=== PATIENT | female | born 1960 | race Caucasian/White ===

== ENCOUNTER 2019-06-02 11:30 | Outpatient (CLI) | payer OTHER ==
[~2019-06-02] VITALS: Ht 154.9 cm; Wt 72.6 kg
[2019-06-02] MEDS ORDERED: AMIT75TA2 PO (11:55)
[2019-06-02] MEDS ORDERED: CLON0.1T PO (11:55)
[2019-06-02] MEDS ORDERED: VENL150T PO (11:55)
== END 2019-06-02 12:29 | disposition home or self-care (01) ==
LOC: PREOP 11:30
PROVIDERS: ATTEND Surgery
DX: Z01.818 Encounter for other preprocedural examination (principal)

== ENCOUNTER 2019-06-07 10:26 | Day surgery (SDC) | payer OTHER ==
[2019-06-07] VITALS (10 sets, daily range): BP systolic 105–173; BP diastolic 72–96
[~2019-06-07] VITALS: Ht 154.9 cm; Wt 72.6 kg
[~2019-06-07 10:26] MED LIST: AMIT75TA2 PO; CLON0.1T PO; LACTATED RINGERS 1,000 ML IV ONE; VENL150T PO
[2019-06-07] MEDS ORDERED: LACTATED RINGERS 1,000 ML IV STA (10:37)
[2019-06-07] MEDS ORDERED: HURRICAINE EXT TUBE (BENZOCAINE) XX PRN (10:45)
--- NOTE | 2019-06-07 11:11 | Progress Note-Pre Operative ---
Pre-Operative Progress Note H&P Reviewed The H&P was reviewed, patient examined and no changes noted. Time Seen by Provider: 11:08 Date H&P Reviewed: Jun 07, 2019 Time H&P Reviewed: 11:07 Pre-Operative Diagnosis: Dysphagia, Hx of polyps LEE ANN KILLIAN DO Jun 07, 2019 11:10
[2019-06-07] MEDS ORDERED: PROPOFOL INJECTION 50 ML IV ONE ×2 (12:13→12:31)
[2019-06-07] MEDS ORDERED: MIDAZOLAM 2 MG/2 ML (VERSED) VIAL ONE (12:13)
[2019-06-07] MEDS ORDERED: HURRICAINE EXT TUBE (BENZOCAINE) ONE (12:31)
--- NOTE | 2019-06-07 12:46 | Anesthesia-General Post-Op ---
MAC Patient Condition Mental Status/LOC: Same as Preop Cardiovascular: Satisfactory Nausea/Vomiting: Absent Respiratory: Satisfactory Pain: Controlled Complications: Absent Post Op Complications Complications None Follow Up Care/Instructions Patient Instructions None needed. Anesthesiology Discharge Order Discharge Order Patient is doing well, no complaints, stable vital signs, no apparent adverse anesthesia problems. No complications reported per nursing. SOPHIA YEBOAH CRNA Jun 07, 2019 12:46
--- NOTE | 2019-06-07 12:55 | Progress Note-Post Operative ---
Post-Operative Progess Note Surgeon (s)/First Dyer (s) Surgeon LEE ANN KILLINA DO First [place]yer: none Pre-Operative Diagnosis Dysphagia, Hx of polyps Post-Operative Diagnosis Gastritis Esophageal Ulcer polyp internal hemorrhoids poor prep Procedure & Operative Findings Date of Procedure 06/07/19 Procedure Performed/Findings EGD with bx Colon with hot bx Anesthesia Type IV sedation by HOSPICE ENTRANCE ATTENDANT Estimated Blood Loss Estimated blood loss (mL): scant Specimens/Packing Specimens Removed antal bx GE jxn bx mid esophageal bx ascending colon bx LEE ANN KILLIAN DO Jun 07, 2019 12:55
--- NOTE | 2019-06-07 12:57 | Endoscopy Discharge Instruct ---
Endo Procedure/Findings Findings 1.: Gastritis, Other Findings (?esophageal ulcer) 2.: Polyp 3.: Internal Hemorrhoids Discharge Instructions - Activity: You might feel a little sleepy until tomorrow. This is due to the medicine you received to relax you. Until tomorrow, you should: NOT drive a car, operate machinery or power tools. NOT drink any alcoholic beverages. NOT make any important decisions or sign importortant papers. Do not return to work until tomorrow, unless otherwise instructed. Resume previous activities tomorrow. Diet: Start by taking liquids. If you tolerate liquids, advance to solid food. make an appointment for one week 1.: Colonoscopy in 1 year, EGD in 6-8 weeks Notify Physician - If you experience excessive bleeding, unusual abdominal pain, fever, or chest pain, contact your doctor immediately. LEE ANN KILLIAN DO Jun 07, 2019 12:57
--- NOTE | 2019-06-08 02:19 | OPERATIVE REPORT ---
DATE OF SERVICE: 06/07/2019 PREOPERATIVE DIAGNOSES: 1. Dysphagia. 2. Personal history of colon polyps. POSTOPERATIVE DIAGNOSES: 1. Gastritis. 2. Esophageal ulcer. 3. Colon polyp. 4. Internal hemorrhoids. 5. Poor prep. PROCEDURES: 1. EGD with biopsy. 2. Colonoscopy with hot biopsy. SURGEON: Chris Taveras DO HOGSHEAD HEAD MATCHER: None. ANESTHESIA: IV sedation by the LITERACY COORDINATOR. SPECIMEN: Biopsy from the antrum, biopsy from the GE junction and mid esophageal biopsy, as well as then hot biopsy of a polyp from the ascending colon. BLOOD LOSS: Scant. FLUIDS: Per anesthesia. POSTOPERATIVE CONDITION: Stable. INDICATION FOR PROCEDURE: The patient is a 58-year-old female who had some dysphagia, complains of food getting stuck in the esophagus. She also has a personal history of colon polyps and has not had a colonoscopy in over 8 years, needed one for surveillance. FINDINGS: The patient had some gastritis. She also had what looked like an esophageal ulcer. In the colon, she had a polyp in the ascending colon and some internal hemorrhoids, but she also had very poor prep, so could not clear the entire colon. PROCEDURE NOTE: After informed consent was obtained, the patient was brought to the endoscopy suite and placed in the left lateral decubitus position. She was administered IV sedation by the LITERACY COORDINATOR who then monitored her vitals the entire time, heart rate, blood pressure and pulse ox. Inserted the scope down the mouth through the esophagus into the stomach. Upon entering the stomach, noted some gastritis, pushed into the duodenum. Duodenum looked fine. Pulled back into the antrum, did a biopsy of the antrum. Retroflexed the scope, body of the stomach did not really look that bad. Pulled the scope into the GE junction, did a biopsy of the GE junction. Suctioned the air out and then while pulling the scope up the esophagus saw what looked like a long linear ulcer in the mid esophagus. Elected to do a biopsy here as well and then pulled the scope up the esophagus and out the mouth. Switched camera, switched gloves, went down below, started the colonoscopy. Pushed all the way to about 150 cm, able to get to the cecum, took a picture of appendiceal orifice, noted the ileocecal valve. Unfortunately, there was a lot of retained fecal material, so could not clear all the espinosa. Pulled the scope up the cecum into the ascending colon, in the ascending colon saw small polyp, did a hot biopsy and took this polyp completely out and 2 biopsies and then continued pulling the scope up to the hepatic flexure, then down the transverse colon, splenic flexure, into the descending colon then down the sigmoid and finally into the rectum. Unfortunately, again all throughout here had a lot of retained fecal material mostly liquid, but did have some large pieces could not suction it all out. In the rectum, retroflexed the rectal vault, saw some minimal internal hemorrhoids and then removed the scope. The patient tolerated the procedure, recovered in endoscopy suite. Job ID: [id number] DocumentID: [id number] Dictated Date: 06/07/2019 17:00:58 Underground Distribution Engineer Date: 06/08/2019 01:14:03 Dictated By: CHRIS TAVERAS DO
== END 2019-06-07 14:00 | disposition home or self-care (01) ==
LOC: ENDO 10:26
PROVIDERS: ATTEND Surgery
DX: K29.50 Unspecified chronic gastritis without bleeding (principal); K20.9 Esophagitis, unspecified; D12.2 Benign neoplasm of ascending colon; K64.8 Other hemorrhoids; M19.90 Unspecified osteoarthritis, unspecified site; F41.8 Other specified anxiety disorders; Z87.891 Personal history of nicotine dependence; Z79.899 Other long term (current) drug therapy

== ENCOUNTER → 2019-07-19 | Outpatient (CLI) | payer MEDICAID, OTHER ==
[~2019-07-19] MED LIST changes: +BARIUM SUSPENSION 105% (LIQUID POLIBAR PLUS) 240 ML/DOSE PO ONE; +BARIUM SUSPENSION 60% (LIQUID EZ PAQUE) 240 ML DOSE PO ONE; -LACTATED RINGERS 1,000 ML IV ONE
--- NOTE | 2019-07-19 12:30 | Diagnostic Imaging Report ---
INDICATION: Dysphagia. FINDINGS: A double contrast esophagram was performed. The preliminary radiograph demonstrates clear lungs. The heart size is normal. The esophageal motility was assessed fluoroscopically. There are no intrinsic or extrinsic esophageal masses. There is satisfactory efficacy of the primary peristaltic wave. The esophageal mucosa is unremarkable. There was no significant gastroesophageal reflux appreciated despite evocative maneuvers. IMPRESSION: Unremarkable double contrast esophagram. Dictated by: Dictated on workstation # [id number]
== END ==
LOC: RAD 10:49
PROVIDERS: ATTEND Family Medicine
DX: K20.9 Esophagitis, unspecified (principal)
CPT/HCPCS: 74220

== ENCOUNTER → 2019-08-04 | Outpatient (CLI) | payer OTHER ==
[~2019-08-04] MED LIST changes: -BARIUM SUSPENSION 105% (LIQUID POLIBAR PLUS) 240 ML/DOSE PO ONE; -BARIUM SUSPENSION 60% (LIQUID EZ PAQUE) 240 ML DOSE PO ONE
[2019-08-04 13:17] LABS: ALANINE AMINOTRANSFERASE 11 U/L (0-55); ALBUMIN 4.4 GM/DL (3.2-4.5); ALKALINE PHOSPHATASE 117 U/L (40-136); BILIRUBIN,TOTAL 0.2 MG/DL (0.1-1.0); BUN/CREATININE RATIO 16; CALCIUM 10.4 MG/DL (8.5-10.1); CARBON DIOXIDE 28 MMOL/L (21-32); CHLORIDE 97 MMOL/L (98-107); CREATININE SERUM 0.79 MG/DL (0.60-1.30); GFR ESTIMATED > 60; GLUCOSE 73 MG/DL (70-105); POTASSIUM 4.2 MMOL/L (3.6-5.0); SODIUM 138 MMOL/L (135-145); TOTAL PROTEIN 8.5 GM/DL (6.4-8.2)
[2019-08-04 13:30] LABS: WHITE BLOOD COUNT 9.3 10^3/uL (4.3-11.0)
[2019-08-04 13:31] LABS: HEMOGLOBIN 12.6 G/DL (11.5-16.0); MEAN PLATELET VOLUME 8.6 FL (7.4-10.4); RED CELL DISTRIBUTION WIDTH 16.3 % (10.0-14.5)
== END ==
LOC: LAB FS 11:45
DX: R20.0 Anesthesia of skin (principal); W19.XXXA Unspecified fall, initial encounter
CPT/HCPCS: 36415; 80053; 82525; 82607; 83036; 83921; 85027; 85652; 86334; 86618

== ENCOUNTER 2019-08-30 05:52 | Outpatient (CLI) | payer OTHER ==
[~2019-08-30] VITALS: Ht 154.9 cm; Wt 73.2 kg
== END 2019-08-30 14:56 ==
LOC: PREOP 05:52
PROVIDERS: ATTEND Surgery
DX: Z01.818 Encounter for other preprocedural examination (principal)

== ENCOUNTER 2019-09-03 16:21 | Emergency (ER) | payer OTHER ==
[~2019-09-03] VITALS: Ht 155.8 cm; Wt 75.4 kg
--- NOTE | 2019-09-03 16:48 | ED EENT ---
History of Present Illness General Chief Complaint: Dental Problems/Pain Stated Complaint: MOUTH PAIN History of Present Illness Date Seen by Provider: Sep 03, 2019 Time Seen by Provider: 16:30 Initial Comments The patient is a 58-year-old female who presents for evaluation of dental discomfort in association with an impacted right mandibular wisdom tooth. No fevers, nausea or vomiting, trismus, swelling or pain to the floor the mouth or elevation of the tongue, difficulty swallowing or breathing, shortness of breath. Patient is speaking comfortably in full sentences in no distress upon initial assessment in the emergency department. She states discomfort has been going on for about a month but has gotten quite a bit worse recently. She states she has been told she will need an oral surgeon to fix this problem but has not been able to afford one. Allergies and Home Medications Allergies Coded Allergies: No Known Drug Allergies (Unverified , 06/02/19) Home Medications Amitriptyline HCl 75 Mg Tablet, 300 MG PO HS, (Reported) take 4 (75mg) tabs Clonidine HCl 0.1 Mg Tablet, 0.1 MG PO QID PRN for ANXIETY, (Reported) Venlafaxine HCl 150 Mg Tab.er.24, 150 MG PO BID, (Reported) Patient Home Medication List Home Medication List Reviewed: Yes Review of Systems Review of Systems Constitutional: see HPI All Other Systems Reviewed Negative Unless Noted: Yes (Negative excepted noted.) Past Tdvtjzy-Unlivg-Opjwvg Hx Past Med/Social Hx: Reviewed Nursing Past Med/Soc Hx Patient Social History Former Smoker, Quit: Jun 02, 2011 Recent Foreign Travel: No Contact w/Someone Who Travel: No Recent Hopitalizations: No Seasonal Allergies Seasonal Allergies: Yes Past Medical History Surgeries: Yes (tubal , hernia) Gallbladder Respiratory: No Cardiac: No Neurological: No Genitourinary: No Gastrointestinal: Yes (gastritis) Polyps Musculoskeletal: No Endocrine: No HEENT: No Cancer: No Psychosocial: Yes Sleep Difficulties, Anxiety Integumentary: No Blood Disorders: No Family Medical History Reviewed Nursing Family Hx Physical Exam Vital Signs Vital Signs - First Documented 09/03/19 16:28 Temp 36.0 Pulse 104 Resp 20 B/P (MAP) 154/97 (116) Pulse Ox 99 O2 Delivery Room Air Height, Weight, BMI Height: '" Weight: lbs. oz. kg; 30.50 BMI Method: General Appearance: no apparent distress This is an older female appearing nontoxic and in no acute distress. Head is normocephalic and atraumatic. Neck is supple and nontender. Oropharynx is moist. There is an impacted right mandibular molar with very mild surrounding localized erythema without fluctuance suggestive of abscess or any other acute intraoral abnormality. Patient is speaking comfortably in full sentences in a normal tone of voice and tolerating secretions well. Lungs are clear to auscultation at all stations. There is a normal S1 and S2 without rubs or gallops and capillary refill is appropriate, less than 2 seconds globally. Abdomen is soft, nontender and nondistended. Skin is warm and dry without cyanosis, clubbing or edema. Psychiatrically, the patient didn't strays appropri ate mood and affect and is alert. Progress/Results/Core Measures Results/Orders My Orders Orders - SAMUEL ALMONTE MD Ketorolac Injection (Toradol Injection) (09/03/19 17:00) Tramadol Tablet (Ultram Tablet) (09/03/19 17:00) Vital Signs/I&O 09/03/19 16:28 Temp 36.0 Pulse 104 Resp 20 B/P (MAP) 154/97 (116) Pulse Ox 99 O2 Delivery Room Air Progress Progress Note : Time: 16:46 Progress Note No red flags for dental pain today. We'll treat symptomatically as noted and will prescribe penicillin and some medication for discomfort. Patient is counseled to follow up very closely with a dentist and to try to get in with an oral surgeon as already encouraged to do. She understands that if she feels worse is that of better or develops other new symptoms of concern that she should return to the emergency department right away for reevaluation. All questions are answered. Departure Impression Primary Impression: Impacted molar Disposition: HOME, SELF-CARE Condition: Improved Departure-Patient Inst. Referrals: SELF,BENNY ABBOTT (PCP/Family) Primary Care Physician Patient Instructions: Dental Pain Add. Discharge Instructions: Use the medication as prescribed. Follow up closely with your dentist and see the oral surgeon as instructed for treatment of your impacted wisdom tooth. Return right away for worsened symptoms or other new concerns. SAMUEL ALMONTE MD Sep 03, 2019 16:48
[2019-09-03] MEDS ORDERED: MORPHINE IR PO (16:53)
[2019-09-03] MEDS ORDERED: IBUP-1780 PO (16:53)
[2019-09-03] MEDS ORDERED: PENI250T2 PO (16:53)
[2019-09-03] MEDS ORDERED: KETOROLAC 60 MG/2 ML VIAL IM ONE (17:00)
[2019-09-03 17:05] VITALS: BP 135/87
--- NOTE | 2019-09-03 17:05 | NUR ---
Staff members went to [facility] to talk with their pharmacy as pt with no money after [employer] shopping and needs to get antibiotic as priority, then Ibuprofen and followed by Morphine as 3rd in importance. Pt will go to [facility] Pharmacy as referral was made and they will discuss what she can charge.
== END 2019-09-03 17:05 | disposition home or self-care (01) ==
LOC: EDUNIT# 16:21 → ER FS 16:22
DX: K01.1 Impacted teeth (principal); F41.9 Anxiety disorder, unspecified; Z87.891 Personal history of nicotine dependence
CPT/HCPCS: 96372; 99284

== ENCOUNTER 2019-09-06 06:55 | Inpatient (IN) | payer OTHER ==
[~2019-09-06] VITALS: Ht 154.9 cm; Wt 78.0 kg
[2019-09-06] VITALS (7 sets, daily range): BP systolic 108–121; BP diastolic 64–76
[~2019-09-06 06:55] MED LIST changes: +IBUP-1780 PO; +MORPHINE IR PO; +PENI250T2 PO
[2019-09-06] MEDS ORDERED: LACTATED RINGERS 1,000 ML IV ONE (07:00)
[2019-09-06] MEDS ORDERED: RT-LEVALBUTEROL (XOPENEX) 1.25 MG/3 ML NEB NON-FORMULARY ONE (07:43)
[2019-09-06] MEDS ORDERED: RT-ALBUTEROL SULF 2.5 MG/3 ML PRE-MIX VIAL INH PRN ×2 (07:45→17:00)
[2019-09-06] MEDS ORDERED: LACTATED RINGERS 1,000 ML IV STA (07:50)
[2019-09-06] MEDS ORDERED: HURRICAINE EXT TUBE (BENZOCAINE) XX PRN (08:00)
--- NOTE | 2019-09-06 08:05 | Progress Note-Pre Operative ---
Pre-Operative Progress Note H&P Reviewed The H&P was reviewed, patient examined and no changes noted. Time Seen by Provider: 07:57 Date H&P Reviewed: Sep 06, 2019 Time H&P Reviewed: 07:58 Pre-Operative Diagnosis: Chronic Gastritis LEE ANN KILLIAN DO Sep 06, 2019 08:05
[2019-09-06] MEDS ORDERED: PIPERACILLIN/TAZOBACTAM (BULK) 4.5 GM in NS (IVPB) 100 ML IV NR (09:45)
--- NOTE | 2019-09-06 09:55 | NUR ---
REPORT RECEIVED FROM EVANGELINA PALOMO.
--- NOTE | 2019-09-06 10:15 | NUR ---
DANIELLE STONE admitted to room , with an admitting diagnosis of SEPSIS DUE TO PNE, on 09/06/19 from ENDO via STRETCHER, accompanied by STAFF. DANIELLE STONE introduced to surroundings, call light, bed controls, phone, TV, temperature control, lights, meal times, smoking policy, visitor policy, side rail policy, bathrooms and showers. Patient Rights given to patient in the handbook. DANIELLE STONE verbalizes understanding that [facility] is not responsible for the loss or damage to any personal effects or valuables that are kept in the patients possession during their hospitalization. DANIELLE STONE verbalizes understanding of Interdisciplinary Patient Education. Patient WAS informed about the Rapid Response Team and its purpose.
[2019-09-06 10:23] LABS: BASOPHILS % (AUTO) 0 % (0-10); EOSINOPHILS # (AUTO) 0.1 10^3/uL (0.0-0.3); EOSINOPHILS % (AUTO) 1 % (0-10); HEMATOCRIT 31 % (35-52); HEMOGLOBIN 9.7 G/DL (11.5-16.0); LYMPHOCYTES # (AUTO) 0.9 X 10^3 (1.0-4.0); LYMPHOCYTES % (AUTO) 6 % (12-44); MEAN CORPUSCULAR HEMOGLOBIN 25 PG (25-34); MEAN CORPUSCULAR HGB CONC 31 G/DL (32-36); MEAN CORPUSCULAR VOLUME 82 FL (80-99); MEAN PLATELET VOLUME 8.8 FL (7.4-10.4); MONOCYTES # (AUTO) 0.8 X 10^3 (0.0-1.0); MONOCYTES % (AUTO) 5 % (0-12); NEUTROPHILS # (AUTO) 13.2 X 10^3 (1.8-7.8); NEUTROPHILS % (AUTO) 88 % (42-75); PLATELET COUNT 296 10^3/uL (130-400); RED CELL DISTRIBUTION WIDTH 16.5 % (10.0-14.5)
[2019-09-06 10:46] LABS: ALANINE AMINOTRANSFERASE 19 U/L (0-55); ALBUMIN 3.8 GM/DL (3.2-4.5); ALKALINE PHOSPHATASE 85 U/L (40-136); BILIRUBIN,TOTAL 0.3 MG/DL (0.1-1.0); BUN/CREATININE RATIO 15; CALCIUM 9.1 MG/DL (8.5-10.1); CARBON DIOXIDE 22 MMOL/L (21-32); CHLORIDE 105 MMOL/L (98-107); CREATININE SERUM 0.78 MG/DL (0.60-1.30); GFR ESTIMATED > 60; GLUCOSE 110 MG/DL (70-105); SODIUM 136 MMOL/L (135-145); TOTAL PROTEIN 6.9 GM/DL (6.4-8.2)
[2019-09-06 10:49] LABS: ANISOCYTOSIS SLIGHT; BAND NEUTROPHILS 15 %; BASOPHILS % (MANUAL) 0 %; EOSINOPHILS % (MANUAL) 0 %; LYMPHOCYTES % (MANUAL) 5 %; MONOCYTES % (MANUAL) 1 %; NEUTROPHILS % (MANUAL) 79 %
--- NOTE | 2019-09-06 11:46 | Progress Note ---
Standard Progress Note Progress Notes/Assess & Plan Date Seen by a Provider: Sep 06, 2019 Time Seen by a Provider: 07:30 Progress/Assessment & Plan Patient arrived to endoscopy around 0700 for her EGD. She was SOB while walking to her room and even after sitting on the bed. History obtained and VS taken. SaO2 84-86%, HR 108, no fever noted on initial check. The patient was placed on O2 at 2L/NC and while at rest, her SaO2 runs 94-96%. Patient reports that she doesn't follow with a brownfield redevelopment specialist or park manager; however, she experiences chest pain and SOB, FORRESTER. Her PCP is Dr. Arzola in [place]. She takes medications for hypertension and depression/anxiety. She states she uses her 's inhaler (later found out to be Pro Air). Xopenex breathing treatment and EKG ordered. The patient's was brought to her room to assist with obtaining history. The patient then states that she has been running a fever for a couple days. I rechecked a temperature with a tympanic thermometer and it was 101.6 on recheck. The patient then stated she was seen in [place]'s ER with a fever and possible infected tooth approximately 2 days ago. She was given an oral antibiotic to take every 6 hours and sent home. The patient was unsure what the name of the antibiotic was and she doesn't think they took a chest x-ray at that time. The patient states she has had pneumonia 4-5 times in the past two years, each time, requiring hospitalization up to 1 week (in [place]). The patient denies ever being on the ventilator for pneumonia. Dr. Taveras ordered a chest x-ray. Chest x-ray results showed right upper and lower lobe pneumonia, reported to me by Dr. Medellin himself. I reported this to Dr. Taveras who then ordered a consult with Dr. Cummings. We attempted to wean the patient off of O2 in case she were to go home and follow with her PCP on outpatient basis, but she was unable to maintain SaO2 > 90% without O2. I called Dr. Cummings directly and gave him the patient's history. Orders were obtained for a direct admit to [facility], labs, and Zosyn IV q 8 hours. Brim Buster was called with a room number of 405. COLUMBA Rowe was called with a full report. Focused Exam Lactate Level 09/06/19 10:10: Lactic Acid Level 1.53 Lactic Acid Level Laboratory Tests Test 09/06/19 10:10 Lactic Acid Level 1.53 MMOL/L (0.50-2.00) DEWEY RICHARDS CRNA Sep 06, 2019 11:46
[2019-09-06] MEDS ORDERED: ONDANSETRON 4 MG (ZOFRAN) ORAL DISSOLVE TAB PO PRN (12:45)
[2019-09-06] MEDS ORDERED: BISACODYL 10 MG SUPP (DULCOLAX) PR PRN (12:45)
[2019-09-06] MEDS ORDERED: MILK OF MAGNESIA 400 MG/5 ML 30 ML UDC PO PRN (12:45)
[2019-09-06] MEDS ORDERED: POLYETHYLENE GLYCOL 17 GM (MIRALAX) PACK PO PRN (12:45)
[2019-09-06] MEDS ORDERED: ACETAMINOPHEN 325 MG TABLET PO PRN (12:45)
[2019-09-06] MEDS ORDERED: MELATONIN 3 MG TABLET PO PRN (12:45)
[2019-09-06] MEDS ORDERED: ANTACID SUSP 30 ML UDC (MYLANTA) PO PRN (12:45)
[2019-09-06] MEDS ORDERED: ONDANSETRON 4 MG/2 ML (SDV) Z0FRAN IV PRN (12:45)
[2019-09-06] MEDS ORDERED: LACTATED RINGERS IV PRN (12:45)
[2019-09-06] MEDS ORDERED: diphenhydrAMINE 25 MG TAB (BENADRYL) PO PRN (13:00)
[2019-09-06] MEDS: LACTATED RINGERS 1,000 ML IV SCH ×2 (13:27→22:04)
[2019-09-06] MEDS: ENOXAPARIN 40 MG/0.4 ML (LOVENOX) SYR SC SCH (13:48)
--- NOTE | 2019-09-06 14:22 | History & Physical-Hospitalist ---
History of Present Illness HPI/Chief Complaint Regina Temple is a 58yoF with PMH depression, anxiety, GERD, former smoker, who presented from same day surgery for an upper endoscopy and directly admitted for sepsis due to pneumonia. She had an upper endoscopy about a month ago which revealed gastritis and she arrived today for repeat endoscopy. She reports that she has been feeling sick for several days. She reports fevers. She has also been feeling short of breath which has been worsening with minimal exertion. She reports cough productive of phlegm. She denies chest pain. She denies nausea, vomiting, abdominal pain, and diarrhea. Source: patient Exam Limitations: no limitations Date Seen 09/06/19 Time Seen by a Provider: 12:00 Attending Physician Chris Taveras DO PCP Self,Nick ABBOTT Referring Physician Date of Admission Home Medications & Allergies Home Medications Reviewed patient Home Medication Reconciliation performed by pharmacy medication reconciliations isotope technician and/or nursing. Patients Allergies have been reviewed. Allergies Allergies Coded Allergies No Known Drug Allergies (Unverified06/02/19) Past Atikemw-Ormgoc-Unleaq Hx Past Med/Social Hx: Reviewed Nursing Past Med/Soc Hx Patient Social History Alcohol Use: Denies Use Recreational Drug Use: No Smoking Status: Former Smoker Former Smoker, Quit: Jun 02, 2011 Physical Abuse Screen: No Sexual Abuse: No Recent Foreign Travel: No Contact w/other who traveled: No Recent Hopitalizations: No Recent Infectious Disease Expo: No Immunizations Up To Date Date of Pneumonia Vaccine: Aug 15, 2016 Seasonal Allergies Seasonal Allergies: Yes Past Medical History Surgeries: Gallbladder Cardiac: High Cholesterol Gastrointestinal: Gastroesophageal Reflux, Polyps Psychosocial: Sleep Difficulties, Anxiety, Bipolar, Depression History of Blood Disorders: No Family History Bipolar disorder G8 BROTHER G8 SISTER Hypertension 19 MOTHER, Review of Systems Constitutional: fever, malaise EENTM: no symptoms reported Respiratory: cough, dyspnea on exertion, phlegm, short of breath Cardiovascular: no symptoms reported Gastrointestinal: no symptoms reported Genitourinary: no symptoms reported Musculoskeletal: no symptoms reported Skin: no symptoms reported Psychiatric/Neurological: No Symptoms Reported Physical Exam Physical Exam Vital Signs Vital Signs - First Documented 09/06/19 09/06/19 07:52 08:01 Temp 37.2 Pulse 108 Resp 20 B/P (MAP) 111/67 (82) Pulse Ox 88 O2 Delivery Room Air O2 Flow Rate 4.00 Capillary Refill : Height, Weight, BMI Height: '" Weight: lbs. oz. kg; 31.34 BMI Method: General Appearance: No Apparent Distress, WD/WN HEENT: PERRL/EOMI, Pharynx Normal Neck: Normal Inspection, Supple Respiratory: No Accessory Muscle Use, No Respiratory Distress, Decreased Breath Sounds, Wheezing Cardiovascular: Regular Rate, Rhythm, No Edema, No Murmur Gastrointestinal: Normal Bowel Sounds, Non Tender, Soft Extremity: Non Tender, Other (bilateral ankle masses on the anterior, proximal portion of the ankle/foot) Neurologic/Psychiatric: Alert, Oriented x3, No Motor/Sensory Deficits, Normal Mood/Affect Skin: Normal Color, Warm/Dry Lymphatic: No Adenopathy Results Results/Procedures Labs Laboratory Tests 09/06/19 10:10 Patient resulted labs reviewed. Imaging: Reviewed Imaging Films, Reviewed Imaging Report Assessment/Plan Admission Diagnosis Sepsis due to pneumonia Admission Status: Inpatient Order (span 2 midnights) Reason for Inpatient Admission: Sepsis and CAP requiring IV antibiotics Assessment and Plan Acute respiratory failure with hypoxia Multifocal pneumonia - SIRS+ with fever, tachypnea, tachycardia, and leukocytosis - CXR with multifocal pneumonia - Started on Zosyn - Given fluid bolus, continue maintenance fluids - Blood cultures drawn - MAT protocol ordered GERD Gastritis - Pantoprazole DVT Prophylaxis: Lovenox Diagnosis/Problems Diagnosis/Problems (1) Sepsis due to pneumonia Status: Acute Clinical Quality Measures DVT/VTE Risk/Contraindication: Risk Factor Score Per Nursin RFS Level Per Nursing on Admit: 4+=Very High VALENTINO DECKER MD Sep 06, 2019 14:22
[2019-09-06] MEDS: PIPERACILLIN/TAZOBACTAM (BULK) 4.5 GM in NS (IVPB) 100 ML IV SCH ×2 (15:07→23:56)
--- NOTE | 2019-09-06 15:36 | Diagnostic Imaging Report ---
INDICATION: Fever and hypoxia. Time of exam: 8:45 AM Correlation is made with prior chest from 07/19/2019. Heart size normal. Airspace infiltrate is identified in the right upper and right lower lobe most consistent with pneumonia. This is greatest in the right base. There is minimal patchy infiltrate left base. No effusion is seen. There is no pneumothorax. IMPRESSION: Bilateral pulmonary infiltrates, right greater and most consistent with pneumonia. Dictated by: Dictated on workstation # [id number]
[2019-09-06] MEDS ORDERED: cloNIDine 0.1 MG (CATAPRES) TAB PO PRN (17:45)
[2019-09-06] MEDS: RT-ALBUTEROL/IPRATROPIUM 3 ML (DUONEB) VIAL INH SCH ×2 (19:37→21:28)
[2019-09-06] MEDS: DOCUSATE SODIUM 100 MG (COLACE) CAP PO SCH (20:48)
[2019-09-06] MEDS: SENNOSIDES 8.6 MG (SENOKOT) TAB PO SCH (20:48)
[2019-09-06] MEDS: PANTOPRAZOLE 40 MG (PROTONIX) TAB PO SCH (20:48)
[2019-09-06] MEDS ORDERED: NON-FORMULARY MEDICATION 1 EA EA (Venlafaxine HCl (Venlafaxine HCl ER) 150 MG) PO SCH (21:00)
[2019-09-06] MEDS ORDERED: AMITRIPTYLINE 150 MG (ELAVIL) TABLET PO SCH (21:00)
[2019-09-06] MEDS ORDERED: AMITRIPTYLINE HCL PO SCH (21:00)
[2019-09-07] MEDS: RT-ALBUTEROL/IPRATROPIUM 3 ML (DUONEB) VIAL INH SCH ×6 (01:44→21:33)
[2019-09-07 04:50] VITALS: BP 97/65
[2019-09-07 06:09] LABS: BASOPHILS % (AUTO) 0 % (0-10); EOSINOPHILS # (AUTO) 0.4 10^3/uL (0.0-0.3); EOSINOPHILS % (AUTO) 3 % (0-10); HEMATOCRIT 29 % (35-52); HEMOGLOBIN 8.8 G/DL (11.5-16.0); LYMPHOCYTES # (AUTO) 2.1 X 10^3 (1.0-4.0); LYMPHOCYTES % (AUTO) 18 % (12-44); MEAN CORPUSCULAR HEMOGLOBIN 26 PG (25-34); MEAN CORPUSCULAR HGB CONC 31 G/DL (32-36); MEAN CORPUSCULAR VOLUME 83 FL (80-99); MEAN PLATELET VOLUME 8.9 FL (7.4-10.4); MONOCYTES # (AUTO) 0.7 X 10^3 (0.0-1.0); MONOCYTES % (AUTO) 6 % (0-12); NEUTROPHILS # (AUTO) 8.6 X 10^3 (1.8-7.8); NEUTROPHILS % (AUTO) 73 % (42-75); PLATELET COUNT 277 10^3/uL (130-400); RED CELL DISTRIBUTION WIDTH 16.5 % (10.0-14.5); WHITE BLOOD COUNT 11.8 10^3/uL (4.3-11.0)
[2019-09-07] MEDS: VENlafaxine XR 75 MG (EFFEXOR XR) CAP PO SCH ×2 (06:18→16:12)
[2019-09-07 06:29] LABS: BUN/CREATININE RATIO 12; CALCIUM 8.9 MG/DL (8.5-10.1); CARBON DIOXIDE 25 MMOL/L (21-32); CHLORIDE 106 MMOL/L (98-107); CREATININE SERUM 0.74 MG/DL (0.60-1.30); GFR ESTIMATED > 60; GLUCOSE 94 MG/DL (70-105); POTASSIUM 3.6 MMOL/L (3.6-5.0); SODIUM 140 MMOL/L (135-145)
--- NOTE | 2019-09-07 07:07 | NUR ---
SPO2 86% ON ROOM AIR AT REST. REPLACED O2 @ 3 LPM. SPO2 INCREASED TO 96%.
--- NOTE | 2019-09-07 07:54 | Consultation - Surgery ---
CHANTAL JAUREGUI,MED STUDENT 09/07/19 0754: History of Present Illness History of Present Illness Patient Consulted On(maximiliano/time) 09/07/19 07:47 Date Seen by Provider: Sep 07, 2019 Time Seen by Provider: 07:30 Reason for Visit: COPDAE History of Present Illness This 58 y.o female presented to same day surgery yesterday for a repeat EGD for her chronic gastritis. During her evaluation by anesthesia patient was found to be shortness of breath with an O2 saturation of 84%. Per , patient was h aving increased work of breathing. Patient reports that she had not been feeling well for a couple of days before yesterday. Today patient says that she feels a little better but is still SOB on 4L of oxygen. Patient is a poor historian Allergies and Home Medications Allergies Coded Allergies: No Known Drug Allergies (Unverified , 06/02/19) Home Medications Cholecalciferol (Vitamin D3) 2,000 Unit Capsule, 2,000 UNIT PO DAILY, (Reported) Clonazepam 1 Mg Tablet, 1 MG PO BID, (Reported) Ergocalciferol (Vitamin D2) 50,000 Unit Capsule, 50,000 UNIT PO WEEK, (Reported) Ferrous Sulfate 325 Mg Tablet, 325 MG PO DAILY, (Reported) Furosemide 20 Mg Tablet, 20 MG PO twice weekly PRN for swelling, (Reported) Levothyroxine Sodium 25 Mcg Tablet, 25 MCG PO DAILY, (Reported) Venlafaxine HCl 150 Mg Tab.er.24, 150 MG PO BID, (Reported) Past Qlhrqod-Zrgrvu-Nbpguo Hx Patient Social History Alcohol Use: Denies Use Recreational Drug Use: No Smoking Status: Former Smoker (1.5ppd for 20yrs) Former Smoker, Quit: Jun 02, 2011 Type Used: Cigarettes Recent Foreign Travel: No Contact w/Someone Who Travel: No Recent Infectious Disease Expo: No Recent Hopitalizations: No Physical Abuse Screen: No Sexual Abuse: No Immunizations Up To Date Date of Pneumonia Vaccine: Aug 15, 2016 Seasonal Allergies Seasonal Allergies: Yes Surgeries History of Surgeries: Yes (tubal , hernia, bilat carpal tunnel) Surgeries: Gallbladder Respiratory History of Respiratory Disorde: Yes (COPD) Respiratory Disorders: Emphysema Cardiovascular History of Cardiac Disorders: Yes Cardiac Disorders: High Cholesterol Neurological History of Neurological Disord: No Genitourinary History of Genitourinary Disor: No Gastrointestinal History of Gastrointestinal Di: Yes (gastritis) Gastrointestinal Disorders: Gastroesophageal Reflux, Polyps Musculoskeletal History of Musculoskeletal Dis: No Endocrine History of Endocrine Disorders: Yes HEENT History of HEENT Disorders: No Cancer History of Cancer: No Psychosocial History of Psychiatric Problem: Yes Behavioral Health Disorders: Sleep Difficulties, Anxiety, Bipolar, Depression Integumentary History of Skin or Integumenta: No Blood Transfusions History of Blood Disorders: No Family Medical History Family Medial History: Bipolar disorder G8 BROTHER G8 SISTER Hypertension 19 MOTHER, Neoplasm 19 MOTHER, (bladder cancer) Review of Systems-General Constitutional: dizziness, malaise, weakness Respiratory: No cough; dyspnea on exertion; No phlegm; short of breath Cardiovascular: No chest pain, No edema, No Hx of Intervention, No palpitations Gastrointestinal: No RUQ, No LUQ; RLQ, LLQ, abdominal pain; No loss of appetite; nausea; No vomiting Genitourinary: No dysuria, No frequency Musculoskeletal: No muscle pain; muscle stiffness; No muscle weakness Psychiatric/Neurological: Anxiety, Depressed Physical Exam-General Problems Physical Exam Vital Signs Vital Signs - First Documented 09/06/19 09/06/19 09/06/19 07:52 08:01 13:49 Temp 37.2 Pulse 108 Resp 20 B/P (MAP) 111/67 (82) Pulse Ox 88 O2 Delivery Room Air O2 Flow Rate 4.00 FiO2 21 Capillary Refill : General Appearance: WD/WN, no apparent distress, obese HEENT: PERRL/EOMI; No scleral icterus (R), No scleral icterus (L) Neck: non-tender, supple Respiratory: chest non-tender, lungs clear, no respiratory distress, no accessory muscle use, wheezing Cardiovascular: regular rate, rhythm, no edema Peripheral Pulses: 2+ Dorsalis Pedis (R), 2+ Left Dors-Pedis (L), 2+ Radial Pulses (R), 2+ Radial Pulses (L) Gastrointestinal: distended, guarding, tenderness (in the RLQ and LLQ ) Extremities: no pedal edema, no calf tenderness, normal capillary refill Neurologic/Psychiatric: alert, oriented x 3 Skin: normal color, warm/dry Data Review Labs Laboratory Tests 09/06/19 10:10: White Blood Count 15.0H, Red Blood Count 3.82L, Hemoglobin 9.7L, Hematocrit 31L, Mean Corpuscular Volume 82, Mean Corpuscular Hemoglobin 25, Mean Corpuscular Hemoglobin Concent 31L, Red Cell Distribution Width 16.5H, Platelet Count 296, Mean Platelet Volume 8.8, Neutrophils (%) (Auto) 88H, Lymphocytes (%) (Auto) 6L, Monocytes (%) (Auto) 5, Eosinophils (%) (Auto) 1, Basophils (%) (Auto) 0, Neutrophils # (Auto) 13.2H, Lymphocytes # (Auto) 0.9L, Monocytes # (Auto) 0.8, Eosinophils # (Auto) 0.1, Basophils # (Auto) 0.0, Neutrophils % (Manual) 79, Lymphocytes % (Manual) 5, Monocytes % (Manual) 1, Eosinophils % (Manual) 0, Basophils % (Manual) 0, Band Neutrophils 15, Anisocytosis SLIGHT, Sodium Level 136, Potassium Level 4.0, Chloride Level 105, Carbon Dioxide Level 22, Anion Gap 9, Blood Urea Nitrogen 12, Creatinine 0.78, Estimat Glomerular Filtration Rate > 60, BUN/Creatinine Ratio 15, Glucose Level 110H, Lactic Acid Level 1.53, Calcium Level 9.1, Corrected Calcium 9.3, Total Bilirubin 0.3, Aspartate Amino Transf (AST/SGOT) 21, Alanine Aminotransferase (ALT/SGPT) 19, Alkaline Phosphatase 85, Total Protein 6.9, Albumin 3.8, Procalcitonin 0.67H 09/07/19 05:45: White Blood Count 11.8H, Red Blood Count 3.43L, Hemoglobin 8.8L, Hematocrit 29L, Mean Corpuscular Volume 83, Mean Corpuscular Hemoglobin 26, Mean Corpuscular Hemoglobin Concent 31L, Red Cell Distribution Width 16.5H, Platelet Count 277, Mean Platelet Volume 8.9, Neutrophils (%) (Auto) 73, Lymphocytes (%) (Auto) 18, Monocytes (%) (Auto) 6, Eosinophils (%) (Auto) 3, Basophils (%) (Auto) 0, Neutrophils # (Auto) 8.6H, Lymphocytes # (Auto) 2.1, Monocytes # (Auto) 0.7, Eosinophils # (Auto) 0.4H, Basophils # (Auto) 0.0, Sodium Level 140, Potassium L evel 3.6, Chloride Level 106, Carbon Dioxide Level 25, Anion Gap 9, Blood Urea Nitrogen 9, Creatinine 0.74, Estimat Glomerular Filtration Rate > 60, BUN/Creatinine Ratio 12, Glucose Level 94, Calcium Level 8.9 Assessment/Plan Assessment/Plan Assessment/Plan COPDAE chronic gastritis The patient's problems at this time are primarily pulmonary. Continue breathing treatments and abx. EGD for chronic gastritis can be preformed at a later date. Will continue to monitor Clinical Quality Measures DVT/VTE Risk/Contraindication: Risk Factor Score Per Nursin RFS Level Per Nursing on Admit: 4+=Very High CHRIS TAVERAS DO 09/07/19 1501: History of Present Illness History of Present Illness Time Seen by Provider: 11:56 History of Present Illness Pt was supposed to have EGD, but she was found to have pneumonia and admitted to Hospitalist service. She states she is doing better today, still some trouble breathing. Rare abdominal pain. Allergies and Home Medications Allergies Coded Allergies: No Known Drug Allergies (Unverified , 06/02/19) Home Medications Cholecalciferol (Vitamin D3) 2,000 Unit Capsule, 2,000 UNIT PO DAILY, (Reported) Clonazepam 1 Mg Tablet, 1 MG PO BID, (Reported) Ergocalciferol (Vitamin D2) 50,000 Unit Capsule, 50,000 UNIT PO WEEK, (Reported) Ferrous Sulfate 325 Mg Tablet, 325 MG PO DAILY, (Reported) Furosemide 20 Mg Tablet, 20 MG PO twice weekly PRN for swelling, (Reported) Levothyroxine Sodium 25 Mcg Tablet, 25 MCG PO DAILY, (Reported) Venlafaxine HCl 150 Mg Tab.er.24, 150 MG PO BID, (Reported) Patient Home Medication List Home Medication List Reviewed: Yes Past Slcmvtr-Hvwwaq-Halxcy Hx Family Medical History Significant Family History: Cancer, Hypertension Family Medial History: Bipolar disorder G8 BROTHER G8 SISTER Hypertension 19 MOTHER, Neoplasm 19 MOTHER, (bladder cancer) Physical Exam-General Problems Physical Exam Respiratory: decreased breath sounds (right greater than left) Gastrointestinal: normal bowel sounds, soft; No distended; tenderness (in the RLQ and LLQ ) Assessment/Plan Assessment/Plan Assessment/Plan Pneumonia Gastritis & Esophagitis Pt will be rescheduled for EGD once she has been treated for pneumonia. I will sign off and have my office call to set up as an outpt; can resee if pt needs any further surgical care. Supervisory-Addendum Brief Verification & Attestation Participated in pt care: history, physical Personally performed: exam, history, MDM Care discussed with: Medical Student Procedures: n/a Verification and Attestation of Medical Student E/M Service A medical student performed and documented this service in my presence. I reviewed and verified all information documented by the medical student and made modifications to such information, when appropriate. I personally performed the physical exam and medical decision making. Chris Taveras, Sep 07, 2019,15:02 CHANTAL JAUREGUI,MED STUDENT Sep 07, 2019 07:54 CHRIS TAVERAS DO Sep 07, 2019 15:01
[2019-09-07 08:00] VITALS: BP 106/72
[2019-09-07] MEDS ORDERED: FURO-125 PO (08:34)
[2019-09-07] MEDS ORDERED: ERGO50006 PO (08:34)
[2019-09-07] MEDS ORDERED: CLON1TAB13 PO (08:34)
[2019-09-07] MEDS ORDERED: FERR-23 PO (08:34)
[2019-09-07] MEDS ORDERED: CHOL20002 PO (08:34)
[2019-09-07] MEDS ORDERED: LEVO25TA5 PO (08:34)
[2019-09-07] MEDS: PANTOPRAZOLE 40 MG (PROTONIX) TAB PO SCH ×2 (09:13→21:27)
[2019-09-07] MEDS: SENNOSIDES 8.6 MG (SENOKOT) TAB PO SCH ×2 (09:13→21:27)
[2019-09-07] MEDS: LEVOTHYROXINE 25 MCG (LEVOTHROID) TAB PO SCH (09:13)
[2019-09-07] MEDS: DOCUSATE SODIUM 100 MG (COLACE) CAP PO SCH ×2 (09:13→21:27)
[2019-09-07] MEDS: PIPERACILLIN/TAZOBACTAM (BULK) 4.5 GM in NS (IVPB) 100 ML IV SCH ×2 (09:13→16:12)
[2019-09-07] MEDS: clonazePAM 1 MG (KlonoPIN) TAB PO SCH ×2 (09:13→21:27)
--- NOTE | 2019-09-07 11:09 | NUR ---
PT AGAIN FOUND ON ROOM AIR. SPO2 84%. REPLACED O2 @ 3 LPM. SPO2 INCREASED TO 95%.
[2019-09-07 12:00] VITALS: BP 111/69
[2019-09-07] MEDS: LACTATED RINGERS 1,000 ML IV SCH (14:13)
[2019-09-07] MEDS: ENOXAPARIN 40 MG/0.4 ML (LOVENOX) SYR SC SCH (14:49)
--- NOTE | 2019-09-07 14:50 | Progress Note ---
Subjective Subjective/Events-last exam Pt reports she still feels quite poorly today. She notes no history of diagnosis of COPD but uses her 's inhaler at times. She quit smoking 9 years ago. Focused Exam Lactate Level 09/06/19 10:10: Lactic Acid Level 1.53 Objective Exam Last Set of Vital Signs Vital Signs Date Time Temp Pulse Resp B/P (MAP) Pulse Ox O2 Delivery O2 Flow Rate FiO2 09/07/19 13:00 86 09/07/19 12:00 36.7 18 111/69 (83) 97 Nasal Cannula 3.00 09/06/19 13:49 21 Capillary Refill : I&O Intake and Output 09/07/19 00:00 Intake Total 2002 ml Balance 2002 ml Intake Oral 1462 ml IV Total 540 ml # Voids 4 Daily Weight Change No No General: Alert, Mild Distress Lungs: Other (rales on right, decreased air movement throughout) Heart: Regular Rate, No Murmurs Extremities: No Edema Neuro: Normal Speech Psych/Mental Status: Mood NL Results/Procedures Lab Laboratory Tests 09/07/19 05:45: White Blood Count 11.8H, Red Blood Count 3.43L, Hemoglobin 8.8L, Hematocrit 29L, Mean Corpuscular Volume 83, Mean Corpuscular Hemoglobin 26, Mean Corpuscular Hemoglobin Concent 31L, Red Cell Distribution Width 16.5H, Platelet Count 277, Mean Platelet Volume 8.9, Neutrophils (%) (Auto) 73, Lymphocytes (%) (Auto) 18, Monocytes (%) (Auto) 6, Eosinophils (%) (Auto) 3, Basophils (%) (Auto) 0, Neutrophils # (Auto) 8.6H, Lymphocytes # (Auto) 2.1, Monocytes # (Auto) 0.7, Eosinophils # (Auto) 0.4H, Basophils # (Auto) 0.0, Sodium Level 140, Potassium Level 3.6, Chloride Level 106, Carbon Dioxide Level 25, Anion Gap 9, Blood Urea Nitrogen 9, Creatinine 0.74, Estimat Glomerular Filtration Rate > 60, BUN/Creatinine Ratio 12, Glucose Level 94, Calcium Level 8.9 Assessment/Plan Assessment/Plan (1) Sepsis due to pneumonia Status: Acute Assessment & Plan: Requiring 4 lpm supplemental oxygen, febrile overnight, remains tachycardic. Leukocytosis improving this am, no lactic acidosis. Continue zoysn, breathing treatments and IVF. (2) Anemia Status: Acute Assessment & Plan: Check iron studies (3) DVT prophylaxis Status: Acute Assessment & Plan: Enoxaparin Clinical Quality Measures DVT/VTE Risk/Contraindication: Risk Factor Score Per Nursin RFS Level Per Nursing on Admit: 4+=Very High DARRIAN INMNA MD Sep 07, 2019 14:50
[2019-09-07 16:00] VITALS: BP 113/68
[2019-09-07 19:00] VITALS: BP 116/68
--- NOTE | 2019-09-07 20:20 | NUR ---
ASSESSMENT OF PATIENT FOUND IV WAS PARTIALLY PULLED OUT AND KINKED. DUE TO THIS HER FLUIDS HAD NOT BEEN RUNNING. INSERTED NEW IV SUPERIOR TO PREVIOUS ON SAME ARM. PATIENT TOLERATED WELL. IV FLUIDS RESTARTED AND PHARMACY TO BE CONTACTED ZOSYN WILL NEED TO BE RETIMED.
[2019-09-08 00:08] VITALS: BP 112/72
[2019-09-08] MEDS: RT-ALBUTEROL/IPRATROPIUM 3 ML (DUONEB) VIAL INH SCH ×3 (01:29→09:29)
[2019-09-08 04:00] VITALS: BP 109/71
[2019-09-08 04:03] LABS: ABSOLUTE RETIC # 30 10e9/L (24-90); BASOPHILS % (AUTO) 0 % (0-10); EOSINOPHILS # (AUTO) 0.4 10^3/uL (0.0-0.3); EOSINOPHILS % (AUTO) 5 % (0-10); HEMATOCRIT 28 % (35-52); HEMOGLOBIN 8.4 G/DL (11.5-16.0); LYMPHOCYTES # (AUTO) 2.1 X 10^3 (1.0-4.0); LYMPHOCYTES % (AUTO) 26 % (12-44); MEAN CORPUSCULAR HEMOGLOBIN 26 PG (25-34); MEAN CORPUSCULAR HGB CONC 30 G/DL (32-36); MEAN CORPUSCULAR VOLUME 84 FL (80-99); MEAN PLATELET VOLUME 8.9 FL (7.4-10.4); MONOCYTES # (AUTO) 0.6 X 10^3 (0.0-1.0); MONOCYTES % (AUTO) 8 % (0-12); NEUTROPHILS # (AUTO) 4.8 X 10^3 (1.8-7.8); NEUTROPHILS % (AUTO) 61 % (42-75); PLATELET COUNT 281 10^3/uL (130-400); RED CELL DISTRIBUTION WIDTH 16.6 % (10.0-14.5); RETICULOCYTE % 0.91 % (0.50-2.40); WHITE BLOOD COUNT 7.9 10^3/uL (4.3-11.0)
[2019-09-08 04:22] LABS: BUN/CREATININE RATIO 9; CALCIUM 8.9 MG/DL (8.5-10.1); CARBON DIOXIDE 25 MMOL/L (21-32); CHLORIDE 107 MMOL/L (98-107); CREATININE SERUM 0.75 MG/DL (0.60-1.30); GFR ESTIMATED > 60; GLUCOSE 90 MG/DL (70-105); SODIUM 143 MMOL/L (135-145)
[2019-09-08 05:09] LABS: EOSINOPHILS % (MANUAL) 4 %; LYMPHOCYTES % (MANUAL) 28 %; MONOCYTES % (MANUAL) 5 %; NEUTROPHILS % (MANUAL) 63 %
[2019-09-08] MEDS: LACTATED RINGERS 1,000 ML IV SCH ×4 (06:29→12:49)
[2019-09-08] MEDS: PIPERACILLIN/TAZO 4.5 GM/NS 100 ML IV SCH ×4 (06:29→13:12)
[2019-09-08] MEDS: VENlafaxine XR 75 MG (EFFEXOR XR) CAP PO SCH (06:30)
[2019-09-08 07:21] VITALS: BP 99/64
[2019-09-08] MEDS: LEVOTHYROXINE 25 MCG (LEVOTHROID) TAB PO SCH (08:41)
[2019-09-08] MEDS: SENNOSIDES 8.6 MG (SENOKOT) TAB PO SCH (08:41)
[2019-09-08] MEDS: clonazePAM 1 MG (KlonoPIN) TAB PO SCH (08:41)
[2019-09-08] MEDS: PANTOPRAZOLE 40 MG (PROTONIX) TAB PO SCH (08:41)
[2019-09-08] MEDS: DOCUSATE SODIUM 100 MG (COLACE) CAP PO SCH (08:42)
--- NOTE | 2019-09-08 08:48 | NUR ---
PATIENT O2 SAT IS 99% ON 3L O2. TURNED O2 DOWN TO 1L
--- NOTE | 2019-09-08 09:25 | NUR ---
O2 SAT IS 94% ON 1L
--- NOTE | 2019-09-08 09:30 | NUR ---
O2 SAT ON 1L IS 95%. R.T. PUT PATIENT ON ROOM AIR
[2019-09-08 11:09] VITALS: BP 121/79
[2019-09-08] MEDS ORDERED: PRD50T PO (13:13)
[2019-09-08] MEDS ORDERED: PANT40TA3 PO (13:13)
[2019-09-08] MEDS ORDERED: CEFD300C3 PO (13:13)
[2019-09-08] MEDS ORDERED: RT-ALBUINH IH (13:13)
[2019-09-08] MEDS ORDERED: predniSONE 20 MG TAB PO SCH (13:15)
[2019-09-08] MEDS ORDERED: CEFDINIR 300 MG (OMNICEF) CAP PO SCH (13:15)
--- NOTE | 2019-09-08 13:17 | Discharge Summary ---
Discharge Summary Hospital Course Problems/Diagnosis: (1) Sepsis due to pneumonia Status: Acute Assessment & Plan: 09/07 Requiring 4 lpm supplemental oxygen, febrile overnight, remains tachycardic. Leukocytosis improving this am, no lactic acidosis. Continue zoysn, breathing treatments and IVF. 09/08 able to be weaned off of oxygen and wanting to go home, discharged on cefdinir, albuterol and prednisone (2) Anemia Status: Acute Assessment & Plan: Check iron studies, pending at d/c. Hospital Course Date of Admission: Sep 06, 2019 at 17:42 Admission Diagnosis : Family Physician/Provider: Nick Arzola MD Date of Discharge: 09/08/19 Discharge Diagnosis: See problem list Hospital Course: Pt direct admitted from same day surg where she was to have had EGD, but was hypoxic and found to have pneumonia. She was started on pantoprazole for her gastritis and pneumonia was treated as noted in problem list above. She doesn't have a previous diagnosis of COPD but was using 's inhaler at times, sent script for albuterol, recommend spirometry/PFT when illness improved. Labs and Pending Lab Test: Laboratory Tests 09/08/19 03:25: White Blood Count 7.9, Red Blood Count 3.29L, Hemoglobin 8.4L, Hematocrit 28L, Mean Corpuscular Volume 84, Mean Corpuscular Hemoglobin 26, Mean Corpuscular Hemoglobin Concent 30L, Red Cell Distribution Width 16.6H, Platelet Count 281, Mean Platelet Volume 8.9, Neutrophils (%) (Auto) 61, Lymphocytes (%) (Auto) 26, Monocytes (%) (Auto) 8, Eosinophils (%) (Auto) 5, Basophils (%) (Auto) 0, Neutrophils # (Auto) 4.8, Lymphocytes # (Auto) 2.1, Monocytes # (Auto) 0.6, Eosinophils # (Auto) 0.4H, Basophils # (Auto) 0.0, Neutrophils % (Manual) 63, Lymphocytes % (Manual) 28, Monocytes % (Manual) 5, Eosinophils % (Manual) 4, Absolute Reticulocyte Count 30, Percent Reticulocyte Count 0.91, Sodium Level 143, Potassium Level 4.0, Chloride Level 107, Carbon Dioxide Level 25, Anion Gap 11, Blood Urea Nitrogen 7, Creatinine 0.75, Estimat Glomerular Filtration Rate > 60, BUN/Creatinine Ratio 9, Glucose Level 90, Calcium Level 8.9, Iron Level [Pending], Total Iron Binding Capacity [Pending], Unsaturated Iron Binding Capacity [Pending], Transferrin % Saturation [Pending], Ferritin [Pending] Microbiology 09/06/19 Blood Culture - Preliminary, Resulted No growth Home Meds Active Proair Hfa (Albuterol Sulfate) 1 Puff Puff 2 Puff IH Q4H 1 PUFF = 90 MCG Cefdinir 300 Mg Capsule 300 Mg PO BID Prednisone 50 Mg Tab 50 Mg PO DAILY Pantoprazole Sodium 40 Mg Tablet.dr 40 Mg PO BID Reported Levothyroxine Sodium 25 Mcg Tablet 25 Mcg PO DAILY Clonazepam 1 Mg Tablet 1 Mg PO BID Ferrousul (Ferrous Sulfate) 325 Mg Tablet 325 Mg PO DAILY Vitamin D-3 (Cholecalciferol (Vitamin D3)) 2,000 Unit Capsule 2,000 Unit PO DAILY Vitamin D2 (Ergocalciferol (Vitamin D2)) 50,000 Unit Capsule 50,000 Unit PO WEEK Lasix (Furosemide) 20 Mg Tablet 20 Mg PO TWICE WEEKLY PRN Venlafaxine HCl ER (Venlafaxine HCl) 150 Mg Tab.er.24 150 Mg PO BID Assessment/Pt DC Instructions See hospital course Discharge Diet: Regular Diet Activity as Tolerated: Yes Discharge Physical Examination Allergies: Coded Allergies: No Known Drug Allergies (Unverified , 06/02/19) General Appearance: No Apparent Distress, Thin Respiratory: No Accessory Muscle Use, No Respiratory Distress; Wheezing Cardiovascular: Regular Rate, Rhythm, No Edema Gastrointestinal: Normal Bowel Sounds, Non Tender, Soft Skin: Normal Color, Warm/Dry Neurologic/Psychiatric: Alert, Normal Mood/Affect Copy Copies To 1: NICK ARZOLA MD Discharge Summary Date of Admission Sep 06, 2019 at 17:42 Date of Discharge Admission Diagnosis Sepsis due to pneumonia Discharge Diagnosis (1) Sepsis due to pneumonia Status: Acute Clinical Quality Measures DVT/VTE Risk/Contraindication: Risk Factor Score Per Nursin RFS Level Per Nursing on Admit: 4+=Very High DARRIAN INMAN MD Sep 08, 2019 13:17
[2019-09-08] MEDS ORDERED: CEFDINIR 300 MG (OMNICEF) CAP PO ONE (13:35)
[2019-09-08] MEDS ORDERED: predniSONE 20 MG TAB ONE (13:35)
[2019-09-08 13:50] VITALS: BP 121/79
== END 2019-09-08 13:50 | disposition home or self-care (01) | DRG 871 ==
LOC: ENDO 06:55 → 4TH 12:35 → ENDO 17:41 → 4TH 17:42
PROVIDERS: ADMIT Internal Medicine; ATTEND Family Medicine
DX: A41.9 Sepsis, unspecified organism (principal); J18.1 Lobar pneumonia, unspecified organism; J96.01 Acute respiratory failure with hypoxia; D64.9 Anemia, unspecified; K29.50 Unspecified chronic gastritis without bleeding; I10 Essential (primary) hypertension; E78.00 Pure hypercholesterolemia, unspecified; J43.9 Emphysema, unspecified; K21.0 Gastro-esophageal reflux disease with esophagitis; F41.9 Anxiety disorder, unspecified; F31.9 Bipolar disorder, unspecified; R13.12 Dysphagia, oropharyngeal phase; Z86.010 Personal history of colon polyps; Z87.891 Personal history of nicotine dependence
CPT/HCPCS: 36415; 71045; 80048; 80053; 82728; 83540; 83605; 84145; 85007; 85025; 85027; 85045; 87040; 94640; 94760

== ENCOUNTER 2019-09-11 16:35 | Observation (INO) | payer OTHER ==
[~2019-09-11 16:35] MED LIST changes: +CEFD300C3 PO; +CHOL20002 PO; +CLON1TAB13 PO; +ERGO50006 PO; +FERR-23 PO; +FURO-125 PO; +LEVO25TA5 PO; +PANT40TA3 PO; +PRD50T PO; +RT-ALBUINH IH
[2019-09-11] MEDS ORDERED: NS IV 1000 ML 1,000 ML ONE (16:45)
[2019-09-11] MEDS: NS IV 1000 ML 1,000 ML IV SCH ×3 (16:50→23:46)
[2019-09-11] MEDS ORDERED: FLUMAZENIL (ROMAZICON) 0.1 MG/ML 5 ML VIAL ONE (16:56)
[2019-09-11] MEDS ORDERED: NALOXONE 0.4 MG/ML 1 ML (NARCAN) VIAL ONE (16:56)
[2019-09-11] MEDS ORDERED: NS IV 1000 ML 2,400 ML IV ONE (17:00)
[2019-09-11] MEDS ORDERED: PIPERACILLIN/TAZOBACTAM (BULK) 4.5 GM in NS (IVPB) 100 ML IV ONE (17:00)
--- NOTE | 2019-09-11 17:12 | Diagnostic Imaging Report ---
INDICATION: Unresponsive cough. COMPARISON: 09/06/2019. EXAMINATION: Single view of the chest was obtained. FINDINGS: Cardiac enlargement with slight central vascular congestion. There is persistent but decreasing infiltrate in the right base. There is no pneumothorax or effusion. Osseous structures are stable. IMPRESSION: 1. Cardiac enlargement with slight central vascular congestion. 2. Persistent but significantly decreased infiltrate right base. Dictated by: Dictated on workstation # [id number]
[2019-09-11] MEDS ORDERED: NALOXONE 0.4 MG/ML 1 ML (NARCAN) VIAL IV ONE ×2 (17:15→18:45)
[2019-09-11] MEDS ORDERED: PIPERACILLIN/TAZO 4.5 GM VIAL (ZOSYN) IV ONE ×2 (17:30→23:35)
[2019-09-11] MEDS ORDERED: NS (IVPB) 100 ML ONE ×2 (17:31→23:35)
--- NOTE | 2019-09-11 17:32 | ED Respiratory ---
General Source: patient, family, EMS Exam Limitations: clinical condition History of Present Illness Date Seen by Provider: Sep 11, 2019 Time Seen by Provider: 17:27 Initial Comments This 59-year-old white female presents via EMS in respiratory failure. Patient was recently hospitalized at [facility] for pneumonia discharged on cephalosporins and has been at home for 48 hours. The patient Renetta the has been unresponsive for the last 12 hours. It is unclear if the patient has been compliant on her Cefdinir since discharge. It is unclear what narcotic medications patient may have taken. Allergies and Home Medications Allergies Coded Allergies: No Known Drug Allergies (Unverified , 06/02/19) Home Medications Albuterol Sulfate 1 Puff Puff, 2 PUFF IH Q4H 1 PUFF = 90 MCG Prescribed by: DARRIAN INMAN on 09/08/191312 Cefdinir 300 Mg Capsule, 300 MG PO BID Prescribed by: DARRIAN INMAN on 09/08/191312 Cholecalciferol (Vitamin D3) 2,000 Unit Capsule, 2,000 UNIT PO DAILY, (Reported) Clonazepam 1 Mg Tablet, 1 MG PO BID, (Reported) Ergocalciferol (Vitamin D2) 50,000 Unit Capsule, 50,000 UNIT PO WEEK, (Reported) Ferrous Sulfate 325 Mg Tablet, 325 MG PO DAILY, (Reported) Furosemide 20 Mg Tablet, 20 MG PO twice weekly PRN for swelling, (Reported) Levothyroxine Sodium 25 Mcg Tablet, 25 MCG PO DAILY, (Reported) Pantoprazole Sodium 40 Mg Tablet.dr, 40 MG PO BID Prescribed by: DARRIAN INMAN on 09/08/191312 Prednisone 50 Mg Tab, 50 MG PO DAILY Prescribed by: DARRIAN INMAN on 09/08/191312 Venlafaxine HCl 150 Mg Tab.er.24, 150 MG PO BID, (Reported) Patient Home Medication List Home Medication List Reviewed: Yes Review of Systems Review of Systems Constitutional: other EENTM: no symptoms reported Respiratory: see HPI, other (respiratory) Cardiovascular: No chest pain Gastrointestinal: No abdominal pain, No nausea, No vomiting Genitourinary: no symptoms reported Musculoskeletal: no symptoms reported Skin: no symptoms reported Psychiatric/Neurological: No Symptoms Reported Hematologic/Lymphatic: No Symptoms Reported Immunological/Allergic: no symptoms reported Past Aiyzeau-Ynkogk-Izwgza Hx Past Med/Social Hx: Reviewed Nursing Past Med/Soc Hx Patient Social History Type Used: Cigarettes Former Smoker, Quit: Jun 02, 2011 Recent Hopitalizations: No Immunizations Up To Date Date of Pneumonia Vaccine: Aug 15, 2016 Seasonal Allergies Seasonal Allergies: Yes Past Medical History Surgeries: Yes (tubal , hernia, bilat carpal tunnel) Gallbladder Respiratory: Yes (COPD) Emphysema Cardiac: Yes High Cholesterol Neurological: No Genitourinary: No Gastrointestinal: Yes (gastritis) Gastroesophageal Reflux, Polyps Musculoskeletal: No Endocrine: Yes HEENT: No Cancer: No Psychosocial: Yes Sleep Difficulties, Anxiety, Bipolar, Depression Integumentary: No Blood Disorders: No Family Medical History Bipolar disorder G8 BROTHER G8 SISTER Hypertension 19 MOTHER, Neoplasm 19 MOTHER, (bladder cancer) Cancer, Hypertension Physical Exam Capillary Refill : Height: '" Weight: lbs. oz. kg; 31.34 BMI Method: General Appearance: other (severe restrictive distress) Eyes: Bilateral Eye Normal Inspection Neck: supple Respiratory: decreased breath sounds Cardiovascular: regular rate, rhythm Gastrointestinal: non tender Neurologic/Psychiatric: no motor/sensory deficits, other (patient is minimally responsive to painful stimuli.) Skin: normal color, warm/dry Focused Exam Lactate Level 09/11/19 16:45: Lactic Acid Level 1.09 Lactic Acid Level Laboratory Tests Test 09/11/19 16:45 Lactic Acid Level 1.09 MMOL/L (0.50-2.00) Progress/Results/Core Measures Suspected Sepsis SIRS Temperature: Pulse: Respiratory Rate: Laboratory Tests 09/11/19 16:45: White Blood Count 19.5H Blood Pressure / Mean: 09/11/19 16:45: Lactic Acid Level 1.09 Laboratory Tests 09/11/19 16:45: Creatinine 3.13#H, INR Comment 1.0, Platelet Count 508H, Total Bilirubin 0.2 Results/Orders Lab Results Laboratory Tests Test 09/11/19 16:45 09/11/19 17:09 Range/Units White Blood Count 19.5 H 4.3-11.0 10^3/uL Red Blood Count 4.55 4.35-5.85 10^6/uL Hemoglobin 11.5 # 11.5-16.0 G/DL Hematocrit 39 35-52 % Mean Corpuscular Volume 86 80-99 FL Mean Corpuscular Hemoglobin 25 25-34 PG Mean Corpuscular Hemoglobin Concent 30 L 32-36 G/DL Red Cell Distribution Width 16.7 H 10.0-14.5 % Platelet Count 508 H 130-400 10^3/uL Mean Platelet Volume 8.6 7.4-10.4 FL Neutrophils (%) (Auto) 83 H 42-75 % Lymphocytes (%) (Auto) 9 L 12-44 % Monocytes (%) (Auto) 8 0-12 % Eosinophils (%) (Auto) 0 0-10 % Basophils (%) (Auto) 0 0-10 % Neutrophils # (Auto) 16.2 H 1.8-7.8 X 10^3 Lymphocytes # (Auto) 1.7 1.0-4.0 X 10^3 Monocytes # (Auto) 1.4 H 0.0-1.0 X 10^3 Eosinophils # (Auto) 0.0 0.0-0.3 10^3/uL Basophils # (Auto) 0.1 0.0-0.1 10^3/uL Neutrophils % (Manual) 59 % Lymphocytes % (Manual) 12 % Monocytes % (Manual) 8 % Myelocytes % 2 % Band Neutrophils 19 % Hypochromasia SLIGHT Prothrombin Time 13.2 12.2-14.7 SEC INR Comment 1.0 0.8-1.4 Activated Partial Thromboplast Time 26 24-35 SEC Sodium Level 142 135-145 MMOL/L Potassium Level 4.9 3.6-5.0 MMOL/L Chloride Level 97 L 98-107 MMOL/L Carbon Dioxide Level 27 21-32 MMOL/L Anion Gap 18 H 5-14 MMOL/L Blood Urea Nitrogen 24 H 7-18 MG/DL Creatinine 3.13 #H 0.60-1.30 MG/DL Estimat Glomerular Filtration Rate 15 BUN/Creatinine Ratio 8 Glucose Level 112 H 70-105 MG/DL Lactic Acid Level 1.09 0.50-2.00 MMOL/L Calcium Level 9.2 8.5-10.1 MG/DL Corrected Calcium 9.0 8.5-10.1 MG/DL Total Bilirubin 0.2 0.1-1.0 MG/DL Aspartate Amino Transf (AST/SGOT) 67 H 5-34 U/L Alanine Aminotransferase (ALT/SGPT) 42 0-55 U/L Alkaline Phosphatase 111 40-136 U/L Total Protein 8.2 6.4-8.2 GM/DL Albumin 4.2 3.2-4.5 GM/DL My Orders Orders - MIRANDA JONES MD Ns Iv 1000 Ml (Sodium Chloride 0.9%) (09/11/19 16:45) Naloxone Injection (Narcan Injection) (09/11/19 16:56) Flumazenil Injection (Romazecon Injectio (09/11/19 16:56) Chest 1 View Ap/Pa Only (09/11/19 ) Cbc With Automated Diff (09/11/19 16:58) Comprehensive Metabolic Panel (09/11/19 16:58) Blood Culture (09/11/19 16:58) Sputum Culture (09/11/19 16:58) Urinalysis (09/11/19 16:58) Urine Culture (09/11/19 16:58) Protime With Inr (09/11/19 16:58) Partial Thromboplastin Time (09/11/19 16:58) Ed Iv/Invasive Line Start (09/11/19 16:58) Ed Iv/Invasive Line Start (09/11/19 16:58) Vital Signs Adult Sepsis Patie Q15M (09/11/19 16:58) O2 (09/11/19 16:58) Remove Rings In Anticipation O (09/11/19 16:58) Lactic Acid Analyzer (09/11/19 16:58) Ns Iv 1000 Ml (Sodium Chloride 0.9%) (09/11/19 16:58) Ns Iv 1000 Ml (Sodium Chloride 0.9%) (09/11/19 17:00) Piperacillin/Tazobactam (Bulk) (Zosyn In (09/11/19 17:00) Naloxone Injection (Narcan Injection) (09/11/19 17:15) Piperacillin Sodium/Tazobactam (Zosyn Vi (09/11/19 17:30) Ns (Ivpb) (Sodium Chloride 0.9% Ivpb Bag (09/11/19 17:31) Naloxone Injection (Narcan Injection) (09/11/19 17:45) Manual Differential (09/11/19 16:45) Drug Screen Stat (Urine) (09/11/19 17:45) Medications Given in ED Current Medications Medications Dose Ordered Sig/Armando Route Start Time Stop Time Status Last Admin Dose Admin Naloxone HCl 0.4 mg ONCE ONCE IV 09/11/19 17:15 09/11/19 17:16 DC 09/11/19 17:00 0.4 MG Vital Signs/I&O Capillary Refill : Progress Note : Time: 17:31 Progress Note The patient's sat was essentially at 90 with supplemental oxygen. We initiated BiPAP with a nasal trumpet and the patient's sats improved. Patient was given 0.5 mg Narcan and she awoke. 5:30 p.m. The patient began to have increasingly poor respiratory efforts. An additional 2 mg of Narcan was given. The patient apparently had received morphine tablets for dental caries within the last several days. Telephone consultation was undertaken with Dr. Cummings who was kind enough to accept patient. ECG Initial ECG Impression Date: Sep 11, 2019 Departure Communication (Admissions) Time/Spoke to Admitting Phy: 17:51 Dr. Cummings. Impression Primary Impression: Narcotic overdose Qualified Codes: T40.601A - Poisoning by unspecified narcotics, accidental (unintentional), initial encounter Additional Impression: Pneumonia Qualified Codes: J69.0 - Pneumonitis due to inhalation of food and vomit Disposition: ADMITTED INPATIENT Condition: Improved Admissions Decision to Admit Reason: Admit from ER (General) Decision to Admit/Date: Sep 11, 2019 Time/Decision to Admit Time: 17:51 Transfer Transfer Reason: Exceeds level of care Time Spoke to Accepting Phy: 17:[address] Cummings Transfer Time: 17:53 Transfer Facility: [facility] Method of Transfer: EMS Departure-Patient Inst. Referrals: BENNY PIERCE MD (PCP/Family) Primary Care Physician MIRANDA JONES MD Sep 11, 2019 17:32
[2019-09-11 17:37] LABS: HEMATOCRIT 39 % (35-52); HEMOGLOBIN 11.5 G/DL (11.5-16.0); MEAN CORPUSCULAR HEMOGLOBIN 25 PG (25-34); MEAN CORPUSCULAR HGB CONC 30 G/DL (32-36); MEAN CORPUSCULAR VOLUME 86 FL (80-99); RED CELL DISTRIBUTION WIDTH 16.7 % (10.0-14.5); WHITE BLOOD COUNT 19.5 10^3/uL (4.3-11.0)
[2019-09-11 17:38] LABS: BASOPHILS % (AUTO) 0 % (0-10); EOSINOPHILS % (AUTO) 0 % (0-10); LYMPHOCYTES % (AUTO) 9 % (12-44); MEAN PLATELET VOLUME 8.6 FL (7.4-10.4); MONOCYTES % (AUTO) 8 % (0-12); NEUTROPHILS % (AUTO) 83 % (42-75); PLATELET COUNT 508 10^3/uL (130-400)
[2019-09-11 17:39] LABS: BASOPHILS # (AUTO) 0.1 10^3/uL (0.0-0.1); LYMPHOCYTES # (AUTO) 1.7 X 10^3 (1.0-4.0); MONOCYTES # (AUTO) 1.4 X 10^3 (0.0-1.0); NEUTROPHILS # (AUTO) 16.2 X 10^3 (1.8-7.8); NEUTROPHILS % (MANUAL) 59 %
[2019-09-11 17:40] LABS: BAND NEUTROPHILS 19 %; HYPOCHROMASIA SLIGHT; LYMPHOCYTES % (MANUAL) 12 %; MONOCYTES % (MANUAL) 8 %; MYELOCYTES % 2 %
[2019-09-11 17:41] LABS: BILIRUBIN,TOTAL 0.2 MG/DL (0.1-1.0); CALCIUM 9.2 MG/DL (8.5-10.1); CREATININE SERUM 3.13 MG/DL (0.60-1.30); POTASSIUM 4.9 MMOL/L (3.6-5.0); TOTAL PROTEIN 8.2 GM/DL (6.4-8.2)
[2019-09-11 17:42] LABS: ALBUMIN 4.2 GM/DL (3.2-4.5); PROTHROMBIN TIME PATIENT 13.2 SEC (12.2-14.7)
[2019-09-11] MEDS ORDERED: NALOXONE 2 MG/2 ML (NARCAN) SYR IV ONE (17:45)
[2019-09-11 19:06] LABS: AMPHETAMINE SCREEN, URINE NEGATIVE (NEGATIVE); BARBITURATE SCREEN URINE NEGATIVE (NEGATIVE); BENZODIAZEPINES SCREEN URINE NEGATIVE (NEGATIVE); CANNABINOID SCREEN, URINE NEGATIVE (NEGATIVE); COCAINE SCREEN URINE NEGATIVE (NEGATIVE); METHADONE STAT NEGATIVE (NEGATIVE); METHAMPHETAMINE SCREEN URINE S NEGATIVE (NEGATIVE); OPIATE SCREEN URINE POSITIVE (NEGATIVE); OXYCODONE STAT NEGATIVE (NEGATIVE); PROPOXYPHENE STAT NEGATIVE (NEGATIVE); TRICYCLIC ANTIDEPRESSANTS SCRE POSITIVE (NEGATIVE)
[2019-09-11 19:06] LABS: ABG BASE EXCESS -2.6 MMOL/L (-2.5-2.5); ABG OXYGEN SATURATION 94 % (94-100); ABG PCO2 62 MMHG (35-45); ABG PO2 82 MMHG (79-93); ABG TCO2 27.9 MMOL/L (21.0-31.0)
[2019-09-11 19:07] LABS: INSPIRED O2 10; PATIENT TEMP 36.7; VENTILATOR NO
[2019-09-11 19:08] LABS: ABG PH 7.23 (7.37-7.43)
[2019-09-11 19:09] LABS: ALLENS TEST POSITIVE
[2019-09-11 19:10] LABS: BACTERIA,URINE NEGATIVE /HPF; BILIRUBIN,URINE NEGATIVE (NEGATIVE); CLARITY,URINE CLEAR; COLOR,URINE YELLOW; GLUCOSE, URINE (UA) NEGATIVE (NEGATIVE); KETONES,URINE NEGATIVE (NEGATIVE); LEUKOCYTE ESTERASE ,URINE NEGATIVE (NEGATIVE); NITRITE,URINE NEGATIVE (NEGATIVE); PROTEIN,URINE 1+ (NEGATIVE); SQUAMOUS EPITHELIAL CELL,UR 0-2 /HPF; WBC,URINE 0-2 /HPF
[2019-09-11 19:11] LABS: GRANULAR CASTS,URINE 0-2 /LPF
[2019-09-11 19:14] LABS: ABG BASE EXCESS 1.7 MMOL/L (-2.5-2.5); ABG OXYGEN SATURATION 99 % (94-100); ABG PO2 164 MMHG (79-93); ABG TCO2 33.1 MMOL/L (21.0-31.0); ALLENS TEST YES-POS
[2019-09-11 19:15] LABS: INSPIRED O2 BIPAP-70% FIO2; PATIENT TEMP 36.7; VENTILATOR NO
[2019-09-11 19:16] LABS: ABG PH 7.24 (7.37-7.43)
[2019-09-11 19:17] LABS: ABG PCO2 72 MMHG (35-45)
[2019-09-11] MEDS ORDERED: NS IV 1000 ML 1,000 ML IV SCH (19:30)
[2019-09-11 21:20] VITALS: BP 122/88
[2019-09-11] MEDS ORDERED: NALOXONE 2 MG/2 ML (NARCAN) SYR IV PRN (21:45)
[2019-09-11 21:53] LABS: BILIRUBIN,URINE 1+ (NEGATIVE); CLARITY,URINE CLOUDY; COLOR,URINE AMBER; GLUCOSE, URINE (UA) NEGATIVE (NEGATIVE); KETONES,URINE NEGATIVE (NEGATIVE); LEUKOCYTE ESTERASE ,URINE NEGATIVE (NEGATIVE); NITRITE,URINE NEGATIVE (NEGATIVE); PROTEIN,URINE 2+ (NEGATIVE)
[2019-09-11 22:11] LABS: ABG BASE EXCESS -2.1 MMOL/L (-2.5-2.5); ABG OXYGEN SATURATION 96 % (94-100); ABG PCO2 65 MMHG (35-45); ABG PO2 87 MMHG (79-93); ABG TCO2 26.9 MMOL/L (21.0-31.0)
[2019-09-11 22:13] LABS: ABG PH 7.21 (7.37-7.43)
[2019-09-11 22:14] LABS: ALLENS TEST YES-POS
[2019-09-11 22:15] LABS: INSPIRED O2 40%; PATIENT TEMP 36.8; VENTILATOR NO
[2019-09-11 22:24] LABS: AMORPHOUS SEDIMENT,UR MOD AMOR URATES /LPF; BACTERIA,URINE MODERATE /HPF; GRANULAR CASTS,URINE 0-2 /LPF; RBC,URINE RARE /HPF; SQUAMOUS EPITHELIAL CELL,UR 0-2 /HPF; WBC,URINE 0-2 /HPF
[2019-09-11 22:45] VITALS: BP 108/88
[2019-09-11 23:00] VITALS: BP 115/72
[2019-09-11 23:19] LABS: AMPHETAMINE SCREEN, URINE NEGATIVE (NEGATIVE); BARBITURATE SCREEN URINE NEGATIVE (NEGATIVE); BENZODIAZEPINES SCREEN URINE NEGATIVE (NEGATIVE); CANNABINOID SCREEN, URINE NEGATIVE (NEGATIVE); COCAINE SCREEN URINE NEGATIVE (NEGATIVE); METHADONE STAT NEGATIVE (NEGATIVE); METHAMPHETAMINE SCREEN URINE S NEGATIVE (NEGATIVE); OPIATE SCREEN URINE POSITIVE (NEGATIVE); OXYCODONE STAT NEGATIVE (NEGATIVE); PROPOXYPHENE STAT NEGATIVE (NEGATIVE); TRICYCLIC ANTIDEPRESSANTS SCRE POSITIVE (NEGATIVE)
[2019-09-11 23:35] VITALS: BP 115/72
[2019-09-11] MEDS: PIPERACILLIN/TAZO 4.5 GM/NS 100 ML IV SCH ×2 (23:46)
[2019-09-12] VITALS (27 sets, daily range): BP systolic 101–151; BP diastolic 64–106
[2019-09-12] MEDS ORDERED: NALOXONE INJECTION 0.4 MG in NS (IVPB) 99 ML IV SCH (01:15)
[2019-09-12] MEDS ORDERED: NALOXONE 0.4 MG/ML 1 ML (NARCAN) VIAL IV PRN (01:15)
[2019-09-12] MEDS ORDERED: NS (IVPB) 100 ML ONE ×2 (01:24→05:18)
[2019-09-12] MEDS: NS IV SCH ×2 (01:35→16:04)
[2019-09-12] MEDS: NALOXONE IV SCH ×2 (01:35→16:04)
--- NOTE | 2019-09-12 01:57 | NUR ---
Timeline note below 09/11/19 at 2045 This RN received patient report from COLUMBA Ennis and assumed care of patient at this time. Pt in CSD room 509 awaiting transfer to ICU6. Pt on BiPAP at this time, patient is confused and laughing continuously. This RN monitoring at bedside. 09/11/19 at 2213- This RN notified Dr. Gold of patient's ABG results. 09/11/19 at 2245-This RN and RT transferred patient to ICU6. EICU notified at this time. 09/11/19 at 2300-Dr. Gold assessing patient via bedside camera. Pt alert to self. New orders received at this time, see order hx. 09/11/19 at 2345- This RN updated Dr. Gold of patient's decline in mentation once taken off the BiPAP and placed on Vapotherm, patient unable to state name or as before. Pt was given ordered dose of Narcan, see eMAR. New orders received at this time. 09/11/19 at 2350- Pt's mentation improving, she is alert to self and able to state name and . 09/12/19 at 0116- This RN notified EICU that patient unable to tolerate Vapotherm, that patient's Sa02 decreased into the 70's so pt was placed back on BiPAP. No new orders at this time.
--- NOTE | 2019-09-12 03:00 | NUR ---
Pt switched to Vapotherm and tolerating well. Vital signs stable, pt alert to person, place and situation. Will continue to monitor.
[2019-09-12] MEDS ORDERED: RT-ALBUTEROL/IPRATROPIUM 3 ML (DUONEB) VIAL INH PRN ×2 (03:45→04:30)
[2019-09-12 04:01] LABS: BASOPHILS % (AUTO) 0 % (0-10); EOSINOPHILS % (AUTO) 0 % (0-10); HEMATOCRIT 33 % (35-52); HEMOGLOBIN 9.9 G/DL (11.5-16.0); LYMPHOCYTES # (AUTO) 1.7 X 10^3 (1.0-4.0); LYMPHOCYTES % (AUTO) 9 % (12-44); MEAN CORPUSCULAR HEMOGLOBIN 25 PG (25-34); MEAN CORPUSCULAR HGB CONC 30 G/DL (32-36); MEAN CORPUSCULAR VOLUME 84 FL (80-99); MONOCYTES % (AUTO) 6 % (0-12); NEUTROPHILS # (AUTO) 15.9 X 10^3 (1.8-7.8); NEUTROPHILS % (AUTO) 85 % (42-75); PLATELET COUNT 393 10^3/uL (130-400); RED CELL DISTRIBUTION WIDTH 16.9 % (10.0-14.5); WHITE BLOOD COUNT 18.6 10^3/uL (4.3-11.0)
[2019-09-12 04:30] LABS: ALBUMIN 3.7 GM/DL (3.2-4.5); BILIRUBIN,TOTAL 0.3 MG/DL (0.1-1.0); CALCIUM 7.9 MG/DL (8.5-10.1); CREATININE SERUM 2.46 MG/DL (0.60-1.30); MAGNESIUM 2.2 MG/DL (1.6-2.4); PHOSPHORUS 5.8 MG/DL (2.3-4.7); POTASSIUM 4.4 MMOL/L (3.6-5.0); TOTAL PROTEIN 6.9 GM/DL (6.4-8.2)
[2019-09-12] MEDS ORDERED: PIPERACILLIN/TAZO 4.5 GM VIAL (ZOSYN) IV ONE (05:17)
[2019-09-12] MEDS: NS IV 1000 ML 1,000 ML IV SCH (05:31)
--- NOTE | 2019-09-12 06:45 | NUR ---
This RN contacted EICU to report DVT Risk Score. New order received for Heparin 5,000 U SC Q8H.
[2019-09-12] MEDS ORDERED: FLU QUADRIvalent (5+ YOA) 2019-2020 (AFLURIA) 0.5 ML IM ONE (07:00)
[2019-09-12] MEDS: PIPERACILLIN/TAZO 4.5 GM/NS 100 ML IV SCH ×6 (07:08→22:46)
[2019-09-12] MEDS ORDERED: clonazePAM 1 MG (KlonoPIN) TAB PO ONE (09:15)
[2019-09-12] MEDS: RT-ALBUTEROL/IPRATROPIUM 3 ML (DUONEB) VIAL INH SCH ×3 (09:16→20:47)
--- NOTE | 2019-09-12 09:29 | Diagnostic Imaging Report ---
INDICATION: Pneumonia. Time of exam: 4:01 AM Correlation is made with prior chest from one day earlier. Heart size is stable. There is some mild infiltrate in the right upper lobe. There is some minimal density in the left base near the costophrenic angle. There is central congestion. No effusion or pneumothorax is seen. IMPRESSION: Minimal right upper lobe and left basilar infiltrate or atelectasis. Dictated by: Dictated on workstation # [id number]
[2019-09-12 09:30] LABS: ABG BASE EXCESS -1.9 MMOL/L (-2.5-2.5); ABG OXYGEN SATURATION 97 % (94-100); ABG PCO2 52 MMHG (35-45); ABG PO2 92 MMHG (79-93); ABG TCO2 25.5 MMOL/L (21.0-31.0)
[2019-09-12 09:32] LABS: ABG PH 7.29 (7.37-7.43); ALLENS TEST YES-POS; INSPIRED O2 40; VENTILATOR NO
--- NOTE | 2019-09-12 10:40 | History & Physical-Hospitalist ---
History of Present Illness HPI/Chief Complaint Regina Temple is a 58yoF with PMH depression, anxiety, GERD, former smoker, who presented with decreased level of consciousness. According to the report, her found her at home unresponsive in her bed. EMS was called and they found her to be apneic breathing. She was given Narcan and responded well. She was taken to the emergency room in [place]. She received a few more doses of Narcan there. An arterial blood gas showed an acute hypercapnic respiratory failure and she was started on BiPAP. This morning upon my arrival, she is very anxious. She says that she is worried that her does not want to talk to her. She is not sure how she ended up at the hospital. The last thing she remembers is being at home. She says that she only took 1 pain pill. She denies any suicidal ideation or attempts. Source: patient Exam Limitations: clinical condition Date Seen 09/12/19 Time Seen by a Provider: 07:40 Attending Physician Valentino Decker MD PCP Nick Arzola MD Referring Physician Date of Admission Sep 11, 2019 at 19:08 Home Medications & Allergies Home Medications Reviewed patient Home Medication Reconciliation performed by pharmacy medication reconciliations clinical dental technician and/or nursing. Patients Allergies have been reviewed. Allergies Allergies Coded Allergies No Known Drug Allergies (Unverified06/02/19) Past Ornzzvk-Kpbbcq-Hfwlfy Hx Past Med/Social Hx: Reviewed Nursing Past Med/Soc Hx Patient Social History Alcohol Use: Denies Use Recreational Drug Use: No Smoking Status: Former Smoker Former Smoker, Quit: Jun 02, 2011 Type Used: Cigarettes 2nd Hand Smoke Exposure: Yes Recent Foreign Travel: No Contact w/other who traveled: No Recent Hopitalizations: No Recent Infectious Disease Expo: No Immunizations Up To Date Tetanus Booster (TDap): Unknown Date of Pneumonia Vaccine: Aug 15, 2016 Seasonal Allergies Seasonal Allergies: Yes Past Medical History Surgeries: Gallbladder Cardiac: High Cholesterol Gastrointestinal: Gastroesophageal Reflux, Polyps Psychosocial: Sleep Difficulties, Anxiety, Bipolar, Depression History of Blood Disorders: No Family History Bipolar disorder G8 BROTHER G8 SISTER Hypertension 19 MOTHER, Neoplasm 19 MOTHER, (bladder cancer) Cancer, Hypertension Review of Systems Constitutional: no symptoms reported EENTM: no symptoms reported Respiratory: no symptoms reported Cardiovascular: no symptoms reported Gastrointestinal: no symptoms reported Genitourinary: no symptoms reported Musculoskeletal: no symptoms reported Skin: no symptoms reported Psychiatric/Neurological: Anxiety, Emotional Problems Physical Exam Physical Exam Vital Signs Vital Signs - First Documented 09/11/19 09/11/19 09/11/19 16:45 16:50 17:10 Temp 36.7 Pulse 102 Resp 7 B/P (MAP) 100/55 (70) Pulse Ox 100 O2 Delivery NIV Bilevel O2 Flow Rate 10.00 FiO2 70 Capillary Refill : Less Than 3 Seconds Height, Weight, BMI Height: '" Weight: lbs. oz. kg; 31.34 BMI Method: General Appearance: WD/WN, Anxious, Mild Distress HEENT: PERRL/EOMI, Pharynx Normal Neck: Normal Inspection, Supple Respiratory: Lungs Clear, Normal Breath Sounds, No Respiratory Distress Cardiovascular: Regular Rate, Rhythm, No Edema, No Murmur Gastrointestinal: Normal Bowel Sounds, Non Tender, Soft Extremity: Normal Inspection, Non Tender, No Pedal Edema Neurologic/Psychiatric: Alert, Oriented x3, No Motor/Sensory Deficits, Normal M ood/Affect Skin: Normal Color, Warm/Dry Lymphatic: No Adenopathy Results Results/Procedures Labs Laboratory Tests 09/11/19 16:45 09/12/19 03:06 Patient resulted labs reviewed. Imaging: Reviewed Imaging Report Assessment/Plan Admission Diagnosis Acute hypercapnic respiratory failure due to opioid overdose Admission Status: Inpatient Order (span 2 midnights) Reason for Inpatient Admission: Respiratory failure requiring BiPAP Assessment and Plan Acute hypercapnic respiratory failure Unintentional opioid overdose Unresponsive on arrival, improved this morning Given 4 doses of Narcan with adequate response ABG revealed a pH 7.2 and CO2 72 Started on BiPAP ABG improves this morning Continue BiPAP today Repeat ABG this evening If improved monitor off BiPAP overnight and repeat ABG tomorrow morning Possible aspiration pneumonia Chest x-ray with right upper lobe and left lower lobe infiltrates Procalcitonin elevated Recently treated for pneumonia Started on Zosyn, continue Acute kidney injury Creatinine 3.13 on arrival, improved to 2.46 this morning Baseline approximately 0.7 Continue IV fluids Anxiety Depression Hypothyroidism Gastritis Continue home meds DVT prophylaxis: Heparin Diagnosis/Problems Diagnosis/Problems (1) Acute respiratory failure with hypercapnia Status: Acute (2) Opioid overdose Status: Acute Qualifiers: Encounter type: initial encounter Injury intent: accidental or unintentional Qualified Codes: T40.2X1A - Poisoning by other opioids, accidental (unintentional), initial encounter (3) Pneumonia Status: Acute Qualifiers: Pneumonia type: aspiration pneumonia Aspiration pneumonia type: unspecified Laterality: bilateral Lung location: unspecified part of lung Qualified Codes: J69.0 - Pneumonitis due to inhalation of food and vomit Clinical Quality Measures DVT/VTE Risk/Contraindication: Risk Factor Score Per Nursin RFS Level Per Nursing on Admit: 3=High VALENTINO DECKER MD Sep 12, 2019 10:40
[2019-09-12] MEDS ORDERED: VENlafaxine XR 75 MG (EFFEXOR XR) CAP PO ONE (11:00)
[2019-09-12] MEDS: LACTATED RINGERS 1,000 ML IV SCH ×2 (11:48→19:53)
[2019-09-12] MEDS: ACETAMINOPHEN 325 MG TABLET PO PRN ×2 (17:18→22:46)
[2019-09-12] MEDS: ONDANSETRON 4 MG/2 ML (SDV) Z0FRAN IVP PRN (17:18)
--- NOTE | 2019-09-12 18:51 | NUR ---
1650 PT C/O OF HEADACHE AND NAUSEA, DR DECKER NOTIFIED NEW ORDERS RECEIVED. SEE ORDER HX.
[2019-09-12 19:19] LABS: ABG OXYGEN SATURATION 98 % (94-100); ABG PCO2 51 MMHG (35-45); ABG PO2 87 MMHG (79-93); ABG TCO2 28.1 MMOL/L (21.0-31.0)
[2019-09-12 19:21] LABS: ABG PH 7.33 (7.37-7.43); ALLENS TEST YES-POS; INSPIRED O2 40%; PATIENT TEMP 36.2; VENTILATOR NO
[2019-09-12] MEDS: clonazePAM 1 MG (KlonoPIN) TAB PO SCH (21:08)
[2019-09-12] MEDS: VENlafaxine XR 75 MG (EFFEXOR XR) CAP PO SCH (21:09)
[2019-09-13] VITALS (21 sets, daily range): BP systolic 116–148; BP diastolic 72–106
[2019-09-13] MEDS: RT-ALBUTEROL/IPRATROPIUM 3 ML (DUONEB) VIAL INH SCH ×4 (01:59→21:10)
[2019-09-13] MEDS: ONDANSETRON 4 MG/2 ML (SDV) Z0FRAN IVP PRN (02:12)
[2019-09-13 03:49] LABS: BASOPHILS % (AUTO) 0 % (0-10); EOSINOPHILS # (AUTO) 0.3 10^3/uL (0.0-0.3); EOSINOPHILS % (AUTO) 3 % (0-10); HEMATOCRIT 32 % (35-52); HEMOGLOBIN 9.6 G/DL (11.5-16.0); LYMPHOCYTES # (AUTO) 1.9 X 10^3 (1.0-4.0); LYMPHOCYTES % (AUTO) 19 % (12-44); MEAN CORPUSCULAR HEMOGLOBIN 25 PG (25-34); MEAN CORPUSCULAR HGB CONC 30 G/DL (32-36); MEAN CORPUSCULAR VOLUME 84 FL (80-99); MEAN PLATELET VOLUME 8.9 FL (7.4-10.4); MONOCYTES # (AUTO) 0.6 X 10^3 (0.0-1.0); MONOCYTES % (AUTO) 5 % (0-12); NEUTROPHILS # (AUTO) 7.5 X 10^3 (1.8-7.8); NEUTROPHILS % (AUTO) 73 % (42-75); PLATELET COUNT 302 10^3/uL (130-400); RED CELL DISTRIBUTION WIDTH 16.4 % (10.0-14.5); WHITE BLOOD COUNT 10.3 10^3/uL (4.3-11.0)
[2019-09-13] MEDS: LACTATED RINGERS 1,000 ML IV SCH (04:06)
[2019-09-13 04:11] LABS: CALCIUM 8.5 MG/DL (8.5-10.1); CREATININE SERUM 1.02 MG/DL (0.60-1.30); PHOSPHORUS 2.2 MG/DL (2.3-4.7); POTASSIUM 3.9 MMOL/L (3.6-5.0)
[2019-09-13] MEDS: PIPERACILLIN/TAZO 4.5 GM/NS 100 ML IV SCH ×6 (06:57→22:46)
--- NOTE | 2019-09-13 07:11 | Diagnostic Imaging Report ---
INDICATION: Pneumonia Upright portable AP view of the chest is obtained. Comparison is made to the study of one day earlier. There is mild residual right upper and left lower lobe atelectasis and/or pneumonitis. Atypical pneumonia is not excluded. No new infiltrate is seen. IMPRESSION: Mild bilateral infiltrate without significant change compared to previous study. Additional follow-up PA and lateral views of the chest should be considered for documentation of resolution. Dictated by: Dictated on workstation # [id number]
[2019-09-13] MEDS: VENlafaxine XR 75 MG (EFFEXOR XR) CAP PO SCH ×2 (08:24→20:17)
[2019-09-13] MEDS: clonazePAM 1 MG (KlonoPIN) TAB PO SCH ×2 (08:24→20:17)
[2019-09-13] MEDS ORDERED: ONDANSETRON 4 MG/2 ML (SDV) Z0FRAN IVP PRN (09:00)
--- NOTE | 2019-09-13 09:04 | Progress Note - Hospitalist ---
Subjective HPI/CC On Admission Date Seen by Provider: Sep 13, 2019 Time Seen by Provider: 08:57 Regina Temple is a 58yoF with PMH depression, anxiety, GERD, former smoker, who presented with decreased level of consciousness. According to the report, her found her at home unresponsive in her bed. EMS was called and they found her to be apneic breathing. She was given Narcan and responded well. She was taken to the emergency room in [place]. She received a few more doses of Narcan there. An arterial blood gas showed an acute hypercapnic respiratory failure and she was started on BiPAP. This morning upon my arrival, she is very anxious. She says that she is worried that her does not want to talk to her. She is not sure how she ended up at the hospital. The last thing she remembers is being at home. She says that she only took 1 pain pill. She denies any suicidal ideation or attempts. Subjective/Events-last exam Pt reports feeling nauseated today. She states she still doesn't remember what brought her here but she knows she took too many pills. She states that her checked her bottle and it was empty. Focused Exam Lactate Level 09/11/19 16:45: Lactic Acid Level 1.09 Objective Exam Vital Signs Vital Signs Date Time Temp Pulse Resp B/P (MAP) Pulse Ox O2 Delivery O2 Flow Rate FiO2 09/13/19 07:00 84 09/13/19 06:30 36.6 09/13/19 05:00 15 130/72 (91) 94 Vapotherm 38.00 50.00 09/13/19 04:00 40 Capillary Refill : Less Than 3 Seconds General Appearance: No Apparent Distress, Anxious Respiratory: Lungs Clear, No Respiratory Distress Cardiovascular: Regular Rate, Rhythm, No Murmur Neurologic/Psychiatric: Alert, Oriented x3 Results/Procedures Lab Laboratory Tests 09/13/19 03:09 Patient resulted labs reviewed. Imaging: Reviewed Imaging Report Assessment/Plan Assessment and Plan Assess & Plan/Chief Complaint Acute hypercapnic respiratory failure Unintentional opioid overdose Will DC Narcan gtt - Continue Vapotherm and wean as able - BRIDGER likely contributed as well Aspiration pneumonia Chest x-ray with right upper lobe and left lower lobe infiltrates Continue Zosyn Acute kidney injury- resolved Creatinine Improved and at baseline - DC IVF Anxiety Depression Hypothyroidism Gastritis Continue home meds DVT prophylaxis: Heparin Clinical Quality Measures DVT/VTE Risk/Contraindication: Risk Factor Score Per Nursin RFS Level Per Nursing on Admit: 3=High SHIRA CARO MD Sep 13, 2019 09:04
[2019-09-13] MEDS ORDERED: CLON0.5T PO (10:32)
[2019-09-13] MEDS ORDERED: ACET-2267 PO (10:48)
[2019-09-13] MEDS ORDERED: CEFD300C3 PO (10:48)
[2019-09-13] MEDS ORDERED: PANT40TA2 PO (10:48)
[2019-09-13] MEDS ORDERED: AMIT75TA2 PO (10:48)
[2019-09-13] MEDS ORDERED: PRD50T PO (10:48)
[2019-09-13] MEDS ORDERED: IBUP-30 PO (10:48)
[2019-09-13] MEDS ORDERED: RT-ALBUINH IH (10:48)
--- NOTE | 2019-09-13 10:49 | NUR ---
CALLED [facility] IN [place] FOR A LIST OF RECENTLY FILLED MEDICATIONS. I WENT OVER THAT LIST WITH THE PATIENT. [facility] FILLED: 09-09-19 FUROSEMIDE 20MG TWICE WEEKLY 09-09-19 PREDNISONE 50MG DAILY X 5 DAYS 09-09-19 PROTONIX 40MG BID 09-09-19 PROAIR 2 PUFFS Q4H PRN 09-09-19 CEFDINIR 300MG BID X 7 DAYS 09-04-19 MORPHINE IR 15MG Q6H PRN #14 (STATES HER SAYS SHE IS OUT OF THESE) 08-24-19 CLONAZEPAM 0.5MG QID #120 (STATES SHE USES IT PRN) 08-24-19 TOPAMAX 25MG HS #30 (STATES THIS WAS SUPPOSED TO REPLACE AMITRIPTYLINE BUT DOESN'T FEEL IT WORKS SO SHE DOSE NOT TAKE IT, SHE STILL TAKES THE AMITRIPTYLINE. 08-24-19 VITAMIN D2 50,000 UNITS WEEKLY #4 (TAKES ON MONDAYS) 08-24-19 VENLAFAXINE ER 150MG BID #60 08-24-19 LEVOTHYROXINE 25MCG DAILY #30 08-24-19 AMITRIPTYLINE 75MG 4 HS #120 (TAKES 3 THEN TAKES ANOTHER A LITTLE LATER IF THE 3 DOESN'T WORK) OTC MEDS: TYLENOL PRN IBU PRN IRON DAILY
--- NOTE | 2019-09-13 10:53 | NUR ---
Donta Temple, patients son, called asking how his mother was. This nurse asked patient if it was ok for me to talk to her son Donta regarding her and if it was fine for me to give him information. Patient stated "yes you can talk to Donta." This nurse updated Donta on patient.
[2019-09-13] MEDS ORDERED: LACTATED RINGERS 1,000 ML IV ONE (12:18)
[2019-09-13] MEDS: ACETAMINOPHEN 325 MG TABLET PO PRN (22:02)
[2019-09-14] VITALS (17 sets, daily range): BP systolic 108–176; BP diastolic 72–109
[2019-09-14] MEDS: RT-ALBUTEROL/IPRATROPIUM 3 ML (DUONEB) VIAL INH SCH ×5 (01:54→22:04)
[2019-09-14 04:19] LABS: BASOPHILS % (AUTO) 0 % (0-10); EOSINOPHILS # (AUTO) 0.5 10^3/uL (0.0-0.3); EOSINOPHILS % (AUTO) 5 % (0-10); HEMATOCRIT 29 % (35-52); HEMOGLOBIN 8.5 G/DL (11.5-16.0); LYMPHOCYTES # (AUTO) 2.8 X 10^3 (1.0-4.0); LYMPHOCYTES % (AUTO) 31 % (12-44); MEAN CORPUSCULAR HEMOGLOBIN 25 PG (25-34); MEAN CORPUSCULAR HGB CONC 30 G/DL (32-36); MEAN CORPUSCULAR VOLUME 84 FL (80-99); MEAN PLATELET VOLUME 8.7 FL (7.4-10.4); MONOCYTES # (AUTO) 0.6 X 10^3 (0.0-1.0); MONOCYTES % (AUTO) 6 % (0-12); NEUTROPHILS # (AUTO) 5.2 X 10^3 (1.8-7.8); NEUTROPHILS % (AUTO) 58 % (42-75); PLATELET COUNT 310 10^3/uL (130-400); RED CELL DISTRIBUTION WIDTH 16.3 % (10.0-14.5)
[2019-09-14 04:40] LABS: BUN/CREATININE RATIO 7; CALCIUM 8.6 MG/DL (8.5-10.1); CARBON DIOXIDE 27 MMOL/L (21-32); CHLORIDE 105 MMOL/L (98-107); CREATININE SERUM 0.81 MG/DL (0.60-1.30); GFR ESTIMATED > 60; GLUCOSE 83 MG/DL (70-105); MAGNESIUM 1.9 MG/DL (1.6-2.4); PHOSPHORUS 2.1 MG/DL (2.3-4.7); POTASSIUM 3.8 MMOL/L (3.6-5.0); SODIUM 142 MMOL/L (135-145)
[2019-09-14] MEDS: PIPERACILLIN/TAZO 4.5 GM/NS 100 ML IV SCH ×2 (06:55)
--- NOTE | 2019-09-14 08:50 | Diagnostic Imaging Report ---
INDICATION: Pneumonia. COMPARISON: 09/13/2019. FINDINGS: The heart size is normal. There are bibasilar infiltrates. There is no pleural effusion or pneumothorax. The mediastinum is unremarkable. IMPRESSION: Patchy bibasilar infiltrates, right greater than left. Mild venous congestion. Dictated by: Dictated on workstation # [id number]
[2019-09-14] MEDS: clonazePAM 1 MG (KlonoPIN) TAB PO SCH (09:47)
[2019-09-14] MEDS: VENlafaxine XR 75 MG (EFFEXOR XR) CAP PO SCH ×2 (09:47→21:33)
[2019-09-14] MEDS ORDERED: ANTACID SUSP 30 ML UDC (MYLANTA) PO PRN (10:30)
[2019-09-14] MEDS ORDERED: ACETAMINOPHEN 325 MG TABLET PO PRN (10:30)
[2019-09-14] MEDS ORDERED: BENZONATATE 100 MG (TESSALON) CAPSULE PO PRN (10:30)
[2019-09-14] MEDS ORDERED: ONDANSETRON 4 MG (ZOFRAN) ORAL DISSOLVE TAB PO PRN (10:30)
[2019-09-14] MEDS ORDERED: MELATONIN 3 MG TABLET PO PRN (10:30)
[2019-09-14] MEDS ORDERED: MILK OF MAGNESIA 400 MG/5 ML 30 ML UDC PO PRN (10:30)
--- NOTE | 2019-09-14 11:35 | Physical Therapy Evaluation ---
PT Evaluation-General Medical Diagnosis Admission Date Sep 11, 2019 at 19:08 Medical Diagnosis: narcotic overdose Onset Date: Sep 11, 2019 Therapy Diagnosis Therapy Diagnosis: debility Precautions Precautions/Isolations: Standard Precautions Weight Bear Status Right Lower Extremity: Right Weight Bearing/Tolerated Left Lower Extremity: Left Weight Bearing/Tolerated Referral Physician: Vikash Reason for Referral: Evaluation/Treatment Medical History Pertinent Medical History: COPD, GERD, Hypothroidism Current History EMS secondary to respiratory failure due to overdose Reviewed History: Yes Social History Home: Single Level Current Living Status: Spouse Prior Prior Level of Function SCALE: Activities may be completed with or without assistive devices. 5-Axgaantrdc-ttoffcf completes the activity by him/herself with no assistance from a helper. 5-Set-up or Clean-up Assistance-helper sets up or cleans up; patient completes activity. Hurley assists only prior to or following the activity. 4-Supervision or Touching Assistance-helper provides verbal cues and/or touching/steadying and/or contact guard assistance as patient completes activity. Assistance may be provided throughout the activity or intermittently. 3-Partial/Moderate Assistance-helper does LESS THAN HALF the effort. Hurley lifts, holds or supports trunk or limbs, but provides less than half the effort. 2-Substantial/Maximal Assistance-helper does MORE THAN HALF the effort. Hurley lifts or holds trunk or limbs and provides more than half the effort. 9-Abwvnjefa-gcfhvs does ALL the effort. Patient does none of the effort to complete the activity. Or, the assistance of 2 or more helpers is required for the patient to complete the activity. If activity was not attempted, code reason: 7-Patient Refused. 9-Not Applicable-not attempted and the patient did not perform the activity before the current illness, exacerbation or injury. 10-Not Attempted due to Environmental Limitations-(lack of equipment, weather restraints, etc.). 88-Not Attempted due to Medical Conditions or Safety Concerns. Bed Mobility: 6 Transfers (B,C,W/C): 6 Gait: 6 Stairs: 6 Indoor Mobility (Ambulation): Independent Stairs: Independent Prior Devices Use: None PT Evaluation-Current Subjective Patient is very agreeable to participate with PT. Pain Numeric Pain Scale: 0-No Pain Location: No Pain Reported Objective Patient Orientation: Normal For Age Attachments: Oxygen (5L HF NC) ROM/Strength ROM Lower Extremities bilateral LE WFL Strength Lower Extremities 5/5 grossly bilateral LE Integumentary/Posture Integumentary refer to nursing notes Bladder Incontinence: Williamson Cath Posture WFL Neuromuscular (Tone, Coordination, Reflexes) grossly intact Sensory Vision: Functional Hearing: Functional Sensation Right Lower Extremit: Intact Sensation Left Lower Extremity: Intact Transfers Roll Left to Right (QC): 6 Sit to Lying (QC): 6 Lying to Sitting/Side of Bed(Q: 6 Sit to Stand (QC): 6 Gait Does the Patient Walk?: Yes Mode of Locomotion: Walk Anticipated Mode of Locomotion: Walk Walk 10 feet (QC): 6 Walk 50 ft with 2 Turns(QC): 6 Walk 150 ft (QC): 6 Distance: 400' Gait Assistive Device: None Comments/Gait Description safe and functional with no deviation Balance Sitting Static: Normal Sitting Dynamic: Normal Standing Static: Normal Standing Dynamic: Normal Assessment/Needs 59 y.o. female, is currently at [facility] with all gross motor skills and does not require skilled therapy intervention. Thank you for this referral. Rehab Potential: Good PT Plan Treatment/Plan Treatment Plan: Discontinue PT, goals met Treatment Plan: Other Treatment Duration: Sep 14, 2019 Frequency: 1 time per week Estimated Hrs Per Day: .25 hour per day Patient and/or Family Agrees t: Yes Time/GCodes Time In: 1111 Time Out: 1122 Total Billed Treatment Time: 11 Total Billed Treatment 1 visit EVLowC 11 min ALSIA BRADSHAW PT Sep 14, 2019 11:35
--- NOTE | 2019-09-14 12:34 | NUR ---
"RD ASSESSMENT PMHx: GERD; hypercholesterolemia PT INTERACTION: Pt was awake and pleasant during nutrition assessment. Pt states current appetite is good and has been for some time. Note avg PO intake of 43% x3d, per chart review. Pt states following a regular diet at home and has no issues with chewing/swallowing food. Pt states no recent issues with n/v/c/d at this time. Note last BM was 09/14 and pt not currently on bowel regimen, per chart review. Pt states recent 9# wt loss x6mon. Note unable to determine recent wt hx, per chart review. ABNORMAL NUTRITION-RELATED LAB VALUES LOW: BUN 6; phos 2.1 HIGH: Est. kcal needs: 6078-0860 kcal | 15-20 kcal/kg Est. Pro needs: 64-80 g Pro | 0.8-1.0 g Pro/kg PES STATEMENT: Inadequate oral intake (NI-2.1) related to loss of appetite as evidenced by pt interview | avg PO intake 43% x3d INTERVENTION: Continue with current diet order of Clear Liquid diet. Advance diet to Regular diet, as medically able and as tolerated. Add Ensure Clear to meals TID, for increased kcal intake. Provides 240 kcal and 8 g Pro per serving. Recommend replete phos, as current levels are low. Will continue to follow and reassess as pt needs and status change. MONITOR/EVALUATE: PO Intake; Plan of Care; Hydration Status; Weight Status; Lab Values Jerzy Callahan, MS, RD, LD"
--- NOTE | 2019-09-14 13:38 | Occupational Therapy Eval ---
OT Evaluation-General/PLF Medical Diagnosis Admission Date Sep 11, 2019 at 19:08 Medical Diagnosis: narcotic overdose Onset Date: Sep 11, 2019 Therapy Diagnosis Therapy Diagnosis: Weakness Precautions Precautions/Isolations: Standard Precautions Safety Interventions: None Weight Bear Status Weight Bearing Restriction: Weight Bearing/Tolerated Referral Physician: Vikash Referral Reason: Activity Tolerance, Self Care, Evaluation/Treatment, Strengthening/ROM Medical History Pertinent Medical History: COPD, GERD, Hypothroidism Additional Medical History Depression, anxiety, bipolar disorder. Current History Pt. sustained respiratory failure secondary to opioid overdose. Reviewed History: Yes Social History Home: Single Level Current Living Status: Spouse Entry Into Home: Level Entry ADL-Prior Level of Function SCALE: Activities may be completed with or without assistive devices. 3-Lprlvocitt-xpqbuvd completes the activity by him/herself with no assistance from a helper. 5-Set-up or Clean-up Assistance-helper sets up or cleans up; patient completes activity. Stella assists only prior to or following the activity. 4-Supervision or Touching Assistance-helper provides verbal cues and/or touching/steadying and/or contact guard assistance as patient completes activity. Assistance may be provided throughout the activity or intermittently. 3-Partial/Moderate Assistance-helper does LESS THAN HALF the effort. Stella lifts, holds or supports trunk or limbs, but provides less than half the effort. 2-Substantial/Maximal Assistance-helper does MORE THAN HALF the effort. Stella lifts or holds trunk or limbs and provides more than half the effort. 2-Dbpsaotbf-afxkwb does ALL the effort. Patient does none of the effort to complete the activity. Or, the assistance of 2 or more helpers is required for the patient to complete the activity. If activity was not attempted, code reason: 7-Patient Refused. 9-Not Applicable-not attempted and the patient did not perform the activity before the current illness, exacerbation or injury. 10-Not Attempted due to Environmental Limitations-(lack of equipment, weather restraints, etc.). 88-Not Attempted due to Medical Conditions or Safety Concerns. ADL PLOF Comments Pt. states that she was independent with daily skills previous to this hospitalization. Self Care: Independent Functional Cognition: Unknown DME/Equipment: Shower Drive Self: No OT Current Status Subjective No pain reported. Appearance Pt. up ambulating with PT. Had just finished and agreed to OT treatment. Mental Status/Objective Patient Orientation: Person, Place Attachments: Galvan Catheter, IV, Oxygen, Telemetry Current Upper Extremity ROM WFL Upper Extremity Strength WFL ADL-Treatment Shower/Bathe Self (QC): 5 (Set up for sponge bath only due to multiple tubes and lines. However, pt. was safe in stance with bathing all parts.) On/Off Footwear (QC): 6 Toileting Hygiene (QC): 6 Pt. is able to ambulate independently in her room with tubing. Pt. is able to bathe self in stance with no loss of balance. Pt. is able to doff/don slipper socks. Originally, pt. was going to dress in fresh street clothing, but opted for hospital gown as she continues to have galvan catheter, telemetry, and other lines. Pt. is able to brush her hair, toilet, and stand at her table. Pt. also able to transfer back to bed with no difficulty. No further OT needs at this time. Education OT Patient Education: Correct positioning, Modified ADL techniques, Progress toward Goal/Update tx plan, Purpose of tx/functional activities, Reviewed precautions, Rehab process, Transfer techniques Teaching Recipient: Patient Teaching Methods: Demonstration, Discussion Response to Teaching: Verbalize Understanding, Return Demonstration OT Custodial Goals Bow Maker Production Goals Time Frame: Sep 14, 2019 Additional Goals: 1-Demonstrate ADL Tasks 1=Demonstrate adherence to instructed precautions during ADL tasks. 2=Patient will verbalize/demonstrate understanding of assistive dev ices/modifications for ADL. 3=Patient will improve strength/tolerance for activity to enable patient to perform ADL's. Pt. demonstrated ability to perform all ADLs with safety in room. No further OT needs at this time. OT Education/Plan Problem List/Assessment Assessment: No Skilled OT Needs ID'd Discharge Recommendations Plan/Recommendations: Discharge/Goals Met Treatment Plan/Plan of Care Treatment,Training & Education: Yes Patient would benefit from OT for education, treatment and training to promote independence in ADL's, mobility, safety and/or upper extremity function for ADL's. Plan of Care: ADL Retraining, OTHER (No further OT needs at this time.) Treatment Duration: Sep 14, 2019 Frequency: 1 time per week Rehab Potential: Good Time/GCodes Start Time: 11:22 Stop Time: 11:45 Total Time Billed (hr/min): 23 Billed Treatment Time 1, EVL x 10minutes, ADL x 13minutes NICA [facility] OT Sep 14, 2019 13:38
--- NOTE | 2019-09-14 13:40 | NUR ---
report given to Karen WATERMAN
--- NOTE | 2019-09-14 15:12 | Progress Note - Hospitalist ---
Subjective HPI/CC On Admission Date Seen by Provider: Sep 14, 2019 Time Seen by Provider: 15:10 Regina Temple is a 58yoF with PMH depression, anxiety, GERD, former smoker, who presented with decreased level of consciousness. According to the report, her found her at home unresponsive in her bed. EMS was called and they found her to be apneic breathing. She was given Narcan and responded well. She was taken to the emergency room in [place]. She received a few more doses of Narcan there. An arterial blood gas showed an acute hypercapnic respiratory failure and she was started on BiPAP. This morning upon my arrival, she is very anxious. She says that she is worried that her does not want to talk to her. She is not sure how she ended up at the hospital. The last thing she remembers is being at home. She says that she only took 1 pain pill. She denies any suicidal ideation or attempts. Subjective/Events-last exam Pt reports doing well. Breathing improved. Requesting discharge. States she now remembers that it was morphine she tooka nd go it from [facility] ER for tooth pain. She denies any intent of self harm now that she has cleared. She states she just forgot she had taken any medicine. Focused Exam Lactate Level 09/11/19 16:45: Lactic Acid Level 1.09 Objective Exam Vital Signs Vital Signs Date Time Temp Pulse Resp B/P (MAP) Pulse Ox O2 Delivery O2 Flow Rate FiO2 09/14/19 13:00 82 17 150/103 (119) 100 High Flow N/C 7.00 09/14/19 10:49 36.8 09/14/19 09:34 45 Capillary Refill : Less Than 3 Seconds General Appearance: No Apparent Distress, WD/WN Respiratory: Lungs Clear, Other (on vapotherm) Cardiovascular: Regular Rate, Rhythm, No Murmur Neurologic/Psychiatric: Alert, Oriented x3 Results/Procedures Lab Laboratory Tests 09/14/19 03:20 Patient resulted labs reviewed. Imaging: Reviewed Imaging Report Assessment/Plan Assessment and Plan Assess & Plan/Chief Complaint Acute hypercapnic respiratory failure Unintentional opioid overdose - Transfer to floor - Continue Vapotherm and wean as able - BRIDGER likely contributed as well Aspiration pneumonia Chest x-ray with right upper lobe and left lower lobe infiltrates Continue abx, switch to Augmentin Acute kidney injury- resolved Creatinine Improved and at baseline - DC IVF Anxiety Depression Hypothyroidism Gastritis Continue home meds DVT prophylaxis: Heparin Clinical Quality Measures DVT/VTE Risk/Contraindication: Risk Factor Score Per Nursin RFS Level Per Nursing on Admit: 3=High SHIRA CARO MD Sep 14, 2019 15:12
[2019-09-14] MEDS: ACETAMINOPHEN 325 MG TABLET PO PRN ×2 (17:16→21:33)
[2019-09-14] MEDS: AUGMENTIN 875 MG TAB (AMOXICILLIN/CLAVULANATE) PO SCH (17:16)
[2019-09-14] MEDS: IBUPROFEN TABLET 200 MG TAB PO PRN ×2 (17:17→21:34)
--- NOTE | 2019-09-14 20:19 | NUR ---
PT REEDUCATED ON THE IMPORTANCE AND FUNCTION OF THE INCENTIVE SPIROMETER. PT TOLD TO USE IT EVERY 2 HOURS WHILE AWAKE TO HELP EXPAND HER LUNGS AND PREVENT PNEUMONIA. PT VERBALIZES UNDERSTANDING OF TEACHING AT THIS TIME.
[2019-09-14] MEDS: PANTOPRAZOLE 40 MG (PROTONIX) TAB PO SCH (21:33)
[2019-09-14] MEDS: clonazePAM 0.5 MG (KlonoPIN) TAB PO PRN (21:33)
[2019-09-15] VITALS: BP 123/82
[2019-09-15] MEDS: RT-ALBUTEROL/IPRATROPIUM 3 ML (DUONEB) VIAL INH SCH ×4 (02:20→19:35)
[2019-09-15 05:15] LABS: BASOPHILS % (AUTO) 0 % (0-10); EOSINOPHILS # (AUTO) 0.5 10^3/uL (0.0-0.3); EOSINOPHILS % (AUTO) 5 % (0-10); HEMATOCRIT 32 % (35-52); HEMOGLOBIN 9.9 G/DL (11.5-16.0); LYMPHOCYTES # (AUTO) 2.5 X 10^3 (1.0-4.0); LYMPHOCYTES % (AUTO) 26 % (12-44); MEAN CORPUSCULAR HEMOGLOBIN 25 PG (25-34); MEAN CORPUSCULAR HGB CONC 31 G/DL (32-36); MEAN CORPUSCULAR VOLUME 83 FL (80-99); MEAN PLATELET VOLUME 8.7 FL (7.4-10.4); MONOCYTES # (AUTO) 0.5 X 10^3 (0.0-1.0); MONOCYTES % (AUTO) 5 % (0-12); NEUTROPHILS # (AUTO) 6.2 X 10^3 (1.8-7.8); NEUTROPHILS % (AUTO) 63 % (42-75); PLATELET COUNT 344 10^3/uL (130-400); RED CELL DISTRIBUTION WIDTH 15.7 % (10.0-14.5); WHITE BLOOD COUNT 9.7 10^3/uL (4.3-11.0)
[2019-09-15 05:30] LABS: BUN/CREATININE RATIO 13; CARBON DIOXIDE 28 MMOL/L (21-32); CHLORIDE 103 MMOL/L (98-107); CREATININE SERUM 0.72 MG/DL (0.60-1.30); GFR ESTIMATED > 60; GLUCOSE 92 MG/DL (70-105); POTASSIUM 3.4 MMOL/L (3.6-5.0); SODIUM 142 MMOL/L (135-145)
[2019-09-15] MEDS: AUGMENTIN 875 MG TAB (AMOXICILLIN/CLAVULANATE) PO SCH ×2 (06:31→18:14)
[2019-09-15 08:00] VITALS: BP 144/68
[2019-09-15] MEDS: LEVOTHYROXINE 25 MCG (LEVOTHROID) TAB PO SCH (08:15)
[2019-09-15] MEDS: PANTOPRAZOLE 40 MG (PROTONIX) TAB PO SCH ×2 (08:15→21:44)
[2019-09-15] MEDS: VENlafaxine XR 75 MG (EFFEXOR XR) CAP PO SCH ×2 (08:15→21:44)
[2019-09-15] MEDS: ACETAMINOPHEN 325 MG TABLET PO PRN ×2 (13:42→21:45)
[2019-09-15] MEDS: clonazePAM 0.5 MG (KlonoPIN) TAB PO PRN ×2 (13:45→21:44)
--- NOTE | 2019-09-15 14:24 | Progress Note - Hospitalist ---
Subjective HPI/CC On Admission Date Seen by Provider: Sep 15, 2019 Time Seen by Provider: 14:21 Regina Temple is a 58yoF with PMH depression, anxiety, GERD, former smoker, who presented with decreased level of consciousness. According to the report, her found her at home unresponsive in her bed. EMS was called and they found her to be apneic breathing. She was given Narcan and responded well. She was taken to the emergency room in [place]. She received a few more doses of Narcan there. An arterial blood gas showed an acute hypercapnic respiratory failure and she was started on BiPAP. This morning upon my arrival, she is very anxious. She says that she is worried that her does not want to talk to her. She is not sure how she ended up at the hospital. The last thing she remembers is being at home. She says that she only took 1 pain pill. She denies any suicidal ideation or attempts. Subjective/Events-last exam Pt reports not feeling as well today. She has a headache. Now on 5lpm. Objective Exam Vital Signs Vital Signs Date Time Temp Pulse Resp B/P (MAP) Pulse Ox O2 Delivery O2 Flow Rate FiO2 09/15/19 08:25 98 Nasal Cannula 5.00 09/15/19 08:00 36.8 79 22 144/68 (93) 09/14/19 09:34 45 Capillary Refill : Less Than 3 Seconds General Appearance: No Apparent Distress, WD/WN Respiratory: Lungs Clear, No Respiratory Distress Cardiovascular: Regular Rate, Rhythm, No Murmur Extremity: No Calf Tenderness, No Pedal Edema Neurologic/Psychiatric: Alert, Oriented x3 Results/Procedures Lab Laboratory Tests 09/15/19 04:45 Patient resulted labs reviewed. Imaging: Reviewed Imaging Report Assessment/Plan Assessment and Plan Assess & Plan/Chief Complaint Acute hypercapnic respiratory failure Unintentional opioid overdose - Continue to wean oxygen, will get home oxygen study - BRIDGER likely contributed as well Aspiration pneumonia Chest x-ray with right upper lobe and left lower lobe infiltrates Continue abx, Continue Augmentin Acute kidney injury- resolved Creatinine Improved and at baseline Anxiety Depression Hypothyroidism Gastritis Continue home meds DVT prophylaxis: Heparin Clinical Quality Measures DVT/VTE Risk/Contraindication: Risk Factor Score Per Nursin RFS Level Per Nursing on Admit: 3=High SHIRA CARO MD Sep 15, 2019 14:24
[2019-09-15 15:50] VITALS: BP 135/87
[2019-09-15 19:55] VITALS: BP 136/74
[2019-09-15] MEDS: IBUPROFEN TABLET 200 MG TAB PO PRN (21:46)
[2019-09-15 23:40] VITALS: BP 119/71
[2019-09-16] MEDS: RT-ALBUTEROL/IPRATROPIUM 3 ML (DUONEB) VIAL INH SCH ×4 (00:49→11:46)
[2019-09-16 06:06] LABS: BASOPHILS % (AUTO) 0 % (0-10); EOSINOPHILS # (AUTO) 0.5 10^3/uL (0.0-0.3); EOSINOPHILS % (AUTO) 5 % (0-10); HEMATOCRIT 36 % (35-52); HEMOGLOBIN 10.8 G/DL (11.5-16.0); LYMPHOCYTES # (AUTO) 2.8 X 10^3 (1.0-4.0); LYMPHOCYTES % (AUTO) 28 % (12-44); MEAN CORPUSCULAR HEMOGLOBIN 25 PG (25-34); MEAN CORPUSCULAR HGB CONC 30 G/DL (32-36); MEAN CORPUSCULAR VOLUME 81 FL (80-99); MEAN PLATELET VOLUME 8.6 FL (7.4-10.4); MONOCYTES # (AUTO) 0.6 X 10^3 (0.0-1.0); MONOCYTES % (AUTO) 6 % (0-12); NEUTROPHILS # (AUTO) 6.2 X 10^3 (1.8-7.8); NEUTROPHILS % (AUTO) 61 % (42-75); PLATELET COUNT 374 10^3/uL (130-400); RED CELL DISTRIBUTION WIDTH 16.4 % (10.0-14.5); WHITE BLOOD COUNT 10.1 10^3/uL (4.3-11.0)
[2019-09-16 06:24] LABS: BUN/CREATININE RATIO 8; CALCIUM 9.2 MG/DL (8.5-10.1); CARBON DIOXIDE 24 MMOL/L (21-32); CHLORIDE 103 MMOL/L (98-107); CREATININE SERUM 0.72 MG/DL (0.60-1.30); GFR ESTIMATED > 60; GLUCOSE 93 MG/DL (70-105); POTASSIUM 3.5 MMOL/L (3.6-5.0); SODIUM 141 MMOL/L (135-145)
[2019-09-16] MEDS: AUGMENTIN 875 MG TAB (AMOXICILLIN/CLAVULANATE) PO SCH (06:59)
[2019-09-16 08:00] VITALS: BP 126/67
[2019-09-16] MEDS: PANTOPRAZOLE 40 MG (PROTONIX) TAB PO SCH (09:12)
[2019-09-16] MEDS: LEVOTHYROXINE 25 MCG (LEVOTHROID) TAB PO SCH (09:13)
[2019-09-16] MEDS: VENlafaxine XR 75 MG (EFFEXOR XR) CAP PO SCH (09:13)
[2019-09-16] MEDS ORDERED: AMOX1TAB12 PO (09:33)
--- NOTE | 2019-09-16 10:24 | NUR ---
CM/SS visited patient to assess for needs and request from Hospitalist. Plan: The patient plans to return home with her Donta and her granddaughter who is now adopted and legally her daughter. She plans to continue counseling and follow up appointments for medical issues. Financial services reported that she has active financial assistance. Mental health: The patient reported that she has counseling for her depression, anxiety, and Bipolar Disorder (not sure of the agency but thinks [facility] in [place]). Her disease case manager is Sahil, counselor is Durga, and Nurse is Michelle. The patient states that she sees her disease case manager twice weekly, and her counselor every 3 weeks. The Nurse helps regulate her medication for her Bipolar Diagnosis. The patient states that she has been feeling depressed lately due to her lack of income and stress. This CM/SS discussed with the patient making an appointment to see counselor sooner. The patient stated this was not a suicide attempt. The patient reports that she has filled out a [facility] application before she came into the hospital. The patients has partial Medicaid and her daughter has Medicaid. CM/SS spoke with the patient about resources in the area that work on a sliding scale or with low income. The patient verbalized that she is already utilizing them and will continue too. There were no other needs noted.
--- NOTE | 2019-09-16 11:16 | Discharge Inst-Simple/Standard ---
Discharge Inst-Standard Reconcile Patient Problems Problems Reviewed?: Yes Discharge Medications New, Converted or Re-Newed RX: Transmitted to Pharmacy Patient Instructions/Follow Up Plan of Care/Instructions/FU: Please continue to take your medications as written. Please follow up with your PCP in the next week. Activity as Tolerated: Yes Discharge Diet: No Restrictions Return to The Hospital For: Shortness of breath, confusion, pain, difficulty breathing, if you feel you are getting worse. SHIRA CARO MD Sep 16, 2019 11:16
[2019-09-16] MEDS: clonazePAM 0.5 MG (KlonoPIN) TAB PO PRN (11:39)
[2019-09-16] MEDS: IBUPROFEN TABLET 200 MG TAB PO PRN (11:39)
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
[2019-09-16 14:10] VITALS: BP 126/67
--- NOTE | 2019-09-16 14:10 | NUR ---
DANIELLE STONE demonstrates understanding of discharge instructions and accurately returns instructions upon questioning. Copy of Post-Discharge Instructions given to PT. DANIELLE STONE is able to manage continuing needs after discharge. Patients belongings returned to PT. Patient discharged from [facility] on 09/16/19 at DANIELLE BLACK left floor via W/C, accompanied by STAFF AND PER AUTO.
== END 2019-09-16 14:01 | disposition home or self-care (01) ==
LOC: ER FS 16:35 → EDUNIT# 16:35 → CSD 19:08 → ICU 22:05 → 4TH 09-14 13:45
PROVIDERS: ADMIT Internal Medicine; ATTEND Internal Medicine
DX: J96.02 Acute respiratory failure with hypercapnia (principal); T40.2X1A Poisoning by other opioids, accidental (unintentional), initial encounter; J69.0 Pneumonitis due to inhalation of food and vomit; N17.9 Acute kidney failure, unspecified; J43.9 Emphysema, unspecified; K21.9 Gastro-esophageal reflux disease without esophagitis; G47.9 Sleep disorder, unspecified; E03.9 Hypothyroidism, unspecified; F31.9 Bipolar disorder, unspecified; F41.9 Anxiety disorder, unspecified; Z79.899 Other long term (current) drug therapy; Z82.49 Family history of ischemic heart disease and other diseases of the circulatory system; Z80.52 Family history of malignant neoplasm of bladder
CPT/HCPCS: 36415; 36600; 51701; 71045; 80048; 80053; 80306; 81000; 82805; 83605; 83735; 84100; 84145; 84443; 85007; 85025; 85027; 85610; 85730; 87040; 87081; 87088; 94640; 94660; 94664; 94760; 94761; 96361; 96365; 96366; 96375; 96376

== ENCOUNTER 2019-09-30 11:00 | Outpatient (CLI) | payer OTHER ==
[~2019-09-30] VITALS: Ht 154.9 cm; Wt 77.8 kg
[~2019-09-30 11:00] MED LIST changes: +ACET-2267 PO; +AMOX1TAB12 PO; +CLON0.5T PO; +IBUP-30 PO; +PANT40TA2 PO
== END 2019-09-30 11:41 | disposition home or self-care (01) ==
LOC: PREOP 11:00
PROVIDERS: ATTEND Surgery
DX: Z01.818 Encounter for other preprocedural examination (principal)

== ENCOUNTER → 2019-10-07 | Outpatient (CLI) | payer OTHER ==
[~2019-10-07] MED LIST changes: +TPR25T PO
--- NOTE | 2019-10-07 15:23 | Diagnostic Imaging Report ---
INDICATION: Confusion and right-sided weakness and numbness x3 days. COMPARISON: There is no prior study for comparison. TECHNIQUE: Multiple contiguous axial images were obtained through the brain without the use of intravenous contrast. Auto Exposure Controls were utilized during the CT exam to meet ALARA standards for radiation dose reduction. FINDINGS: There are no extra-axial fluid collections. No intracranial hemorrhage. No intracranial mass or mass effect. No midline shift. The ventricles are normal in size and position. There is no discrete focal parenchymal abnormality in the brain. Calvarial windows appear unremarkable. Visualized portions of the mastoid air cells and sinuses are well aerated. IMPRESSION: Negative noncontrast brain CT. If symptoms persist, consider MRI for increased sensitivity. Dictated by: Dictated on workstation # [id number]
== END ==
LOC: RAD FS 14:54
PROVIDERS: ATTEND Family Medicine
DX: F19.921 Other psychoactive substance use, unspecified with intoxication with delirium (principal); R53.1 Weakness
CPT/HCPCS: 70450

== ENCOUNTER 2019-10-08 10:04 | Inpatient (IN) | payer OTHER ==
[~2019-10-08] VITALS: Ht 154.9 cm; Wt 69.8 kg
[~2019-10-08 10:04] MED LIST changes: -TPR25T PO
--- NOTE | 2019-10-08 10:34 | ED Neurological Problem ---
General Chief Complaint: Altered Mental Status Stated Complaint: AMS Nursing Triage Note: REPORTS SHE IS NOT TRACKING RIGHT SINCE HER EGD ON FRIDAY. Nursing Sepsis Screen: No Definite Risk Source: patient, family, spouse Exam Limitations: clinical condition, other (she presents with mental status changes ever since her esophagogastroduodenoscopy done on Friday. She however does have a history for morphine and benzodiazepine overdose on September 11. Patient presents as a possible altered mental status changes and possible toxic or and anoxic encephalopathy) History of Present Illness Date Seen by Provider: Oct 08, 2019 Time Seen by Provider: 10:23 Initial Comments 59-year-old female presents to the emergency room with altered mental status. Patient is not able to recall several things and neurologic assessment has evidence of altered mental status and possible neurologic dysfunction. Patient had a soft go gastroduodenoscopy on Friday. and patient relate that this is been worse since that service. Nursing staff however recognized the patient and reports that on September 11 she presented to the emergency room with an morphine and benzodiazepine overdose. Patient denies any trauma and patient and both give informed consent for diagnostic and therapeutic services. Patient did have a CT scan at another facility yesterday and was reported to be negative where try to get those results. Laboratory evaluation including toxicology screen will be done. She shows no sign of difficulty breathing and has no evidence of ischemic heart disease at this time. It is no obvious findings of infection. Patient has word search issues in addition to not knowing who the president is not knowing what day of the week it is. She did know the name of her and didn't know it was 2019. Timing/Duration: 1 week (over the patient has presented on September 11 with similar findings consistent with the morphine and benzodiazepine overdose) Severity: moderate Associated Symptoms: confusion, fatigue, loss of consciousness (secondary to opioid and benzodiazepine overdose in the past), slurred speech, weakness Allergies and Home Medications Allergies Coded Allergies: No Known Drug Allergies (Verified , 10/04/19) Home Medications Acetaminophen 500 Mg Tablet, 500-1,000 MG PO Q4H PRN for PAIN-MILD (1-4), (Reported) Albuterol Sulfate 1 Puff Puff, 2 PUFF IH Q4H PRN for SHORTNESS OF BREATH, (Reported) 1 PUFF = 90 MCG Amitriptyline HCl 75 Mg Tablet, 225-300 MG PO HS, (Reported) TAKES 3-4 (75MG) TABLETS Clonazepam 0.5 Mg Tablet, 0.5 MG PO QID PRN for ANXIETY, (Reported) Ergocalciferol (Vitamin D2) 50,000 Unit Capsule, 50,000 UNIT PO Mo, (Reported) Ferrous Sulfate 325 Mg Tablet, 325 MG PO DAILY, (Reported) Furosemide 20 Mg Tablet, 20 MG PO TWICE WEEKLY PRN for SWELLING, (Reported) Ibuprofen 200 Mg Tablet, 800 MG PO TID PRN for PAIN-MILD (1-4), (Reported) Levothyroxine Sodium 25 Mcg Tablet, 25 MCG PO DAILY, (Reported) Pantoprazole Sodium 40 Mg Tablet.dr, 40 MG PO BID, (Reported) Venlafaxine HCl 150 Mg Tab.er.24, 150 MG PO BID, (Reported) Patient Home Medication List Home Medication List Reviewed: Yes Review of Systems Review of Systems Constitutional: malaise, weakness, other (confusion and reported altered mental status patient is prescribed clonazepam 0.5 4 times a day.) Respiratory: no symptoms reported Cardiovascular: no symptoms reported, other (weakness and confusion) Gastrointestinal: no symptoms reported Genitourinary: no symptoms reported : No Musculoskeletal: back pain Skin: change in hair/nails (he has split skin the tips of her fingers secondary to "dry air") Psychiatric/Neurological: Anxiety, Headache, Weakness Endocrine: No Symptoms Reported Hematologic/Lymphatic: No Symptoms Reported Past Xcpjvxo-Ruhmen-Cqoswz Hx Patient Social History Alcohol Use: Denies Use Recreational Drug Use: No ( is a smoker. He reports he smokes outside) Type Used: Cigarettes Former Smoker, Quit: Jun 02, 2011 2nd Hand Smoke Exposure: Yes Recent Foreign Travel: No Contact w/Someone Who Travel: No Recent Infectious Disease Expo: No Recent Hopitalizations: No Physical Abuse: No Sexual Abuse: No Mistreated: No Fear: No Immunizations Up To Date Tetanus Booster (TDap): Unknown Date of Pneumonia Vaccine: Aug 15, 2016 Seasonal Allergies Seasonal Allergies: Yes Past Medical History Surgeries: Yes (tubal , hernia, bilat carpal tunnel) Gallbladder Respiratory: Yes (COPD) Emphysema Cardiac: Yes High Cholesterol Neurological: No Genitourinary: No Gastrointestinal: Yes (gastritis) Gastroesophageal Reflux (she reports she had a gastroesophageal duodenoscopy done on Friday and believes that her change in mental status was worsened after that service), Polyps Musculoskeletal: No Endocrine: Yes HEENT: No Cancer: No Psychosocial: Yes Sleep Difficulties, Anxiety, Bipolar, Depression Integumentary: No Blood Disorders: No Family Medical History Reviewed Nursing Family Hx Bipolar disorder G8 BROTHER G8 SISTER Hypertension 19 MOTHER, Neoplasm 19 MOTHER, (bladder cancer) Cancer, Hypertension Physical Exam Vital Signs Vital Signs - First Documented 10/08/19 10:24 Temp 36.3 Pulse 82 Resp 18 B/P (MAP) 176/108 (130) Pulse Ox 97 O2 Delivery Room Air Capillary Refill : Less Than 3 Seconds Height, Weight, BMI Height: '" Weight: lbs. oz. kg; 29.00 BMI Method: General Appearance: moderate distress (secondary to change in mental status and word searching issues patient has a high level of anxiety she did not remember that she had a similar event on September 11 with a morphine and benzodiazepine overdose) HEENT: PERRL/EOMI, normal ENT inspection (left maxillary molar appears to be infected and patient and report she is going to see a dentist for this), pharynx normal Neck: non-tender, full range of motion, supple, normal inspection (no bruit auscultated) Respiratory: chest non-tender, lungs clear, normal breath sounds, no respiratory distress, no accessory muscle use Cardiovascular: regular rate, rhythm, no edema, no gallop, no JVD, no murmur, other (EKG reveals a normal sinus rhythm) Peripheral Pulses: 2+ Carotid (R), 2+ Carotid (L), 2+ Femoral (R), 2+ Femoral (L), 2+ Dorsalis Pedis (R), 2+ Left Dors-Pedis (L) Gastrointestinal: normal bowel sounds, non tender, soft, no organomegaly, no pulsatile mass Genital/Rectal: other (urethral catheter done by nursing they did not describe any abnormalities) Back: normal inspection, no CVA tenderness, no vertebral tenderness Extremities: normal range of motion, non-tender, normal inspection, no pedal edema, no calf tenderness 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, no motor/sensory deficits, alert, other (disoriented to time of day she has a normal gait she has word search issues with a high level of anxiety because of this.) Crainal Nerves: normal hearing, abnormal speech (slow verbalizations and word search issues) Coordination/Gait: normal finger to nose, normal gait, negative Romberg's sign Motor/Sensory: no motor deficit, no sensory deficit, no pronator drift, negative Babinski's sign, other (negative Connor sign no sign of meningismus) Reflexes: 2+ Bicep (R), 2+ Bicep (L), 2+ Tricep (R), 2+ Tricep (L), 2+ Knee (R), 2+ Knee (L), 2+ Ankle (R), 2+ Ankle (L) (no ankle clonus) Skin: normal color (multiple tattoos), warm/dry, tattoos/piercings Lymphatic: no adenopathy Progress/Results/Core Measures Results/Orders Lab Results Laboratory Tests Test 10/08/19 10:30 10/08/19 10:37 10/08/19 11:10 Range/Units White Blood Count 11.2 H 4.3-11.0 10^3/uL Red Blood Count 4.62 4.35-5.85 10^6/uL Hemoglobin 11.6 11.5-16.0 G/DL Hematocrit 38 35-52 % Mean Corpuscular Volume 81 80-99 FL Mean Corpuscular Hemoglobin 25 25-34 PG Mean Corpuscular Hemoglobin Concent 31 L 32-36 G/DL Red Cell Distribution Width 15.7 H 10.0-14.5 % Platelet Count 365 130-400 10^3/uL Mean Platelet Volume 8.7 7.4-10.4 FL Neutrophils (%) (Auto) 68 42-75 % Lymphocytes (%) (Auto) 23 12-44 % Monocytes (%) (Auto) 5 0-12 % Eosinophils (%) (Auto) 3 0-10 % Basophils (%) (Auto) 0 0-10 % Neutrophils # (Auto) 7.6 1.8-7.8 X 10^3 Lymphocytes # (Auto) 2.5 1.0-4.0 X 10^3 Monocytes # (Auto) 0.6 0.0-1.0 X 10^3 Eosinophils # (Auto) 0.3 0.0-0.3 10^3/uL Basophils # (Auto) 0.0 0.0-0.1 10^3/uL Neutrophils % (Manual) 71 % Lymphocytes % (Manual) 24 % Monocytes % (Manual) 3 % Eosinophils % (Manual) 2 % Microcytosis SLIGHT Sodium Level 138 135-145 MMOL/L Potassium Level 3.4 L 3.6-5.0 MMOL/L Chloride Level 99 98-107 MMOL/L Carbon Dioxide Level 23 21-32 MMOL/L Anion Gap 16 H 5-14 MMOL/L Blood Urea Nitrogen 10 7-18 MG/DL Creatinine 0.81 0.60-1.30 MG/DL Estimat Glomerular Filtration Rate > 60 BUN/Creatinine Ratio 12 Glucose Level 121 H 70-105 MG/DL Calcium Level 10.0 8.5-10.1 MG/DL Corrected Calcium 8.5-10.1 MG/DL Magnesium Level 2.1 1.6-2.4 MG/DL Total Bilirubin 0.2 0.1-1.0 MG/DL Aspartate Amino Transf (AST/SGOT) 21 5-34 U/L Alanine Aminotransferase (ALT/SGPT) 13 0-55 U/L Alkaline Phosphatase 99 40-136 U/L Total Protein 8.5 H 6.4-8.2 GM/DL Albumin 4.7 H 3.2-4.5 GM/DL Urine Opiates Screen NEGATIVE NEGATIVE Urine Oxycodone Screen NEGATIVE NEGATIVE Urine Methadone Screen NEGATIVE NEGATIVE Urine Propoxyphene Screen NEGATIVE NEGATIVE Urine Barbiturates Screen NEGATIVE NEGATIVE Ur Tricyclic Antidepressants Screen POSITIVE H NEGATIVE Urine Phencyclidine Screen NEGATIVE NEGATIVE Urine Amphetamines Screen NEGATIVE NEGATIVE Urine Methamphetamines Screen NEGATIVE NEGATIVE Urine Benzodiazepines Screen NEGATIVE NEGATIVE Urine Cocaine Screen NEGATIVE NEGATIVE Urine Cannabinoids Screen NEGATIVE NEGATIVE Urine Color YELLOW Urine Clarity SLIGHLTY CLOUDY Urine pH 6.0 5-9 Urine Specific [place] <=1.005 1.016-1.022 Urine Protein NEGATIVE NEGATIVE Urine Glucose (UA) NEGATIVE NEGATIVE Urine Ketones NEGATIVE NEGATIVE Urine Nitrite POSITIVE H NEGATIVE Urine Bilirubin NEGATIVE NEGATIVE Urine Urobilinogen 0.2 < = 1.0 MG/DL Urine Leukocyte Esterase 2+ H NEGATIVE Urine RBC (Auto) 1+ H NEGATIVE Urine RBC NONE /HPF Urine WBC 25-50 H /HPF Urine Squamous Epithelial Cells NONE /HPF Urine Crystals NONE /LPF Urine Bacteria LARGE H /HPF Urine Casts NONE /LPF Urine Mucus NEGATIVE /LPF Urine Culture Indicated YES Micro Results Microbiology 10/08/19 Influenza Types A,B Antigen ([facility]) - Final, Complete My Orders Orders - PALOMO PEDERSEN DO Drug Screen Stat (Urine) (10/08/19 10:26) Cbc And Manual Diff (10/08/19 10:26) Magnesium (10/08/19 10:26) Comprehensive Metabolic Panel (10/08/19 10:26) Influenza A And B Antigens (10/08/19 10:26) Ekg Tracing (10/08/19 10:26) Urinalysis (10/08/19 11:46) Urine Culture (10/08/19 11:10) Sulfamethoxazole/Trimet Ds Tab (Bactrim (10/08/19 12:45) Medications Given in ED Current Medications Medications Dose Ordered Sig/Armando Route Start Time Stop Time Status Last Admin Dose Admin Trimethoprim/ Sulfamethoxazole 1 ea ONCE ONCE PO 10/08/19 12:45 10/08/19 12:46 DC 10/08/19 12:47 1 EA Vital Signs/I&O 10/08/19 10/08/19 10:24 12:43 Temp 36.3 36.8 Pulse 82 95 Resp 18 18 B/P (MAP) 176/108 (130) 140/98 Pulse Ox 97 97 O2 Delivery Room Air Room Air Blood Pressure Mean: 130 Progress Progress Note : Time: 12:54 Progress Note Patient with mental status changes that may be related to a acute process on top of chronic cognitive issues. Patient had an episode in September 11 that was related to morphine and benzodiazepine overdose. Current urine drug screen is negative for anything except tricyclics. Patient does admit to having a change in her overall mental status and this is been supported by her after a upper esophagogastroduodenoscopy on Friday. Departure Communication (Admissions) Time/Spoke to Admitting Phy: 12:21 Dr. Goldsmith was contacted and agreed with admission for acute on chronic mental status changes. Patient should have a MRI of the brain with gadolinium and follow-up evaluations. Patient has no evidence of toxicity from opioids or benzodiazepine. She does have word searching issues and the states that she's changed since Friday when she had an upper Gastro duodenoscopy. Impression Primary Impression: Mental status alteration Additional Impression: Urinary tract infection Disposition: ADMITTED INPATIENT Condition: Stable Admissions Decision to Admit Reason: Admit from ER (General) Decision to Admit/Date: Oct 08, 2019 Time/Decision to Admit Time: 12:30 Transfer Transfer Reason: Exceeds level of care Departure-Patient Inst. Referrals: SELF,BENNY ABBOTT (PCP/Family) Primary Care Physician Patient Instructions: Altered Mental Status (DC) PALOMO PEDERSEN DO Oct 08, 2019 10:34
[2019-10-08 10:50] LABS: BASOPHILS % (AUTO) 0 % (0-10); EOSINOPHILS # (AUTO) 0.3 10^3/uL (0.0-0.3); EOSINOPHILS % (AUTO) 3 % (0-10); HEMATOCRIT 38 % (35-52); HEMOGLOBIN 11.6 G/DL (11.5-16.0); LYMPHOCYTES # (AUTO) 2.5 X 10^3 (1.0-4.0); LYMPHOCYTES % (AUTO) 23 % (12-44); MEAN CORPUSCULAR HEMOGLOBIN 25 PG (25-34); MEAN CORPUSCULAR HGB CONC 31 G/DL (32-36); MEAN CORPUSCULAR VOLUME 81 FL (80-99); MEAN PLATELET VOLUME 8.7 FL (7.4-10.4); MONOCYTES # (AUTO) 0.6 X 10^3 (0.0-1.0); MONOCYTES % (AUTO) 5 % (0-12); NEUTROPHILS # (AUTO) 7.6 X 10^3 (1.8-7.8); NEUTROPHILS % (AUTO) 68 % (42-75); PLATELET COUNT 365 10^3/uL (130-400); RED CELL DISTRIBUTION WIDTH 15.7 % (10.0-14.5); WHITE BLOOD COUNT 11.2 10^3/uL (4.3-11.0)
[2019-10-08 11:00] LABS: EOSINOPHILS % (MANUAL) 2 %; LYMPHOCYTES % (MANUAL) 24 %; MICROCYTOSIS SLIGHT; MONOCYTES % (MANUAL) 3 %; NEUTROPHILS % (MANUAL) 71 %
[2019-10-08 11:00] LABS: TRICYCLIC ANTIDEPRESSANTS SCRE POSITIVE (NEGATIVE)
[2019-10-08 11:01] LABS: AMPHETAMINE SCREEN, URINE NEGATIVE (NEGATIVE); BARBITURATE SCREEN URINE NEGATIVE (NEGATIVE); BENZODIAZEPINES SCREEN URINE NEGATIVE (NEGATIVE); CANNABINOID SCREEN, URINE NEGATIVE (NEGATIVE); COCAINE SCREEN URINE NEGATIVE (NEGATIVE); METHADONE STAT NEGATIVE (NEGATIVE); METHAMPHETAMINE SCREEN URINE S NEGATIVE (NEGATIVE); OPIATE SCREEN URINE NEGATIVE (NEGATIVE); OXYCODONE STAT NEGATIVE (NEGATIVE); PROPOXYPHENE STAT NEGATIVE (NEGATIVE)
[2019-10-08 11:10] LABS: ALANINE AMINOTRANSFERASE 13 U/L (0-55); ALBUMIN 4.7 GM/DL (3.2-4.5); ALKALINE PHOSPHATASE 99 U/L (40-136); BILIRUBIN,TOTAL 0.2 MG/DL (0.1-1.0); BUN/CREATININE RATIO 12; CARBON DIOXIDE 23 MMOL/L (21-32); CHLORIDE 99 MMOL/L (98-107); CREATININE SERUM 0.81 MG/DL (0.60-1.30); GFR ESTIMATED > 60; GLUCOSE 121 MG/DL (70-105); MAGNESIUM 2.1 MG/DL (1.6-2.4); POTASSIUM 3.4 MMOL/L (3.6-5.0); SODIUM 138 MMOL/L (135-145); TOTAL PROTEIN 8.5 GM/DL (6.4-8.2)
[2019-10-08 12:03] LABS: CLARITY,URINE SLIGHLTY CLOUDY; COLOR,URINE YELLOW
[2019-10-08 12:04] LABS: BILIRUBIN,URINE NEGATIVE (NEGATIVE); GLUCOSE, URINE (UA) NEGATIVE (NEGATIVE); KETONES,URINE NEGATIVE (NEGATIVE); LEUKOCYTE ESTERASE ,URINE 2+ (NEGATIVE); NITRITE,URINE POSITIVE (NEGATIVE); PROTEIN,URINE NEGATIVE (NEGATIVE)
[2019-10-08 12:09] LABS: BACTERIA,URINE LARGE /HPF; WBC,URINE 25-50 /HPF
[2019-10-08] MEDS ORDERED: TRIM/SULFAMETH 160/800 (SEPTRA DS) TAB PO ONE (12:45)
[2019-10-08] MEDS ORDERED: POTASSIUM CHLORIDE INJ 20 MEQ in NS IV 1000 ML 1,000 ML IV SCH (13:18)
[2019-10-08] MEDS ORDERED: ENOXAPARIN 40 MG/0.4 ML (LOVENOX) SYR SC SCH (13:30)
[2019-10-08] MEDS ORDERED: CATHETER FLUSH 10 ML SYR IV PRN (13:45)
[2019-10-08 14:50] VITALS: BP 161/89
--- NOTE | 2019-10-08 14:50 | NUR ---
DANIELLE SEGUNDO admitted to room 423-1, with an admitting diagnosis of UTI , CONFUSION, on 10/08/19 from [facility] via [facility], accompanied by .DANIELLE STONE introduced to surroundings, call light, bed controls, phone, TV, temperature control, lights, meal times, smoking policy, visitor policy, side rail policy, bathrooms and showers. Patient Rights given to patient in the handbook.DANIELLE STONE verbalizes understanding that [facility] is not responsible for the loss or damage to any personal effects or valuables that are kept in the patients posession during their hospitalization. The following Patient Care Plans were discussed with the PT AND : Discharge Planning, PAIN CONTROL,IV THERAPY, and TEESTS AND PROCEDURES. DANIELLE STONE verbalizes understanding of Interdisciplinary Patient Education. Patient and/or family were informed about the Rapid Response Team and its purpose.
--- NOTE | 2019-10-08 15:00 | NUR ---
NO IV ACCESS. IV STICKS X 5 BY 3 DIFFERENT NURSES. CALLED INSIDE TRUCKER TO START IV.
[2019-10-08 15:02] VITALS: BP 161/89
[2019-10-08] MEDS ORDERED: TPR25T PO (15:04)
[2019-10-08] MEDS ORDERED: IBUP-1780 PO (15:04)
--- NOTE | 2019-10-08 15:06 | NUR ---
[facility] I WENT OVER IT WITH THE PATIENT. LAST TIME SHE WAS HERE SHE REPORTED SHE WAS NOT TAKING THE TOPAMAX BECAUSE SHE DID NOT FEEL IT WAS WORKING HOWEVER SHE HAS REFILLED IT SINCE THEN. TODAY SHE STATES SHE IS TAKING IT. LEX MCDON[facility] FILLED: 10-04-19 PROTONIX 40MG BID #60 09-30-19 IBU 800MG TID PRN #90 09-28-19 CLONAZEPAM 0.5MG QID #120 09-28-19 VENLAFAXINE ER 150MG BID #60 09-28-19 AMITRIPTYLINE 75MG 4 HS #120 09-28-19 VITAMIN D2 50,000 UNITS WEEKLY #4 (TAKES ON MONDAYS) 09-28-19 LEVOTHYROXINE 25MCG DAILY #30 09-28-19 TOPIRAMATE 25MG HS #30 09-28-19 FUROSEMIDE 20MG TWICE A WEEK #10 (STATES SHE TAKES PRN SWELLING) 09-21-19 PROAIR 2 Q6H PRN OTC MEDS: TYLENOL PRN IRON DAILY
[2019-10-08 16:00] VITALS: BP 139/78
[2019-10-08] MEDS ORDERED: FUROSEMIDE 20 MG (LASIX) TAB PO PRN (16:45)
[2019-10-08] MEDS ORDERED: RT-ALBUTEROL SULF 2.5 MG/3 ML PRE-MIX VIAL IH PRN (16:45)
[2019-10-08] MEDS: TRIM/SULFAMETH 160/800 (SEPTRA DS) TAB PO SCH (16:45)
[2019-10-08] MEDS ORDERED: ACETAMINOPHEN 500 MG TAB (TYLENOL) PO PRN (16:45)
[2019-10-08] MEDS: cefTRIAXone FOR IV USE 1,000 MG in WATER (STERILE) FOR INJECTION 10 ML IV SCH (16:45)
[2019-10-08] MEDS ORDERED: clonazePAM 0.5 MG (KlonoPIN) TAB PO PRN (16:45)
[2019-10-08] MEDS ORDERED: IBUPROFEN 800 MG (MOTRIN) TAB PO PRN (16:45)
[2019-10-08] MEDS: NS W/KCL 20 MEQ/L 1,000 ML IV SCH ×2 (16:46→21:33)
[2019-10-08 16:54] VITALS: BP 139/78
[2019-10-08 17:00] LABS: ABG BASE EXCESS 0.6 MMOL/L (-2.5-2.5); ABG OXYGEN SATURATION 94 % (94-100); ABG PCO2 39 MMHG (35-45); ABG PH 7.41 (7.37-7.43); ABG PO2 67 MMHG (79-93)
[2019-10-08 17:03] LABS: ALLENS TEST POS; INSPIRED O2 RA; PATIENT TEMP 36.3; VENTILATOR NO
[2019-10-08] MEDS ORDERED: RT-ALBUTEROL SULF 2.5 MG/3 ML PRE-MIX VIAL INH PRN (17:15)
--- NOTE | 2019-10-08 17:15 | History & Physical-Hospitalist ---
[facility] 10/08/19 1715: History of Present Illness HPI/Chief Complaint Patient is a 59 year old fidgety female with recent history (Sep 11) of overdose on benzo and morphine that presents today to the ED because her said she was "acting weird". They are attributing this to "medications she got on Friday after her EGD". Patient is alert but thinks she is in [place] and she does not know who the president is, she is having difficulty finding words and does not remember how many children she has. Patient is not a good historian and contradicts herself when giving information. Patient admits to seeing a psychiatrist "for medications" and admits to being on Effexor and amitriptyline, however she denies taking this medications today or yesterday. Patient says she has COPD and is being treated for it. Patient says she sees other physicians for other conditions but cannot remember the physicians, medications, or the reasons for which she sees them. She denies allergies, any other past medical history, and states she had a gallbladder removal and another surgery which she cannot remember. Patient denies smoking, drinking, or recreational drugs. She admits that she smoked previously, but quit 10 years ago. She has been for 6 years and is from [place]. Tox screen is positive for tricyclics. Patient had a UA positive for nitrites. Dr. Arzola is her PCP, she says she saw him a few months ago and there were no concerns at that time. Last bowel movement was this morning. Source: patient Date Seen 10/08/19 Time Seen by a Provider: 05:01 Attending Physician Jennifer Arambula Maxwell MD Referring Physician Date of Admission Oct 08, 2019 at 13:11 Home Medications & Allergies Home Medications Reviewed patient Home Medication Reconciliation performed by pharmacy medication reconciliations compliance technician and/or nursing. Patients Allergies have been reviewed. Allergies Allergies Coded Allergies No Known Drug Allergies (Verified10/04/19) Past Byeydls-Dpecps-Ldtzvr Hx Patient Social History Marrital Status: Alcohol Use: Denies Use Recreational Drug Use: No ( is a smoker. He reports he smokes outside) Smoking Status: Former Smoker (quit 10 years ago) Former Smoker, Quit: Jun 02, 2011 Type Used: Cigarettes 2nd Hand Smoke Exposure: Yes Physical Abuse Screen: No Sexual Abuse: No Recent Foreign Travel: No Contact w/other who traveled: No Recent Hopitalizations: No Recent Infectious Disease Expo: No Immunizations Up To Date Tetanus Booster (TDap): Unknown Date of Pneumonia Vaccine: Aug 15, 2016 Seasonal Allergies Seasonal Allergies: Yes Past Medical History Surgeries: Gallbladder Respiratory: COPD Cardiac: High Cholesterol Gastrointestinal: Gastroesophageal Reflux, Polyps Psychosocial: Sleep Difficulties, Anxiety, Bipolar, Depression History of Blood Disorders: No Family History Reviewed Nursing Family Hx Bipolar disorder G8 BROTHER G8 SISTER Hypertension 19 MOTHER, Neoplasm 19 MOTHER, (bladder cancer) Cancer, Hypertension Review of Systems EENTM: blurred vision Respiratory: cough, short of breath Cardiovascular: palpitations Gastrointestinal: no symptoms reported Genitourinary: see HPI Musculoskeletal: no symptoms reported Skin: no symptoms reported Psychiatric/Neurological: See HPI Physical Exam Physical Exam Vital Signs Vital Signs - First Documented 10/08/19 10:24 Temp 36.3 Pulse 82 Resp 18 B/P (MAP) 176/108 (130) Pulse Ox 97 O2 Delivery Room Air Capillary Refill : Less Than 3 Seconds Height, Weight, BMI Height: '" Weight: lbs. oz. kg; 29.09 BMI Method: General Appearance: Anxious, Mild Distress Eyes: Bilateral Eye EOMI Respiratory: Lungs Clear, Normal Breath Sounds, No Accessory Muscle Use, No Respiratory Distress Cardiovascular: Regular Rate, Rhythm, No Edema, No Murmur Gastrointestinal: Normal Bowel Sounds, No Pulsatile Mass, Non Tender, Soft Rectal: Deferred Neurologic/Psychiatric: Alert, Disoriented Skin: Normal Color, Warm/Dry Results Results/Procedures Labs Laboratory Tests 10/08/19 10:30 Patient resulted labs reviewed. Assessment/Plan Assessment and Plan Assessment AMS/Delirium UTI Positive tox screen - Tricyclics Possibly amitriptyline overdose Hx of previous overdose with Morphine and benzo COPD Former smoker Recent EGD showing gastritis, duodenitis and small hiatal hernia Recent admission for sepsis and pneumonia Plan Abx - TMP-SMX EKG/Telemetry to assess heart conductivity after possible amitriptyline OD Sodium Bicarb Cardiology Consult Protonix Clinical Quality Measures DVT/VTE Risk/Contraindication: Risk Factor Score Per Nursin RFS Level Per Nursing on Admit: 3=High JENNIFER ARAMBULA DO 10/08/198: History of Present Illness HPI/Chief Complaint CC: AMS HPI: This is a 59yoWF clinic patient of Dr Arzola who presented to [facility] after transferred from [facility] due to AMS in need of further w/u. Apparently she had EGD/Colon by Dr Taveras, whom I have spoke to, and has been confused since and worsened and presented to PCP Dr Arzola, whom I spoke to today, who ordered CT scan which was normal and she worsened so she went to ER. Labs appeared stable and UTI treated with Rocephin. MRI obtained upon arrival revealed abnl so I sent images to [facility] and called referral line and Neurology reviewed images and recommended Rocephin and supportive care and DC Topamax and perform LP and repeat MRI with IV contrast. Currently patient doing well and was updated on all of these details along with nursing staff. Past Xurwwzk-Ejavpp-Ikdskh Hx Past Med/Social Hx: Reviewed Nursing Past Med/Soc Hx, Reviewed and Corrections made Patient Social History Marrital Status: Employed/Student: unemployed Alcohol Use: Denies Use Smoking Status: Former Smoker (quit 10 years ago) Past Medical History Endocrine: Hypothyroidsim Psychosocial: Anxiety, Depression Family History Bipolar disorder G8 BROTHER G8 SISTER Hypertension 19 MOTHER, Neoplasm 19 MOTHER, (bladder cancer) Review of Systems Constitutional: malaise, weakness Psychiatric/Neurological: Other (confusion) Physical Exam Physical Exam General Appearance: WD/WN, Anxious, Chronically ill, Mild Distress Eyes: Right Eye Normal Inspection, Right Eye PERRL HEENT: PERRL/EOMI, Normal ENT Inspection, Pharynx Normal, Moist Mucous Membranes Neck: Full Range of Motion, Normal Inspection, Non Tender Respiratory: Chest Non Tender, Lungs Clear, Normal Breath Sounds, No Accessory Muscle Use, No Respiratory Distress Cardiovascular: Regular Rate, Rhythm, No Edema, No Gallop, No JVD, No Murmur, Normal Peripheral Pulses Gastrointestinal: Normal Bowel Sounds, No Organomegaly, No Pulsatile Mass, Non Tender, Soft Back: Normal Inspection, No CVA Tenderness, No Vertebral Tenderness Extremity: Normal Capillary Refill, Normal Inspection, Normal Range of Motion, Non Tender, No Calf Tenderness, No Pedal Edema Neurologic/Psychiatric: Alert, No Motor/Sensory Deficits, Normal Mood/Affect, Disoriented Skin: Normal Color, Warm/Dry Lymphatic: No Adenopathy Assessment/Plan Admission Diagnosis Assessment: 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 and MRI with IV contrast Hypothyroidism Recent EGD/Colon 10/04/19 COPD Acute UTI Plan: Rocephin LP in am MRI with IV contrast Admission Status: Inpatient Order (span 2 midnights) Reason for Inpatient Admission: AMS with abnl MRI with UTI Diagnosis/Problems Diagnosis/Problems (1) Leukoencephalopathy (2) Hypothyroidism (3) Depression (4) Anxiety (5) Mental status alteration Status: Acute (6) Urinary tract infection Status: Acute Supervisory-Addendum Brief Verification & Attestation Participated in pt care: history, MDM, physical Personally performed: exam, history, MDM, supervision of care Care discussed with: Medical Student Procedures: n/a Results interpretation: Verified all documentation Verification and Attestation of Medical Student E/M Service A medical student performed and documented this service in my presence. I reviewed and verified all information documented by the medical student and made modifications to such information, when appropriate. I personally performed the physical exam and medical decision making. eJnnifer Arambula, Oct 08, 2019,21:40 [facility] Oct 08, 2019 17:15 JENNIFER ARAMBULA DO Oct 08, 2019 21:38
--- NOTE | 2019-10-08 17:23 | Diagnostic Imaging Report ---
CLINICAL INDICATION: Patient having confusion and recent head CT. EXAM: MRI of the brain performed without IV contrast. Sequences include axial DWI, ADC map, axial T2, axial FLAIR, axial T1, axial gradient echo, and sagittal T1. COMPARISON: Head CT without contrast dated 10/07/2019. FINDINGS: Motion artifact limits evaluation for some anatomical detail. There is no evidence of acute cerebral infarct, intracranial hemorrhage, or gross mass effect. There are diffuse and confluent high T2 signal white matter changes throughout both cerebral hemispheres involving all cerebral lobes. There is no definite expansile mass effect, brain herniation, or midline shift. There is a small patchy area of increased T2 signal in the right frontal lobe periventricular region, which has a more circumscribed configuration measuring grossly 15 mm. There does not appear to be significant involvement of the cortex, as visualized. The brain parenchymal volume appears appropriate for patient's age. There is normal krishnan-white matter distinction. There is no significant midline shift or herniation. The [place] vascular structures show no gross abnormality as visualized. The pituitary gland, sella, and suprasellar regions are unremarkable as visualized. There is no evidence of hydrocephalus. The basal cisterns are unremarkable. The skull, extracranial soft tissue, and orbits are unremarkable. The paranasal sinuses are unremarkable. Temporal bones show no significant abnormality. IMPRESSION: 1: There are nonspecific diffuse high T2 signal white matter changes throughout both cerebral hemispheres. There does not appear to be significant involvement of the cortex. 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 Infectious, inflammatory, or toxic etiologies should be excluded. These findings may also be seen in patients receiving chemotherapy or whole brain radiation. Comparison to MRI brain imaging would help better evaluate for chronicity, if available. Lumbar puncture may be helpful. MRI of the brain with and without IV contrast is suggested to exclude enhancing abnormality. 2: Otherwise, the remainder of this exam is unremarkable. Results of this report were discussed with Dr. Jennifer Goldsmith via the telephone on 10/08/2019 at 1715 hours. Dictated by: Dictated on workstation # [id number]
[2019-10-08] MEDS: VENlafaxine XR 75 MG (EFFEXOR XR) CAP PO SCH (17:26)
--- NOTE | 2019-10-08 19:53 | NUR ---
PT PULLED IV OUT. PT ATTEMPTING TO GET OUT OF BED BY HER SELF. THIS RN REDIRECTED PT.
--- NOTE | 2019-10-08 20:07 | NUR ---
WAN KEARNS CALLED THIS RN. PT IS IN ROOM EATING PAPER. THIS RN ENTER ROOM. PT EATING PAPER HARISH WHEN ASKED WHY SHE IS EATING PAPER PT DOESN'T KNOW WHY. PT IS AWARE THAT SHE IS EATING PAPER BUT UNSURE TO WHY.
[2019-10-08 20:30] VITALS: BP 142/88
--- NOTE | 2019-10-08 20:31 | NUR ---
DR. ARAMBULA CALLED THIS RN. INFORMED PT WOULD NOT TRANSFER TO AT THIS TIME. ORDER TO HOLD TOPAMAX. THIS RN INFORMED OF PT EATING PAPER AND NOT KNOWING WHY. NO OTHER ORDERS AT THIS TIME.
[2019-10-08] MEDS ORDERED: NON-FORMULARY MEDICATION 1 EA EA (Venlafaxine HCl (Venlafaxine HCl ER) 150 MG) PO SCH (21:00)
[2019-10-08] MEDS ORDERED: AMITRIPTYLINE HCL PO SCH (21:00)
[2019-10-08] MEDS ORDERED: toPIRamate 25 MG (TOPAMAX) TAB PO SCH (21:00)
[2019-10-08] MEDS: PANTOPRAZOLE 40 MG (PROTONIX) TAB PO SCH (21:11)
[2019-10-08] MEDS: AMITRIPTYLINE 150 MG (ELAVIL) TABLET PO SCH (21:12)
--- NOTE | 2019-10-08 21:35 | NUR ---
WAN KEARNS CALLED THIS RN. PT EATING TELEMETRY PATCH. THIS RN ENTERED ROOM PT HAD ALREADY SWALLOWED PATCH. PT CONTINUES TO STATE SHE DOESN'T KNOW WHY SHE KEEPS EAT ITEMS.
[2019-10-08 23:16] VITALS: BP 117/78
[2019-10-09] MEDS: NS W/KCL 20 MEQ/L 1,000 ML IV SCH ×3 (02:48→20:30)
[2019-10-09 04:30] VITALS: BP 152/86
[2019-10-09] MEDS: LEVOTHYROXINE 25 MCG (LEVOTHROID) TAB PO SCH (05:23)
[2019-10-09] MEDS: TRIM/SULFAMETH 160/800 (SEPTRA DS) TAB PO SCH ×2 (05:25→15:12)
[2019-10-09] MEDS: VENlafaxine XR 75 MG (EFFEXOR XR) CAP PO SCH ×2 (05:28→15:12)
[2019-10-09 05:50] LABS: BASOPHILS % (AUTO) 0 % (0-10); EOSINOPHILS # (AUTO) 0.3 10^3/uL (0.0-0.3); EOSINOPHILS % (AUTO) 4 % (0-10); HEMATOCRIT 33 % (35-52); HEMOGLOBIN 10.3 G/DL (11.5-16.0); LYMPHOCYTES # (AUTO) 2.7 X 10^3 (1.0-4.0); LYMPHOCYTES % (AUTO) 33 % (12-44); MEAN CORPUSCULAR HEMOGLOBIN 25 PG (25-34); MEAN CORPUSCULAR HGB CONC 31 G/DL (32-36); MEAN CORPUSCULAR VOLUME 80 FL (80-99); MEAN PLATELET VOLUME 9.2 FL (7.4-10.4); MONOCYTES # (AUTO) 0.6 X 10^3 (0.0-1.0); MONOCYTES % (AUTO) 8 % (0-12); NEUTROPHILS # (AUTO) 4.5 X 10^3 (1.8-7.8); NEUTROPHILS % (AUTO) 55 % (42-75); PLATELET COUNT 344 10^3/uL (130-400); RED CELL DISTRIBUTION WIDTH 16.2 % (10.0-14.5); WHITE BLOOD COUNT 8.2 10^3/uL (4.3-11.0)
[2019-10-09 06:06] LABS: ALANINE AMINOTRANSFERASE 15 U/L (0-55); ALBUMIN 3.8 GM/DL (3.2-4.5); ALKALINE PHOSPHATASE 83 U/L (40-136); BILIRUBIN,TOTAL 0.2 MG/DL (0.1-1.0); BUN/CREATININE RATIO 8; CALCIUM 8.8 MG/DL (8.5-10.1); CARBON DIOXIDE 20 MMOL/L (21-32); CHLORIDE 111 MMOL/L (98-107); CREATININE SERUM 0.84 MG/DL (0.60-1.30); GFR ESTIMATED > 60; GLUCOSE 101 MG/DL (70-105); POTASSIUM 3.9 MMOL/L (3.6-5.0); SODIUM 141 MMOL/L (135-145); TOTAL PROTEIN 6.9 GM/DL (6.4-8.2)
[2019-10-09 08:00] VITALS: BP 135/72
--- NOTE | 2019-10-09 10:00 | NUR ---
PT. PULLED IV OUT WITH TELE SITTER AND SITTER AT BEDSIDE. RESTARTED IV IN LEFT WRIST WITH # 22 AFTER 2 ATTEMPTS.
[2019-10-09] MEDS: FERROUS SULF 325 MG (IRON) TAB PO SCH (10:42)
[2019-10-09] MEDS: PANTOPRAZOLE 40 MG (PROTONIX) TAB PO SCH ×2 (10:43→20:29)
--- NOTE | 2019-10-09 11:12 | Progress Note - Hospitalist ---
Subjective HPI/CC On Admission Date Seen by Provider: Oct 09, 2019 Time Seen by Provider: 11:15 CC: AMS HPI: This is a 59yoWF clinic patient of Dr Arzola who presented to [facility] after transferred from [facility] due to AMS in need of further w/u. Apparently she had EGD/Colon by Dr Taveras, whom I have spoke to, and has been confused since and worsened and presented to PCP Dr Arzola, whom I spoke to today, who ordered CT scan which was normal and she worsened so she went to ER. Labs appeared stable and UTI treated with Rocephin. MRI obtained upon arrival revealed abnl so I sent images to [facility] and called referral line and Neurology reviewed images and recommended Rocephin and supportive care and DC Topamax and perform LP and repeat MRI with IV contrast. Currently patient doing well and was updated on all of these details along with nursing staff. Subjective/Events-last exam Patient updated on the need to have LP performed I updated Ivan on the need to have this done Patient agreed with the plan Still odd behavior Rocephin tolerated in the meantime No pain reported Checked meds and labs Review of Systems Neurological: Confusion Objective Exam Vital Signs Vital Signs Date Time Temp Pulse Resp B/P (MAP) Pulse Ox O2 Delivery O2 Flow Rate FiO2 10/09/19 13:00 94 10/09/19 12:00 37.0 20 133/81 (98) 90 Room Air Capillary Refill : Less Than 3 Seconds General Appearance: No Apparent Distress, WD/WN, Chronically ill Respiratory: Chest Non Tender, Lungs Clear, Normal Breath Sounds, No Accessory Muscle Use, No Respiratory Distress Cardiovascular: Regular Rate, Rhythm, No Edema, No Gallop, No JVD, No Murmur, Normal Peripheral Pulses Neurologic/Psychiatric: Alert, Oriented x3, No Motor/Sensory Deficits, Normal Mood/Affect, Disoriented Results/Procedures Lab Laboratory Tests 10/09/19 05:10 Patient resulted labs reviewed. 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
[2019-10-09 12:00] VITALS: BP 133/81
--- NOTE | 2019-10-09 12:30 | NUR ---
CUBA FROM ANESTHESIOLOGY HERE. LUMBAR PUNCTURE DONE. PT. AMBER. WELL. 2 CC IN EACH 4 VIALS SENT TO LAB. CLEAR WATERY LIQUID IN VIALS. SENT TO LAB FOR TESTING.
--- NOTE | 2019-10-09 12:50 | Anesthesia-Procedure Note ---
Procedures/Interventions Procedure Start/Stop/Diagnosis Date of Procedure: Oct 09, 2019 Start Time: 12:30 Stop Time: 12:40 Lumbar Puncture Discussed Risk,Benefits: Yes Patient Consents: Yes Position: Lying, Left Sterile Technique: Yes Opening Pressure: 25 Fluid Color: clear Spinal Needle Used: 22g [place] 3 1/2 inch SOPHIA YEBOAH CRNA Oct 09, 2019 12:50
[2019-10-09 13:41] LABS: CSF GLUCOSE 63 MG/DL (50-80); CSF TOTAL PROTEIN 31 MG/DL (15-40)
[2019-10-09 14:10] LABS: APPEARANCE,CSF CLEAR; COLOR,CSF COLORLESS; CSF TUBE NUMBER 4; RED BLOOD CELL,CSF 0 CELLS (0-0); WHITE BLOOD CELL,CSF 1 CELLS (0-5)
[2019-10-09] MEDS: cefTRIAXone FOR IV USE 1,000 MG in WATER (STERILE) FOR INJECTION 10 ML IV SCH (15:14)
[2019-10-09 15:24] VITALS: BP 138/70
[2019-10-09 19:37] VITALS: BP 150/84
[2019-10-09] MEDS: AMITRIPTYLINE 150 MG (ELAVIL) TABLET PO SCH (20:30)
[2019-10-09 23:07] VITALS: BP 144/82
[2019-10-10 04:30] VITALS: BP 169/79
[2019-10-10] MEDS: NS W/KCL 20 MEQ/L 1,000 ML IV SCH (05:10)
[2019-10-10] MEDS: VENlafaxine XR 75 MG (EFFEXOR XR) CAP PO SCH ×2 (05:10→17:18)
[2019-10-10] MEDS: LEVOTHYROXINE 25 MCG (LEVOTHROID) TAB PO SCH (05:10)
[2019-10-10] MEDS: TRIM/SULFAMETH 160/800 (SEPTRA DS) TAB PO SCH ×2 (05:11→17:18)
[2019-10-10 05:43] LABS: BASOPHILS % (AUTO) 0 % (0-10); EOSINOPHILS # (AUTO) 0.5 10^3/uL (0.0-0.3); EOSINOPHILS % (AUTO) 7 % (0-10); HEMATOCRIT 34 % (35-52); HEMOGLOBIN 10.5 G/DL (11.5-16.0); LYMPHOCYTES # (AUTO) 2.2 X 10^3 (1.0-4.0); LYMPHOCYTES % (AUTO) 30 % (12-44); MEAN CORPUSCULAR HEMOGLOBIN 25 PG (25-34); MEAN CORPUSCULAR HGB CONC 31 G/DL (32-36); MEAN CORPUSCULAR VOLUME 81 FL (80-99); MEAN PLATELET VOLUME 9.8 FL (7.4-10.4); MONOCYTES # (AUTO) 0.5 X 10^3 (0.0-1.0); MONOCYTES % (AUTO) 7 % (0-12); NEUTROPHILS # (AUTO) 4.1 X 10^3 (1.8-7.8); NEUTROPHILS % (AUTO) 55 % (42-75); PLATELET COUNT 272 10^3/uL (130-400); RED CELL DISTRIBUTION WIDTH 16.2 % (10.0-14.5); WHITE BLOOD COUNT 7.4 10^3/uL (4.3-11.0)
[2019-10-10 06:09] LABS: ALANINE AMINOTRANSFERASE 19 U/L (0-55); ALBUMIN 3.7 GM/DL (3.2-4.5); ALKALINE PHOSPHATASE 74 U/L (40-136); BILIRUBIN,TOTAL 0.2 MG/DL (0.1-1.0); BUN/CREATININE RATIO 6; CALCIUM 8.9 MG/DL (8.5-10.1); CARBON DIOXIDE 17 MMOL/L (21-32); CHLORIDE 113 MMOL/L (98-107); CREATININE SERUM 0.79 MG/DL (0.60-1.30); GFR ESTIMATED > 60; GLUCOSE 98 MG/DL (70-105); POTASSIUM 4.2 MMOL/L (3.6-5.0); SODIUM 140 MMOL/L (135-145); TOTAL PROTEIN 6.8 GM/DL (6.4-8.2)
[2019-10-10 08:00] VITALS: BP 141/81
[2019-10-10] MEDS: FERROUS SULF 325 MG (IRON) TAB PO SCH (08:35)
[2019-10-10] MEDS: PANTOPRAZOLE 40 MG (PROTONIX) TAB PO SCH ×2 (08:35→20:01)
[2019-10-10 12:00] VITALS: BP 149/80
--- NOTE | 2019-10-10 12:43 | Progress Note - Hospitalist ---
Subjective HPI/CC On Admission Date Seen by Provider: Oct 10, 2019 Time Seen by Provider: 11:00 CC: AMS HPI: This is a 59yoWF clinic patient of Dr Arzola who presented to [facility] after transferred from [facility] due to AMS in need of further w/u. Apparently she had EGD/Colon by Dr Taveras, whom I have spoke to, and has been confused since and worsened and presented to PCP Dr Arzola, whom I spoke to today, who ordered CT scan which was normal and she worsened so she went to ER. Labs appeared stable and UTI treated with Rocephin. MRI obtained upon arrival revealed abnl so I sent images to [facility] and called referral line and Neurology reviewed images and recommended Rocephin and supportive care and DC Topamax and perform LP and repeat MRI with IV contrast. Currently patient doing well and was updated on all of these details along with nursing staff. Subjective/Events-last exam Patient doing pretty well Oriented 2 but after she thinks about something she becomes oriented 3 MRI with IV contrast to be done tomorrow Rocephin maintained reviewed urine culture Lumbar puncture spinal fluid analysis normal Review of Systems General: Fatigue Neurological: Confusion Objective Exam Vital Signs Vital Signs Date Time Temp Pulse Resp B/P (MAP) Pulse Ox O2 Delivery O2 Flow Rate FiO2 10/10/19 09:00 Room Air 10/10/19 08:00 36.6 90 8 141/81 (101) 95 Capillary Refill : Less Than 3 SecondsLess Than 3 Seconds General Appearance: No Apparent Distress, WD/WN, Chronically ill Respiratory: Lungs Clear Cardiovascular: Regular Rate, Rhythm Neurologic/Psychiatric: Alert, Oriented x3, No Motor/Sensory Deficits, Normal Mood/Affect, Disoriented Results/Procedures Lab Laboratory Tests 10/10/19 05:23 Patient resulted labs reviewed. 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
[2019-10-10] MEDS: cefTRIAXone FOR IV USE 1,000 MG in WATER (STERILE) FOR INJECTION 10 ML IV SCH (13:53)
--- NOTE | 2019-10-10 14:20 | NUR ---
Report received from Genny WATERMAN, will assume care of patient at this time.
[2019-10-10 15:11] VITALS: BP 128/75
[2019-10-10 19:29] VITALS: BP 140/84
[2019-10-10] MEDS: AMITRIPTYLINE 150 MG (ELAVIL) TABLET PO SCH (20:02)
[2019-10-10] MEDS: diphenhydrAMINE 50 MG/ML INJ (BENADRYL) IM PRN (20:26)
[2019-10-10] MEDS: LORazepam INJ 2 MG/ML (ATIVAN) VIAL IM PRN (20:26)
[2019-10-10] MEDS: HALOPERIDOL 5 MG/ML (HALDOL) AMP IM PRN (20:26)
--- NOTE | 2019-10-10 21:00 | NUR ---
WHEN THIS NURSE APPEALS REVIEWER VETERAN CAME ON SHIFT AT 1900, PT WAS VERY ANXIOUS AND AGITATED. SHE WAS PACING AROUND HER ROOM, ATTEMPTING TO TAKE OUT HER IV, REFUSING ANY ASSISTANCE FROM HER SITTER AND STAFF WAS UNSUCCESSFUL IN TRYING TO REORIENT HER. BY APPROX 1954 SHE AGITATION HAD GOTTEN WORSE AND SHE WAS HITTING AT HER SITTER, DEJA. DR ARAMBULA NOTIFIED BY THIS RN OF SAID BEHAVIOR AND THAT RN WAS GOING TO ADMIN HS MEDICATIONS TO SEE IF THEY ASSISTED HER IN CALMING DOWN. DR ARAMBULA ORDERED HALDOL 2 MG IM/IV Q6H PRN, ATIVAN 0.5 MG-1 MG IM/IV Q6H PRN IF AGITATION AND NEGATIVE BEHAVIORS CONTINUE. WHEN I REACHED HER ROOM WITH HS MEDS HER BEHAVIOR HAD ESCALATED AND SHE WAS OUT IN THE HALLWAY OUTSIDE ROOM YELLING AT STAFF. STREET SPRINKLER, ALISA, WAS IN THE AREA NOW D/T PTS BEHAVIOR AND WAS ALSO ON PHONE WITH DR ARAMBULA REGARDING PT. IN ADDITION TO THE PREVIOUS ORDER SHE ADDED BENADRYL 50 MG IM/IV Q4H PRN. ALISA, STREET SPRINKLER, TOLD THIS RN DR ARAMBULA WANTED ALL THREE MEDICATIONS GIVEN AT THE SAME TIME AND IM PREFERRABLY OVER IV BC IM ADMINISTRATION IS LONGER ACTING. THIS RN PUT ORDERS IN COMPUTER AND HAD ALISA, STREET SPRINKLER, ASSIST IN GETTING MEDS OUT OF [facility]. MEDICATIONS WERE ADMINISTERED AROUND 2029 AND WHEN STAFF EXPLAINED THE INJECTIONS AND WHY WERE GIVING THEM TO HER, SHE WAS VERY AGREEABLE TO INJECTIONS. ALISA AND DEJA HELD HANDS WHILE THIS RN INJECTED ALL THREE MEDS TO RT QUAD. SHE TOLERATED INJECTIONS WELL AND THANKED STAFF FOR GIVING THEM TO HER. SHE DID NOT GO TO SLEEP RIGHT AWAY, SHE APPEARED VERY RELAXED AND LAID IN BED AND WATCHED TV AND TALKED TO SITTER. NO FURTHER NEGATIVE BEHAVIORS SINCE THIS.
[2019-10-10 23:47] VITALS: BP 134/67
[2019-10-11 04:00] VITALS: BP 146/79
[2019-10-11 06:40] LABS: BASOPHILS % (AUTO) 0 % (0-10); EOSINOPHILS # (AUTO) 0.4 10^3/uL (0.0-0.3); EOSINOPHILS % (AUTO) 5 % (0-10); HEMATOCRIT 36 % (35-52); HEMOGLOBIN 11.1 G/DL (11.5-16.0); LYMPHOCYTES # (AUTO) 2.3 X 10^3 (1.0-4.0); LYMPHOCYTES % (AUTO) 27 % (12-44); MEAN CORPUSCULAR HEMOGLOBIN 25 PG (25-34); MEAN CORPUSCULAR HGB CONC 31 G/DL (32-36); MEAN CORPUSCULAR VOLUME 81 FL (80-99); MEAN PLATELET VOLUME 9.2 FL (7.4-10.4); MONOCYTES # (AUTO) 0.5 X 10^3 (0.0-1.0); MONOCYTES % (AUTO) 6 % (0-12); NEUTROPHILS # (AUTO) 5.3 X 10^3 (1.8-7.8); NEUTROPHILS % (AUTO) 62 % (42-75); PLATELET COUNT 318 10^3/uL (130-400); RED CELL DISTRIBUTION WIDTH 16.7 % (10.0-14.5); WHITE BLOOD COUNT 8.6 10^3/uL (4.3-11.0)
[2019-10-11] MEDS: LEVOTHYROXINE 25 MCG (LEVOTHROID) TAB PO SCH (06:57)
[2019-10-11] MEDS: TRIM/SULFAMETH 160/800 (SEPTRA DS) TAB PO SCH (06:57)
[2019-10-11] MEDS: VENlafaxine XR 75 MG (EFFEXOR XR) CAP PO SCH ×2 (06:57→16:28)
[2019-10-11 07:00] LABS: ALANINE AMINOTRANSFERASE 19 U/L (0-55); ALBUMIN 4.3 GM/DL (3.2-4.5); ALKALINE PHOSPHATASE 84 U/L (40-136); BILIRUBIN,TOTAL 0.2 MG/DL (0.1-1.0); BUN/CREATININE RATIO 10; CALCIUM 9.8 MG/DL (8.5-10.1); CARBON DIOXIDE 25 MMOL/L (21-32); CHLORIDE 107 MMOL/L (98-107); CREATININE SERUM 0.81 MG/DL (0.60-1.30); GFR ESTIMATED > 60; GLUCOSE 95 MG/DL (70-105); POTASSIUM 4.2 MMOL/L (3.6-5.0); SODIUM 140 MMOL/L (135-145); TOTAL PROTEIN 7.8 GM/DL (6.4-8.2)
[2019-10-11 08:00] VITALS: BP 133/98
[2019-10-11] MEDS: FERROUS SULF 325 MG (IRON) TAB PO SCH (08:00)
[2019-10-11] MEDS ORDERED: VITAMIN D2 50,000 UNITS (1.25 MG) CAP PO SCH (09:00)
[2019-10-11] MEDS: PANTOPRAZOLE 40 MG (PROTONIX) TAB PO SCH ×2 (09:00→20:42)
--- NOTE | 2019-10-11 09:11 | NUR ---
Morning meds held due to NPO status for MRI with contrast scheduled today.
[2019-10-11] MEDS ORDERED: GADOBUTROL 7.5 MMOL/7.5 ML (GADAVIST) VIAL IV ONE (10:00)
[2019-10-11] MEDS: HALOPERIDOL 5 MG/ML (HALDOL) AMP IM PRN ×2 (10:08→20:41)
[2019-10-11] MEDS: LORazepam INJ 2 MG/ML (ATIVAN) VIAL IM PRN ×3 (10:09→23:19)
[2019-10-11] MEDS: diphenhydrAMINE 50 MG/ML INJ (BENADRYL) IM PRN ×2 (10:48→20:42)
--- NOTE | 2019-10-11 13:55 | NUR ---
Pastoral care visit.
[2019-10-11] MEDS: cefTRIAXone FOR IV USE 1,000 MG in WATER (STERILE) FOR INJECTION 10 ML IV SCH (14:15)
[2019-10-11 14:30] VITALS: BP 133/98
[2019-10-11] MEDS ORDERED: RT-ALBUTEROL SULF 2.5 MG/3 ML PRE-MIX VIAL INH PRN (15:00)
[2019-10-11 15:31] VITALS: BP 157/77
--- NOTE | 2019-10-11 15:50 | NUR ---
This RN was asked by Dr. Goldsmith to notify of delay in acquiring MRI. Call placed to at this time and advised them of MRI rescheduled for tomorrow 10/12/19. Patient has an appointment with Neurology 10/27/19 at 1000.
[2019-10-11] MEDS: AMITRIPTYLINE 150 MG (ELAVIL) TABLET PO SCH (20:42)
--- NOTE | 2019-10-11 20:46 | Progress Note - Hospitalist ---
Subjective HPI/CC On Admission Date Seen by Provider: Oct 11, 2019 Time Seen by Provider: 09:30 CC: AMS HPI: This is a 59yoWF clinic patient of Dr Arzola who presented to [facility] after transferred from [facility] due to AMS in need of further w/u. Apparently she had EGD/Colon by Dr Taveras, whom I have spoke to, and has been confused since and worsened and presented to PCP Dr Arzola, whom I spoke to today, who ordered CT scan which was normal and she worsened so she went to ER. Labs appeared stable and UTI treated with Rocephin. MRI obtained upon arrival revealed abnl so I sent images to and called referral line and Neurology reviewed images and recommended Rocephin and supportive care and DC Topamax and perform LP and repeat MRI with IV contrast. Currently patient doing well and was updated on all of these details along with nursing staff. Subjective/Events-last exam Patient requiring sedation for MRI to be completed Patient became aggressive last night requiring multiple meds for psychosis No pain is reported LP normal NGTD MRI with IV contrast needs completed in order to entertain moving to BM+ Review of Systems Neurological: Confusion Objective Exam Vital Signs Vital Signs Date Time Temp Pulse Resp B/P (MAP) Pulse Ox O2 Delivery O2 Flow Rate FiO2 10/11/19 15:31 36.8 107 16 157/77 (103) 95 Room Air 10/11/19 14:30 21 Capillary Refill : Less Than 3 SecondsLess Than 3 Seconds General Appearance: No Apparent Distress, WD/WN, Chronically ill Respiratory: Lungs Clear Cardiovascular: Regular Rate, Rhythm Neurologic/Psychiatric: Alert, Disoriented Results/Procedures Lab Laboratory Tests 10/11/19 06:30 Patient resulted labs reviewed. 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
[2019-10-11] MEDS: RT-ALBUTEROL SULF 2.5 MG/3 ML PRE-MIX VIAL INH SCH (21:31)
[2019-10-12 00:15] VITALS: BP 113/72
[2019-10-12] MEDS: RT-ALBUTEROL SULF 2.5 MG/3 ML PRE-MIX VIAL INH SCH ×4 (02:14→21:21)
[2019-10-12] MEDS: LEVOTHYROXINE 25 MCG (LEVOTHROID) TAB PO SCH (05:33)
[2019-10-12] MEDS: VENlafaxine XR 75 MG (EFFEXOR XR) CAP PO SCH ×2 (05:34→17:17)
[2019-10-12 05:52] LABS: BASOPHILS % (AUTO) 0 % (0-10); EOSINOPHILS # (AUTO) 0.3 10^3/uL (0.0-0.3); EOSINOPHILS % (AUTO) 4 % (0-10); HEMATOCRIT 35 % (35-52); LYMPHOCYTES # (AUTO) 2.4 X 10^3 (1.0-4.0); LYMPHOCYTES % (AUTO) 31 % (12-44); MEAN CORPUSCULAR HEMOGLOBIN 25 PG (25-34); MEAN CORPUSCULAR HGB CONC 31 G/DL (32-36); MEAN CORPUSCULAR VOLUME 81 FL (80-99); MEAN PLATELET VOLUME 9.7 FL (7.4-10.4); MONOCYTES # (AUTO) 0.5 X 10^3 (0.0-1.0); MONOCYTES % (AUTO) 7 % (0-12); NEUTROPHILS # (AUTO) 4.5 X 10^3 (1.8-7.8); NEUTROPHILS % (AUTO) 58 % (42-75); PLATELET COUNT 307 10^3/uL (130-400); RED CELL DISTRIBUTION WIDTH 16.6 % (10.0-14.5); WHITE BLOOD COUNT 7.6 10^3/uL (4.3-11.0)
[2019-10-12 06:10] LABS: ALANINE AMINOTRANSFERASE 21 U/L (0-55); ALKALINE PHOSPHATASE 72 U/L (40-136); BILIRUBIN,TOTAL 0.2 MG/DL (0.1-1.0); BUN/CREATININE RATIO 13; CALCIUM 9.5 MG/DL (8.5-10.1); CARBON DIOXIDE 21 MMOL/L (21-32); CHLORIDE 105 MMOL/L (98-107); CREATININE SERUM 0.77 MG/DL (0.60-1.30); GFR ESTIMATED > 60; GLUCOSE 107 MG/DL (70-105); POTASSIUM 3.7 MMOL/L (3.6-5.0); SODIUM 139 MMOL/L (135-145); TOTAL PROTEIN 7.3 GM/DL (6.4-8.2)
[2019-10-12 07:26] VITALS: BP 118/81
--- NOTE | 2019-10-12 10:17 | NUR ---
NOTE THAT PT MORE AGITATED AND MRI STAFF HAD CALLED TO VERIFY THAT THEY WOULD BE COMING UP AT 1115 TO TAKE PT DOWN FOR MRI-- WHILE THIS RN WAS GETTING IM ATIVAN 1MG, IM BENADRYL 50 MG, AND IM HALADOL PER PRN ORDERS -- DR ARAMBULA WANTED HER TO BE RELAXED FOR TEST -- PT PULLED HER SL OUT AND WHEN THIS RN GOT TO ROOM PT REFUSED TO TAKE THE MEDS -- SHE REFUSED TO HAVE SL PUT BACK IN AND SHE REFUSED TO GO DOWN THE MRI -- NOTE PT CAN BE VERY PHYSICAL TO STAFF (PUSHING AND SLAPPING AWAY) -- THIS RN TRIED TO EXPLAIN BUT PT JUST GOT MORE AGITATED AND VERBAL WITH STAFF -- THIS RN CALLED DR ARAMBULA AND ADVISED HER -- DR ARAMBULA REQUESTED THAT STAFF HAVE SW REACH OUT TO HER AND ADVISE HIS THAT PT HAS REFUSED AND WE CAN NOT FORCE TO COMPLY -- SW WAS ADVISED AND SHE WILL REACH OUT TO -- AND ADVISE HIS THAT NEUROLOGICAL APPOINTMENT HAD BEEN SET UP AND THAT SHE (DR ARAMBULA) WILL BE WORKING ON DC TO HOME
[2019-10-12] MEDS: FERROUS SULF 325 MG (IRON) TAB PO SCH (10:54)
[2019-10-12] MEDS: PANTOPRAZOLE 40 MG (PROTONIX) TAB PO SCH ×2 (10:55→21:27)
--- NOTE | 2019-10-12 11:11 | Progress Note - Hospitalist ---
[facility] 10/12/19 1111: Subjective HPI/CC On Admission CC: AMS HPI: This is a 59yoWF clinic patient of Dr Arzola who presented to [facility] after transferred from [facility] due to AMS in need of further w/u. Apparently she had EGD/Colon by Dr Taveras, whom I have spoke to, and has been confused since and worsened and presented to PCP Dr Arzola, whom I spoke to today, who ordered CT scan which was normal and she worsened so she went to ER. Labs appeared stable and UTI treated with Rocephin. MRI obtained upon arrival revealed abnl so I sent images to [facility] and called referral line and Neurology reviewed images and recommended Rocephin and supportive care and DC Topamax and perform LP and repeat MRI with IV contrast. Currently patient doing well and was updated on all of these details along with nursing staff. Subjective/Events-last exam Patient was laying on her side when I arrived. She is unable to adequately resp ond to questions at this time and responds, "I don't know" to everything. There is no family at bedside. MRI with contrast is pending and patient will require sedation to get this done. has an outpatient neurologic appointment for her on 10/27/2019 scheduled. Objective Exam Vital Signs Vital Signs Date Time Temp Pulse Resp B/P (MAP) Pulse Ox O2 Delivery O2 Flow Rate FiO2 10/12/19 07:26 102 20 118/81 (93) 93 Room Air 10/12/19 00:15 36.5 10/11/19 21:31 21 Capillary Refill : Less Than 3 SecondsLess Than 3 Seconds General Appearance: No Apparent Distress, WD/WN Respiratory: Chest Non Tender, Lungs Clear, Normal Breath Sounds, No Accessory Muscle Use, No Respiratory Distress Cardiovascular: Regular Rate, Rhythm, No Edema, No Gallop, No Murmur Gastrointestinal: Non Tender, Soft Rectal: Deferred Skin: Normal Color, Warm/Dry Results/Procedures Lab Laboratory Tests 10/12/19 05:01 Patient resulted labs reviewed. Assessment/Plan Assessment and Plan Assess & Plan/Chief Complaint Assessment AMS/Delirium UTI Positive tox screen - Tricyclics Possibly amitriptyline overdose Hx of previous overdose with Morphine and benzo COPD Former smoker Recent EGD showing gastritis, duodenitis and small hiatal hernia Recent admission for sepsis and pneumonia Plan Abx - TMP-SMX EKG/Telemetry to assess heart conductivity after possible amitriptyline OD Sodium Bicarb Cardiology Consult Protonix Clinical Quality Measures DVT/VTE Risk/Contraindication: Risk Factor Score Per Nursin RFS Level Per Nursing on Admit: 3=High JENNIFER ARAMBULA DO 10/12/191940: Subjective HPI/CC On Admission Date Seen by Provider: Oct 12, 2019 Time Seen by Provider: 09:15 Subjective/Events-last exam Pt refused MRI with IV contrast Will have forensic social worker speak with since she does have neurology appointment will evaluate DC plan since we don't have a definitive diagnosis other than encephalopathy and we can't continue maintaining a hospital stay without cooperation and willingness to have studies [facility] wanted us to get Review of Systems Neurological: Confusion Objective Exam General Appearance: No Apparent Distress, WD/WN, Chronically ill Assessment/Plan Assessment and Plan Assess & Plan/Chief Complaint DC tomorrow Diagnosis/Problems Diagnosis/Problems (1) Mental status alteration Status: Acute (2) Leukoencephalopathy (3) Hypothyroidism (4) Depression (5) Anxiety Supervisory-Addendum Brief Verification & Attestation Participated in pt care: history, MDM, physical Personally performed: exam, history, MDM, supervision of care Care discussed with: Medical Student Procedures: n/a Results interpretation: Verified all documentation Verification and Attestation of Medical Student E/M Service A medical student performed and documented this service in my presence. I reviewed and verified all information documented by the medical student and made modifications to such information, when appropriate. I personally performed the physical exam and medical decision making. Jennifer Arambula Oct 12, 2019,19:41 [facility] Oct 12, 2019 11:11 JENNIFER ARAMBULA DO Oct 12, 2019 19:41
--- NOTE | 2019-10-12 11:50 | NUR ---
NOTE THAT SW VOICED INFO FROM WORKER AND WAS THAT PT WAS NOT TAKING HER HOME MEDS -- SW WILL PUT IN PSY EXAMINE FROM BEHAVIOR HEALTH -- IS IN RM WITH PT
[2019-10-12] MEDS: cefTRIAXone FOR IV USE 1,000 MG in WATER (STERILE) FOR INJECTION 10 ML IV SCH (13:19)
[2019-10-12 16:11] VITALS: BP 115/74
--- NOTE | 2019-10-12 16:22 | NUR ---
CM/SS: Visited with pt as her being uncooperative with not taking mediations and refusing testing. Plan: Pt to be assessed for possible mental health placement Summary: Notified to call spouse and let him know that pt has refused MRI testing and medications. Spouse is frustrated on the phone and reports he will be down to hospital later. He reports he does not have much gas for his car. [facility] notified. Talked with David Ortega, Finish Rolls Operator, she reports that she has verified that pt was not taking her medications, based on count and the behavior described from pt is not like her. This worker made arrangements to get spouse a gas card to help with this transportation. Pt seems to not have facts straight and denies that she refused to take medications this morning. Pt did cooperate when this worker was present and took her medications. Pt would look at the medications and ask about them an say to this worker that if she is to take them, then she will take them. Pt again denies not being cooperative. Pt denies being suicidal or homicidal at this time. Discuss with pt need for Mental health to assist in getting her some help based on her not taking her medications. Call from Mental Health - [facility] - she is requesting to speak to pt. This worker takes phone to pt room for pt to talk to her. She is the physician assistant psychiatry to the Nurse Practitioner that has been monitoring the medications. She talks with pt encouraging pt to cooperate with staff. [facility] verify that pt is self pay and does not have medicaid Call to [facility] - Kevin Murillo - he is faxed information and comes to screen the pt. He recommends a mental health setting that can help with getting the medications back on track. [facility] notified. Request that the current dose information of medications be faxed to [facility], as pt reports PRN medications and mental health report scheduled. Documentation obtained and physician notified. Order is changed on medication. Contact made with [facility] - they are full and unable to take pt. Contact made with [facility] - they take self pay and request referral information for review. This worker will follow up as to the plan for discharge for pt.
[2019-10-12] MEDS: clonazePAM 0.5 MG (KlonoPIN) TAB PO SCH ×2 (17:16→21:27)
[2019-10-12] MEDS: AMITRIPTYLINE 150 MG (ELAVIL) TABLET PO SCH (21:29)
[2019-10-12 23:34] VITALS: BP 124/62
[2019-10-13] MEDS: RT-ALBUTEROL SULF 2.5 MG/3 ML PRE-MIX VIAL INH SCH (02:45)
[2019-10-13] MEDS: LEVOTHYROXINE 25 MCG (LEVOTHROID) TAB PO SCH (06:35)
[2019-10-13] MEDS: VENlafaxine XR 75 MG (EFFEXOR XR) CAP PO SCH (06:35)
[2019-10-13 08:00] VITALS: BP 109/70
[2019-10-13] MEDS: FERROUS SULF 325 MG (IRON) TAB PO SCH (09:16)
[2019-10-13] MEDS: PANTOPRAZOLE 40 MG (PROTONIX) TAB PO SCH (09:16)
[2019-10-13] MEDS: clonazePAM 0.5 MG (KlonoPIN) TAB PO SCH (09:33)
--- NOTE | 2019-10-13 10:16 | Discharge Summary ---
Discharge Summary Hospital Course Was the Problem List Reviewed?: Yes Problems/Dx: (1) Mental status alteration Status: Acute (2) Leukoencephalopathy (3) Hypothyroidism (4) Depression (5) Anxiety Hospital Course Date of Admission: Oct 08, 2019 at 13:11 Admission Diagnosis : Family Physician/Provider: Nick Arzola MD Date of Discharge: 10/13/19 Discharge Diagnosis: AMS, Mental illness, Leukoencephalopathy Hospital Course: Hospital course: Pt had a lengthy hospital course for six days when she came in for altered mental status. Abnormal CT scan prompted MRI that showed leukoencephalopathy. [facility] was contacted, no evidence of any indication for transfer so lumbar puncture was obtained that was normal and it appeared more and more that this was psych related, so mental health evaluation ensued. Pt will have closer follow-up at home. She resumed all of her home medication and will be discharged today. Labs and Pending Lab Test: Microbiology 10/09/19 Virus Culture - Preliminary, Resulted 10/08/19 Urine Culture - Final, Complete Escherichia coli 10/08/19 Influenza Types A,B Antigen ([facility]) - Final, Complete Home Meds Active Reported Topamax (Topiramate) 25 Mg Tablet 25 Mg PO HS Ibuprofen 800 Mg Tablet 800 Mg PO TID PRN Tylenol Extra Strength (Acetaminophen) 500 Mg Tablet 500-1,000 Mg PO Q4H PRN Amitriptyline HCl 75 Mg Tablet 225-300 Mg PO HS TAKES 3-4 (75MG) TABLETS Proair Hfa (Albuterol Sulfate) 1 Puff Puff 2 Puff IH Q4H PRN 1 PUFF = 90 MCG Protonix (Pantoprazole Sodium) 40 Mg Tablet.dr 40 Mg PO BID Klonopin (Clonazepam) 0.5 Mg Tablet 0.5 Mg PO QID PRN Levothyroxine Sodium 25 Mcg Tablet 25 Mcg PO DAILY Ferrousul (Ferrous Sulfate) 325 Mg Tablet 325 Mg PO DAILY Vitamin D2 (Ergocalciferol (Vitamin D2)) 50,000 Unit Capsule 50,000 Unit PO MO Lasix (Furosemide) 20 Mg Tablet 20 Mg PO DAILY PRN WRITTEN TWICE WEEKLY, STATES SHE WOULD TAKE ANYTIME SHE NOTICES SWELLING Venlafaxine HCl ER (Venlafaxine HCl) 150 Mg Tab.er.24 150 Mg PO BID Assessment/Pt Instructions [facility] this week Discharge Planning: <30 minutes discharge planning Discharge Instructions Discharge Diet: No Restrictions Activity as Tolerated: Yes Discharge Physical Examination Vital Signs Vital Signs Date Time Temp Pulse Resp B/P (MAP) Pulse Ox O2 Delivery O2 Flow Rate FiO2 10/13/19 08:00 36.6 89 18 109/70 (83) 95 Room Air 10/11/19 21:31 21 General Appearance: No Apparent Distress, WD/WN, Chronically ill Allergies: Coded Allergies: No Known Drug Allergies (Verified , 10/04/19) Discharge Summary Date of Admission Oct 08, 2019 at 13:11 Date of Discharge Discharge Date: Oct 13, 2019 Admission Diagnosis Assessment: 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 and MRI with IV contrast Hypothyroidism Recent EGD/Colon 10/04/19 COPD Acute UTI Plan: Rocephin LP in am MRI with IV contrast Discharge Diagnosis DC tomorrow (1) Mental status alteration Status: Acute (2) Leukoencephalopathy (3) Hypothyroidism (4) Depression (5) Anxiety Clinical Quality Measures DVT/VTE Risk/Contraindication: Risk Factor Score Per Nursin RFS Level Per Nursing on Admit: 3=High RAMESH ARAMBULA DO Oct 13, 2019 10:16
== END 2019-10-13 12:00 | disposition home or self-care (01) | DRG 71 ==
LOC: EDUNIT# 10:04 → ER FS 10:05 → 4TH 13:11
PROVIDERS: ADMIT Internal Medicine; ATTEND Internal Medicine
PROC: 009U3ZX Drainage of Spinal Canal, Percutaneous Approach, Diagnostic (ICD-10-PCS; principal; 2019-10-09)
DX: G93.49 Other encephalopathy (principal); R41.82 Altered mental status, unspecified; N39.0 Urinary tract infection, site not specified; E03.9 Hypothyroidism, unspecified; J43.9 Emphysema, unspecified; M43.9 Deforming dorsopathy, unspecified; F41.9 Anxiety disorder, unspecified; F31.9 Bipolar disorder, unspecified; K21.9 Gastro-esophageal reflux disease without esophagitis; K29.70 Gastritis, unspecified, without bleeding; K29.80 Duodenitis without bleeding; K44.9 Diaphragmatic hernia without obstruction or gangrene; Z87.891 Personal history of nicotine dependence; E78.00 Pure hypercholesterolemia, unspecified; G47.9 Sleep disorder, unspecified; M54.9 Dorsalgia, unspecified
CPT/HCPCS: 36415; 36600; 51701; 70551; 80053; 80306; 81000; 82805; 82945; 83735; 84157; 84443; 85007; 85025; 85027; 87070; 87077; 87088; 87186; 87205; 87252; 87804; 89051; 93005; 94640; 94760

== ENCOUNTER 2019-10-15 19:05 | Emergency (ER) | payer SELFPAY ==
[~2019-10-15] VITALS: Ht 165 cm; Wt 49.0 kg
[~2019-10-15 19:05] MED LIST changes: +TPR25T PO
--- NOTE | 2019-10-15 19:28 | ED General ---
General Chief Complaint: General Problems/Pain Stated Complaint: ALTERED LOC Source of Information: Patient, EMS History of Present Illness Date Seen by Provider: Oct 15, 2019 Time Seen by Provider: 19:06 Initial Comments 59-year-old female presenting by EMS after having been called out for her daughters having complaints that they were concerned about her safety. The patient herself states that she has no thoughts of self-harm. She denies having suicidal or homicidal. She is alert and oriented 3. She has no thoughts of wanting to hurt herself. She was recently in the hospital for altered mental status in [place] and had an extensive workup. She currently denies any medical complaints and is denying any need to be seen in the ED. She states she feels that she just needs to have her vitals checked and if she is ok then she could probably just go home. Allergies and Home Medications Allergies Coded Allergies: No Known Drug Allergies (Verified , 10/04/19) Home Medications Acetaminophen 500 Mg Tablet, 500-1,000 MG PO Q4H PRN for PAIN-MILD (1-4), (Reported) Albuterol Sulfate 1 Puff Puff, 2 PUFF IH Q4H PRN for SHORTNESS OF BREATH, (Reported) 1 PUFF = 90 MCG Amitriptyline HCl 75 Mg Tablet, 225-300 MG PO HS, (Reported) TAKES 3-4 (75MG) TABLETS Clonazepam 0.5 Mg Tablet, 0.5 MG PO QID PRN for ANXIETY, (Reported) Ergocalciferol (Vitamin D2) 50,000 Unit Capsule, 50,000 UNIT PO Mo, (Reported) Ferrous Sulfate 325 Mg Tablet, 325 MG PO DAILY, (Reported) Furosemide 20 Mg Tablet, 20 MG PO DAILY PRN for SWELLING, (Reported) WRITTEN TWICE WEEKLY, STATES SHE WOULD TAKE ANYTIME SHE NOTICES SWELLING Ibuprofen 800 Mg Tablet, 800 MG PO TID PRN for PAIN-MILD (1-4), (Reported) Levothyroxine Sodium 25 Mcg Tablet, 25 MCG PO DAILY, (Reported) Pantoprazole Sodium 40 Mg Tablet.dr, 40 MG PO BID, (Reported) Topiramate 25 Mg Tablet, 25 MG PO HS, (Reported) Venlafaxine HCl 150 Mg Tab.er.24, 150 MG PO BID, (Reported) Patient Home Medication List Home Medication List Reviewed: Yes Review of Systems Review of Systems Constitutional: No chills, No dizziness, No fever, No malaise, No weakness EENTM: no symptoms reported Respiratory: cough (mild intermittent) Cardiovascular: no symptoms reported Gastrointestinal: no symptoms reported Genitourinary: no symptoms reported Musculoskeletal: no symptoms reported Skin: no symptoms reported Psychiatric/Neurological: Denies Anxiety, Denies Depressed, Denies Headache, Denies Numbness, Denies Paresthesia; Other (denies SI or HI) Past Ydieqbh-Klttpi-Eawewk Hx Past Med/Social Hx: Reviewed Nursing Past Med/Soc Hx Patient Social History Type Used: Cigarettes Former Smoker, Quit: Jun 02, 2011 2nd Hand Smoke Exposure: Yes Recent Hopitalizations: No Immunizations Up To Date Tetanus Booster (TDap): Unknown Date of Pneumonia Vaccine: Aug 15, 2016 Seasonal Allergies Seasonal Allergies: Yes Past Medical History Surgeries: Yes (tubal , hernia, bilat carpal tunnel) Gallbladder Respiratory: Yes (COPD) Emphysema Cardiac: Yes High Cholesterol Neurological: Yes (recent short term memory loss ( 10/08/19 )) Genitourinary: No Gastrointestinal: Yes (gastritis) Gastroesophageal Reflux, Polyps Musculoskeletal: No Endocrine: Yes Hypothyroidsim HEENT: No Cancer: No Psychosocial: Yes Anxiety, Depression Integumentary: No Blood Disorders: No Family Medical History Bipolar disorder G8 BROTHER G8 SISTER Hypertension 19 MOTHER, Neoplasm 19 MOTHER, (bladder cancer) Cancer, Hypertension Physical Exam Vital Signs Vital Signs - First Documented 10/15/19 19:09 Temp 37.1 Pulse 98 Resp 18 B/P (MAP) 101/78 (86) Pulse Ox 96 O2 Delivery Room Air Capillary Refill : Height, Weight, BMI Height: '" Weight: lbs. oz. 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 No family pr esent with her. She is alert and oriented x 3. Departure Impression Primary Impression: General medical exam Disposition: HOME, SELF-CARE Condition: Stable Departure-Patient Inst. Decision time for Depature: 19:31 Referrals: SELFBENNY MD (PCP/Family) Primary Care Physician Add. Discharge Instructions: Follow up with clinic for continued concerns All discharge instructions reviewed with patient and/or family. Voiced understanding. LAUREN FENTON MD Oct 15, 2019 19:28
--- NOTE | 2019-10-15 19:48 | NUR ---
THIS BILINGUAL NANNY CALLED PT'S DAUGHTER AT THIS TIME TO LET HER KNOW THAT PT HAS BEEN DISCHARGED AND NEEDS A RIDE HOME. PT'S DAUGHTER STATES PT SHOULD NOT COME HOME AND THAT WE NEED TO ADMIT HER SOMEWHERE FOR MENTAL HEALTH. THIS BILINGUAL NANNY EXPLAINS THAT PT HAS NOT SHOWN ANY CONCERNING BEHAVIORS SINCE SHE HAS BEEN HERE AND THAT THE PHYSICIAN HAS DISCHARGED HER TO GO HOME. DAUGHTER CONTINUES TO YELL AT THIS BILINGUAL NANNY ON THE PHONE. THIS BILINGUAL NANNY EXPLAINS THAT THE PT IS DISCHARGED AND WILL BE IN THE WAITING ROOM.
[2019-10-15 19:53] VITALS: BP 101/78
== END 2019-10-15 19:54 | disposition home or self-care (01) ==
LOC: EDUNIT# 19:05 → ER FS 19:06
DX: Z03.89 Encounter for observation for other suspected diseases and conditions ruled out (principal); J43.9 Emphysema, unspecified; K21.9 Gastro-esophageal reflux disease without esophagitis; E03.9 Hypothyroidism, unspecified; F41.9 Anxiety disorder, unspecified; F32.9 Major depressive disorder, single episode, unspecified; Z00.00 Encounter for general adult medical examination without abnormal findings; Z87.891 Personal history of nicotine dependence; Z77.22 Contact with and (suspected) exposure to environmental tobacco smoke (acute) (chronic); Z82.49 Family history of ischemic heart disease and other diseases of the circulatory system
CPT/HCPCS: 99283

== ENCOUNTER → 2020-03-02 | Outpatient (CLI) | payer MEDICAID ==
--- NOTE | 2020-03-02 15:40 | Diagnostic Imaging Report ---
INDICATION: Bilateral ankle pain. TIME OF EXAM: 2:32 p.m. EXAMINATION: Multiple views of bilateral ankles were obtained. FINDINGS: Both ankles demonstrate normal alignment. Ankle mortises are well maintained. Talar domes are smooth. No osteochondral defect is detected. No fracture is identified. No significant soft tissue swelling is identified. IMPRESSION: Unremarkable bilateral ankle radiographs. Dictated by: Dictated on workstation # [id number]
== END ==
LOC: RAD FS 14:18
PROVIDERS: ATTEND Nurse Practitioner
DX: M25.571 Pain in right ankle and joints of right foot (principal); M25.572 Pain in left ankle and joints of left foot

== ENCOUNTER 2020-03-11 12:00 | Emergency (ER) | payer MEDICAID ==
--- OUTSIDE RECORDS SUMMARY | 2020-03-11 12:24 | XMS REPORT ---
Author Author Regina 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 Name Role Phone ARELI PIERCEWELL Unavailable PROBLEMS Type Condition ICD9-CM Code UUZ42-EN Code Onset Dates Condition S tatus SNOMED Code Problem Bipolar 1 disorder F31.9 Active 3 13464953 Problem Low back pain M54.5 Active 318375 009 Problem Panic disorder F41.0 Active 72033 1005 Problem Hypothyroidism, unspecified E03.9 Ac tive 04823428 Problem Generalized anxiety disorder F41.1 A ctive 16750953 Problem Hx of abnormal cervical Pap smear Z87.898 Active 855487629 Problem Hyperlipidemia E78.5 Active 86083 004 Problem Food sticks on swallowing R13.10 Acti ve 836650265 Problem Vitamin D deficiency E55.9 Active 63676714 Problem Falls frequently R29.6 Active 279 100159 Problem Obesity (BMI 30-39.9) E66.9 Active 326668897 Problem History of abnormal cervical Pap smear Z87.898 Active 458040917 Problem Diverticulitis K57.92 Active 61418 6006 Problem Intractable migraine without aura and without st atus migrainosus G43.019 Active 713291868 Problem Leukoencephalopathy G93.49 Active 27613346 Problem Moderately severe depression F32.2 A ctive 428458584 Problem Intractable migraine with aura with status migrainosus G43.111 Active 053062115 Problem Chronic obstructive pulmonary disease, unspecified COPD ty pe J44.9 Active 77864916 ALLERGIES No Information ENCOUNTERS Encounter Location Date Diagnosis [address] [id number] [place] [address] 11 Feb, [address] [id number] [address] January, Moderately severe depression F32.2 ; Obesity (BMI 30- 39.9) E66.9 ; Chronic obstructive pulmonary disease, unspecified COPD type J44.9 ; Diverticulitis K57.92 and Intractable migraine with aura with status migrainosus G43.[address] [id number] [place] [address] January, [address] 340 [id number], [place] [address] January, [address] [id number], [place] [address] Dec, [address] 340 [id number], [place] [address] Dec, [address] [id number], [place] [address] Nov, Acute respiratory failure wi th hypercapnia J96.[address] [id number], [place] [address] Nov, [facility] [address] [facility] [id number] [address] [place] [id number] Nov, Caries K02.9 and Impacted to oth K01.1 [facility] [address] [facility] [id number] [address] [place] [id number] Nov, Dental examination Z01.20 an d Caries K02.[address] 340 [id number], [place] [address] Oct, Bipolar 1 disorder F31.9 ; C onfusion caused by a drug F19.921 and Moderately severe depression F32.2 [facility] [place] [address] [place] [address] [id number] [place], [place] [address] Oct, [address] [id number], [place] [address] Oct, [address] 340 [id number], [place] [address] Oct, [facility] [address] [id number] [place] [address] Oct, [facility] [address] [id number], [place] [address] 03 Oct, 2019 [facility] [place] [address] [facility] [id number] [place] [address] Sep, [facility] [address] [id number], [place] [address] Sep, [facility] [address] [id number], [place] [address] Sep, [facility] [address] [id number], [place] [address] Sep, Confusion caused by a drug F 19.921 [facility] [address] [id number], [place] [address] Sep, Confusion caused by a drug F 19.921 [facility] [place] [address] [facility] [id number] [place] [address] Sep, [facility] [address] [id number], [place] [address] Sep, [facility] [address] [id number], [place] [address] 09 Sep, 2019 Vitamin D deficiency E55.9 [facility] [address] [id number] [place] [address] 2019 Acute respiratory failure wi th hypercapnia J96.02 ; Influenza vaccine refused Z28.21 and Opioid overdose, accidental or unintentional, initial encounter T40.2X1A [facility] [address] [id number], [place] [address] 07 Sep, 2019 Acute respiratory failure wi th hypercapnia J96.02 ; Influenza vaccine refused Z28.21 and Opioid overdose, accidental or unintentional, initial encounter T40.2X1A [facility] [address] [id number] [place] [address] Sep, [address] [id number] [place] [address] Aug, Pedal edema R60.0 [facility] [place] [address] [facility] [id number] 100[place] [address] Aug, Hiatal hernia K44.[address] [id number], [place] [address] Jun, Esophagitis K20.[address] [id number], [place] [address] Jun, Vitamin D deficiency E55.[address] 340[address] [id number], [place] [address] May, Hiatal hernia K44.9 ; Esopha gitis K20.9 ; Adenomatous polyp of colon, unspecified part of colon D12.6 ; Falls frequently R29.6 ; Vitamin D deficiency E55.9 and Pedal edema R60.[address] 340[address] [id number], [place] [address] May, [address] [id number], [place] [address] May, [facility] [address] [id number] [place] [address] May, Right knee gives way M25.361 [facility] [address] [id number], [place] [address] May, Right knee gives way M25.[address] [id number], [place] [address] Apr, Generalized anxiety disorder F41.1 ; Right knee gives way M25.361 and Food sticks on swallowing R13.[address] 340 [id number], [place] [address] Dec, Abnormal mammogram of right breast R92.8 [facility] [address] [id number] [place] [address] Dec, Abnormal mammogram of right breast R92.8 [facility] [address] [id number] [place] [address] Dec, Abnormal mammogram of right breast R92.8 [facility] [address] [id number] [place] [address] Dec, Screening mammogram, encount er for Z12.31 [facility] [address] [id number] [place] [address] Dec, Routine general medical exam ination at a health care facility Z00.00 [facility] [address] [id number] [place] [address] Dec, [facility] [address] 340 [id number] [place] [address] Oct, [place] [address] [facility] [id number] [address] [place] [address] Oct, [place] [address] [place] [id number] [address] [place] [address] Sep, URI (upper respiratory infec tion) J06.9 and Impacted cerumen of both ears H61.23 [place] [address] [facility] [id number] [address] [place] [address] Aug, Hyperlipemia E78.5 [place] [address] [facility] [id number] [address] [place] [address] Aug, Intractable migraine without aura and without status migrainosus G43.019 ; Generalized anxiety disorder F41.1 ; Bipolar 1 disorder F31.9 ; Panic disorder F41.0 ; Low back pain M54.5 and Other viral agents as the cause of diseases classified elsewhere B97.89 [place] [address] [place] [id number] [address] [place] [address] Aug, [facility] [place] [address] [facility] [id number] 100[place] [address] Jul, Hypothyroidism, unspecified E03.9 ; Hyperlipidemia E78.5 ; Generalized anxiety disorder F41.1 ; Bipolar 1 disorder F31.9 ; Panic disorder F41.0 ; Bilateral impacted cerumen H61.23 ; Low back pain M54.5 ; Intractable migraine without aura and without status migrainosus G43.019 and Hx of abnormal cervical Pap smear Z87.898 IMMUNIZATIONS No Known Immunizations SOCIAL HISTORY Never Assessed REASON FOR VISIT Refill request PLAN OF CARE VITAL SIGNS MEDICATIONS Medication Instructions Dosage Frequency Start Date End Date Duration S tatus Levothyroxine Sodium 25 MCG Orally Once a day 1 tablet on an empty stomach in the morning 24h Dec, 30 day(s) Active Mobic 15 MG Orally Once a day 1 tablet 24h Oct, 30 d ay(s) Active RESULTS No Results PROCEDURES No Known procedures INSTRUCTIONS MEDICATIONS ADMINISTERED No Known Medications MEDICAL (GENERAL) HISTORY Type Description Date Medical History Hypothyroidism, unspecified Medical History Hyperlipidemia Medical History Generalized anxiety disorder Medical History Bipolar 1 disorder Medical History Panic disorder Medical History Low back pain Medical History Intractable migraine without aura and without status migrainosus Medical History History of abnormal cervical Pap smear Surgical History Tubal Surgical History Hernia Surgical History cholecystectomy Surgical History Carpal tunnel on right hand and left rodgers dx2 Hospitalization History Hosptialized for depression over 10 years ago Hospitalization History surgeries Hospitalization History pneumonia 09/06/19 & 09/11 Hospitalization History [facility] 11/05/2019
--- OUTSIDE RECORDS SUMMARY | 2020-03-11 12:25 | XMS REPORT | Continuity of Care Document ---
Author Organization Unknown Address Unknown Phone Unavailable Allergies Active Description Code Type Severity Reaction Onset Reported/Identified Relationship to Patient Clinical Status Yes No Known Drug Allergies [id number] Drug Allergy Unknown N/A 10/04/2019 Medications There is no data. Problems Date Dx Coded Attending Type Code Diagnosis Diagnosed By 06/02/2019 DELMAN DO, LEE ANN B Ot Z01.8 18 ENCOUNTER FOR OTHER PREPROCEDURAL EXAMIN 06/02/2019 DELMAN DO, LEE ANN B Ot Z01.8 18 ENCOUNTER FOR OTHER PREPROCEDURAL EXAMIN 06/07/2019 DELMAN DO, LEE ANN B Ot D12.2 BENIGN NEOPLASM OF ASCENDING COLON 06/07/2019 DELMAN DO, LEE ANN B Ot F41.8 OTHER SPECIFIED ANXIETY DISORDERS 06/07/2019 DELMAN DO, LEE ANN B Ot K20.9 ESOPHAGITIS, UNSPECIFIED 06/07/2019 DELMAN DO, LEE ANN B Ot K29.5 0 UNSPECIFIED CHRONIC GASTRITIS WITHOUT BL 06/07/2019 DELMAN DO, LEE ANN B Ot K64.8 OTHER HEMORRHOIDS 06/07/2019 DELMAN DO, LEE ANN B Ot M19.9 0 UNSPECIFIED OSTEOARTHRITIS, UNSPECIFIED 06/07/2019 DELMAN DO, LEE ANN B Ot Z79.8 99 OTHER PRISON (CURRENT) DRUG THERAPY 06/07/2019 DELMAN DO, LEE ANN B Ot Z87.8 91 PERSONAL HISTORY OF NICOTINE DEPENDENCE 06/10/2019 DELMAN DO, LEE ANN B Ot D12.2 BENIGN NEOPLASM OF ASCENDING COLON 06/10/2019 DELMAN DO, LEE ANN B Ot F41.8 OTHER SPECIFIED ANXIETY DISORDERS 06/10/2019 DELMAN DO, LEE ANN B Ot K20.9 ESOPHAGITIS, UNSPECIFIED 06/10/2019 DELMAN DO, LEE ANN B Ot K29.5 0 UNSPECIFIED CHRONIC GASTRITIS WITHOUT BL 06/10/2019 DELMAN DO, LEE ANN B Ot K64.8 OTHER HEMORRHOIDS 06/10/2019 DELMAN DO, LEE ANN B Ot M19.9 0 UNSPECIFIED OSTEOARTHRITIS, UNSPECIFIED 06/10/2019 PADMINI KILLIAN DOIC B Ot Z79.8 99 OTHER ASSIGNMENT CLERK (CURRENT) DRUG THERAPY 06/10/2019 PADMINI KILLIAN DOIC B Ot Z87.8 91 PERSONAL HISTORY OF NICOTINE DEPENDENCE 07/22/2019 BENNY PIERCE MD Ot K20.9 ESOPHAGITIS, UNSPECIFIED 08/06/2019 GENEVA ABBOTT, TEKALIGN A Ot R20.0 ANESTHESIA OF SKIN 08/06/2019 GENEVA ABBOTT, TEKALIGN A Ot W19.XXXA UNSPECIFIED FALL, INITIAL ENCOUNTER 08/17/2019 STAN ABBOTT, BENNY Ot K20.9 ESOPHAGITIS, UNSPECIFIED 08/17/2019 GENEVA ABBOTT, TEKALIGN A Ot R20.0 ANESTHESIA OF SKIN 08/17/2019 GENEVA ABBOTT, TEKALIGN A Ot W19.XXXA UNSPECIFIED FALL, INITIAL ENCOUNTER 08/30/2019 PADMINI KILLIAN DOIC B Ot Z01.8 18 ENCOUNTER FOR OTHER PREPROCEDURAL EXAMIN 08/31/2019 LEE ANN KILLIAN DO B Ot Z01.8 18 ENCOUNTER FOR OTHER PREPROCEDURAL EXAMIN 09/03/2019 STAN ABBOTT, BENNY Ot K20.9 ESOPHAGITIS, UNSPECIFIED 09/03/2019 GENEVA ABBOTT, TEKALIGN A Ot R20.0 ANESTHESIA OF SKIN 09/03/2019 GENEVA ABBOTT, TEKALIGN A Ot W19.XXXA UNSPECIFIED FALL, INITIAL ENCOUNTER 09/03/2019 GAGE ABBOTT, SAMUEL Fong Ot F41. 9 ANXIETY DISORDER, UNSPECIFIED 09/03/2019 SAMUEL ALMONTE MD Ot K01. 1 IMPACTED TEETH 09/03/2019 SAMUEL ALMONTE MD Ot K13. 79 OTHER LESIONS OF ORAL MUCOSA 09/03/2019 SAMUEL ALMONTE MD Ot Z87.891 PERSONAL HISTORY OF NICOTINE DEPENDENCE 09/06/2019 SAMUEL ALMONTE MD Ot F41. 9 ANXIETY DISORDER, UNSPECIFIED 09/06/2019 SAMUEL ALMONTE MD Ot K01. 1 IMPACTED TEETH 09/06/2019 SAMUEL ALMONTE MD Ot K13. 79 OTHER LESIONS OF ORAL MUCOSA 09/06/2019 SAMUEL ALMONTE MD Ot Z87.891 PERSONAL HISTORY OF NICOTINE DEPENDENCE 2019 DARRIAN INMAN MD Ot A41 .9 SEPSIS, UNSPECIFIED ORGANISM 2019 DARRIAN INMAN MD Ot D64 .9 ANEMIA, UNSPECIFIED 2019 DARRIAN INMAN MD Ot E78.00 PURE HYPERCHOLESTEROLEMIA, UNSPECIFIED 2019 DARRIAN INMAN MD Ot F31 .9 BIPOLAR DISORDER, UNSPECIFIED 2019 DARRIAN INMAN MD Ot F41 .9 ANXIETY DISORDER, UNSPECIFIED 2019 DARRIAN INMAN MD Ot I10 ESSENTIAL (PRIMARY) HYPERTENSION 2019 DARRIAN INMAN MD Ot J18 .1 LOBAR PNEUMONIA, UNSPECIFIED ORGANISM 2019 DARRIAN INMAN MD Ot J43 .9 EMPHYSEMA, UNSPECIFIED 2019 DARRIAN INMAN MD Ot J96.01 ACUTE RESPIRATORY FAILURE WITH HYPOXIA 2019 DARRIAN INMAN MD Ot K21 .0 GASTRO-ESOPHAGEAL REFLUX DISEASE WITH ES 2019 DARRIAN INMAN MD Ot K29.50 UNSPECIFIED CHRONIC GASTRITIS WITHOUT BL 2019 DARRIAN INMAN MD Ot R13.12 DYSPHAGIA, OROPHARYNGEAL PHASE 2019 DARRIAN INMAN MD Ot Z86.010 PERSONAL HISTORY OF COLONIC POLYPS 2019 DARRIAN INMAN MD Ot Z87.891 PERSONAL HISTORY OF NICOTINE DEPENDENCE 09/09/2019 SAMUEL ALMONTE MD, Ot F41. 9 ANXIETY DISORDER, UNSPECIFIED 09/09/2019 SAMUEL ALMONTE MD Ot K01. 1 IMPACTED TEETH 09/09/2019 SAMUEL ALMONTE MD Ot K13. 79 OTHER LESIONS OF ORAL MUCOSA 09/09/2019 SAMUEL ALMONTE MD Ot Z87.891 PERSONAL HISTORY OF NICOTINE DEPENDENCE 09/16/2019 VALENTINO DECKER MD Ot E03. 9 HYPOTHYROIDISM, UNSPECIFIED 09/16/2019 VALENTINO DECKER MD Ot E78. 00 PURE HYPERCHOLESTEROLEMIA, UNSPECIFIED 09/16/2019 VALENTINO DECKER MD Ot F31. 9 BIPOLAR DISORDER, UNSPECIFIED 09/16/2019 VALENTINO DECKER MD Ot F41. 9 ANXIETY DISORDER, UNSPECIFIED 09/16/2019 VALENTINO DECKER MD Ot G47. 9 SLEEP DISORDER, UNSPECIFIED 09/16/2019 VALENTINO DECKER MD Ot J43. 9 EMPHYSEMA, UNSPECIFIED 09/16/2019 VALENTINO DECKER MD Ot J69. 0 PNEUMONITIS DUE TO INHALATION OF FOOD AN 09/16/2019 VALENTINO DECKER MD Ot J96. 02 ACUTE RESPIRATORY FAILURE WITH HYPERCAPN 09/16/2019 VALENTINO DECKER MD Ot K21. 9 GASTRO-ESOPHAGEAL REFLUX DISEASE WITHOUT 09/16/2019 VALENTINO DECKER MD Ot K29. 70 GASTRITIS, UNSPECIFIED, WITHOUT BLEEDING 09/16/2019 VALENTINO DECKER MD Ot N17. 9 ACUTE KIDNEY FAILURE, UNSPECIFIED 09/16/2019 VALENTINO DECKER MD Ot T40.2X1A POISONING BY OTH OPIOIDS, ACCIDENTAL (UN 09/16/2019 VALENTINO DECKER MD Ot Z79.899 OTHER PRISON (CURRENT) DRUG THERAPY 09/16/2019 VALENTINO DECKER MD Ot Z80. 52 FAMILY HISTORY OF MALIGNANT NEOPLASM OF 09/16/2019 VALENTINO DECKER MD Ot Z82. 49 FAMILY HX OF ISCHEM HEART DIS AND OTH DI 09/16/2019 VALENTINO DECKER MD Ot Z87.891 PERSONAL HISTORY OF NICOTINE DEPENDENCE 09/23/2019 VALENTINO DECKER MD Ot E03. 9 HYPOTHYROIDISM, UNSPECIFIED 09/23/2019 VALENTINO DECKER MD Ot F31. 9 BIPOLAR DISORDER, UNSPECIFIED 09/23/2019 VALENTINO DECKER MD Ot F41. 9 ANXIETY DISORDER, UNSPECIFIED 09/23/2019 VALENTINO DECKER MD Ot G47. 9 SLEEP DISORDER, UNSPECIFIED 09/23/2019 VALENTINO DECKER MD Ot J43. 9 EMPHYSEMA, UNSPECIFIED 09/23/2019 VALENTINO DECKER MD Ot J69. 0 PNEUMONITIS DUE TO INHALATION OF FOOD AN 09/23/2019 VALENTINO DECKER MD Ot J96. 02 ACUTE RESPIRATORY FAILURE WITH HYPERCAPN 09/23/2019 VALENTINO DECKER MD Ot K21. 9 GASTRO-ESOPHAGEAL REFLUX DISEASE WITHOUT 09/23/2019 VALENTINO DECKER MD Ot N17. 9 ACUTE KIDNEY FAILURE, UNSPECIFIED 09/23/2019 VALENTINO DECKER MD Ot T40.2X1A POISONING BY OTH OPIOIDS, ACCIDENTAL (UN 09/23/2019 VALENTINO DECKER MD Ot Z79.899 OTHER ASSIGNMENT CLERK (CURRENT) DRUG THERAPY 09/23/2019 JERONIMO ABBOTT, VALENTINO Pablo Ot Z80. 52 FAMILY HISTORY OF MALIGNANT NEOPLASM OF 09/23/2019 JERONIMO ABBOTT, VALENTINO Pablo Ot Z82. 49 FAMILY HX OF ISCHEM HEART DIS AND OTH DI 09/27/2019 BENNY PIERCE MD, Ot K20.9 ESOPHAGITIS, UNSPECIFIED 09/27/2019 GENEVA ABBOTT, TEKALIGN A Ot R20.0 ANESTHESIA OF SKIN 09/27/2019 GENEVA ABBOTT, TEKALIGN A Ot W19.XXXA UNSPECIFIED FALL, INITIAL ENCOUNTER 09/28/2019 GAGE ABBOTT, SAMUEL Fong Ot F41. 9 ANXIETY DISORDER, UNSPECIFIED 09/28/2019 GAGE ABBOTT, SAMUEL Fong Ot K01. 1 IMPACTED TEETH 09/28/2019 GAGE ABBOTT, SAMUEL Fong Ot K13. 79 OTHER LESIONS OF ORAL MUCOSA 09/28/2019 GAGE ABBOTT, SAMUEL Fong Ot Z87.891 PERSONAL HISTORY OF NICOTINE DEPENDENCE 09/30/2019 DELMAN DO, LEE ANN B Ot Z01.8 18 ENCOUNTER FOR OTHER PREPROCEDURAL EXAMIN 09/30/2019 DELMAN DO, LEE ANN B Ot Z01.8 18 ENCOUNTER FOR OTHER PREPROCEDURAL EXAMIN 09/30/2019 DELMAN DO, LEE ANN B Ot Z01.8 18 ENCOUNTER FOR OTHER PREPROCEDURAL EXAMIN 10/04/2019 DELMAN DO, LEE ANN B Ot E03.9 HYPOTHYROIDISM, UNSPECIFIED 10/04/2019 DELMAN DO, LEE ANN B Ot E66.9 OBESITY, UNSPECIFIED 10/04/2019 DELMAN DO, LEE ANN B Ot E78.5 HYPERLIPIDEMIA, UNSPECIFIED 10/04/2019 DELMAN DO, LEE ANN B Ot F32.9 MAJOR DEPRESSIVE DISORDER, SINGLE EPISOD 10/04/2019 DELMAN DO, LEE ANN B Ot J44.9 CHRONIC OBSTRUCTIVE PULMONARY DISEASE, U 10/04/2019 DELMAN DO, LEE ANN B Ot K20.9 ESOPHAGITIS, UNSPECIFIED 10/04/2019 DELMAN DO, LEE ANN B Ot K21.9 GASTRO-ESOPHAGEAL REFLUX DISEASE WITHOUT 10/04/2019 DELMAN DO, LEE ANN B Ot K29.5 0 UNSPECIFIED CHRONIC GASTRITIS WITHOUT BL 10/04/2019 DELMAN DO, LEE ANN B Ot K29.8 0 DUODENITIS WITHOUT BLEEDING 10/04/2019 DELMAN DO, LEE ANN B Ot K31.8 9 OTHER DISEASES OF STOMACH AND DUODENUM 10/04/2019 CONSTANTIN DO, LEE ANN B Ot K44.9 DIAPHRAGMATIC HERNIA WITHOUT OBSTRUCTION 10/04/2019 CONSTANTIN DO, LEE ANN B Ot M19.9 0 UNSPECIFIED OSTEOARTHRITIS, UNSPECIFIED 10/04/2019 NIKKYWAMEGO DO, LEE ANN B Ot Z68.3 2 BODY MASS INDEX (BMI) 32.0-32.9, ADULT 10/04/2019 CONSTANTIN RAMIREZ, LEE ANN B Ot Z80.1 FAMILY HISTORY OF MALIG NEOPLASM OF TRAC 10/04/2019 NIKKYWAMEGO , LEE ANN B Ot Z87.8 91 PERSONAL HISTORY OF NICOTINE DEPENDENCE [facility]/04/[facility] B Ot Z90.4 9 ACQUIRED ABSENCE OF OTHER SPECIFIED PART 10/07/2019 CONSTANTIN RAMIREZ, LEE ANN B Ot E03.9 HYPOTHYROIDISM, UNSPECIFIED 10/07/2019 CONSTANTIN DO, LEE ANN B Ot E66.9 OBESITY, UNSPECIFIED 10/07/2019 [facility] LEE [facility] B Ot E78.5 HYPERLIPIDEMIA, UNSPECIFIED 10/07/2019 [facility], LEE ANN B Ot F32.9 MAJOR DEPRESSIVE DISORDER, SINGLE EPISOD 10/07/2019 CONSTANTIN DO, LEE ANN B Ot J44.9 CHRONIC OBSTRUCTIVE PULMONARY DISEASE, U 10/07/2019 CONSTANTIN DO, LEE ANN B Ot K20.9 ESOPHAGITIS, UNSPECIFIED 10/07/2019 NIKKYWAMEGO DO, LEE ANN B Ot K21.9 GASTRO-ESOPHAGEAL REFLUX DISEASE WITHOUT 10/07/2019 CONSTANTIN DO, LEE ANN B Ot K29.5 0 UNSPECIFIED CHRONIC GASTRITIS WITHOUT BL 10/07/2019 CONSTANTIN DO, LEE ANN B Ot K29.8 0 DUODENITIS WITHOUT BLEEDING 10/07/2019 NIKKYWAMEGO DO, LEE ANN B Ot K31.8 9 OTHER DISEASES OF STOMACH AND DUODENUM 10/07/2019 CONSTANTIN DO, LEE ANN B Ot K44.9 DIAPHRAGMATIC HERNIA WITHOUT OBSTRUCTION 10/07/2019 [facility] LEE [facility] B Ot M19.9 0 UNSPECIFIED OSTEOARTHRITIS, UNSPECIFIED 10/07/2019 [facility] LEE [facility] B Ot Z68.3 2 BODY MASS INDEX (BMI) 32.0-32.9, ADULT 10/07/2019 CONSTANTIN RAMIREZ, LEE ANN B Ot Z80.1 FAMILY HISTORY OF MALIG NEOPLASM OF TRAC 10/07/2019 CONSTANTIN RAMIREZ LEE ANN B Ot Z87.8 91 PERSONAL HISTORY OF NICOTINE DEPENDENCE 10/07/2019 CONSTANTIN RAMIREZ LEE ANN B Ot Z90.4 9 ACQUIRED ABSENCE OF OTHER SPECIFIED PART 10/11/2019 SELF BENNY ABBOTT Ot F19.92 1 OTH PSYCHOACTIVE SUBSTANCE USE, UNSP W I 10/11/2019 SELF BENNY ABBOTT Ot R53.1 WEAKNESS 10/11/2019 ARAMBULA DO, RAMESH Ot E03.9 HYPOTHYROIDISM, UNSPECIFIED 10/11/2019 ARAMBULA DO, RAMESH Ot E78.00 PURE HYPERCHOLESTEROLEMIA, UNSPECIFIED 10/11/2019 ARAMBULA DO, RAMESH Ot F31.9 BIPOLAR DISORDER, UNSPECIFIED 10/11/2019 ARAMBULA DO, RAMESH Ot F41.9 ANXIETY DISORDER, UNSPECIFIED 10/11/2019 ARAMBULA DO, RAMESH Ot G47.9 SLEEP DISORDER, UNSPECIFIED 10/11/2019 ARAMBULA DO, RAMESH Ot G93.49 OTHER ENCEPHALOPATHY 10/11/2019 ARAMBULA DO, RAMESH Ot J43.9 EMPHYSEMA, UNSPECIFIED 10/11/2019 ARAMBULA DO, RAMESH Ot K21.9 GASTRO-ESOPHAGEAL REFLUX DISEASE WITHOUT 10/11/2019 ARAMBULA DO, RAMESH Ot K29.70 GASTRITIS, UNSPECIFIED, WITHOUT BLEEDING 10/11/2019 ARAMBULA DO, RAMESH Ot K29.80 DUODENITIS WITHOUT BLEEDING 10/11/2019 ARAMBULA DO, RAMESH Ot K44.9 DIAPHRAGMATIC HERNIA WITHOUT OBSTRUCTION 10/11/2019 ARAMBULA DO, RAMESH Ot M43.9 DEFORMING DORSOPATHY, UNSPECIFIED 10/11/2019 ARAMBULA DO, RAMESH Ot M54.9 DORSALGIA, UNSPECIFIED 10/11/2019 ARAMBULA DO, RAMESH Ot N39.0 URINARY TRACT INFECTION, SITE NOT SPECIF 10/11/2019 ARAMBULA DO, RAMESH Ot R41.82 ALTERED MENTAL STATUS, UNSPECIFIED 10/11/2019 ARAMBULA DO, RAMESH Ot Z87.89 1 PERSONAL HISTORY OF NICOTINE DEPENDENCE 10/12/2019 ARAMBULA DO, RAMESH Ot E03.9 HYPOTHYROIDISM, UNSPECIFIED 10/12/2019 ARAMBULA DO, RAMESH Ot E78.00 PURE HYPERCHOLESTEROLEMIA, UNSPECIFIED 10/12/2019 ARAMBULA DO, RAMESH Ot F31.9 BIPOLAR DISORDER, UNSPECIFIED 10/12/2019 ARAMBULA DO, RAMESH Ot F41.9 ANXIETY DISORDER, UNSPECIFIED 10/12/2019 ARAMBULA DO, RAMESH Ot G47.9 SLEEP DISORDER, UNSPECIFIED 10/12/2019 ARAMBULA DO, RAMESH Ot G93.49 OTHER ENCEPHALOPATHY 10/12/2019 ARAMBULA DO, RAMESH Ot J43.9 EMPHYSEMA, UNSPECIFIED 10/12/2019 ARAMBULA DO, RAMESH Ot K21.9 GASTRO-ESOPHAGEAL REFLUX DISEASE WITHOUT 10/12/2019 ARAMBULA DO, RAMESH Ot K29.70 GASTRITIS, UNSPECIFIED, WITHOUT BLEEDING 10/12/2019 ARAMBULA DO, RAMESH Ot K29.80 DUODENITIS WITHOUT BLEEDING 10/12/2019 ARAMBULA DO, RAMESH Ot K44.9 DIAPHRAGMATIC HERNIA WITHOUT OBSTRUCTION 10/12/2019 ARAMBULA DO, RAMESH Ot M43.9 DEFORMING DORSOPATHY, UNSPECIFIED 10/12/2019 ARAMBULA DO, RAMESH Ot M54.9 DORSALGIA, UNSPECIFIED 10/12/2019 ARAMBULA DO, RAMESH Ot N39.0 URINARY TRACT INFECTION, SITE NOT SPECIF 10/12/2019 ARAMBULA DO, RAMESH Ot R41.82 ALTERED MENTAL STATUS, UNSPECIFIED 10/12/2019 ARAMBULA DO, RAMESH Ot Z87.89 1 PERSONAL HISTORY OF NICOTINE DEPENDENCE 10/13/2019 ARAMBULA DO, RAMESH Ot E03.9 HYPOTHYROIDISM, UNSPECIFIED 10/13/2019 ARAMBULA DO, RAMESH Ot E78.00 PURE HYPERCHOLESTEROLEMIA, UNSPECIFIED 10/13/2019 ARAMBULA DO, RAMESH Ot F31.9 BIPOLAR DISORDER, UNSPECIFIED 10/13/2019 ARAMBULA DO, RAMESH Ot F41.9 ANXIETY DISORDER, UNSPECIFIED 10/13/2019 ARAMBULA DO, RAMESH Ot G47.9 SLEEP DISORDER, UNSPECIFIED 10/13/2019 ARAMBULA DO, RAMESH Ot G93.49 OTHER ENCEPHALOPATHY 10/13/2019 ARAMBULA DO, RAMESH Ot J43.9 EMPHYSEMA, UNSPECIFIED 10/13/2019 ARAMBULA DO, RAMESH Ot K21.9 GASTRO-ESOPHAGEAL REFLUX DISEASE WITHOUT 10/13/2019 ARAMBULA DO, RAMESH Ot K29.70 GASTRITIS, UNSPECIFIED, WITHOUT BLEEDING 10/13/2019 ARAMBULA DO, RAMESH Ot K29.80 DUODENITIS WITHOUT BLEEDING 10/13/2019 ARAMBULA DO, RAMESH Ot K44.9 DIAPHRAGMATIC HERNIA WITHOUT OBSTRUCTION 10/13/2019 ARAMBULA DO, RAMESH Ot M43.9 DEFORMING DORSOPATHY, UNSPECIFIED 10/13/2019 ARAMBULA DO, RAMESH Ot M54.9 DORSALGIA, UNSPECIFIED 10/13/2019 ARAMBULA DO, RAMESH Ot N39.0 URINARY TRACT INFECTION, SITE NOT SPECIF 10/13/2019 ARAMBULA DO, RAMESH Ot R41.82 ALTERED MENTAL STATUS, UNSPECIFIED 10/13/2019 ARAMBULA DO, RAMESH Ot Z87.89 1 PERSONAL HISTORY OF NICOTINE DEPENDENCE 10/15/2019 JOSSY ABBOTT, LAUREN Rogers Ot E03.9 HYPOTHYROIDISM, UNSPECIFIED 10/15/2019 LAUREN FENTON MD Ot F32.9 MAJOR DEPRESSIVE DISORDER, SINGLE EPISOD 10/15/2019 LAUREN FENTON MD, Ot F41.9 ANXIETY DISORDER, UNSPECIFIED 10/15/2019 LAUREN FENTON MD, Ot J43.9 EMPHYSEMA, UNSPECIFIED 10/15/2019 LAUREN FENTON MD, Ot K21.9 GASTRO-ESOPHAGEAL REFLUX DISEASE WITHOUT 10/15/2019 LAUREN FENTON MD Ot Z00.0 0 ENCNTR FOR GENERAL ADULT MEDICAL EXAM W/ 10/15/2019 LAUREN FENTON MD Ot Z03.8 9 ENCNTR FOR OBS FOR OTH SUSPECTED DISEASE 10/15/2019 LAUREN FENTON MD, Ot Z77.2 2 CNTCT W AND EXPSR TO ENVIRON TOBACCO SMO 10/15/2019 LAUREN FENTON MD, Ot Z82.4 9 FAMILY HX OF ISCHEM HEART DIS AND OTH DI 10/15/2019 LAUREN FENTON MD, Ot Z87.8 91 PERSONAL HISTORY OF NICOTINE DEPENDENCE 10/19/2019 LAUREN FENTON MD, Ot E03.9 HYPOTHYROIDISM, UNSPECIFIED 10/19/2019 LAUREN FENTON MD, Ot F32.9 MAJOR DEPRESSIVE DISORDER, SINGLE EPISOD 10/19/2019 LAUREN FENTON MD, Ot F41.9 ANXIETY DISORDER, UNSPECIFIED 10/19/2019 LAUREN FENTON MD, Ot J43.9 EMPHYSEMA, UNSPECIFIED 10/19/2019 LAUREN FENTON MD, Ot K21.9 GASTRO-ESOPHAGEAL REFLUX DISEASE WITHOUT 10/19/2019 LAUREN FENTON MD Ot Z00.0 0 ENCNTR FOR GENERAL ADULT MEDICAL EXAM W/ 10/19/2019 LAUREN FENTON MD, Ot Z03.8 9 ENCNTR FOR OBS FOR OTH SUSPECTED DISEASE 10/19/2019 LAUREN FENTON MD Ot Z77.2 2 CNTCT W AND EXPSR TO ENVIRON TOBACCO SMO 10/19/2019 LAUREN FENTON MD Ot Z82.4 9 FAMILY HX OF ISCHEM HEART DIS AND OTH DI 10/19/2019 LAUREN FENTON MD Ot Z87.8 91 PERSONAL HISTORY OF NICOTINE DEPENDENCE 10/26/2019 BENNY PIERCE MD Ot F19.92 1 OTH PSYCHOACTIVE SUBSTANCE USE, UNSP W I 10/26/2019 BENNY PIERCE MD Ot R53.1 WEAKNESS 02/29/2020 BENNY PIERCE MD Ot K20.9 ESOPHAGITIS, UNSPECIFIED 02/29/2020 CARL BEAN MDALIGN A Ot R20.0 ANESTHESIA OF SKIN 02/29/2020 CARL BEAN MDALIGN A Ot W19.XXXA UNSPECIFIED FALL, INITIAL ENCOUNTER 02/29/2020 BENNY PIERCE MD Ot F19.92 1 OTH PSYCHOACTIVE SUBSTANCE USE, UNSP W I 02/29/2020 BENNY PIERCE MD Ot R53.1 WEAKNESS 02/29/2020 BENNY PIERCE MD Ot F19.92 1 OTH PSYCHOACTIVE SUBSTANCE USE, UNSP W I 02/29/2020 BENNY PIERCE MD Ot R53.1 WEAKNESS 03/01/2020 CARL BEAN MDALIGN A Ot R20.0 ANESTHESIA OF SKIN 03/01/2020 CARL BEAN MDALIGN A Ot W19.XXXA UNSPECIFIED FALL, INITIAL ENCOUNTER 03/01/2020 BENNY PIERCE MD Ot K20.9 ESOPHAGITIS, UNSPECIFIED 03/03/2020 GENEVA ABBOTT TEKALIGN A Ot R20.0 ANESTHESIA OF SKIN 03/03/2020 GENEVA ABBOTT TEKALIGN A Ot W19.XXXA UNSPECIFIED FALL, INITIAL ENCOUNTER 03/03/2020 GENEVA ABBOTT TEKALIGN A Ot R20.0 ANESTHESIA OF SKIN 03/03/2020 GENEVA ABBOTT TEKALIGN A Ot W19.XXXA UNSPECIFIED FALL, INITIAL ENCOUNTER 03/07/2020 RIMMA BALLARD Ot M25.571 PAIN IN RIGHT ANKLE AND JOINTS OF RIGHT 03/07/2020 RIMMA BALLARD Ot M25.572 PAIN IN LEFT ANKLE AND JOINTS OF LEFT FO Procedures Code Description Performed [place] [id number] [place] DE GUZMAN OF SPINAL CANAL, PERCUTANEOUS A 10/09/2019 Results Test Result Range CMP - 06/14/19 16:33 GLUCOSE 80 mg/dL 65-99 UREA NITROGEN (BUN) 8 mg/dL 7-25 CREATININE 0.81 mg/dL 0.50-1.05 eGFR NON-AFR. BANGLADESHI 81 mL/min/1.73m2 > OR = 60 eGFR 93 mL/min/1.73m2 > OR = 60 BUN/CREATININE RATIO NOT APPLICABLE (calc) 6-22 SODIUM 140 mmol/L 135-146 POTASSIUM 4.3 mmol/L 3.5-5.3 CHLORIDE 99 mmol/L 98-110 CARBON DIOXIDE 31 mmol/L 20-32 CALCIUM 10.2 mg/dL 8.6-10.4 PROTEIN, TOTAL 8.0 g/dL 6.1-8.1 ALBUMIN 4.5 g/dL 3.6-5.1 GLOBULIN 3.5 g/dL (calc) 1.9-3.7 ALBUMIN/GLOBULIN RATIO 1.3 (calc) 1.0-2. 5 BILIRUBIN, TOTAL 0.3 mg/dL 0.2-1.2 ALKALINE PHOSPHATASE 114 U/L 33-130 AST 28 U/L 10-35 ALT 32 U/L 6-29 CBC - 06/14/19 16:33 WHITE BLOOD CELL COUNT 8.4 Thousand/uL 3 .8-10.8 RED BLOOD CELL COUNT 4.92 Million/uL 3.8 0-5.10 HEMOGLOBIN 12.1 g/dL 11.7-15.5 HEMATOCRIT 38.9 % 35.0-45.0 MCV 79.1 fL 80.0-100.0 MCH 24.6 pg 27.0-33.0 MCHC 31.1 g/dL 32.0-36.0 RDW 18.1 % 11.0-15.0 PLATELET COUNT 329 Thousand/uL 140-400 MPV 9.5 fL 7.5-12.5 ABSOLUTE NEUTROPHILS 4696 cells/uL 1500- 7800 ABSOLUTE LYMPHOCYTES 2881 cells/uL 850-3 900 ABSOLUTE MONOCYTES 412 cells/uL 200-950 ABSOLUTE EOSINOPHILS 370 cells/uL 15-500 ABSOLUTE BASOPHILS 42 cells/uL 0-200 NEUTROPHILS 55.9 % NRG LYMPHOCYTES 34.3 % NRG MONOCYTES 4.9 % NRG EOSINOPHILS 4.4 % NRG BASOPHILS 0.5 % NRG VITAMIN D, 25-H - 06/14/19 16:33 VITAMIN D,25-OH,TOTAL,IA 14 ng/mL 30-10 0 VITAMIN B12/FOLATE, SERUM PANEL - 16:33 VITAMIN B12 440 pg/mL 200-1100 FOLATE, SERUM 12.4 ng/mL NRG Comprehensive metabolic panel - 08/04/19 12:38 Serum or plasma sodium measurement (moles/volume) 138 mmol/L 135-145 Serum or plasma potassium measurement (moles/volume) 4.2 mmol/L 3.6-5.0 Serum or plasma chloride measurement (moles/volume) 97 mmol/L 98-107 Carbon dioxide 28 mmol/L 21-32 Serum or plasma anion gap determination (moles/volume) 13 mmol/L 5-14 Serum or plasma urea nitrogen measurement (mass/volume ) 13 mg/dL 7-18 Serum or plasma creatinine measurement (mass/volume) 0.79 mg/dL 0.60-1.30 Serum or plasma urea nitrogen/creatinine mass ratio 16 NRG Serum or plasma creatinine measurement w ith calculation of estimated glomerular filtration rate > NRG Serum or plasma glucose measurement (mass/volume) 73 mg/dL 70-105 Serum or plasma calcium measurement (mass/volume) 10.4 mg/dL 8.5-10.1 Serum or plasma total bilirubin measurement (mass/volu me) 0.2 mg/dL 0.1-1.0 Serum or plasma alkaline phosphatase adelfo surement (enzymatic activity/volume) 117 U/L 40-136 Serum or plasma aspartate aminotransfera se measurement (enzymatic activity/volume) 21 U/L 5-34 Serum or plasma alanine aminotransferase measurement (enzymatic activity/volume) 11 U/L 0-55 Serum or plasma protein measurement (mass/volume) 8.5 g/dL 6.4-8.2 Serum or plasma albumin measurement (mass/volume) 4.4 g/dL 3.2-4.5 CALCIUM CORRECTED 10.1 mg/dL 8.5-10.1 Automated blood complete blood count (he mogram) panel - 08/04/19 12:38 Blood leukocytes automated count (number/volume) 9.3 10*3/uL 4.3-11.0 Blood erythrocytes automated count (number/volume) 5.01 10*6/uL 4.35-5.85 Venous blood hemoglobin measurement (mass/volume) 12.6 g/dL 11.5-16.0 Blood hematocrit (volume fraction) 41 % 35-52 Automated erythrocyte mean corpuscular volume 82 [ foz_us] 80-99 Automated erythrocyte mean corpuscular h emoglobin (mass per erythrocyte) 25 pg 25-34 Automated erythrocyte mean corpuscular h emoglobin concentration measurement (mass/volume) 31 g/dL 32-36 Automated erythrocyte distribution width ratio 16. 3 % 10.0- 14.5 Automated blood platelet count (count/volume) 366 10*3/uL 130-400 Automated blood platelet mean volume measurement 8.6 [foz_us] 7.4-10.4 Erythrocyte sedimentation rate by deja gren method - 08/04/19 12:38 Erythrocyte sedimentation rate by westergren method 39 mm 0- 30 Hemoglobin A1c measurement - 08/04/19 12 :38 Blood hemoglobin A1C measurement (mass/volume) 5.8 % 4.0-5.6 MEAN BLOOD GLUCOSE 120 % <=126 IMMUNOFIXATION W/INTERP, SERUM - 9 12:38 Serum or plasma nordiazepam detection Complete Complete Serum Borrelia species antibody assay (u nits/volume) - 08/04/19 12:38 LYME AB G M 0.06 % 0.00-0.89 Interpretation of Lyme disease antibody assay Nega tive Negative Serum or plasma methylmalonate measureme nt (mass/volume) - 08/04/19 12:38 [id number] 0.39 % 0.00-0.40 VITAMIN B 12 - 08/04/19 12:38 VITAMIN B 12 268 pg/mL 190-1100 Serum ragweed IgE antibody assay - 08/04 12:38 Serum ragweed IgE antibody assay 175.2 % 80.0-155.0 Blood CBC with ordered manual differenti al panel - 09/06/19 10:10 Blood leukocytes automated count (number/volume) 15.0 10*3/uL 4.3-11.0 Blood erythrocytes automated count (number/volume) 3.82 10*6/uL 4.35-5.85 Venous blood hemoglobin measurement (mass/volume) 9.7 g/dL 11.5-16.0 Blood hematocrit (volume fraction) 31 % 35-52 Automated erythrocyte mean corpuscular volume 82 [ foz_us] 80-99 Automated erythrocyte mean corpuscular h emoglobin (mass per erythrocyte) 25 pg 25-34 Automated erythrocyte mean corpuscular h emoglobin concentration measurement (mass/volume) 31 g/dL 32-36 Automated erythrocyte distribution width ratio 16. 5 % 10.0- 14.5 Automated blood platelet count (count/volume) 296 10*3/uL 130-400 Automated blood platelet mean volume measurement 8.8 [foz_us] 7.4-10.4 Automated blood neutrophils/100 leukocytes 88 % 42-75 Automated blood lymphocytes/100 leukocytes 6 % 12-44 Blood monocytes/100 leukocytes 1 % NRG Automated blood eosinophils/100 leukocytes 1 % 0-10 Automated blood basophils/100 leukocytes 0 % 0-10 Blood neutrophils automated count (number/volume) 13.2 10*3 1.8-7.8 Blood lymphocytes automated count (number/volume) 0.9 10*3 1.0-4.0 Blood monocytes automated count (number/volume) 0. 8 10*3 0.0-1.0 Automated eosinophil count 0.1 10*3/uL 0 .0-0.3 Automated blood basophil count (count/volume) 0.0 10*3/uL 0.0-0.1 Manual blood segmented neutrophils/100 leukocytes 79 % NRG Blood band neutrophils/100 leukocytes 15 % NRG Manual blood lymphocytes/100 leukocytes 5 % NRG Manual eosinophils/100 leukocytes in nose 0 % NRG Manual blood basophils/100 leukocytes 0 % NRG Blood anisocytosis detection by light microscopy S LIGHT NRG Blood lactic acid measurement (moles/vol ume) - 09/06/19 10:10 Blood lactic acid measurement (moles/volume) 1.53 mmol/L 0.50-2.00 Comprehensive metabolic panel - 09/06/19 10:10 Serum or plasma sodium measurement (moles/volume) 136 mmol/L 135-145 Serum or plasma potassium measurement (moles/volume) 4.0 mmol/L 3.6-5.0 Serum or plasma chloride measurement (moles/volume) 105 mmol/L 98-107 Carbon dioxide 22 mmol/L 21-32 Serum or plasma anion gap determination (moles/volume) 9 mmol/L 5-14 Serum or plasma urea nitrogen measurement (mass/volume ) 12 mg/dL 7-18 Serum or plasma creatinine measurement (mass/volume) 0.78 mg/dL 0.60-1.30 Serum or plasma urea nitrogen/creatinine mass ratio 15 NRG Serum or plasma creatinine measurement w ith calculation of estimated glomerular filtration rate > NRG Serum or plasma glucose measurement (mass/volume) 110 mg/dL 70-105 Serum or plasma calcium measurement (mass/volume) 9.1 mg/dL 8.5-10.1 Serum or plasma total bilirubin measurement (mass/volu me) 0.3 mg/dL 0.1-1.0 Serum or plasma alkaline phosphatase adelfo surement (enzymatic activity/volume) 85 U/L 40-136 Serum or plasma aspartate aminotransfera se measurement (enzymatic activity/volume) 21 U/L 5-34 Serum or plasma alanine aminotransferase measurement (enzymatic activity/volume) 19 U/L 0-55 Serum or plasma protein measurement (mass/volume) 6.9 g/dL 6.4-8.2 Serum or plasma albumin measurement (mass/volume) 3.8 g/dL 3.2-4.5 CALCIUM CORRECTED 9.3 mg/dL 8.5-10.1 PROCALCITONIN (PCT) - 09/06/19 10:10 PROCALCITONIN (PCT) 0.67 ng/mL <0.10 Bacterial blood culture - 09/06/19 10:10 Bacterial blood culture NG NRG Bacterial blood culture - 09/06/19 10:18 Bacterial blood culture NG NRG Complete blood count (CBC) with automate d white blood cell (WBC) differential - 09/07/19 05:45 Blood leukocytes automated count (number/volume) 11.8 10*3/uL 4.3-11.0 Blood erythrocytes automated count (number/volume) 3.43 10*6/uL 4.35-5.85 Venous blood hemoglobin measurement (mass/volume) 8.8 g/dL 11.5-16.0 Blood hematocrit (volume fraction) 29 % 35-52 Automated erythrocyte mean corpuscular volume 83 [ foz_us] 80-99 Automated erythrocyte mean corpuscular h emoglobin (mass per erythrocyte) 26 pg 25-34 Automated erythrocyte mean corpuscular h emoglobin concentration measurement (mass/volume) 31 g/dL 32-36 Automated erythrocyte distribution width ratio 16. 5 % 10.0- 14.5 Automated blood platelet count (count/volume) 277 10*3/uL 130-400 Automated blood platelet mean volume measurement 8.9 [foz_us] 7.4-10.4 Automated blood neutrophils/100 leukocytes 73 % 42-75 Automated blood lymphocytes/100 leukocytes 18 % 12-44 Blood monocytes/100 leukocytes 6 % 0-12 Automated blood eosinophils/100 leukocytes 3 % 0-10 Automated blood basophils/100 leukocytes 0 % 0-10 Blood neutrophils automated count (number/volume) 8.6 10*3 1.8-7.8 Blood lymphocytes automated count (number/volume) 2.1 10*3 1.0-4.0 Blood monocytes automated count (number/volume) 0. 7 10*3 0.0-1.0 Automated eosinophil count 0.4 10*3/uL 0 .0-0.3 Automated blood basophil count (count/volume) 0.0 10*3/uL 0.0-0.1 Whole blood basic metabolic panel - 08/16 01/01 05:45 Serum or plasma sodium measurement (moles/volume) 140 mmol/L 135-145 Serum or plasma potassium measurement (moles/volume) 3.6 mmol/L 3.6-5.0 Serum or plasma chloride measurement (moles/volume) 106 mmol/L 98-107 Carbon dioxide 25 mmol/L 21-32 Serum or plasma anion gap determination (moles/volume) 9 mmol/L 5-14 Serum or plasma urea nitrogen measurement (mass/volume ) 9 mg/dL 7-18 Serum or plasma creatinine measurement (mass/volume) 0.74 mg/dL 0.60-1.30 Serum or plasma urea nitrogen/creatinine mass ratio 12 NRG Serum or plasma creatinine measurement w ith calculation of estimated glomerular filtration rate > NRG Serum or plasma glucose measurement (mass/volume) 94 mg/dL 70-105 Serum or plasma calcium measurement (mass/volume) 8.9 mg/dL 8.5-10.1 Pathologist review of blood test by aye milan - 09/08/19 03:25 Blood leukocytes automated count (number/volume) 7.9 10*3/uL 4.3-11.0 Blood erythrocytes automated count (number/volume) 3.29 10*6/uL 4.35-5.85 Venous blood hemoglobin measurement (mass/volume) 8.4 g/dL 11.5-16.0 Blood hematocrit (volume fraction) 28 % 35-52 Automated erythrocyte mean corpuscular volume 84 [ z_us] 80-99 Automated erythrocyte mean corpuscular h emoglobin (mass per erythrocyte) 26 pg 25-34 Automated erythrocyte mean corpuscular h emoglobin concentration measurement (mass/volume) 30 g/dL 32-36 Automated erythrocyte distribution width ratio 16. 6 % 10.0- 14.5 Automated blood platelet count (count/volume) 281 10*3/uL 130-400 Automated blood platelet mean volume measurement 8.9 [foz_us] 7.4-10.4 Automated blood neutrophils/100 leukocytes 61 % 42-75 Automated blood lymphocytes/100 leukocytes 26 % 12-44 Blood monocytes/100 leukocytes 5 % NRG Automated blood eosinophils/100 leukocytes 5 % 0-10 Automated blood basophils/100 leukocytes 0 % 0-10 Blood neutrophils automated count (number/volume) 4.8 10*3 1.8-7.8 Blood lymphocytes automated count (number/volume) 2.1 10*3 1.0-4.0 Blood monocytes automated count (number/volume) 0. 6 10*3 0.0-1.0 Automated eosinophil count 0.4 10*3/uL 0 .0-0.3 Automated blood basophil count (count/volume) 0.0 10*3/uL 0.0-0.1 Manual blood segmented neutrophils/100 leukocytes 63 % NRG Manual blood lymphocytes/100 leukocytes 28 % NRG Manual eosinophils/100 leukocytes in nose 4 % NRG Blood reticulocytes count (number/volume) 30 10*9/ L 24-90 Blood reticulocytes/100 erythrocytes 0.91 % 0.50-2.40 Whole blood basic metabolic panel - 08/16 01/31 03:25 Serum or plasma sodium measurement (moles/volume) 143 mmol/L 135-145 Serum or plasma potassium measurement (moles/volume) 4.0 mmol/L 3.6-5.0 Serum or plasma chloride measurement (moles/volume) 107 mmol/L 98-107 Carbon dioxide 25 mmol/L 21-32 Serum or plasma anion gap determination (moles/volume) 11 mmol/L 5-14 Serum or plasma urea nitrogen measurement (mass/volume ) 7 mg/dL 7-18 Serum or plasma creatinine measurement (mass/volume) 0.75 mg/dL 0.60-1.30 Serum or plasma urea nitrogen/creatinine mass ratio 9 NRG Serum or plasma creatinine measurement w ith calculation of estimated glomerular filtration rate > NRG Serum or plasma glucose measurement (mass/volume) 90 mg/dL 70-105 Serum or plasma calcium measurement (mass/volume) 8.9 mg/dL 8.5-10.1 Serum iron and total iron binding capaci ty panel - 09/08/19 03:25 TIBC 250 % 280-380 UIBC 239 % 55-450 Serum or plasma iron measurement (mass/volume) 11 % 35-180 Total iron binding capacity and transferrin saturation measurement 4 % 15-50 Serum or plasma ferritin measurement (mass/volume) 54.6 % 20.0-177.0 Methicillin resistant Staphylococcus aur eus (MRSA) screening culture - 09/11/19 00:00 Methicillin resistant Staphylococcus aureus (MRSA) scr eening culture NEG NRG Complete blood count (CBC) with automate d white blood cell (WBC) differential - 09/11/19 16:45 Blood leukocytes automated count (number/volume) 19.5 10*3/uL 4.3-11.0 Blood erythrocytes automated count (number/volume) 4.55 10*6/uL 4.35-5.85 Venous blood hemoglobin measurement (mass/volume) 11.5 g/dL 11.5-16.0 Blood hematocrit (volume fraction) 39 % 35-52 Automated erythrocyte mean corpuscular volume 86 [ foz_us] 80-99 Automated erythrocyte mean corpuscular h emoglobin (mass per erythrocyte) 25 pg 25-34 Automated erythrocyte mean corpuscular h emoglobin concentration measurement (mass/volume) 30 g/dL 32-36 Automated erythrocyte distribution width ratio 16. 7 % 10.0- 14.5 Automated blood platelet count (count/volume) 508 10*3/uL 130-400 Automated blood platelet mean volume measurement 8.6 [foz_us] 7.4-10.4 Automated blood neutrophils/100 leukocytes 83 % 42-75 Automated blood lymphocytes/100 leukocytes 9 % 12-44 Blood monocytes/100 leukocytes 8 % 0-12 Automated blood eosinophils/100 leukocytes 0 % 0-10 Automated blood basophils/100 leukocytes 0 % 0-10 Blood neutrophils automated count (number/volume) 16.2 10*3 1.8-7.8 Blood lymphocytes automated count (number/volume) 1.7 10*3 1.0-4.0 Blood monocytes automated count (number/volume) 1. 4 10*3 0.0-1.0 Automated eosinophil count 0.0 10*3/uL 0 .0-0.3 Automated blood basophil count (count/volume) 0.1 10*3/uL 0.0-0.1 Manual absolute plasma cell count - 08/16 05/03 16:45 Blood monocytes/100 leukocytes 8 % NRG Manual blood segmented neutrophils/100 leukocytes 59 % NRG Blood band neutrophils/100 leukocytes 19 % NRG Manual blood lymphocytes/100 leukocytes 12 % NRG Blood hypochromia detection by light microscopy SL IGHT NRG Manual blood myelocytes/100 leukocytes 2 % NRG Blood lactic acid measurement (moles/vol ume) - 09/11/19 16:45 Blood lactic acid measurement (moles/volume) 1.09 mmol/L 0.50-2.00 Comprehensive metabolic panel - 09/11/19 16:45 Serum or plasma sodium measurement (moles/volume) 142 mmol/L 135-145 Serum or plasma potassium measurement (moles/volume) 4.9 mmol/L 3.6-5.0 Serum or plasma chloride measurement (moles/volume) 97 mmol/L 98-107 Carbon dioxide 27 mmol/L 21-32 Serum or plasma anion gap determination (moles/volume) 18 mmol/L 5-14 Serum or plasma urea nitrogen measurement (mass/volume ) 24 mg/dL 7-18 Serum or plasma creatinine measurement (mass/volume) 3.13 mg/dL 0.60-1.30 Serum or plasma urea nitrogen/creatinine mass ratio 8 NRG Serum or plasma creatinine measurement w ith calculation of estimated glomerular filtration rate 15 NRG Serum or plasma glucose measurement (mass/volume) 112 mg/dL 70-105 Serum or plasma calcium measurement (mass/volume) 9.2 mg/dL 8.5-10.1 Serum or plasma total bilirubin measurement (mass/volu me) 0.2 mg/dL 0.1-1.0 Serum or plasma alkaline phosphatase adelfo surement (enzymatic activity/volume) 111 U/L 40-136 Serum or plasma aspartate aminotransfera se measurement (enzymatic activity/volume) 67 U/L 5-34 Serum or plasma alanine aminotransferase measurement (enzymatic activity/volume) 42 U/L 0-55 Serum or plasma protein measurement (mass/volume) 8.2 g/dL 6.4-8.2 Serum or plasma albumin measurement (mass/volume) 4.2 g/dL 3.2-4.5 CALCIUM CORRECTED 9.0 mg/dL 8.5-10.1 PT panel in platelet poor plasma by coag ulation assay - 09/11/19 16:45 Prothrombin time (PT) in platelet poor plasma by coagu lation assay 13.2 s 12.2-14.7 INR in platelet poor plasma or blood by coagulation as say 1.0 0.8-1.4 Activated partial thromboplastin time (a PTT) in platelet poor plasma bycoagulation assay - 09/11/19 16:45 Activated partial thromboplastin time (a PTT) in platelet poor plasma bycoagulation assay 26 s 24-35 Bacterial blood culture - 09/11/19 16:45 Bacterial blood culture NG NRG Arterial blood gas measurement - 9 16:55 Blood pCO2 72 mm[Hg] 35-45 Blood pO2 164 mm[Hg] 79-93 Arterial blood bicarbonate measurement (moles/volume) 31 mmol/L 23-27 Arterial blood base excess by calculation 1.7 mmol /L -2.5-2.5 Arterial blood oxygen saturation measurement 99 % 94-100 * Inhaled oxygen flow rate BIPAP-70% FIO2 NRG Arterial blood pH measurement with patient temperature correction 7.24 7.37-7.43 Arterial blood carbon dioxide, total measurement (mole s/volume) 33.1 mmol/L 21.0-31.0 Body site RT RADIAL NRG Assessment of wrist artery patency prior to arterial p uncture YES-POS NRG Setting of ventilation mode NO NR G Measurement of body temperature 36.7 NRG Bacterial blood culture - 09/11/19 17:20 Bacterial blood culture NG NRG Complete urinalysis with reflex to cultu re - 09/11/19 18:45 Urine color determination YELLOW NRG Urine clarity determination CLEAR NR G Urine pH measurement by test strip 7.0 5-9 Specific gravity of urine by test strip 1.015 1.016-1.022 Urine protein assay by test strip, semi-quantitative 1+ NEGATIVE Urine glucose detection by automated test strip NE GATIVE NEGATIVE Erythrocytes detection in urine sediment by light micr oscopy 3+ NEGATIVE Urine ketones detection by automated test strip NE GATIVE NEGATIVE Urine nitrite detection by test strip NEGATIVE NEGATIVE Urine total bilirubin detection by test strip NEGA TIVE NEGATIVE Urine urobilinogen measurement by automated test strip (mass/volume) 0.2 mg/dL < = 1.0 Urine leukocyte esterase detection by dipstick NEG ATIVE NEGATIVE Automated urine sediment erythrocyte cou nt by microscopy (number/high power field) [HPF] NRG Automated urine sediment leukocyte count by microscopy (number/high power field) [HPF] NRG Bacteria detection in urine sediment by light microsco py NEGATIVE NRG Squamous epithelial cells detection in u rine sediment by light microscopy 0-2 NRG Crystals detection in urine sediment by light microsco py NONE NRG Casts detection in urine sediment by light microscopy PRESENT NRG Mucus detection in urine sediment by light microscopy SMALL NRG Complete urinalysis with reflex to culture NO NRG Hyaline casts detection in urine sediment by light wyatt roscopy 5-10 NRG Granular casts detection in urine sediment by light mi croscopy 0-2 NRG Urine drug screening test - 09/11/19 18: 45 Urine phencyclidine detection by screening method NEGATIVE NEGATIVE Urine benzodiazepines detection by screening method NEGATIVE NEGATIVE Urine cocaine detection NEGATIVE NEGATI VE Urine amphetamines detection by screening method N EGATIVE NEGATIVE Urine methamphetamine detection by screening method NEGATIVE NEGATIVE Urine cannabinoids detection by screening method N EGATIVE NEGATIVE Urine opiates detection by screening method POSITI VE NEGATIVE Urine barbiturates detection NEGATIVE N EGATIVE Screening urine tricyclic antidepressants detection POSITIVE NEGATIVE Urine methadone detection by screening method NEGA TIVE NEGATIVE Urine oxycodone detection NEGATIVE NEGA TIVE Urine propoxyphene detection NEGATIVE N EGATIVE Bacterial urine culture - 09/11/19 18:45 Bacterial urine culture NG NRG Arterial blood gas measurement - 9 19:03 Blood pCO2 62 mm[Hg] 35-45 Blood pO2 82 mm[Hg] 79-93 Arterial blood bicarbonate measurement (moles/volume) 26 mmol/L 23-27 Arterial blood base excess by calculation -2.6 mmo l/L -2.5-2.5 Arterial blood oxygen saturation measurement 94 % 94-100 * Inhaled oxygen flow rate 10 NRG Arterial blood pH measurement with patient temperature correction 7.23 7.37-7.43 Arterial blood carbon dioxide, total measurement (mole s/volume) 27.9 mmol/L 21.0-31.0 Body site LEFT WRIST NRG Assessment of wrist artery patency prior to arterial p uncture POSITIVE NRG Setting of ventilation mode NO NR G Measurement of body temperature 36.7 NRG Complete urinalysis with reflex to cultu re - 09/11/19 21:40 Urine color determination GALILEO NRG Urine clarity determination CLOUDY NR G Urine pH measurement by test strip 6.0 5-9 Specific gravity of urine by test strip >= 1.016-1.022 Urine protein assay by test strip, semi-quantitative 2+ NEGATIVE Urine glucose detection by automated test strip NE GATIVE NEGATIVE Erythrocytes detection in urine sediment by light micr oscopy 3+ NEGATIVE Urine ketones detection by automated test strip NE GATIVE NEGATIVE Urine nitrite detection by test strip NEGATIVE NEGATIVE Urine total bilirubin detection by test strip 1+ NEGATIVE Urine urobilinogen measurement by automated test strip (mass/volume) 0.2 mg/dL < = 1.0 Urine leukocyte esterase detection by dipstick NEG ATIVE NEGATIVE Automated urine sediment erythrocyte cou nt by microscopy (number/high power field) RARE NRG Automated urine sediment leukocyte count by microscopy (number/high power field) [HPF] NRG Bacteria detection in urine sediment by light microsco py MODERATE NRG Squamous epithelial cells detection in u rine sediment by light microscopy 0-2 NRG Crystals detection in urine sediment by light microsco py PRESENT NRG Casts detection in urine sediment by light microscopy PRESENT NRG Mucus detection in urine sediment by light microscopy NEGATIVE NRG Complete urinalysis with reflex to culture YES NRG Amorphous sediment detection in urine sediment by ligh t microscopy MOD [place] URATES NRG Granular casts detection in urine sediment by light mi croscopy 0-2 NRG Urine drug screening test - 09/11/19 21: 40 Urine phencyclidine detection by screening method NEGATIVE NEGATIVE Urine benzodiazepines detection by screening method NEGATIVE NEGATIVE Urine cocaine detection NEGATIVE NEGATI VE Urine amphetamines detection by screening method N EGATIVE NEGATIVE Urine methamphetamine detection by screening method NEGATIVE NEGATIVE Urine cannabinoids detection by screening method N EGATIVE NEGATIVE Urine opiates detection by screening method POSITI VE NEGATIVE Urine barbiturates detection NEGATIVE N EGATIVE Screening urine tricyclic antidepressants detection POSITIVE NEGATIVE Urine methadone detection by screening method NEGA TIVE NEGATIVE Urine oxycodone detection NEGATIVE NEGA TIVE Urine propoxyphene detection NEGATIVE N EGATIVE Arterial blood gas measurement - 9 22:00 Blood pCO2 65 mm[Hg] 35-45 Blood pO2 87 mm[Hg] 79-93 Arterial blood bicarbonate measurement (moles/volume) 25 mmol/L 23-27 Arterial blood base excess by calculation -2.1 mmo l/L -2.5-2.5 Arterial blood oxygen saturation measurement 96 % 94-100 * Inhaled oxygen flow rate 40% NRG Arterial blood pH measurement with patient temperature correction 7.21 7.37-7.43 Arterial blood carbon dioxide, total measurement (mole s/volume) 26.9 mmol/L 21.0-31.0 Body site LEFT RADIAL NRG Assessment of wrist artery patency prior to arterial p uncture YES-POS NRG Setting of ventilation mode NO NR G Measurement of body temperature 36.8 NRG Comprehensive metabolic panel - 09/12/19 03:06 Serum or plasma sodium measurement (moles/volume) 141 mmol/L 135-145 Serum or plasma potassium measurement (moles/volume) 4.4 mmol/L 3.6-5.0 Serum or plasma chloride measurement (moles/volume) 108 mmol/L 98-107 Carbon dioxide 19 mmol/L 21-32 Serum or plasma anion gap determination (moles/volume) 14 mmol/L 5-14 Serum or plasma urea nitrogen measurement (mass/volume ) 26 mg/dL 7-18 Serum or plasma creatinine measurement (mass/volume) 2.46 mg/dL 0.60-1.30 Serum or plasma urea nitrogen/creatinine mass ratio 11 NRG Serum or plasma creatinine measurement w ith calculation of estimated glomerular filtration rate 20 NRG Serum or plasma glucose measurement (mass/volume) 106 mg/dL 70-105 Serum or plasma calcium measurement (mass/volume) 7.9 mg/dL 8.5-10.1 Serum or plasma total bilirubin measurement (mass/volu me) 0.3 mg/dL 0.1-1.0 Serum or plasma alkaline phosphatase adelfo surement (enzymatic activity/volume) 92 U/L 40-136 Serum or plasma aspartate aminotransfera se measurement (enzymatic activity/volume) 147 U/L 5-34 Serum or plasma alanine aminotransferase measurement (enzymatic activity/volume) 85 U/L 0-55 Serum or plasma protein measurement (mass/volume) 6.9 g/dL 6.4-8.2 Serum or plasma albumin measurement (mass/volume) 3.7 g/dL 3.2-4.5 CALCIUM CORRECTED 8.1 mg/dL 8.5-10.1 Serum or plasma phosphate measurement (m ass/volume) - 09/12/19 03:06 Serum or plasma phosphate measurement (mass/volume) 5.8 mg/dL 2.3-4.7 Magnesium - 09/12/19 03:06 Magnesium 2.2 mg/dL 1.6-2.4 Complete blood count (CBC) with automate d white blood cell (WBC) differential - 09/12/19 03:06 Blood leukocytes automated count (number/volume) 18.6 10*3/uL 4.3-11.0 Blood erythrocytes automated count (number/volume) 3.92 10*6/uL 4.35-5.85 Venous blood hemoglobin measurement (mass/volume) 9.9 g/dL 11.5-16.0 Blood hematocrit (volume fraction) 33 % 35-52 Automated erythrocyte mean corpuscular volume 84 [ foz_us] 80-99 Automated erythrocyte mean corpuscular h emoglobin (mass per erythrocyte) 25 pg 25-34 Automated erythrocyte mean corpuscular h emoglobin concentration measurement (mass/volume) 30 g/dL 32-36 Automated erythrocyte distribution width ratio 16. 9 % 10.0- 14.5 Automated blood platelet count (count/volume) 393 10*3/uL 130-400 Automated blood platelet mean volume measurement 9.0 [foz_us] 7.4-10.4 Automated blood neutrophils/100 leukocytes 85 % 42-75 Automated blood lymphocytes/100 leukocytes 9 % 12-44 Blood monocytes/100 leukocytes 6 % 0-12 Automated blood eosinophils/100 leukocytes 0 % 0-10 Automated blood basophils/100 leukocytes 0 % 0-10 Blood neutrophils automated count (number/volume) 15.9 10*3 1.8-7.8 Blood lymphocytes automated count (number/volume) 1.7 10*3 1.0-4.0 Blood monocytes automated count (number/volume) 1. 0 10*3 0.0-1.0 Automated eosinophil count 0.0 10*3/uL 0 .0-0.3 Automated blood basophil count (count/volume) 0.0 10*3/uL 0.0-0.1 PROCALCITONIN (PCT) - 09/12/19 03:06 PROCALCITONIN (PCT) 1.06 ng/mL <0.10 THYROID STIMULATING HORMONE - 09/12/19 0 3:06 THYROID STIMULATING HORMONE 0.94 u[iU]/mL 0.35-4.94 Arterial blood gas measurement - 9 09:08 Blood pCO2 52 mm[Hg] 35-45 Blood pO2 92 mm[Hg] 79-93 Arterial blood bicarbonate measurement (moles/volume) 24 mmol/L 23-27 Arterial blood base excess by calculation -1.9 mmo l/L -2.5-2.5 Arterial blood oxygen saturation measurement 97 % 94-100 * Inhaled oxygen flow rate 40 NRG Arterial blood pH measurement with patient temperature correction 7.29 7.37-7.43 Arterial blood carbon dioxide, total measurement (mole s/volume) 25.5 mmol/L 21.0-31.0 Body site LT RAD NRG Assessment of wrist artery patency prior to arterial p uncture YES-POS NRG Setting of ventilation mode NO NR G Measurement of body temperature 37.0 NRG Arterial blood gas measurement - 9 19:15 Blood pCO2 51 mm[Hg] 35-45 Blood pO2 87 mm[Hg] 79-93 Arterial blood bicarbonate measurement (moles/volume) 27 mmol/L 23-27 Arterial blood base excess by calculation 1.0 mmol /L -2.5-2.5 Arterial blood oxygen saturation measurement 98 % 94-100 * Inhaled oxygen flow rate 40% NRG Arterial blood pH measurement with patient temperature correction 7.33 7.37-7.43 Arterial blood carbon dioxide, total measurement (mole s/volume) 28.1 mmol/L 21.0-31.0 Body site LT RAD NRG Assessment of wrist artery patency prior to arterial p uncture YES-POS NRG Setting of ventilation mode NO NR G Measurement of body temperature 36.2 NRG Complete blood count (CBC) with automate d white blood cell (WBC) differential - 09/13/19 03:09 Blood leukocytes automated count (number/volume) 10.3 10*3/uL 4.3-11.0 Blood erythrocytes automated count (number/volume) 3.78 10*6/uL 4.35-5.85 Venous blood hemoglobin measurement (mass/volume) 9.6 g/dL 11.5-16.0 Blood hematocrit (volume fraction) 32 % 35-52 Automated erythrocyte mean corpuscular volume 84 [ foz_us] 80-99 Automated erythrocyte mean corpuscular h emoglobin (mass per erythrocyte) 25 pg 25-34 Automated erythrocyte mean corpuscular h emoglobin concentration measurement (mass/volume) 30 g/dL 32-36 Automated erythrocyte distribution width ratio 16. 4 % 10.0- 14.5 Automated blood platelet count (count/volume) 302 10*3/uL 130-400 Automated blood platelet mean volume measurement 8.9 [foz_us] 7.4-10.4 Automated blood neutrophils/100 leukocytes 73 % 42-75 Automated blood lymphocytes/100 leukocytes 19 % 12-44 Blood monocytes/100 leukocytes 5 % 0-12 Automated blood eosinophils/100 leukocytes 3 % 0-10 Automated blood basophils/100 leukocytes 0 % 0-10 Blood neutrophils automated count (number/volume) 7.5 10*3 1.8-7.8 Blood lymphocytes automated count (number/volume) 1.9 10*3 1.0-4.0 Blood monocytes automated count (number/volume) 0. 6 10*3 0.0-1.0 Automated eosinophil count 0.3 10*3/uL 0 .0-0.3 Automated blood basophil count (count/volume) 0.0 10*3/uL 0.0-0.1 Whole blood basic metabolic panel - 08/17 03:09 Serum or plasma sodium measurement (moles/volume) 140 mmol/L 135-145 Serum or plasma potassium measurement (moles/volume) 3.9 mmol/L 3.6-5.0 Serum or plasma chloride measurement (moles/volume) 106 mmol/L 98-107 Carbon dioxide 23 mmol/L 21-32 Serum or plasma anion gap determination (moles/volume) 11 mmol/L 5-14 Serum or plasma urea nitrogen measurement (mass/volume ) 11 mg/dL 7-18 Serum or plasma creatinine measurement (mass/volume) 1.02 mg/dL 0.60-1.30 Serum or plasma urea nitrogen/creatinine mass ratio 11 NRG Serum or plasma creatinine measurement w ith calculation of estimated glomerular filtration rate 56 NRG Serum or plasma glucose measurement (mass/volume) 123 mg/dL 70-105 Serum or plasma calcium measurement (mass/volume) 8.5 mg/dL 8.5-10.1 Serum or plasma phosphate measurement (m ass/volume) - 09/13/19 03:09 Serum or plasma phosphate measurement (mass/volume) 2.2 mg/dL 2.3-4.7 Magnesium - 09/13/19 03:09 Magnesium 2.0 mg/dL 1.6-2.4 Complete blood count (CBC) with automate d white blood cell (WBC) differential - 09/14/19 03:20 Blood leukocytes automated count (number/volume) 9.0 10*3/uL 4.3-11.0 Blood erythrocytes automated count (number/volume) 3.42 10*6/uL 4.35-5.85 Venous blood hemoglobin measurement (mass/volume) 8.5 g/dL 11.5-16.0 Blood hematocrit (volume fraction) 29 % 35-52 Automated erythrocyte mean corpuscular volume 84 [ foz_us] 80-99 Automated erythrocyte mean corpuscular h emoglobin (mass per erythrocyte) 25 pg 25-34 Automated erythrocyte mean corpuscular h emoglobin concentration measurement (mass/volume) 30 g/dL 32-36 Automated erythrocyte distribution width ratio 16. 3 % 10.0- 14.5 Automated blood platelet count (count/volume) 310 10*3/uL 130-400 Automated blood platelet mean volume measurement 8.7 [foz_us] 7.4-10.4 Automated blood neutrophils/100 leukocytes 58 % 42-75 Automated blood lymphocytes/100 leukocytes 31 % 12-44 Blood monocytes/100 leukocytes 6 % 0-12 Automated blood eosinophils/100 leukocytes 5 % 0-10 Automated blood basophils/100 leukocytes 0 % 0-10 Blood neutrophils automated count (number/volume) 5.2 10*3 1.8-7.8 Blood lymphocytes automated count (number/volume) 2.8 10*3 1.0-4.0 Blood monocytes automated count (number/volume) 0. 6 10*3 0.0-1.0 Automated eosinophil count 0.5 10*3/uL 0 .0-0.3 Automated blood basophil count (count/volume) 0.0 10*3/uL 0.0-0.1 Whole blood basic metabolic panel - 08/17 10/03 03:20 Serum or plasma sodium measurement (moles/volume) 142 mmol/L 135-145 Serum or plasma potassium measurement (moles/volume) 3.8 mmol/L 3.6-5.0 Serum or plasma chloride measurement (moles/volume) 105 mmol/L 98-107 Carbon dioxide 27 mmol/L 21-32 Serum or plasma anion gap determination (moles/volume) 10 mmol/L 5-14 Serum or plasma urea nitrogen measurement (mass/volume ) 6 mg/dL 7-18 Serum or plasma creatinine measurement (mass/volume) 0.81 mg/dL 0.60-1.30 Serum or plasma urea nitrogen/creatinine mass ratio 7 NRG Serum or plasma creatinine measurement w ith calculation of estimated glomerular filtration rate > NRG Serum or plasma glucose measurement (mass/volume) 83 mg/dL 70-105 Serum or plasma calcium measurement (mass/volume) 8.6 mg/dL 8.5-10.1 Serum or plasma phosphate measurement (m ass/volume) - 09/14/19 03:20 Serum or plasma phosphate measurement (mass/volume) 2.1 mg/dL 2.3-4.7 Magnesium - 09/14/19 03:20 Magnesium 1.9 mg/dL 1.6-2.4 Whole blood basic metabolic panel - 10/04 04:45 Serum or plasma sodium measurement (moles/volume) 142 mmol/L 135-145 Serum or plasma potassium measurement (moles/volume) 3.4 mmol/L 3.6-5.0 Serum or plasma chloride measurement (moles/volume) 103 mmol/L 98-107 Carbon dioxide 28 mmol/L 21-32 Serum or plasma anion gap determination (moles/volume) 11 mmol/L 5-14 Serum or plasma urea nitrogen measurement (mass/volume ) 9 mg/dL 7-18 Serum or plasma creatinine measurement (mass/volume) 0.72 mg/dL 0.60-1.30 Serum or plasma urea nitrogen/creatinine mass ratio 13 NRG Serum or plasma creatinine measurement w ith calculation of estimated glomerular filtration rate > NRG Serum or plasma glucose measurement (mass/volume) 92 mg/dL 70-105 Serum or plasma calcium measurement (mass/volume) 9.0 mg/dL 8.5-10.1 Complete blood count (CBC) with automate d white blood cell (WBC) differential - 09/15/19 04:45 Blood leukocytes automated count (number/volume) 9.7 10*3/uL 4.3-11.0 Blood erythrocytes automated count (number/volume) 3.90 10*6/uL 4.35-5.85 Venous blood hemoglobin measurement (mass/volume) 9.9 g/dL 11.5-16.0 Blood hematocrit (volume fraction) 32 % 35-52 Automated erythrocyte mean corpuscular volume 83 [ foz_us] 80-99 Automated erythrocyte mean corpuscular h emoglobin (mass per erythrocyte) 25 pg 25-34 Automated erythrocyte mean corpuscular h emoglobin concentration measurement (mass/volume) 31 g/dL 32-36 Automated erythrocyte distribution width ratio 15. 7 % 10.0- 14.5 Automated blood platelet count (count/volume) 344 10*3/uL 130-400 Automated blood platelet mean volume measurement 8.7 [foz_us] 7.4-10.4 Automated blood neutrophils/100 leukocytes 63 % 42-75 Automated blood lymphocytes/100 leukocytes 26 % 12-44 Blood monocytes/100 leukocytes 5 % 0-12 Automated blood eosinophils/100 leukocytes 5 % 0-10 Automated blood basophils/100 leukocytes 0 % 0-10 Blood neutrophils automated count (number/volume) 6.2 10*3 1.8-7.8 Blood lymphocytes automated count (number/volume) 2.5 10*3 1.0-4.0 Blood monocytes automated count (number/volume) 0. 5 10*3 0.0-1.0 Automated eosinophil count 0.5 10*3/uL 0 .0-0.3 Automated blood basophil count (count/volume) 0.0 10*3/uL 0.0-0.1 Complete blood count (CBC) with automate d white blood cell (WBC) differential - 09/16/19 05:18 Blood leukocytes automated count (number/volume) 10.1 10*3/uL 4.3-11.0 Blood erythrocytes automated count (number/volume) 4.39 10*6/uL 4.35-5.85 Venous blood hemoglobin measurement (mass/volume) 10.8 g/dL 11.5-16.0 Blood hematocrit (volume fraction) 36 % 35-52 Automated erythrocyte mean corpuscular volume 81 [ foz_us] 80-99 Automated erythrocyte mean corpuscular h emoglobin (mass per erythrocyte) 25 pg 25-34 Automated erythrocyte mean corpuscular h emoglobin concentration measurement (mass/volume) 30 g/dL 32-36 Automated erythrocyte distribution width ratio 16. 4 % 10.0- 14.5 Automated blood platelet count (count/volume) 374 10*3/uL 130-400 Automated blood platelet mean volume measurement 8.6 [foz_us] 7.4-10.4 Automated blood neutrophils/100 leukocytes 61 % 42-75 Automated blood lymphocytes/100 leukocytes 28 % 12-44 Blood monocytes/100 leukocytes 6 % 0-12 Automated blood eosinophils/100 leukocytes 5 % 0-10 Automated blood basophils/100 leukocytes 0 % 0-10 Blood neutrophils automated count (number/volume) 6.2 10*3 1.8-7.8 Blood lymphocytes automated count (number/volume) 2.8 10*3 1.0-4.0 Blood monocytes automated count (number/volume) 0. 6 10*3 0.0-1.0 Automated eosinophil count 0.5 10*3/uL 0 .0-0.3 Automated blood basophil count (count/volume) 0.0 10*3/uL 0.0-0.1 Whole blood basic metabolic panel - 11/04 05:18 Serum or plasma sodium measurement (moles/volume) 141 mmol/L 135-145 Serum or plasma potassium measurement (moles/volume) 3.5 mmol/L 3.6-5.0 Serum or plasma chloride measurement (moles/volume) 103 mmol/L 98-107 Carbon dioxide 24 mmol/L 21-32 Serum or plasma anion gap determination (moles/volume) 14 mmol/L 5-14 Serum or plasma urea nitrogen measurement (mass/volume ) 6 mg/dL 7-18 Serum or plasma creatinine measurement (mass/volume) 0.72 mg/dL 0.60-1.30 Serum or plasma urea nitrogen/creatinine mass ratio 8 NRG Serum or plasma creatinine measurement w ith calculation of estimated glomerular filtration rate > NRG Serum or plasma glucose measurement (mass/volume) 93 mg/dL 70-105 Serum or plasma calcium measurement (mass/volume) 9.2 mg/dL 8.5-10.1 VITAMIN D, 25-H - 09/23/19 12:46 VITAMIN D,25-OH,TOTAL,IA 26 ng/mL 30-10 0 CBC - 10/07/19 16:44 WHITE BLOOD CELL COUNT 9.0 Thousand/uL 3 .8-10.8 RED BLOOD CELL COUNT 4.48 Million/uL 3.8 0-5.10 HEMOGLOBIN 11.5 g/dL 11.7-15.5 HEMATOCRIT 35.4 % 35.0-45.0 MCV 79.0 fL 80.0-100.0 MCH 25.7 pg 27.0-33.0 MCHC 32.5 g/dL 32.0-36.0 RDW 15.4 % 11.0-15.0 PLATELET COUNT 391 Thousand/uL 140-400 MPV 9.3 fL 7.5-12.5 ABSOLUTE NEUTROPHILS 5454 cells/uL 1500- 7800 ABSOLUTE LYMPHOCYTES 2664 cells/uL 850-3 900 ABSOLUTE MONOCYTES 540 cells/uL 200-950 ABSOLUTE EOSINOPHILS 288 cells/uL 15-500 ABSOLUTE BASOPHILS 54 cells/uL 0-200 NEUTROPHILS 60.6 % NRG LYMPHOCYTES 29.6 % NRG MONOCYTES 6.0 % NRG EOSINOPHILS 3.2 % NRG BASOPHILS 0.6 % NRG CULTURE, URINE - 10/08/19 08:48 CULTURE, URINE, ROUTINE SEE NOTE NRG Blood CBC with ordered manual differenti al panel - 10/08/19 10:30 Blood leukocytes automated count (number/volume) 11.2 10*3/uL 4.3-11.0 Blood erythrocytes automated count (number/volume) 4.62 10*6/uL 4.35-5.85 Venous blood hemoglobin measurement (mass/volume) 11.6 g/dL 11.5-16.0 Blood hematocrit (volume fraction) 38 % 35-52 Automated erythrocyte mean corpuscular volume 81 [ foz_us] 80-99 Automated erythrocyte mean corpuscular h emoglobin (mass per erythrocyte) 25 pg 25-34 Automated erythrocyte mean corpuscular h emoglobin concentration measurement (mass/volume) 31 g/dL 32-36 Automated erythrocyte distribution width ratio 15. 7 % 10.0- 14.5 Automated blood platelet count (count/volume) 365 10*3/uL 130-400 Automated blood platelet mean volume measurement 8.7 [foz_us] 7.4-10.4 Automated blood neutrophils/100 leukocytes 68 % 42-75 Automated blood lymphocytes/100 leukocytes 23 % 12-44 Blood monocytes/100 leukocytes 3 % NRG Automated blood eosinophils/100 leukocytes 3 % 0-10 Automated blood basophils/100 leukocytes 0 % 0-10 Blood neutrophils automated count (number/volume) 7.6 10*3 1.8-7.8 Blood lymphocytes automated count (number/volume) 2.5 10*3 1.0-4.0 Blood monocytes automated count (number/volume) 0. 6 10*3 0.0-1.0 Automated eosinophil count 0.3 10*3/uL 0 .0-0.3 Automated blood basophil count (count/volume) 0.0 10*3/uL 0.0-0.1 Manual blood segmented neutrophils/100 leukocytes 71 % NRG Manual blood lymphocytes/100 leukocytes 24 % NRG Manual eosinophils/100 leukocytes in nose 2 % NRG Blood microcytes detection by light microscopy [facility] Comprehensive metabolic panel - 10/08/19 10:30 Serum or plasma sodium measurement (moles/volume) 138 mmol/L 135-145 Serum or plasma potassium measurement (moles/volume) 3.4 mmol/L 3.6-5.0 Serum or plasma chloride measurement (moles/volume) 99 mmol/L 98-107 Carbon dioxide 23 mmol/L 21-32 Serum or plasma anion gap determination (moles/volume) 16 mmol/L 5-14 Serum or plasma urea nitrogen measurement (mass/volume ) 10 mg/dL 7-18 Serum or plasma creatinine measurement (mass/volume) 0.81 mg/dL 0.60-1.30 Serum or plasma urea nitrogen/creatinine mass ratio 12 NRG Serum or plasma creatinine measurement w ith calculation of estimated glomerular filtration rate > NRG Serum or plasma glucose measurement (mass/volume) 121 mg/dL 70-105 Serum or plasma calcium measurement (mass/volume) 10.0 mg/dL 8.5-10.1 Serum or plasma total bilirubin measurement (mass/volu me) 0.2 mg/dL 0.1-1.0 Serum or plasma alkaline phosphatase adelfo surement (enzymatic activity/volume) 99 U/L 40-136 Serum or plasma aspartate aminotransfera se measurement (enzymatic activity/volume) 21 U/L 5-34 Serum or plasma alanine aminotransferase measurement (enzymatic activity/volume) 13 U/L 0-55 Serum or plasma protein measurement (mass/volume) 8.5 g/dL 6.4-8.2 Serum or plasma albumin measurement (mass/volume) 4.7 g/dL 3.2-4.5 Magnesium - 10/08/19 10:30 Magnesium 2.1 mg/dL 1.6-2.4 Urine drug screening test - 10/08/19 10: 37 Urine phencyclidine detection by screening method NEGATIVE NEGATIVE Urine benzodiazepines detection by screening method NEGATIVE NEGATIVE Urine cocaine detection NEGATIVE NEGATI VE Urine amphetamines detection by screening method N EGATIVE NEGATIVE Urine methamphetamine detection by screening method NEGATIVE NEGATIVE Urine cannabinoids detection by screening method N EGATIVE NEGATIVE Urine opiates detection by screening method NEGATI VE NEGATIVE Urine barbiturates detection NEGATIVE N EGATIVE Screening urine tricyclic antidepressants detection POSITIVE NEGATIVE Urine methadone detection by screening method NEGA TIVE NEGATIVE Urine oxycodone detection NEGATIVE NEGA TIVE Urine propoxyphene detection NEGATIVE N EGATIVE Influenza virus A and B antigen detectio n - 10/08/19 10:37 FLU RESULT NEGATIVE FOR INFLUENZA A AND B ANTIGENS BY IA NRG Complete urinalysis with reflex to cultu re - 10/08/19 11:10 Urine color determination YELLOW NRG Urine clarity determination SLIGHLTY CLOUDY NRG Urine pH measurement by test strip 6.0 5-9 Specific gravity of urine by test strip <= 1.016-1.022 Urine protein assay by test strip, semi-quantitative NEGATIVE NEGATIVE Urine glucose detection by automated test strip NE GATIVE NEGATIVE Erythrocytes detection in urine sediment by light micr oscopy 1+ NEGATIVE Urine ketones detection by automated test strip NE GATIVE NEGATIVE Urine nitrite detection by test strip POSITIVE NEGATIVE Urine total bilirubin detection by test strip NEGA TIVE NEGATIVE Urine urobilinogen measurement by automated test strip (mass/volume) 0.2 mg/dL < = 1.0 Urine leukocyte esterase detection by dipstick 2+ NEGATIVE Automated urine sediment erythrocyte cou nt by microscopy (number/high power field) NONE NRG Automated urine sediment leukocyte count by microscopy (number/high power field) [HPF] NRG Bacteria detection in urine sediment by light microsco py LARGE NRG Squamous epithelial cells detection in u rine sediment by light microscopy NONE NRG Crystals detection in urine sediment by light microsco py NONE NRG Casts detection in urine sediment by light microscopy NONE NRG Mucus detection in urine sediment by light microscopy NEGATIVE NRG Complete urinalysis with reflex to culture YES NRG Bacterial urine culture - 10/08/19 11:10 Bacterial urine culture [id number] NRG COLONY COUNT >100,000/ML NRG FTX;REPORTABLE SUSCEPTIBILITY REPORTED 10-10-19, 10 05 NRG Dirithromycin susceptibility test by dis k diffusion - 10/08/19 11:10 Gentamicin susceptibility test by minimum inhibitory c oncentration > NRG Trimethoprim/sulfamethoxazole susceptibi lity test by minimum inhibitoryconcentration <= NRG Levofloxacin susceptibility test by minimum inhibitory concentration > NRG Ampicillin susceptibility test by minimum inhibitory c oncentration > NRG Cefazolin susceptibility test by minimum inhibitory co ncentration 8 NRG Ceftriaxone susceptibility test by minimum inhibitory concentration <= NRG Ciprofloxacin susceptibility test by minimum inhibitor y concentration > NRG Meropenem susceptibility test by minimum inhibitory co ncentration <= NRG Nitrofurantoin susceptibility test by mi nimum inhibitory concentration <= NRG Amoxicillin and clavulanate potassium susc WYATT = NRG Arterial blood gas measurement - 0 16:50 Blood pCO2 39 mm[Hg] 35-45 Blood pO2 67 mm[Hg] 79-93 Arterial blood bicarbonate measurement (moles/volume) 25 mmol/L 23-27 Arterial blood base excess by calculation 0.6 mmol /L -2.5-2.5 Arterial blood oxygen saturation measurement 94 % 94-100 * Inhaled oxygen flow rate RA NRG Arterial blood pH measurement with patient temperature correction 7.41 7.37-7.43 Arterial blood carbon dioxide, total measurement (mole s/volume) 26.0 mmol/L 21.0-31.0 Body site LT BRAC NRG Assessment of wrist artery patency prior to arterial p uncture POS NRG Setting of ventilation mode NO NR G Measurement of body temperature 36.3 NRG Complete blood count (CBC) with automate d white blood cell (WBC) differential - 10/09/19 05:10 Blood leukocytes automated count (number/volume) 8.2 10*3/uL 4.3-11.0 Blood erythrocytes automated count (number/volume) 4.12 10*6/uL 4.35-5.85 Venous blood hemoglobin measurement (mass/volume) 10.3 g/dL 11.5-16.0 Blood hematocrit (volume fraction) 33 % 35-52 Automated erythrocyte mean corpuscular volume 80 [ foz_us] 80-99 Automated erythrocyte mean corpuscular h emoglobin (mass per erythrocyte) 25 pg 25-34 Automated erythrocyte mean corpuscular h emoglobin concentration measurement (mass/volume) 31 g/dL 32-36 Automated erythrocyte distribution width ratio 16. 2 % 10.0- 14.5 Automated blood platelet count (count/volume) 344 10*3/uL 130-400 Automated blood platelet mean volume measurement 9.2 [foz_us] 7.4-10.4 Automated blood neutrophils/100 leukocytes 55 % 42-75 Automated blood lymphocytes/100 leukocytes 33 % 12-44 Blood monocytes/100 leukocytes 8 % 0-12 Automated blood eosinophils/100 leukocytes 4 % 0-10 Automated blood basophils/100 leukocytes 0 % 0-10 Blood neutrophils automated count (number/volume) 4.5 10*3 1.8-7.8 Blood lymphocytes automated count (number/volume) 2.7 10*3 1.0-4.0 Blood monocytes automated count (number/volume) 0. 6 10*3 0.0-1.0 Automated eosinophil count 0.3 10*3/uL 0 .0-0.3 Automated blood basophil count (count/volume) 0.0 10*3/uL 0.0-0.1 Comprehensive metabolic panel - 10/09/19 05:10 Serum or plasma sodium measurement (moles/volume) 141 mmol/L 135-145 Serum or plasma potassium measurement (moles/volume) 3.9 mmol/L 3.6-5.0 Serum or plasma chloride measurement (moles/volume) 111 mmol/L 98-107 Carbon dioxide 20 mmol/L 21-32 Serum or plasma anion gap determination (moles/volume) 10 mmol/L 5-14 Serum or plasma urea nitrogen measurement (mass/volume ) 7 mg/dL 7-18 Serum or plasma creatinine measurement (mass/volume) 0.84 mg/dL 0.60-1.30 Serum or plasma urea nitrogen/creatinine mass ratio 8 NRG Serum or plasma creatinine measurement w ith calculation of estimated glomerular filtration rate > NRG Serum or plasma glucose measurement (mass/volume) 101 mg/dL 70-105 Serum or plasma calcium measurement (mass/volume) 8.8 mg/dL 8.5-10.1 Serum or plasma total bilirubin measurement (mass/volu me) 0.2 mg/dL 0.1-1.0 Serum or plasma alkaline phosphatase adelfo surement (enzymatic activity/volume) 83 U/L 40-136 Serum or plasma aspartate aminotransfera se measurement (enzymatic activity/volume) 21 U/L 5-34 Serum or plasma alanine aminotransferase measurement (enzymatic activity/volume) 15 U/L 0-55 Serum or plasma protein measurement (mass/volume) 6.9 g/dL 6.4-8.2 Serum or plasma albumin measurement (mass/volume) 3.8 g/dL 3.2-4.5 CALCIUM CORRECTED 9.0 mg/dL 8.5-10.1 THYROID STIMULATING HORMONE - 10/09/19 0 5:10 THYROID STIMULATING HORMONE 1.39 u[iU]/mL 0.35-4.94 Cerebrospinal fluid cell count - 0 13:00 Cerebrospinal fluid appearance description CLEAR NRG Cerebrospinal fluid color identification COLORLESS NRG Cerebrospinal fluid leukocytes count (number/volume) 1 % 0-5 Cerebrospinal fluid erythrocytes count (number/volume) 0 % 0-0 Manual cerebrospinal fluid lymphocytes/100 leukocytes TNP NRG Manual cerebrospinal fluid mononuclear cells/100 leuko cytes TNP NRG Manual cerebrospinal fluid polymorphonuclear cells/100 leukocytes TNP NRG Cerebrospinal fluid cell count on specimen from last t ube collected 4 NRG Cerebrospinal fluid glucose measurement (mass/volume) - 10/09/19 13:00 Cerebrospinal fluid glucose measurement (mass/volume) 63 mg/dL 50-80 Cerebrospinal fluid protein measurement (mass/volume) - 10/09/19 13:00 Cerebrospinal fluid protein measurement (mass/volume) 31 mg/dL 15-40 Gram stain microscopy - 10/09/19 13:00 Gram stain microscopy OF SPUN CSF. NRG Bacterial cerebrospinal fluid culture - 10/09/19 13:00 Bacterial cerebrospinal fluid culture NG NR Virus identification by culture - 13:00 DATE OF REF LAB REPORT 10/20/19 11:05 NR RML FINAL NEGATIVE VIRUS NO VIRUS ISOLATED NR Complete blood count (CBC) with automate d white blood cell (WBC) differential - 10/10/19 05:23 Blood leukocytes automated count (number/volume) 7.4 10*3/uL 4.3-11.0 Blood erythrocytes automated count (number/volume) 4.14 10*6/uL 4.35-5.85 Venous blood hemoglobin measurement (mass/volume) 10.5 g/dL 11.5-16.0 Blood hematocrit (volume fraction) 34 % 35-52 Automated erythrocyte mean corpuscular volume 81 [ foz_us] 80-99 Automated erythrocyte mean corpuscular h emoglobin (mass per erythrocyte) 25 pg 25-34 Automated erythrocyte mean corpuscular h emoglobin concentration measurement (mass/volume) 31 g/dL 32-36 Automated erythrocyte distribution width ratio 16. 2 % 10.0- 14.5 Automated blood platelet count (count/volume) 272 10*3/uL 130-400 Automated blood platelet mean volume measurement 9.8 [foz_us] 7.4-10.4 Automated blood neutrophils/100 leukocytes 55 % 42-75 Automated blood lymphocytes/100 leukocytes 30 % 12-44 Blood monocytes/100 leukocytes 7 % 0-12 Automated blood eosinophils/100 leukocytes 7 % 0-10 Automated blood basophils/100 leukocytes 0 % 0-10 Blood neutrophils automated count (number/volume) 4.1 10*3 1.8-7.8 Blood lymphocytes automated count (number/volume) 2.2 10*3 1.0-4.0 Blood monocytes automated count (number/volume) 0. 5 10*3 0.0-1.0 Automated eosinophil count 0.5 10*3/uL 0 .0-0.3 Automated blood basophil count (count/volume) 0.0 10*3/uL 0.0-0.1 Comprehensive metabolic panel - 10/10/19 05:23 Serum or plasma sodium measurement (moles/volume) 140 mmol/L 135-145 Serum or plasma potassium measurement (moles/volume) 4.2 mmol/L 3.6-5.0 Serum or plasma chloride measurement (moles/volume) 113 mmol/L 98-107 Carbon dioxide 17 mmol/L 21-32 Serum or plasma anion gap determination (moles/volume) 10 mmol/L 5-14 Serum or plasma urea nitrogen measurement (mass/volume ) 5 mg/dL 7-18 Serum or plasma creatinine measurement (mass/volume) 0.79 mg/dL 0.60-1.30 Serum or plasma urea nitrogen/creatinine mass ratio 6 NRG Serum or plasma creatinine measurement w ith calculation of estimated glomerular filtration rate > NRG Serum or plasma glucose measurement (mass/volume) 98 mg/dL 70-105 Serum or plasma calcium measurement (mass/volume) 8.9 mg/dL 8.5-10.1 Serum or plasma total bilirubin measurement (mass/volu me) 0.2 mg/dL 0.1-1.0 Serum or plasma alkaline phosphatase adelfo surement (enzymatic activity/volume) 74 U/L 40-136 Serum or plasma aspartate aminotransfera se measurement (enzymatic activity/volume) 22 U/L 5-34 Serum or plasma alanine aminotransferase measurement (enzymatic activity/volume) 19 U/L 0-55 Serum or plasma protein measurement (mass/volume) 6.8 g/dL 6.4-8.2 Serum or plasma albumin measurement (mass/volume) 3.7 g/dL 3.2-4.5 CALCIUM CORRECTED 9.1 mg/dL 8.5-10.1 Complete blood count (CBC) with automate d white blood cell (WBC) differential - 10/11/19 06:30 Blood leukocytes automated count (number/volume) 8.6 10*3/uL 4.3-11.0 Blood erythrocytes automated count (number/volume) 4.47 10*6/uL 4.35-5.85 Venous blood hemoglobin measurement (mass/volume) 11.1 g/dL 11.5-16.0 Blood hematocrit (volume fraction) 36 % 35-52 Automated erythrocyte mean corpuscular volume 81 [ foz_us] 80-99 Automated erythrocyte mean corpuscular h emoglobin (mass per erythrocyte) 25 pg 25-34 Automated erythrocyte mean corpuscular h emoglobin concentration measurement (mass/volume) 31 g/dL 32-36 Automated erythrocyte distribution width ratio 16. 7 % 10.0- 14.5 Automated blood platelet count (count/volume) 318 10*3/uL 130-400 Automated blood platelet mean volume measurement 9.2 [foz_us] 7.4-10.4 Automated blood neutrophils/100 leukocytes 62 % 42-75 Automated blood lymphocytes/100 leukocytes 27 % 12-44 Blood monocytes/100 leukocytes 6 % 0-12 Automated blood eosinophils/100 leukocytes 5 % 0-10 Automated blood basophils/100 leukocytes 0 % 0-10 Blood neutrophils automated count (number/volume) 5.3 10*3 1.8-7.8 Blood lymphocytes automated count (number/volume) 2.3 10*3 1.0-4.0 Blood monocytes automated count (number/volume) 0. 5 10*3 0.0-1.0 Automated eosinophil count 0.4 10*3/uL 0 .0-0.3 Automated blood basophil count (count/volume) 0.0 10*3/uL 0.0-0.1 Comprehensive metabolic panel - 10/11/19 06:30 Serum or plasma sodium measurement (moles/volume) 140 mmol/L 135-145 Serum or plasma potassium measurement (moles/volume) 4.2 mmol/L 3.6-5.0 Serum or plasma chloride measurement (moles/volume) 107 mmol/L 98-107 Carbon dioxide 25 mmol/L 21-32 Serum or plasma anion gap determination (moles/volume) 8 mmol/L 5-14 Serum or plasma urea nitrogen measurement (mass/volume ) 8 mg/dL 7-18 Serum or plasma creatinine measurement (mass/volume) 0.81 mg/dL 0.60-1.30 Serum or plasma urea nitrogen/creatinine mass ratio 10 NRG Serum or plasma creatinine measurement w ith calculation of estimated glomerular filtration rate > NRG Serum or plasma glucose measurement (mass/volume) 95 mg/dL 70-105 Serum or plasma calcium measurement (mass/volume) 9.8 mg/dL 8.5-10.1 Serum or plasma total bilirubin measurement (mass/volu me) 0.2 mg/dL 0.1-1.0 Serum or plasma alkaline phosphatase adelfo surement (enzymatic activity/volume) 84 U/L 40-136 Serum or plasma aspartate aminotransfera se measurement (enzymatic activity/volume) 21 U/L 5-34 Serum or plasma alanine aminotransferase measurement (enzymatic activity/volume) 19 U/L 0-55 Serum or plasma protein measurement (mass/volume) 7.8 g/dL 6.4-8.2 Serum or plasma albumin measurement (mass/volume) 4.3 g/dL 3.2-4.5 CALCIUM CORRECTED 9.6 mg/dL 8.5-10.1 Complete blood count (CBC) with automate d white blood cell (WBC) differential - 10/12/19 05:01 Blood leukocytes automated count (number/volume) 7.6 10*3/uL 4.3-11.0 Blood erythrocytes automated count (number/volume) 4.36 10*6/uL 4.35-5.85 Venous blood hemoglobin measurement (mass/volume) 11.0 g/dL 11.5-16.0 Blood hematocrit (volume fraction) 35 % 35-52 Automated erythrocyte mean corpuscular volume 81 [ foz_us] 80-99 Automated erythrocyte mean corpuscular h emoglobin (mass per erythrocyte) 25 pg 25-34 Automated erythrocyte mean corpuscular h emoglobin concentration measurement (mass/volume) 31 g/dL 32-36 Automated erythrocyte distribution width ratio 16. 6 % 10.0- 14.5 Automated blood platelet count (count/volume) 307 10*3/uL 130-400 Automated blood platelet mean volume measurement 9.7 [foz_us] 7.4-10.4 Automated blood neutrophils/100 leukocytes 58 % 42-75 Automated blood lymphocytes/100 leukocytes 31 % 12-44 Blood monocytes/100 leukocytes 7 % 0-12 Automated blood eosinophils/100 leukocytes 4 % 0-10 Automated blood basophils/100 leukocytes 0 % 0-10 Blood neutrophils automated count (number/volume) 4.5 10*3 1.8-7.8 Blood lymphocytes automated count (number/volume) 2.4 10*3 1.0-4.0 Blood monocytes automated count (number/volume) 0. 5 10*3 0.0-1.0 Automated eosinophil count 0.3 10*3/uL 0 .0-0.3 Automated blood basophil count (count/volume) 0.0 10*3/uL 0.0-0.1 Comprehensive metabolic panel - 10/12/19 05:01 Serum or plasma sodium measurement (moles/volume) 139 mmol/L 135-145 Serum or plasma potassium measurement (moles/volume) 3.7 mmol/L 3.6-5.0 Serum or plasma chloride measurement (moles/volume) 105 mmol/L 98-107 Carbon dioxide 21 mmol/L 21-32 Serum or plasma anion gap determination (moles/volume) 13 mmol/L 5-14 Serum or plasma urea nitrogen measurement (mass/volume ) 10 mg/dL 7-18 Serum or plasma creatinine measurement (mass/volume) 0.77 mg/dL 0.60-1.30 Serum or plasma urea nitrogen/creatinine mass ratio 13 NRG Serum or plasma creatinine measurement w ith calculation of estimated glomerular filtration rate > NRG Serum or plasma glucose measurement (mass/volume) 107 mg/dL 70-105 Serum or plasma calcium measurement (mass/volume) 9.5 mg/dL 8.5-10.1 Serum or plasma total bilirubin measurement (mass/volu me) 0.2 mg/dL 0.1-1.0 Serum or plasma alkaline phosphatase adelfo surement (enzymatic activity/volume) 72 U/L 40-136 Serum or plasma aspartate aminotransfera se measurement (enzymatic activity/volume) 26 U/L 5-34 Serum or plasma alanine aminotransferase measurement (enzymatic activity/volume) 21 U/L 0-55 Serum or plasma protein measurement (mass/volume) 7.3 g/dL 6.4-8.2 Serum or plasma albumin measurement (mass/volume) 4.0 g/dL 3.2-4.5 CALCIUM CORRECTED 9.5 mg/dL 8.5-10.1 CMP - 02/24/20 10:01 GLUCOSE 88 mg/dL 65-99 UREA NITROGEN (BUN) 9 mg/dL 7-25 CREATININE 0.72 mg/dL 0.50-1.05 eGFR NON-AFR. BANGLADESHI 92 mL/min/1.73m2 > OR = 60 eGFR 107 mL/min/1.73m2 > OR = 60 BUN/CREATININE RATIO NOT APPLICABLE (calc) 6-22 SODIUM 140 mmol/L 135-146 POTASSIUM 4.0 mmol/L 3.5-5.3 CHLORIDE 102 mmol/L 98-110 CARBON DIOXIDE 29 mmol/L 20-32 CALCIUM 9.8 mg/dL 8.6-10.4 PROTEIN, TOTAL 7.5 g/dL 6.1-8.1 ALBUMIN 4.4 g/dL 3.6-5.1 GLOBULIN 3.1 g/dL (calc) 1.9-3.7 ALBUMIN/GLOBULIN RATIO 1.4 (calc) 1.0-2. 5 BILIRUBIN, TOTAL 0.3 mg/dL 0.2-1.2 ALKALINE PHOSPHATASE 85 U/L 37-153 AST 15 U/L 10-35 ALT 13 U/L 6-29 URIC ACID, SERUM - 02/24/20 10:01 URIC ACID 5.0 mg/dL 2.5-7.0 ESR/SED RATE - 02/24/20 10:01 SED RATE BY MODIFIED WESTERGREN 11 mm/h < OR = 30 CRP - 02/24/20 10:01 C-REACTIVE PROTEIN 9.0 mg/L <8.0 NADIRA - 02/24/20 10:01 NADIRA SCREEN, IFA NEGATIVE NEGATIVE PDM - 09 PANEL (PROFILE 1) - 02/24/20 10 :01 Prescribed Drug 1 Clonazepam NRG Creatinine 8.5 mg/dL > or = 20.0 pH 7.5 4.5-9.0 Oxidant NEGATIVE mcg/mL <200 Amphetamines NEGATIVE ng/mL <500 medMATCH Amphetamines CONSISTENT NRG Benzodiazepines NEGATIVE ng/mL <100 medMATCH Benzodiazepines INCONSISTENT N RG Marijuana Metabolite NEGATIVE ng/mL <20 medMATCH Marijuana Metab CONSISTENT NRG Cocaine Metabolite NEGATIVE ng/mL <150 medMATCH Cocaine Metab CONSISTENT NRG Opiates NEGATIVE ng/mL <100 medMATCH Opiates CONSISTENT NRG Oxycodone NEGATIVE ng/mL <100 medMATCH Oxycodone CONSISTENT NRG COMMENT NRG Specific [place] 1.004 > or = 1.003 Barbiturates NEGATIVE ng/mL <300 medMATCH Barbiturates CONSISTENT NRG Methadone Metabolite NEGATIVE ng/mL <100 medMATCH Methadone Metab CONSISTENT NRG Phencyclidine NEGATIVE ng/mL <25 medMATCH Phencyclidine CONSISTENT NRG Encounters ACCT No. Visit Date/Time Discharge Status Pt. Type Provider Facility Loc./Unit Complaint [id number] 03/08/2020 09:15:00 [facility] [id number] 02/24/2020 09:30:00 Document Registration [id number] 10/08/2019 08:30:00 Document Registration [id number] 10/07/2019 14:30:00 Document Registration [id number] 09/23/2019 12:45:00 Document Registration [id number] 06/14/2019 16:00:00 Document Registration [id number] 03/02/2020 14:18:00 23:59:59 CLS Outpatient RIMMA BALLARD [facility] RAD FS BILAT ANKLE JOINT PAIN [id number] 10/15/2019 19:06:00 020 19:54:00 DIS Emergency LAUREN FENTON MD [facility] ER FS ALTERED LOC [id number] 10/08/2019 13:11:00 020 12:00:00 DIS Inpatient RAMESH ARAMBULA DO, V [facility] 4TH UTI ALTER[address] ATUS [id number] 10/07/2019 14:59:00 020 23:59:59 CLS Preadmit SELF BENNY ABBOTT [facility] RAD CONFUSION CAUSED BY MATT G [id number] 10/07/2019 14:54:00 23:59:59 CLS Outpatient BENNY PIERCE MD [facility] RAD FS CONFUSSION CAUSED BY A DRUG [id number] 10/04/2019 09:05:00 12:20:00 DIS Outpatient LEE ANN KILLIAN DO [facility] ENDO GASTRITIS [id number] 09/30/2019 11:00:00 11:41:00 DIS Outpatient LEE ANN KILLIAN DO [facility] PREOP EGD [id number] 09/11/2019 19:08:00 14:01:00 DIS Inpatient JERONIMO ABBOTT, VALENTINO Pablo [facility] 4TH RESOLVING PNEUMONIA;GEOFFREY COTIC OD [id number] 09/06/2019 17:42:00 13:50:00 DIS Inpatient HENNY ABBOTT, DARRINA Petty [facility] 4TH GASTRITIS [id number] 09/03/2019 16:22:00 17:05:00 DIS Emergency GAGE ABBOTT, SAMUEL Fong [facility] ER FS MOUTH PAIN [id number] 08/30/2019 05:52:00 14:56:00 DIS Outpatient LEE ANN KILLIAN DO [facility] PREOP EGD [id number] 08/04/2019 11:45:00 23:59:59 CLS Outpatient GENEVA ABBOTT, TEKALIGN A [facility] LAB FS [id number] 07/19/2019 10:49:00 23:59:59 CLS Outpatient BENNY PIERCE MD [facility] RAD ESOPHAGITIS [id number] 06/07/2019 10:26:00 14:00:00 DIS Outpatient LEE ANN KILLIAN DO [facility] ENDO HX POLYPS/DYSPHAGIA [id number] 06/02/2019 11:30:00 12:29:00 DIS Outpatient LEE ANN KILLIAN DO [facility] PREOP COLONOSCOPY/EGD
[2020-03-11] MEDS ORDERED: methylPREDNISolone 125 MG (Solu-MEDROL) VIAL IVP ONE (12:30)
[2020-03-11] MEDS ORDERED: RT-ALBUTEROL/IPRATROPIUM 3 ML (DUONEB) VIAL INH ONE (12:30)
--- NOTE | 2020-03-11 12:30 | ED Cough/URI ---
General Chief Complaint: Respiratory Problems Stated Complaint: SOA Nursing Triage Note: Started having worsening shortness of breath 2 days ago. Has hx of copd and pneumonia. Has been coughing up yellow sputum. Has been using home nebulizer albuterol treatments. Denies fevers. Sepsis Screen: No Definite Risk Source: patient Exam Limitations: no limitations History of Present Illness Date Seen by Provider: Mar 11, 2020 Time Seen by Provider: 12:12 Initial Comments The patient is a pleasant 59-year-old female who presents for evaluation of shortness of breath, wheezing, and cough over the last 3-4 days. She reports a history of COPD and multiple previous pneumonias. She denies any sick contacts, fevers or chills, hemoptysis, chest pain, abdominal or back pain, loss of taste or smell, diarrhea, nausea or vomiting, dizziness or syncope. She is alert and oriented 4, calm, and appears to be in no distress. She does smoke cigarettes and I discussed with her at length about quitting. Severity/Quality: productive cough (yellow sputum) Modifying Factors: Improves With Albuterol Nebulizer (helps somewhat) Associated Symptoms: cough, shortness of breath Allergies and Home Medications Allergies Coded Allergies: No Known Drug Allergies (Verified , 10/04/19) Home Medications Acetaminophen 500 Mg Tablet, 500-1,000 MG PO Q4H PRN for PAIN-MILD (1-4), (Reported) Albuterol Sulfate 1 Puff Puff, 2 PUFF IH Q4H PRN for SHORTNESS OF BREATH, (Reported) 1 PUFF = 90 MCG Amitriptyline HCl 75 Mg Tablet, 225-300 MG PO HS, (Reported) TAKES 3-4 (75MG) TABLETS Clonazepam 0.5 Mg Tablet, 0.5 MG PO QID PRN for ANXIETY, (Reported) Ergocalciferol (Vitamin D2) 50,000 Unit Capsule, 50,000 UNIT PO Mo, (Reported) Ferrous Sulfate 325 Mg Tablet, 325 MG PO DAILY, (Reported) Furosemide 20 Mg Tablet, 20 MG PO DAILY PRN for SWELLING, (Reported) WRITTEN TWICE WEEKLY, STATES SHE WOULD TAKE ANYTIME SHE NOTICES SWELLING Ibuprofen 800 Mg Tablet, 800 MG PO TID PRN for PAIN-MILD (1-4), (Reported) Levothyroxine Sodium 25 Mcg Tablet, 25 MCG PO DAILY, (Reported) Pantoprazole Sodium 40 Mg Tablet.dr, 40 MG PO BID, (Reported) Topiramate 25 Mg Tablet, 25 MG PO HS, (Reported) Venlafaxine HCl 150 Mg Tab.er.24, 150 MG PO BID, (Reported) Patient Home Medication List Home Medication List Reviewed: Yes Review of Systems Review of Systems Constitutional: no symptoms reported EENTM: no symptoms reported Respiratory: cough, short of breath, wheezing Cardiovascular: no symptoms reported Gastrointestinal: no symptoms reported Genitourinary: no symptoms reported Musculoskeletal: no symptoms reported Skin: no symptoms reported Psychiatric/Neurological: No Symptoms Reported Hematologic/Lymphatic: No Symptoms Reported Immunological/Allergic: no symptoms reported All Other Systems Reviewed Negative Unless Noted: Yes Past Vztgihs-Hbnovd-Gjopmn Hx Past Med/Social Hx: Reviewed Nursing Past Med/Soc Hx Patient Social History Alcohol Use: Denies Use Recreational Drug Use: No Smoking Status: Current Everyday Smoker Type Used: Cigarettes Former Smoker, Quit: Jun 02, 2011 2nd Hand Smoke Exposure: Yes Recent Foreign Travel: No Contact w/Someone Who Travel: No Recent Infectious Disease Expo: No Recent Hopitalizations: No Immunizations Up To Date Tetanus Booster (TDap): Unknown Date of Pneumonia Vaccine: Aug 15, 2016 Seasonal Allergies Seasonal Allergies: Yes Past Medical History Surgeries: Yes (tubal , hernia, bilat carpal tunnel) Gallbladder Respiratory: Yes (COPD) Pneumonia, COPD, Emphysema Cardiac: Yes High Cholesterol Neurological: Yes (recent short term memory loss ( 10/08/19 )) Genitourinary: No Gastrointestinal: Yes (gastritis) Gastroesophageal Reflux, Polyps Musculoskeletal: No Endocrine: Yes Hypothyroidsim HEENT: No Cancer: No Psychosocial: Yes Anxiety, Depression Integumentary: No Blood Disorders: No Family Medical History Bipolar disorder G8 BROTHER G8 SISTER Hypertension 19 MOTHER, Neoplasm 19 MOTHER, (bladder cancer) Cancer, Hypertension Physical Exam Vital Signs - First Documented 03/11/20 12:13 Temp 36.2 Pulse 95 Resp 16 B/P (MAP) 130/98 (109) Pulse Ox 95 Capillary Refill : Less Than 3 Seconds Height: '" Weight: lbs. oz. 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, no motor/sensory deficits, alert, normal mood/affect, oriented x 3 Skin: normal color, warm/dry Progress/Results/Core Measures Suspected Sepsis Recent Fever Within 48 Hours: No Infection Criteria Present: Suspected New Infection New/Unexplained Altered Menta: No Sepsis Screen: No Definite Risk SIRS Temperature: Pulse: 95 Respiratory Rate: 16 Laboratory Tests 03/11/20 12:46: White Blood Count 6.3 Blood Pressure 130 /98 Mean: 109 Laboratory Tests 03/11/20 12:46: Creatinine 0.70, Platelet Count 254, Total Bilirubin < 0.2 Results/Orders Lab Results Laboratory Tests Test 03/11/20 12:46 Range/Units White Blood Count 6.3 4.3-11.0 10^3/uL Red Blood Count 4.16 L 4.35-5.85 10^6/uL Hemoglobin 11.1 L 11.5-16.0 G/DL Hematocrit 36 35-52 % Mean Corpuscular Volume 86 80-99 FL Mean Corpuscular Hemoglobin 27 25-34 PG Mean Corpuscular Hemoglobin Concent 31 L 32-36 G/DL Red Cell Distribution Width 16.8 H 10.0-14.5 % Platelet Count 254 130-400 10^3/uL Mean Platelet Volume 9.6 7.4-10.4 FL Neutrophils (%) (Auto) 65 42-75 % Lymphocytes (%) (Auto) 21 12-44 % Monocytes (%) (Auto) 8 0-12 % Eosinophils (%) (Auto) 5 0-10 % Basophils (%) (Auto) 1 0-10 % Neutrophils # (Auto) 4.1 1.8-7.8 X 10^3 Lymphocytes # (Auto) 1.3 1.0-4.0 X 10^3 Monocytes # (Auto) 0.5 0.0-1.0 X 10^3 Eosinophils # (Auto) 0.3 0.0-0.3 10^3/uL Basophils # (Auto) 0.0 0.0-0.1 10^3/uL Sodium Level 141 135-145 MMOL/L Potassium Level 3.8 3.6-5.0 MMOL/L Chloride Level 103 98-107 MMOL/L Carbon Dioxide Level 24 21-32 MMOL/L Anion Gap 14 5-14 MMOL/L Blood Urea Nitrogen 6 L 7-18 MG/DL Creatinine 0.70 0.60-1.30 MG/DL Estimat Glomerular Filtration Rate > 60 BUN/Creatinine Ratio 9 Glucose Level 112 H 70-105 MG/DL Calcium Level 9.4 8.5-10.1 MG/DL Corrected Calcium 9.5 8.5-10.1 MG/DL Total Bilirubin < 0.2 0.1-1.0 MG/DL Aspartate Amino Transf (AST/SGOT) 19 5-34 U/L Alanine Aminotransferase (ALT/SGPT) 18 0-55 U/L Alkaline Phosphatase 88 40-136 U/L Troponin I < 0.30 <0.30 NG/ML Pro-B-Type Natriuretic Peptide 148.2 H <75.0 PG/ML Total Protein 7.0 6.4-8.2 GM/DL Albumin 3.9 3.2-4.5 GM/DL My Orders Orders - ANA LADD DO Cbc With Automated Diff (03/11/20 12:21) Comprehensive Metabolic Panel (03/11/20 12:21) Probnp Fs (03/11/20 12:21) Chest 1 View Ap/Pa Only (03/11/20 12:21) Ekg Tracing (03/11/20 12:21) Continuous Ekg Monitoring (03/11/20 12:21) Troponin I Fs (03/11/20 12:21) Blood Culture (03/11/20 12:21) Methylprednisolone Sod Succ (Solu-Medrol (03/11/20 12:30) Albuterol/Ipra Inhalation Soln (Duoneb I (03/11/20 12:30) Svn Small Volume Nebulizer (03/11/20 12:21) Continuous Pulse Ox (03/11/20 12:21) Blood Culture (03/11/20 12:57) Ketorolac Injection (Toradol Injection) (6/27/20 13:45) Medications Given in ED Current Medications Medications Dose Ordered Sig/Armando Route Start Time Stop Time Status Last Admin Dose Admin Albuterol/ Ipratropium 3 ml ONCE ONCE INH 03/11/20 12:30 03/11/20 12:31 DC 03/11/20 12:52 3 ML Methylprednisolone Sodium Succinate 125 mg ONCE ONCE IVP 03/11/20 12:30 03/11/20 12:31 DC 03/11/20 12:52 125 MG Vital Signs/I&O 03/11/20 12:13 Temp 36.2 Pulse 95 Resp 16 B/P (MAP) 130/98 (109) Pulse Ox 95 Capillary Refill : Less Than 3 Seconds Blood Pressure Mean: 109 Progress Note : Progress Note @1344 - patient updated on lab and imaging results which are acutely unremarkable. Workup today fails to reveal any emergent pathology. The patient will be prescribed steroids and antibiotics for her COPD exacerbation. Advised the patient to follow-up with her doctor in the next 2-3 days and to return to the emergency Department immediately for new or worsening symptoms. The patient expresses verbal understanding and agreement with the plan and is stable for discharge. ECG Comment EKG@1249 - normal sinus rhythm, rate of 88, normal axis, no acute ischemic findings noted, no STEMI, reviewed and interpreted by myself Departure Impression Primary Impression: COPD exacerbation Disposition: 01 HOME, SELF-CARE Condition: Stable Departure-Patient Inst. Decision time for Depature: 13:46 Referrals: SELFBENNY MD (PCP/Family) Primary Care Physician Patient Instructions: Exacerbation of COPD (DC) Add. Discharge Instructions: Take the prescribed medication as directed. Follow-up with your doctor in the next 1-2 days. Return to the Emergency Department immediately for new or worsening symptoms. Scripts Prednisone (Prednisone) 20 Mg Tab 40 MG PO DAILY for 4 Days, #8 TAB 0 Refills Prov: ANA LADD DO 03/11/20 Azithromycin (Azithromycin) 250 Mg Tablet 250 MG PO UD, #6 TAB TAKE 2 TABLETS ON DAY ONE THEN TAKE 1 TABLET DAILY FOR FOUR MORE DAYS Prov: ANA LADD DO 03/11/20 ANA LADD DO Mar 11, 2020 12:30
[2020-03-11 12:59] LABS: BASOPHILS % (AUTO) 1 % (0-10); EOSINOPHILS % (AUTO) 5 % (0-10); HEMATOCRIT 36 % (35-52); HEMOGLOBIN 11.1 G/DL (11.5-16.0); LYMPHOCYTES % (AUTO) 21 % (12-44); MEAN CORPUSCULAR HEMOGLOBIN 27 PG (25-34); MEAN CORPUSCULAR HGB CONC 31 G/DL (32-36); MEAN CORPUSCULAR VOLUME 86 FL (80-99); MEAN PLATELET VOLUME 9.6 FL (7.4-10.4); MONOCYTES % (AUTO) 8 % (0-12); NEUTROPHILS % (AUTO) 65 % (42-75); PLATELET COUNT 254 10^3/uL (130-400); RED CELL DISTRIBUTION WIDTH 16.8 % (10.0-14.5); WHITE BLOOD COUNT 6.3 10^3/uL (4.3-11.0)
[2020-03-11 13:00] LABS: EOSINOPHILS # (AUTO) 0.3 10^3/uL (0.0-0.3); LYMPHOCYTES # (AUTO) 1.3 X 10^3 (1.0-4.0); MONOCYTES # (AUTO) 0.5 X 10^3 (0.0-1.0); NEUTROPHILS # (AUTO) 4.1 X 10^3 (1.8-7.8)
[2020-03-11 13:31] LABS: ALKALINE PHOSPHATASE 88 U/L (40-136); BUN/CREATININE RATIO 9; CALCIUM 9.4 MG/DL (8.5-10.1); CARBON DIOXIDE 24 MMOL/L (21-32); CHLORIDE 103 MMOL/L (98-107); GFR ESTIMATED > 60; GLUCOSE 112 MG/DL (70-105); POTASSIUM 3.8 MMOL/L (3.6-5.0); SODIUM 141 MMOL/L (135-145)
[2020-03-11 13:32] LABS: ALANINE AMINOTRANSFERASE 18 U/L (0-55); ALBUMIN 3.9 GM/DL (3.2-4.5); BILIRUBIN,TOTAL < 0.2 MG/DL (0.1-1.0)
--- NOTE | 2020-03-11 13:38 | Diagnostic Imaging Report ---
Indication: Shortness of breath Comparison: 09/14/2019 Findings: Single view of the chest demonstrates stable bilateral chronic interstitial scarring. The heart is prominent without pulmonary edema. There is no acute infiltrate, effusion or pneumothorax. Osseous structures stable. Impression: No acute cardiopulmonary findings. Dictated by: Dictated on workstation # [id number]
[2020-03-11] MEDS ORDERED: KETOROLAC 30 MG/ML VIAL IVP ONE (13:45)
[2020-03-11] MEDS ORDERED: AZIT250T12 PO (13:50)
[2020-03-11] MEDS ORDERED: PRD20T PO (13:50)
[2020-03-11 14:02] VITALS: BP 103/51
== END 2020-03-11 14:03 | disposition home or self-care (01) ==
LOC: EDUNIT# 12:00 → ER FS 12:01
DX: J43.9 Emphysema, unspecified (principal); F17.210 Nicotine dependence, cigarettes, uncomplicated; E03.9 Hypothyroidism, unspecified; K21.9 Gastro-esophageal reflux disease without esophagitis; F41.9 Anxiety disorder, unspecified; F32.9 Major depressive disorder, single episode, unspecified; Z82.49 Family history of ischemic heart disease and other diseases of the circulatory system; Z80.52 Family history of malignant neoplasm of bladder; Z79.890 Hormone replacement therapy
CPT/HCPCS: 36415; 71045; 80053; 83880; 84484; 85025; 87040; 93005

== ENCOUNTER → 2020-04-24 | Outpatient (CLI) | payer MEDICAID ==
[~2020-04-24] MED LIST changes: +AZIT250T12 PO; +PRD20T PO
--- NOTE | 2020-04-24 10:50 | Diagnostic Imaging Report ---
EXAMINATION: Magnetic resonance imaging of the right ankle without contrast. DATE: April 24, 2020. COMPARISON: Ankle radiographs March 02, 2020. HISTORY: 59-year-old female, right ankle swelling/mass anteriorly. TECHNIQUE: Magnetic Resonance Imaging sequences were performed of the ankle without contrast. [< >] FINDINGS: TENDONS AND LIGAMENTS: The Achilles tendon is unremarkable. The posterior flexor tendons - tibialis posterior, flexor digitorum longus, flexor hallucis longus - are intact. The peroneal tendons - peroneus longus and peroneus brevis - are intact. The anterior extensor tendons - tibialis anterior, extensor hallucis longus and extensor digitorum longus tendons - are intact. The anterior and posterior syndesmotic ligaments are intact. The anterior talofibular, posterior talofibular, calcaneofibular and deltoid ligaments are intact. The plantar fascia is intact. JOINTS: The ankle mortise is intact. The subtalar and visualized joints of the mid-foot are intact. BONE: There is a small calcaneal heel spur. There is no evidence to suggest active plantar fasciitis. There is a low signal lesion in the calcaneus without adjacent marrow edema most likely reflecting a benign bone island measuring 8 mm in size. There is a small normal variant os trigonum without evidence to suggest abnormal motion. There is no acute fracture, bone contusion, or evidence of osteonecrosis. BURSAE AND SOFT TISSUES: At the area of focal patient concern denoted with a marker, there is a somewhat ill-defined focal T2 hyperintense lesion measuring 2.1 x 0.8 cm in axial dimension and 1.5 cm in craniocaudal dimension. This is just superficial to the extensor digitorum longus tendon within the subcutaneous tissues. Postcontrast imaging was not obtained to evaluate for potential enhancement of the lesion. IMPRESSION: 1. 2.1 x 0.8 x 1.5 cm focal lesion within the anterior subcutaneous tissues just superficial to the extensor digitorum longus tendon at the area of focal patient concern. Postcontrast imaging was not obtained to assess for potential enhancement of the lesion. Differential diagnostic considerations at this time would include a complex fluid collection and neoplasms. Both benign and malignant etiologies are in the differential diagnosis. Clinical correlation is needed. Particularly if there is no convincing evidence that this represents a hematoma or other focal fluid collection, neoplastic etiology is the favored differential diagnostic consideration. If further imaging of the lesion is needed, pre and postcontrast MRI is recommended. Dictated by: Dictated on workstation # [id number]
== END ==
LOC: RAD 08:54
PROVIDERS: ATTEND Nurse Practitioner
DX: M67.471 Ganglion, right ankle and foot (principal); M25.871 Other specified joint disorders, right ankle and foot
CPT/HCPCS: 73721

== ENCOUNTER → 2020-05-25 | Outpatient (CLI) | payer MEDICAID ==
[~2020-05-25] MED LIST changes: +GADOBUTROL 10 MMOL/10 ML (GADAVIST) VIAL IV ONE
[2020-05-25 08:35] LABS: BUN/CREATININE RATIO 16; GFR ESTIMATED > 60
--- NOTE | 2020-05-25 13:38 | Diagnostic Imaging Report ---
PROCEDURE: MRI right joint lower extremity with and without contrast. TECHNIQUE: Multiplanar, multisequence pre and post contrast-enhanced BRIGHT of the right joint lower extremity was accomplished. INDICATION: Follow-up anterior ankle mass. COMPARISON: MRI of the ankle from 04/24/2020. FINDINGS: The circumscribed T2 hyperintense, T1 isointense mass in the anterior subcutaneous tissues superficial to the extensor digitorum longus tendon is stable in size measuring approximately 2.0 x 0.6 cm. No intrinsic T1 hyperintensity on fat-suppressed pre contrast imaging. Post contrast imaging has no enhancement. There is some T2 hyperintense stranding extending from the tarsal canal/sinus tarsi in the cranial and anterior aspect and may form a tract of this superficial cystic focus. Therefore, this could represent a complex partially ruptured ganglion cyst that arose from the sinus tarsi and has extended superficial to the subcutaneous fat. This cystic-appearing mass is separate from the underlying extensor tendon. Scattered bone islands within the calcaneus are again noted. No concerning focal osseous lesion. No ankle joint effusion. No additional ganglia are seen about the foot. The ligaments and tendons are better evaluated on the previous ankle MRI. IMPRESSION: 1. No associated enhancement with soft tissue lesion in the subcutaneous tissue of the anterior aspect of the ankle. This most likely represents a complicated cyst and could represent resolving hematoma or a complex ganglion cyst arising from the sinus tarsi. Continued surveillance with physical exam is advised. If this does not resolve, biopsy/drainage may be warranted. Dictated by: Dictated on workstation # [id number]
== END ==
LOC: RAD 07:56
PROVIDERS: ATTEND Nurse Practitioner
DX: M25.871 Other specified joint disorders, right ankle and foot (principal)
CPT/HCPCS: 36415; 73723; 82565; 84520

== ENCOUNTER 2020-06-15 05:37 | Outpatient (CLI) | payer MEDICAID ==
[~2020-06-15] VITALS: Ht 154 cm; Wt 74.0 kg
[~2020-06-15 05:37] MED LIST changes: -GADOBUTROL 10 MMOL/10 ML (GADAVIST) VIAL IV ONE; -PANT40TA3 PO; +PANT40TA52 PO
[2020-06-15] MEDS ORDERED: QUET100T33 PO ×4 (10:44)
[2020-06-15] MEDS ORDERED: FLUT1BLS11 IH ×2 (10:44)
[2020-06-15] MEDS ORDERED: VNL75T PO ×2 (10:44)
[2020-06-15] MEDS ORDERED: ERGO50006 PO ×2 (10:44)
== END 2020-06-15 11:03 | disposition home or self-care (01) ==
LOC: PREOP 05:37
PROVIDERS: ATTEND Orthopaedic Surgery
DX: Z01.818 Encounter for other preprocedural examination (principal)

== ENCOUNTER → 2020-06-20 | Outpatient (CLI) | payer MEDICAID ==
[~2020-06-20] MED LIST changes: +FLUT1BLS11 IH; +HYDR-3817 PO; +QUET100T33 PO; +VNL75T PO
== END ==
LOC: LABNPT 06:20
PROVIDERS: ATTEND Orthopaedic Surgery
DX: Z01.812 Encounter for preprocedural laboratory examination (principal); R22.41 Localized swelling, mass and lump, right lower limb; Z20.828 Contact with and (suspected) exposure to other viral communicable diseases
CPT/HCPCS: 87635

== ENCOUNTER 2020-06-21 09:18 | Day surgery (SDC) | payer MEDICAID ==
--- NOTE | 2020-06-15 06:12 | HISTORY AND PHYSICAL ---
DATE OF SERVICE: ADMISSION HISTORY AND PHYSICAL This will be for outpatient of surgery. Date of service, date of surgery, and date of admission will be 06/21/2020 for right foot mass excision. HISTORY OF PRESENT ILLNESS: The patient is a 59-year-old female with an 8-year history of an atraumatic mass on the anterior aspect of her right foot. She reports that it is painful at times. Due to failure to improve with conservative measures, the patient elected to proceed with surgical intervention. REVIEW OF SYSTEMS: No chest pain, no shortness of breath, no dysuria. PAST MEDICAL HISTORY: Anxiety disorder, hyperlipidemia, hypothyroidism, panic disorder, bipolar, dysphagia, migraine, severe depression, obesity, diverticulitis. PAST SURGICAL HISTORY: Bilateral carpal tunnel, cholecystectomy, herniorrhaphy, ectopic . FAMILY HISTORY: Significant for lung disease. PRIMARY CARE PROVIDER: Dr. Arzola. MEDICATIONS: Abilify, Celebrex, venlafaxine, Protonix, pantoprazole, levothyroxine, Lasix, Imitrex, iron, clonazepam, vitamin D, amitriptyline, albuterol, Seroquel, Mobic. ALLERGIES: MORPHINE. SOCIAL HISTORY: The patient denies alcohol use. She is a former tobacco user. PHYSICAL EXAMINATION: GENERAL: The patient is well-developed, well-nourished, in no acute distress. HEENT: Normocephalic, atraumatic. Pupils are equal, round, reactive to light. Oropharynx is clear. NECK: Supple, no lymphadenopathy. LUNGS: Clear to auscultation bilaterally. HEART: Regular rate and rhythm. ABDOMEN: Soft, nontender, nondistended. EXTREMITIES: The right foot demonstrates a 3 cm fluctuant mass dorsally at the midfoot, hindfoot junction just below the ankle joint and somewhat laterally. There is normal motion of the ankle. No laxity or instability of the ankle joint was noted. There is no effusion of ankle joint. There is no erythema or warmth. Sensation is intact distally. IMPRESSION: Right ankle mass. PLAN: Right ankle mass excision. We discussed risks, benefits, options, ramifications and recovery. She understands and wishes to proceed. Job ID: [id number] DocumentID: [id number] Dictated Date: 06/14/2020 11:18:33 Sleep Lab Technologist Date: 06/14/2020 11:45:57 Dictated By: JACKELIN ENG MD
[2020-06-21] VITALS (9 sets, daily range): BP systolic 110–149; BP diastolic 74–96
[~2020-06-21] VITALS: Ht 154 cm; Wt 79.0 kg
[~2020-06-21 09:18] MED LIST changes: -HYDR-3817 PO; +HYDROcodone/APAP 7.5 MG/325 MG (LORTAB, LORCET PLUS) TABLET PO PRN
[2020-06-21] MEDS ORDERED: LACTATED RINGERS 1,000 ML IV PRN (09:21)
--- NOTE | 2020-06-21 09:25 | Progress Note-Pre Operative ---
Pre-Operative Progress Note H&P Reviewed The H&P was reviewed, patient examined and no changes noted. Date Seen by Provider: Jun 21, 2020 Time Seen by Provider: : Date H&P Reviewed: Jun 21, 2020 Time H&P Reviewed: 09: Pre-Operative Diagnosis: right foot mass JACKELIN ENG MD Jun 21, 2020 09:25
--- NOTE | 2020-06-21 09:26 | Progress Note-Post Operative ---
Post-Operative Progess Note Surgeon (s)/Water Softener Service Supervisor (s) Surgeon JACKELIN ENG MD Water Softener Service Supervisor: Mario Ag Pre-Operative Diagnosis right foot mass Post-Operative Diagnosis right foot ganglion cyst Procedure & Operative Findings Date of Procedure 06/21/20 Procedure Performed/Findings excision of right foot ganglion cyst Anesthesia Type GETA Estimated Blood Loss Estimated blood loss (mL): minimal Specimens/Packing Specimens Removed mass Packing: none JACKELIN ENG MD Jun 21, 2020 09:26
[2020-06-21] MEDS ORDERED: ceFAZolin INJECTION 1,000 MG in WATER (STERILE) FOR INJECTION 10 ML IV ONE (09:30)
[2020-06-21] MEDS ORDERED: CATHETER FLUSH 10 ML SYR IV PRN (09:45)
[2020-06-21] MEDS ORDERED: fentaNYL INJECTION 100 MCG/2 ML AMP ONE (10:09)
[2020-06-21] MEDS ORDERED: LIDOCAINE PF 2% 5 ML (XYLOCAINE) VIAL ONE (10:09)
[2020-06-21] MEDS ORDERED: MIDAZOLAM 2 MG/2 ML (VERSED) VIAL ONE (10:09)
[2020-06-21] MEDS ORDERED: ONDANSETRON 4 MG/2 ML (SDV) Z0FRAN ONE ×2 (10:09→10:11)
[2020-06-21] MEDS ORDERED: proPOfol 200 MG/20 ML (DIPRIVAN) VIAL IV ONE (10:09)
[2020-06-21] MEDS ORDERED: BUPIVACAINE 0.25% 30 ML (SENSORCAINE) VIAL ONE (10:11)
[2020-06-21] MEDS ORDERED: SEVOFLURANE (ULTANE) 15 ML INHAL SOLN ONE ×3 (10:11→11:00)
--- NOTE | 2020-06-21 11:21 | Anesthesia-General Post-Op ---
General Patient Condition Mental Status/LOC: Same as Preop Cardiovascular: Satisfactory Nausea/Vomiting: Absent Respiratory: Satisfactory Pain: Controlled Complications: Absent Post Op Complications Complications None Follow Up Care/Instructions Patient Instructions None needed. Anesthesia/Patient Condition Patient Condition Patient is doing well, no complaints, stable vital signs, no apparent adverse anesthesia problems. No complications reported per nursing. SOPHIA YEBOAH CRNA Jun 21, 2020 11:21
[2020-06-21] MEDS ORDERED: fentaNYL INJECTION 100 MCG/2 ML AMP IVP ONE (11:30)
[2020-06-21] MEDS ORDERED: ONDANSETRON 4 MG/2 ML (SDV) Z0FRAN IVP PRN (11:30)
[2020-06-21] MEDS ORDERED: MEPERIDINE (DEMEROL) INJ 50 MG/ML IVP ONE (11:30)
[2020-06-21] MEDS ORDERED: HYDR-3817 PO ×2 (11:57)
--- NOTE | 2020-06-21 14:18 | OPERATIVE REPORT ---
DATE OF SERVICE: 06/21/2020 PREOPERATIVE DIAGNOSIS: Right foot ganglion cyst. PROCEDURE: Right foot ganglion cyst excision. SURGEON: Chuck Eng MD COTTON AGENT: Mario Ag, who assisted throughout the procedure and closed the incision. ANESTHESIA: General endotracheal by Joseph Downs CRNA. TOURNIQUET TIME: 8 minutes at 300 mmHg. ESTIMATED BLOOD LOSS: Minimal. DRAINS: None. COMPLICATIONS: None. POSTOPERATIVE PLAN: Weightbearing as tolerated with progressive activities as symptoms allow. The patient was transferred to the recovery room awake and in stable condition. STATEMENT OF MEDICAL NECESSITY: The patient is a 59-year-old female with a painful anterior lateral ankle mass, which had progressed to interfere with her activities of daily living and because of this, the patient elected to proceed with surgical intervention. DESCRIPTION OF PROCEDURE: After risks and benefits of procedure were discussed and questions were answered, informed consent was signed and placed on chart, the operative site was confirmed in the preoperative holding area initialed by the surgeon. The patient was transferred to the operating room and after adequate levels of general endotracheal anesthetic were obtained, a timeout was called, confirming the operative site. The right lower extremity was prepped and draped in the usual sterile fashion. A longitudinal incision was made over the mass. This was found to be a ganglion cyst. It was excised in total and the base was cauterized. The superficial branch of the peroneal nerve was identified and carefully protected throughout the procedure and intact at the conclusion of the procedure. No necrotic tissue was noted. No soft tissue abnormalities were otherwise noted. The tourniquet was deflated. Pressure was used for hemostasis and the skin was closed with 4-0 nylon vertical mattress interrupted fashion. Incision was infiltrated with plain Marcaine. A soft dressing was applied. The patient was transferred to the recovery room awake and in stable condition. Job ID: [id number] DocumentID: [id number] Dictated Date: 06/21/2020 11:11:07 Special Delivery Worker Date: 06/21/2020 14:18:16 Dictated By: CHUCK ENG MD
== END 2020-06-21 13:05 | disposition home or self-care (01) ==
LOC: SDC 09:18
PROVIDERS: ATTEND Orthopaedic Surgery
DX: M67.471 Ganglion, right ankle and foot (principal); F41.9 Anxiety disorder, unspecified; E78.5 Hyperlipidemia, unspecified; E03.9 Hypothyroidism, unspecified; F41.0 Panic disorder [episodic paroxysmal anxiety]; F31.9 Bipolar disorder, unspecified; E66.9 Obesity, unspecified; K21.9 Gastro-esophageal reflux disease without esophagitis; J44.9 Chronic obstructive pulmonary disease, unspecified; K59.00 Constipation, unspecified; F17.210 Nicotine dependence, cigarettes, uncomplicated; Z87.19 Personal history of other diseases of the digestive system; Z79.899 Other long term (current) drug therapy; Z79.890 Hormone replacement therapy; Z88.5 Allergy status to narcotic agent; Z68.31 Body mass index [BMI] 31.0-31.9, adult; Z86.010 Personal history of colon polyps
CPT/HCPCS: 87081

== ENCOUNTER → 2020-07-10 | Outpatient (CLI) | payer MEDICAID ==
[~2020-07-10] MED LIST changes: +CATHETER FLUSH 10 ML SYR IV PRN; +CLN.1T PO; -CLON0.1T PO; +HOLD METFORMIN - RECEIVED CONTRAST 20 ML VIAL IV SCH; +HYDR-3817 PO; -HYDROcodone/APAP 7.5 MG/325 MG (LORTAB, LORCET PLUS) TABLET PO PRN; +IOHEXOL 350 MG/ML 100 ML (OMNIPAQUE 350) VIAL IV ONE; +NS 100 ML (IVPB) BAG IV ONE
[2020-07-10 11:27] LABS: BUN/CREATININE RATIO 14; CREATININE SERUM 0.73 MG/DL (0.60-1.30); GFR ESTIMATED > 60
--- NOTE | 2020-07-10 12:15 | Diagnostic Imaging Report ---
PROCEDURE: CT neck soft tissue with contrast. TECHNIQUE: Multiple contiguous axial images were obtained through the neck after the administration of contrast. Auto Exposure Controls were utilized during the CT exam to meet ALARA standards for radiation dose reduction. INDICATION: Facial swelling for two days. Redness in the throat. COMPARISON: None. FINDINGS: The posterior nasopharynx and oropharynx demonstrate appropriate symmetry. There is no displacement of the parapharyngeal fat planes. There is no abnormal process evident within the prevertebral or retropharyngeal space. There is no evidence of abnormal thickening of the epiglottis or aryepiglottic folds. The vocal folds appear symmetric. The parotid, submandibular and thyroid gland are unremarkable. A prominent lymph node is seen in the right submandibular region measuring 1.1 cm in short axis. Additional smaller mildly prominent level 2 cervical lymph nodes are seen bilaterally. No focal inflammatory changes are demonstrated. No soft tissue mass or fluid collection demonstrated. The vascular structures the neck demonstrate no evidence of high-grade stenosis on this nondedicated exam. The visualized lung apices are clear. The visualized intracranial contents demonstrate no evidence of pathologic intracranial enhancement or intracranial mass effect. Visualized orbital contents are unremarkable. The visualized paranasal sinuses are clear. The mastoids and middle ears are clear. No acute osseous abnormality in the cervical spine. Impression: 1. Prominent lymph node in the right submandibular region with additional mildly prominent level 2 cervical lymph nodes. These are favored to be reactive; however, if indicated further evaluation with ultrasound may be considered to further characterize. 2. No soft tissue mass or inflammatory changes are visualized. No loculated fluid collections are seen in the neck. 3. Symmetric and patent aerodigestive tract. No evidence of airway compromise. Dictated by: Dictated on workstation # [id number]
== END ==
LOC: LAB FS 10:46
PROVIDERS: ATTEND Nurse Practitioner Family
DX: R22.0 Localized swelling, mass and lump, head (principal)
CPT/HCPCS: 36415; 70491; 82565; 84520

== ENCOUNTER 2020-08-31 10:29 | Outpatient (RCR) | payer MEDICAID ==
[~2020-08-31] VITALS: Ht 154 cm; Wt 71.3 kg
[~2020-08-31 10:29] MED LIST changes: -CATHETER FLUSH 10 ML SYR IV PRN; -HOLD METFORMIN - RECEIVED CONTRAST 20 ML VIAL IV SCH; -IOHEXOL 350 MG/ML 100 ML (OMNIPAQUE 350) VIAL IV ONE; -NS 100 ML (IVPB) BAG IV ONE
== END 2020-08-31 10:31 | disposition home or self-care (01) ==
LOC: PREOP 10:29
PROVIDERS: ATTEND Orthopaedic Surgery
DX: Z01.818 Encounter for other preprocedural examination (principal); M67.431 Ganglion, right wrist

== ENCOUNTER 2020-09-06 06:03 | Day surgery (SDC) | payer MEDICAID ==
--- NOTE | 2020-08-28 10:25 | HISTORY AND PHYSICAL ---
DATE OF SERVICE: ADMISSION HISTORY AND PHYSICAL DATE OF ADMISSION: 09/06/2020. This will be for outpatient surgery on 09/06/2020 for right wrist ganglion cyst. HISTORY OF PRESENT ILLNESS: The patient is an almost 60-year-old female with complaints of right hand swelling and pain. She complained of tenderness over a cystic mass on the volar aspect of her wrist. She reports it has interfered with activities of daily living. Because of this, she has elected to proceed with surgical intervention. REVIEW OF SYSTEMS: No chest pain, no shortness of breath, no dysuria. PAST MEDICAL HISTORY: Anxiety disorder, hyperlipidemia, hypothyroidism, bipolar , low back pain, migraines, leukoencephalopathy, COPD, diverticulitis and depression. PAST SURGICAL HISTORY: Bilateral carpal tunnel, cholecystectomy, herniorrhaphy, right foot ganglion cyst excision and left-hand mass excision. FAMILY HISTORY: Significant for lung cancer, hypercholesterolemia and thyroid disease. PRIMARY CARE PROVIDER: Dr. Arzola. MEDICATIONS: Abilify, Celebrex, venlafaxine, Protonix, pantoprazole, levothyroxine, Lasix, Imitrex, iron, calcium, clonazepam, aspirin, amitriptyline, albuterol, Seroquel and Mobic. ALLERGIES: MORPHINE, although this is more of an adverse reaction than a true allergy. SOCIAL HISTORY: The patient is a former smoker. Denies alcohol use. PHYSICAL EXAMINATION: GENERAL: The patient is well-developed, well-nourished, in no acute distress. HEENT: Normocephalic and atraumatic. Pupils are equal, round and reactive to light. Oropharynx is clear. NECK: Supple and no lymphadenopathy. LUNGS: Clear to auscultation bilaterally. HEART: Regular rate and rhythm. ABDOMEN: Soft, nontender and nondistended. EXTREMITIES: The right wrist demonstrates a 1 cm cystic mass on the volar radial aspect of the wrist, this is tender to palpation, moves independently the adjacent soft tissues. With Kulwinder's test, she fills from the ulnar aspect. ASSESSMENT: Right wrist ganglion cyst. PLAN: Right wrist ganglion cyst excision. The risks, benefits, options, ramifications and recovery were discussed at length with the patient. She understands and wishes to proceed. Job ID: [id number] DocumentID: [id number] Dictated Date: 08/28/2020 08:27:08 Floor Supervisor Date: 08/28/2020 10:24:15 Dictated By: JACKELIN ENG MD
[~2020-09-06] VITALS: Ht 154 cm; Wt 71.3 kg
[2020-09-06] VITALS (10 sets, daily range): BP systolic 94–155; BP diastolic 67–92
[2020-09-06] MEDS ORDERED: ceFAZolin INJECTION 1,000 MG in WATER (STERILE) FOR INJECTION 10 ML IV ONE (07:00)
[2020-09-06] MEDS ORDERED: LACTATED RINGERS 1,000 ML IV PRN (07:00)
[2020-09-06] MEDS ORDERED: BUPIVACAINE 0.5% 30 ML (SENSORCAINE) VIAL ONE (07:06)
[2020-09-06] MEDS ORDERED: MIDAZOLAM 2 MG/2 ML (VERSED) VIAL ONE (07:16)
[2020-09-06] MEDS ORDERED: PROPOFOL INJECTION 50 ML IV ONE (07:16)
--- NOTE | 2020-09-06 07:16 | Progress Note-Pre Operative ---
Pre-Operative Progress Note H&P Reviewed The H&P was reviewed, patient examined and no changes noted. Date Seen by Provider: Sep 06, 2020 Time Seen by Provider: 07:11 Date H&P Reviewed: Sep 06, 2020 Time H&P Reviewed: 07:10 Pre-Operative Diagnosis: right wrist ganglion cyst JACKELIN ENG MD Sep 06, 2020 07:16
--- NOTE | 2020-09-06 07:16 | Progress Note-Post Operative ---
Post-Operative Progess Note Surgeon (s)/Vice President Business & Corporate Development (s) Surgeon JACKELIN ENG MD Vice President Business & Corporate Development: Mario Ag Pre-Operative Diagnosis right wrist ganglion cyst Post-Operative Diagnosis right wrist ganglion cyst Procedure & Operative Findings Date of Procedure 09/06/20 Procedure Performed/Findings right wrist ganglion cyst excision Anesthesia Type GETA Estimated Blood Loss Estimated blood loss (mL): minimal Specimens/Packing Specimens Removed mass sent Packing: none JACKELIN ENG MD Sep 06, 2020 07:16
[2020-09-06] MEDS ORDERED: oxyCODONE/APAP 5/325MG (PERCOCET 5) TABLET PO PRN (07:30)
--- NOTE | 2020-09-06 08:27 | Anesthesia-General Post-Op ---
General Patient Condition Mental Status/LOC: Same as Preop Cardiovascular: Satisfactory Nausea/Vomiting: Absent Respiratory: Satisfactory Pain: Controlled Complications: Absent Post Op Complications Complications None Follow Up Care/Instructions Patient Instructions None needed. Anesthesia/Patient Condition Patient Condition Patient is doing well, no complaints, stable vital signs, no apparent adverse anesthesia problems. No complications reported per nursing. DEWEY RICHARDS CRNA Sep 06, 2020 08:26
[2020-09-06] MEDS ORDERED: fentaNYL INJECTION 100 MCG/2 ML AMP IVP ONE (08:30)
[2020-09-06] MEDS ORDERED: ONDANSETRON 4 MG/2 ML (SDV) Z0FRAN IVP PRN (08:30)
[2020-09-06] MEDS ORDERED: OXYC-471 PO (08:40)
--- NOTE | 2020-09-06 11:55 | OPERATIVE REPORT ---
DATE OF SERVICE: PREOPERATIVE DIAGNOSIS: Right wrist volar ganglion cyst. POSTOPERATIVE DIAGNOSIS: Right wrist volar ganglion cyst. PROCEDURE: Right wrist volar ganglion cyst excision. SURGEON: Chuck Eng MD TRANSPORTATION MAINTENANCE SPECIALIST: Mario Ag, who assisted throughout the procedure and closed the incision. ANESTHESIA: General endotracheal by Kesha Kruger CRNA. TOURNIQUET TIME: 9 minutes at 250 mmHg. ESTIMATED BLOOD LOSS: Minimal. DRAINS: None. COMPLICATIONS: None. POSTOPERATIVE PLAN: Routine protocol. The patient was transferred to recovery room awake and stable condition. Pathologic specimen was sent. STATEMENT OF MEDICAL NECESSITY: The patient is a 59-year-old right hand dominant female with complaints of right wrist mass volarly. She had approximately a 1 cm x 1 cm cystic mass radially, which was just radial to a previous carpal tunnel incision. She reported this was painful, was tender to palpation. Moves independently of the adjacent soft tissues, but due to failure to improve with conservative measures, the patient elected to proceed with surgical excision. DESCRIPTION OF PROCEDURE: After risks and benefits of the procedure were discussed and questions were answered, an informed consent was signed and placed on chart, the operative site was confirmed in the preoperative holding area initialed by the surgeon. The patient was then transferred to the operating room and after adequate levels of general endotracheal anesthetic were obtained, a timeout was called, confirming the operative site. Right upper extremity was prepped and draped in the usual sterile fashion with arm elevated, tourniquet inflated to 250 mmHg. The previous carpal tunnel incision was utilized and carefully dissected radially. The mass was identified and excised without difficulty. The base was cauterized. Tourniquet was deflated. Pressure was used for hemostasis. Wound was copiously irrigated and closed with 4-0 nylon in simple interrupted fashion. A soft dressing and brace were applied. The patient was transferred to the recovery room awake and in stable condition. Job ID: [id number] DocumentID: [id number] Dictated Date: 09/06/2020 08:10:49 Forest Supervisor Date: 09/06/2020 11:55:17 Dictated By: CHUCK ENG MD
== END 2020-09-06 10:25 | disposition home or self-care (01) ==
LOC: SDC 06:03
PROVIDERS: ATTEND Orthopaedic Surgery
DX: M67.431 Ganglion, right wrist (principal); D36.12 Benign neoplasm of peripheral nerves and autonomic nervous system, upper limb, including shoulder; J44.9 Chronic obstructive pulmonary disease, unspecified; K21.9 Gastro-esophageal reflux disease without esophagitis; F41.9 Anxiety disorder, unspecified; E78.5 Hyperlipidemia, unspecified; E03.9 Hypothyroidism, unspecified; F32.9 Major depressive disorder, single episode, unspecified; G43.909 Migraine, unspecified, not intractable, without status migrainosus; K57.92 Diverticulitis of intestine, part unspecified, without perforation or abscess without bleeding; G93.49 Other encephalopathy; Z79.82 Long term (current) use of aspirin; Z79.51 Long term (current) use of inhaled steroids; Z79.899 Other long term (current) drug therapy; Z88.5 Allergy status to narcotic agent; Z80.1 Family history of malignant neoplasm of trachea, bronchus and lung
CPT/HCPCS: 87081; 88304

== ENCOUNTER 2020-12-31 19:06 | Emergency (ER) | payer MEDICAID ==
[~2020-12-31] VITALS: Ht 154.9 cm; Wt 76.1 kg
[~2020-12-31 19:06] MED LIST changes: +OXYC1TAB11 PO
[2020-12-31 19:19] VITALS: BP 132/82
[2020-12-31] MEDS ORDERED: ACETAMINOPHEN 500 MG TAB (TYLENOL) PO ONE (19:30)
[2020-12-31] MEDS ORDERED: TETANUS,DIPTH,PERTUSS P/F (BOOSTRIX) 0.5 ML VIAL IM ONE (19:30)
--- NOTE | 2020-12-31 19:44 | ED General ---
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 Nursing Sepsis Screen: No Definite Risk Exam Limitations: No Limitations History of Present Illness Date Seen by Provider: Dec 31, 2020 Time Seen by Provider: 19:10 Initial Comments Patient is a 60-year-old female who presents with laceration just below left knee. Patient states she fell and punctured her left knee on a small rock. Patient did clean the wound and have her 16-year-old daughter glued the wound prior to coming to the ED. She denies other injury or pain complaint. Knee pain is reported as dull and worse with palpation and movement. There is no involvement of the joint. On exam, there is a small gape laceration covered with clear adhesive. The wound appears clean and hemostasis is achieved. Tetanus is out of date. Timing/Duration: 1/2 Hour Severity: Moderate Modifying Factors: improves with Other Associated Systoms: Other Allergies and Home Medications Allergies Coded Allergies: morphine (Unverified Adverse Reaction, Unknown, 06/21/20) Home Medications Albuterol Sulfate 1 Puff Puff, 2 PUFF IH Q4H PRN for SHORTNESS OF BREATH, (Re ported) 1 PUFF = 90 MCG Clonazepam 0.5 Mg Tablet, 0.5 MG PO QID, (Reported) Ergocalciferol (Vitamin D2) 1,250 Mcg Capsule, 1,250 MCG PO BID, (Reported) Fluticasone Propion/Salmeterol 1 Each Blst.w.dev, 1 EACH IH BID, (Reported) Furosemide 20 Mg Tablet, 20 MG PO DAILY PRN for SWELLING, (Reported) WRITTEN TWICE WEEKLY, STATES SHE WOULD TAKE ANYTIME SHE NOTICES SWELLING Levothyroxine Sodium 25 Mcg Tablet, 25 MCG PO DAILY, (Reported) Oxycodone HCl/Acetaminophen 1 Each Tablet, 1 EACH PO Q4H PRN for PAIN-SEVERE Prescribed by: RICHARD MELENDEZ on 09/06/20 0840 Pantoprazole Sodium 40 Mg Tablet.dr, 40 MG PO BID, (Reported) Quetiapine Fumarate 100 Mg Tablet, 200 MG PO BID, (Reported) Quetiapine Fumarate 100 Mg Tablet, 100 MG PO LUNCH, (Reported) Venlafaxine HCl 75 Mg Tab, 75 MG PO BID, (Reported) Patient Home Medication List Home Medication List Reviewed: Yes Review of Systems Review of Systems Constitutional: see HPI EENTM: see HPI Respiratory: see HPI Gastrointestinal: see HPI Genitourinary: see HPI Musculoskeletal: see HPI Skin: see HPI Psychiatric/Neurological: See HPI Hematologic/Lymphatic: See HPI Immunological/Allergic: see HPI All Other Systems Reviewed Negative Unless Noted: Yes Past Hqrvzhn-Unctoa-Wyylvs Hx Past Med/Social Hx: Reviewed Nursing Past Med/Soc Hx Patient Social History Alcohol Use: Denies Use Smoking Status: Former Smoker Type Used: Cigarettes Former Smoker, Quit: Jun 02, 2011 2nd Hand Smoke Exposure: Yes Recent Infectious Disease Expo: No Recent Hopitalizations: No Immunizations Up To Date Tetanus Booster (TDap): Unknown Date of Pneumonia Vaccine: Aug 15, 2016 Seasonal Allergies Seasonal Allergies: Yes Past Medical History Surgeries: Yes (tubal , hernia, bilat carpal tunnel, FOOT) Gallbladder Respiratory: Yes (O2 @ HS 2.5L) Pneumonia, COPD, Emphysema Currently Using CPAP: No Currently Using BIPAP: No Cardiac: Yes High Cholesterol Neurological: No (recent short term memory loss ( 10/08/19 )) Sexually Transmitted Disease: No HIV/AIDS: No Genitourinary: No Gastrointestinal: Yes (gastritis) Gastroesophageal Reflux, Chronic Constipation, Chronic Diarrhea, Polyps Musculoskeletal: Yes Arthritis, Chronic Back Pain Endocrine: Yes Hypothyroidsim HEENT: Yes (GLASSES, DENTURES) Loss of Vision: Denies Hearing Impairment: Denies Cancer: No Psychosocial: Yes Anxiety, Bipolar, Depression Integumentary: No Blood Disorders: No Adverse Reaction/Blood Tranf: No (N/A) Family Medical History Bipolar disorder G8 BROTHER G8 SISTER Hypertension 19 MOTHER, Neoplasm 19 MOTHER, (bladder cancer) Cancer, Hypertension Physical Exam Vital Signs Vital Signs - First Documented 12/31/20 19:19 Temp 36.2 Pulse 80 Resp 18 B/P (MAP) 132/82 (99) Pulse Ox 98 O2 Delivery Room Air Capillary Refill : Less Than 3 Seconds Height, Weight, BMI Height: '" Weight: lbs. oz. kg; 31.00 BMI Method: General Appearance: No Apparent Distress, WD/WN HEENT: PERRL/EOMI Neck: Full Range of Motion, Normal Inspection Respiratory: Lungs Clear Extremity: Other (Small gaping wound below right knee covered with clear adhesive. Wound is clear, hemostasis of is achieved. There is no swelling bruising surrounding the) Focused Exam Sepsis Stage: Ruled Out Progress/Results/Core Measures Suspected Sepsis Recent Fever Within 48 Hours: No Infection Criteria Present: None New/Unexplained Altered Menta: No Sepsis Screen: No Definite Risk SIRS Temperature: Pulse: 80 Respiratory Rate: 18 Blood Pressure 132 /82 Mean: 99 Results/Orders My Orders Orders - COREY LUIS DO Dipht,Pertuss(Acell),Tet Adult (Boostrix (12/31/20 19:30) Acetaminophen Tablet (Tylenol Tablet) (12/31/20 19:30) Vital Signs/I&O 12/31/20 19:19 Temp 36.2 Pulse 80 Resp 18 B/P (MAP) 132/82 (99) Pulse Ox 98 O2 Delivery Room Air Capillary Refill : Less Than 3 Seconds Blood Pressure Mean: 99 Departure Communication (Admissions) Wound inspected. Wound closure appears to be adequate. Tetanus updated. Typical wound care instructions provided. Return precautions reviewed. Impression Primary Impression: Laceration of right knee Disposition: HOME, SELF-CARE Condition: Stable Departure-Patient Inst. Referrals: SELFBENNY MD (PCP/Family) Primary Care Physician COREY LUIS DO Dec 31, 2020 19:44
== END 2020-12-31 19:47 | disposition home or self-care (01) ==
LOC: EDUNIT# 19:06 → ER FS 19:09
DX: S81.011A Laceration without foreign body, right knee, initial encounter (principal); E03.9 Hypothyroidism, unspecified; K21.9 Gastro-esophageal reflux disease without esophagitis; F31.9 Bipolar disorder, unspecified; F41.9 Anxiety disorder, unspecified; J43.9 Emphysema, unspecified; Z23 Encounter for immunization; Z87.891 Personal history of nicotine dependence; Z77.22 Contact with and (suspected) exposure to environmental tobacco smoke (acute) (chronic); Z79.890 Hormone replacement therapy; Z79.899 Other long term (current) drug therapy; W18.30XA Fall on same level, unspecified, initial encounter; W22.8XXA Striking against or struck by other objects, initial encounter; Y92.094 Garage of other non-institutional residence as the place of occurrence of the external cause
CPT/HCPCS: 90715

== ENCOUNTER → 2021-08-22 | Outpatient (CLI) | payer MEDICAID ==
[~2021-08-22] MED LIST changes: +ERGO1250 PO
== END ==
LOC: CARD 13:30
PROVIDERS: ATTEND Internal Medicine Cardiovascular Disease
DX: I11.9 Hypertensive heart disease without heart failure (principal); I25.10 Atherosclerotic heart disease of native coronary artery without angina pectoris
CPT/HCPCS: 93306

== ENCOUNTER → 2021-11-19 | Outpatient (CLI) | payer MEDICAID ==
[~2021-11-19] VITALS: Ht 154 cm; Wt 75.0 kg
[~2021-11-19] MED LIST changes: +CATHETER FLUSH 10 ML SYR IVP PRN; +REGADENOSON 0.4 MG/5 ML SYR (LEXISCAN) IV ONE
[2021-11-19 09:21] VITALS: BP 127/79
--- NOTE | 2021-11-19 12:27 | Cardiology Stress Test Report ---
Stress Test Report Date of Procedure/Referring: Date of Procedure: Nov 19, 2021 PCP Tuan Tariq MD Admitting Physician Nick Arzola MD Indications: HTN Baseline Heart Rate: 86 Baseline Blood Pressure: Blood Pressure Systolic: 127 Blood Pressure Diastolic: 79 Baseline Vitals Vital Signs Date Time Temp Pulse Resp B/P (MAP) Pulse Ox O2 Delivery O2 Flow Rate FiO2 11/19/21 09:21 86 127/79 (95) Baseline EKG: Baseline EKG: NSR Summary After explaining the procedure to the patient, she signed a consent and then brought to the stress nuclear laboratory. Patient received 0.4 mg Lexiscan for stress test, ECG, heart rate and blood pressure were monitored continuously. Resting and stress dose of radio tracer were injected, imaging was acquired and reviewed in short axis, horizontal long axis and vertical long axis views. TID: 1.11 SSS: 2 SDS: 2 EF: 68 1. Patient tolerated Lexiscan well 2. No significant ischemia or infarction on SPECT images 3. Normal left ventricular size, EF 68% TUAN TARIQ MD Nov 19, 2021 12:27
== END ==
LOC: CARD 07:45
PROVIDERS: ATTEND Internal Medicine Cardiovascular Disease
DX: I10 Essential (primary) hypertension (principal); I25.10 Atherosclerotic heart disease of native coronary artery without angina pectoris
CPT/HCPCS: 78452; 93017

== ENCOUNTER 2022-03-05 18:31 | Emergency (ER) | payer MEDICAID ==
[~2022-03-05] VITALS: Ht 154.9 cm; Wt 74.5 kg
[~2022-03-05 18:31] MED LIST changes: -CATHETER FLUSH 10 ML SYR IVP PRN; -REGADENOSON 0.4 MG/5 ML SYR (LEXISCAN) IV ONE
[2022-03-05] MEDS ORDERED: IBUPROFEN TABLET 200 MG TAB PO ONE (18:45)
--- NOTE | 2022-03-05 18:56 | ED Lower Extremity ---
General Chief Complaint: Lower Extremity Stated Complaint: FALL,RT ANKLE PAIN Nursing Triage Note: Patient states that she was carrying some boxes down the stair into the basement. Patient missed the last step and fell down. Patient has swelling and bruising on the side of her right foot. Patient reports that this happened at approximately 15:00. Patient does report taking a nitro prior to arrival. Patient states she has been seeing a spray drier operator helper for chest pain for the last 2 months. Patient denies having chest pain upon arrival to the ER. Patient states she just wants her foot looked at. Source: patient Exam Limitations: no limitations History of Present Illness Date Seen by Provider: Mar 05, 2022 Time Seen by Provider: 18:40 Initial Comments Patient is a 61-year-old female who presents with right foot pain after missing the bottom 2 steps and scraping her right lateral foot. Patient with contusion and abrasion right lateral forefoot. Patient is able to bear some pain with difficulty. Denies ankle or leg pain. No medications or therapies taken prior to arrival. Onset: just prior to arrival Pain/Injury Location: right foot Method of Injury: twisted Modifying Factors: Improves With Other Allergies and Home Medications Allergies Coded Allergies: morphine (Unverified Adverse Reaction, Unknown, 06/21/20) Patient Home Medication List Home Medication List Reviewed: Yes Albuterol Sulfate (Proair Hfa) 1 Puff Puff, 2 PUFF IH Q4H PRN for SHORTNESS OF BREATH, (Reported) Entered as Reported by: ABRAHAN MUNOZ on 09/13/19 1048 Clonazepam (Klonopin) 0.5 Mg Tablet, 0.5 MG PO QID, (Reported) Entered as Reported by: ABRAHAN MUNOZ on 09/13/19 1032 Ergocalciferol (Vitamin D2) (Vitamin D2) 1,250 Mcg Capsule, 1,250 MCG PO BID, (Reported) Entered as Reported by: YOLANDA MULLEN on 06/15/20 1044 Fluticasone Propion/Salmeterol (Fluticasone-Salmeterol 100-50) 1 Each Blst.w.dev, 1 EACH IH BID, (Reported) Entered as Reported by: YOLANDA MULLEN on 06/15/20 1044 Furosemide (Lasix) 20 Mg Tablet, 20 MG PO DAILY PRN for SWELLING, (Reported) Entered as Reported by: DARRIAN INMAN on 09/07/19 0834 Levothyroxine Sodium (Levothyroxine Sodium) 25 Mcg Tablet, 25 MCG PO DAILY, (Reported) Entered as Reported by: DARRIAN INMAN on 09/07/19 0834 Oxycodone HCl/Acetaminophen (Oxycodone-Acetaminophen 5-325) 1 Each Tablet, 1 EACH PO Q4H PRN for PAIN-SEVERE Prescribed by: RICHARD MELENDEZ on 09/06/20 0840 Pantoprazole Sodium (Protonix) 40 Mg Tablet.dr, 40 MG PO BID, (Reported) Entered as Reported by: ABRAHAN MUNOZ on 09/13/19 1048 Quetiapine Fumarate (Quetiapine Fumarate) 100 Mg Tablet, 200 MG PO BID, (Reported) Entered as Reported by: YOLANDA MULLEN on 06/15/20 1044 Quetiapine Fumarate (Quetiapine Fumarate) 100 Mg Tablet, 100 MG PO LUNCH, (Reported) Entered as Reported by: YOLANDA MULLEN on 06/15/20 1044 Venlafaxine HCl (Venlafaxine HCl) 75 Mg Tab, 75 MG PO BID, (Reported) Entered as Reported by: YOLANDA MULLEN on 06/15/20 1044 Review of Systems Constitutional: no symptoms reported Musculoskeletal: joint pain (Right foot pain/tender), other Past Pdcychp-Pyxtxj-Rshdkf Hx Patient Social History Tobacco Use?: No Substance use?: No Alcohol Use?: No Pt feels they are or have been: No Immunizations Up To Date Tetanus Booster (TDap): Unknown Seasonal Allergies Seasonal Allergies: Yes Past Medical History Surgeries: Yes (tubal , hernia, bilat carpal tunnel, FOOT) Gallbladder Respiratory: Yes (O2 @ HS 2.5L) Pneumonia, COPD, Emphysema Currently Using CPAP: No Currently Using BIPAP: No Cardiac: Yes High Cholesterol Neurological: No (recent short term memory loss ( 10/08/19 )) Sexually Transmitted Disease: No HIV/AIDS: No Genitourinary: No Gastrointestinal: Yes (gastritis) Gastroesophageal Reflux, Chronic Constipation, Chronic Diarrhea, Polyps Musculoskeletal: Yes Arthritis, Chronic Back Pain Endocrine: Yes Hypothyroidsim HEENT: Yes (GLASSES, DENTURES) Loss of Vision: Denies Hearing Impairment: Denies Cancer: No Psychosocial: Yes Anxiety, Bipolar, Depression Integumentary: No Blood Disorders: No Adverse Reaction/Blood Tranf: No (N/A) Family Medical History Bipolar disorder G8 BROTHER G8 SISTER Hypertension 19 MOTHER, Neoplasm 19 MOTHER, (bladder cancer) Cancer, Hypertension Physical Exam Vital Signs Vital Signs - First Documented 03/05/22 18:37 Temp 36.8 Pulse 117 Resp 20 B/P (MAP) 103/79 (87) Pulse Ox 93 O2 Delivery Room Air Capillary Refill : Less Than 3 Seconds Height, Weight, BMI Height: '" Weight: lbs. oz. kg; 31.00 BMI Method: General Appearance: WD/WN, no apparent distress Feet: right foot pain, right foot soft tissue tenderness (Right lateral forefoot tenderness with swelling. No deformity.), right foot swelling Neurologic/Psychiatric: no motor/sensory deficits Progress/Results/Core Measures Results/Orders My Orders Orders - COREY LUIS DO Foot 3 View Right (03/05/22 18:40) Ice: Apply To Affected Area (03/05/22 18:42) Ibuprofen Tablet (Motrin Tablet) (03/05/22 18:45) Vital Signs/I&O 03/05/22 18:37 Temp 36.8 Pulse 117 Resp 20 B/P (MAP) 103/79 (87) Pulse Ox 93 O2 Delivery Room Air Blood Pressure Mean: 87 Departure Communication (Admissions) Right foot x-ray: No obvious displaced fracture on preliminary ED review Impression Primary Impression: Sprain or strain of foot Disposition: 01 HOME, SELF-CARE Condition: Stable Departure-Patient Inst. Decision time for Depature: 18:59 Referrals: SELFBENNY MD (PCP/Family) Primary Care Physician Patient Instructions: Sprain (DC) Add. Discharge Instructions: You were evaluated in the emergency department for right foot injury. X-rays were performed do not show evidence of a displaced fracture. Please take ibuprofen for pain apply ice, wear orthopedic shoe and elevate your foot at rest. Follow-up with your PCP in 3 to 5 days for reevaluation if symptoms persist All discharge instructions reviewed with patient and/or family. Voiced understanding. COREY LUIS DO Mar 05, 2022 18:56
--- NOTE | 2022-03-05 19:04 | Diagnostic Imaging Report ---
INDICATION: Fall with lateral right foot pain. Time of Exam: 6:48 PM 3 views of the right foot were obtained. There is a comminuted fracture of the mid and distal aspect of the 5th metatarsal. Remaining metatarsals appear intact. Phalanges are intact. Midfoot and hindfoot are unremarkable apart from a plantar calcaneal spur. IMPRESSION: Mid and distal 5th metatarsal fracture. Dictated by: Dictated on workstation # [id number]
[2022-03-05] MEDS ORDERED: ACHD5005 PO (19:09)
[2022-03-05] MEDS ORDERED: oxyCODONE/APAP 5/325MG (PERCOCET 5) TABLET PO ONE (19:30)
[2022-03-05 19:51] VITALS: BP 103/79
[2022-03-05] MEDS ORDERED: RX-OXYCODONE/APAP 5-325 MG #4 TAB PK PO PRN ×2 (20:00→21:45)
== END 2022-03-05 19:59 | disposition home or self-care (01) ==
LOC: EDUNIT# 18:31 → ER FS 18:32
DX: M79.671 Pain in right foot (principal); M79.89 Other specified soft tissue disorders
CPT/HCPCS: 73630

== ENCOUNTER 2022-03-07 15:32 | Inpatient (IN) | payer MEDICAID ==
[~2022-03-07] VITALS: Ht 154.9 cm; Wt 77.2 kg
[2022-03-07] VITALS (7 sets, daily range): BP systolic 113–132; BP diastolic 58–80
[~2022-03-07 15:32] MED LIST changes: +ACHD5005 PO
[2022-03-07] MEDS ORDERED: RT-ALBUTEROL/IPRATROPIUM 3 ML (DUONEB) VIAL ONE (15:41)
[2022-03-07] MEDS ORDERED: RT-ALBUTEROL/IPRATROPIUM 3 ML (DUONEB) VIAL INH ONE (15:45)
[2022-03-07] MEDS ORDERED: ASPIRIN 81 MG CHEW (CHILDREN'S ASA) PO ONE (15:45)
[2022-03-07] MEDS ORDERED: NITROGLYCERIN 0.4 MG SL TABS BTL 25'S SL PRN (15:45)
--- NOTE | 2022-03-07 15:50 | ED Chest Pain ---
General Chief Complaint: Chest Pain Stated Complaint: CP Source: patient Exam Limitations: no limitations History of Present Illness Date Seen by Provider: Mar 07, 2022 Time Seen by Provider: 15:35 Initial Comments Patient to the ER by private conveyance with family chief complaint of chest pain in her right chest nonradiating since at least 11:00 this morning, 4 hours prior to arrival. She has had chest pains in the past couple months and went to Dr. Tariq for a stress test but did not ever follow-up. She has a history of hypertension, hyperlipidemia but no diabetes. She quit smoking greater than 2 years ago. No previous history of coronary disease or family history of early onset coronary disease. No history of blood clots. She was here a few days ago because she missed a step and "crushed her foot." She is in a walking boot on her right foot and has been working hard the past couple days to get moved into her new house. She is having some shortness of air and has a history of COPD and uses breathing treatments but has not had any today. She did take some oxycodone earlier today and had some brief respite for about an hour or so from her pain. She rates her pain as an 8 out of 10 with pressure, nonreproducible to direct palpation of the chest. Made worse with deep inspiration. No nausea vomiting numbness tingling fevers chills or cough. Stress test November 2021 with an EF of 60% and no significant ischemia or infarction. Echocardiogram August 2021 with an EF of 55 to 65% and no regional wall motion abnormality noted. Patient does wear 2 to 3 L of oxygen at home as necessary. Allergies and Home Medications Allergies Coded Allergies: morphine (Unverified Adverse Reaction, Unknown, 06/21/20) Patient Home Medication List Home Medication List Reviewed: Yes Albuterol Sulfate (Proair Hfa) 1 Puff Puff, 2 PUFF IH Q4H PRN for SHORTNESS OF BREATH, (Reported) Entered as Reported by: ABRAHAN MUNOZ on 09/13/19 1048 Clonazepam (Klonopin) 0.5 Mg Tablet, 0.5 MG PO QID, (Reported) Entered as Reported by: ABRAHAN MUNOZ on 09/13/19 1032 Ergocalciferol (Vitamin D2) (Vitamin D2) 1,250 Mcg Capsule, 1,250 MCG PO BID, (Reported) Entered as Reported by: YOLANDA MULLEN on 06/15/20 1044 Fluticasone Propion/Salmeterol (Fluticasone-Salmeterol 100-50) 1 Each Blst.w. dev, 1 EACH IH BID, (Reported) Entered as Reported by: YOLANDA MULLEN on 06/15/20 1044 Furosemide (Lasix) 20 Mg Tablet, 20 MG PO DAILY PRN for SWELLING, (Reported) Entered as Reported by: DARRIAN INMAN on 09/07/19 0834 Hydrocodone/Acetaminophen (Hydrocodone-Acetamin 5-325 mg) 5 Mg-325 Mg Tablet, 1 TAB PO Q4H PRN for PAIN-MODERATE (5-7) Prescribed by: COREY LUIS on 03/05/221909 Levothyroxine Sodium (Levothyroxine Sodium) 25 Mcg Tablet, 25 MCG PO DAILY, (Reported) Entered as Reported by: DARRIAN INMAN on 09/07/19 0834 Oxycodone HCl/Acetaminophen (Oxycodone-Acetaminophen 5-325) 1 Each Tablet, 1 EACH PO Q4H PRN for PAIN-SEVERE Prescribed by: RICHARD MELENDEZ on 09/06/20 0840 Pantoprazole Sodium (Protonix) 40 Mg Tablet.dr, 40 MG PO BID, (Reported) Entered as Reported by: ABRAHAN MUNOZ on 09/13/19 1048 Quetiapine Fumarate (Quetiapine Fumarate) 100 Mg Tablet, 200 MG PO BID, (Reported) Entered as Reported by: YOLANDA MULLEN on 06/15/20 1044 Quetiapine Fumarate (Quetiapine Fumarate) 100 Mg Tablet, 100 MG PO LUNCH, (Reported) Entered as Reported by: YOLANDA MULLEN on 06/15/20 1044 Venlafaxine HCl (Venlafaxine HCl) 75 Mg Tab, 75 MG PO BID, (Reported) Entered as Reported by: YOLANDA MULLEN on 06/15/20 1044 Review of Systems Review of Systems Constitutional: No chills, No diaphoresis EENTM: No Blurred Vision, No Double Vision Respiratory: Denies Cough; Shortness of Air, Wheezing Cardiovascular: See HPI, Chest Pain; Denies Edema Gastrointestinal: Denies Constipated, Denies Diarrhea, Denies Nausea Genitourinary: Denies Burning, Denies Discharge Musculoskeletal: No back pain, No joint pain Skin: No pruritus, No rash Psychiatric/Neurological: Denies Headache, Denies Numbness, Denies Paresthesia All Other Systems Reviewed Negative Unless Noted: Yes Past Tmtyiee-Ttjdrv-Hgfepg Hx Patient Social History Tobacco Use?: No Tobacco type used: Cigarettes Smoking Status: Former Smoker Use of E-Cig and/or Vaping dev: No Substance use?: No Alcohol Use?: No Immunizations Up To Date Tetanus Booster (TDap): Unknown Seasonal Allergies Seasonal Allergies: Yes Past Medical History Surgeries: Yes (tubal , hernia, bilat carpal tunnel, FOOT) Gallbladder Respiratory: Yes (O2 @ HS 2.5L) Pneumonia, COPD, Emphysema Currently Using CPAP: No Currently Using BIPAP: No Cardiac: Yes High Cholesterol Neurological: No (recent short term memory loss ( 10/08/19 )) Sexually Transmitted Disease: No HIV/AIDS: No Genitourinary: No Gastrointestinal: Yes (gastritis) Gastroesophageal Reflux, Chronic Constipation, Chronic Diarrhea, Polyps Musculoskeletal: Yes Arthritis, Chronic Back Pain Endocrine: Yes Hypothyroidsim HEENT: Yes (GLASSES, DENTURES) Loss of Vision: Denies Hearing Impairment: Denies Cancer: No Psychosocial: Yes Anxiety, Bipolar, Depression Integumentary: No Blood Disorders: No Adverse Reaction/Blood Tranf: No (N/A) Family Medical History Bipolar disorder G8 BROTHER G8 SISTER Hypertension 19 MOTHER, Neoplasm 19 MOTHER, (bladder cancer) Cancer, Hypertension Physical Exam Vital Signs Vital Signs - First Documented 03/07/22 15:38 Temp 37.2 Pulse 112 Resp 30 B/P (MAP) 132/80 (97) Pulse Ox 92 O2 Delivery Nasal Cannula O2 Flow Rate 3.00 Capillary Refill : Height, Weight, BMI Height: '" Weight: lbs. oz. kg; 31.00 BMI Method: General Appearance: Anxious, Moderate Distress HEENT: PERRL/EOMI, Pharynx Normal, Moist Mucous Membranes Neck: Full Range of Motion, Normal Inspection, Non Tender Respiratory: Chest Non Tender, No Accessory Muscle Use; No Crackles; Respiratory Distress (Mild with oxygen saturations 98 to 99% on room air, wheezing bilateral on expiration and increased rate of breathing, 24 to 26 breaths/min.), Wheezing Cardiovascular: Regular Rate, Rhythm, No Edema, No Murmur, Normal Peripheral Pulses, Tachycardia (105) Gastrointestinal: Normal Bowel Sounds, Non Tender, Soft Extremity: Normal Capillary Refill, Normal Inspection, No Pedal Edema Neurologic/Psychiatric: Alert, Oriented x3, No Motor/Sensory Deficits Skin: Normal Color, Warm/Dry Focused Exam Lactate Level 03/07/22 15:45: Lactic Acid Level 0.80 Lactic Acid Level Laboratory Tests Test 03/07/22 15:45 Lactic Acid Level 0.80 MMOL/L (0.50-2.00) Progress/Results/Core Measures Results/Orders Lab Results Laboratory Tests Test 03/07/22 15:45 03/07/22 16:20 Range/Units White Blood Count 13.2 H 4.3-11.0 10^3/uL Red Blood Count 4.32 3.80-5.11 10^6/uL Hemoglobin 11.1 L 11.5-16.0 g/dL Hematocrit 36 35-52 % Mean Corpuscular Volume 83 80-99 fL Mean Corpuscular Hemoglobin 26 25-34 pg Mean Corpuscular Hemoglobin Concent 31 L 32-36 g/dL Red Cell Distribution Width 15.1 H 10.0-14.5 % Platelet Count 468 H 130-400 10^3/uL Mean Platelet Volume 8.8 L 9.0-12.2 fL Immature Granulocyte % (Auto) 1 % Neutrophils (%) (Auto) 79 H 42-75 % Lymphocytes (%) (Auto) 13 12-44 % Monocytes (%) (Auto) 4 0-12 % Eosinophils (%) (Auto) 3 0-10 % Basophils (%) (Auto) 0 0-10 % Neutrophils # (Auto) 10.4 H 1.8-7.8 10^3/uL Lymphocytes # (Auto) 1.7 1.0-4.0 10^3/uL Monocytes # (Auto) 0.6 0.0-1.0 10^3/uL Eosinophils # (Auto) 0.5 H 0.0-0.3 10^3/uL Basophils # (Auto) 0.0 0.0-0.1 10^3/uL Immature Granulocyte # (Auto) 0.1 0.0-0.1 10^3/uL Prothrombin Time 13.4 12.2-14.7 SEC INR Comment 1.0 0.8-1.4 Activated Partial Thromboplast Time 35 24-35 SEC D-Dimer 3.81 H 0.00-0.49 UG/ML Sodium Level 140 135-145 MMOL/L Potassium Level 3.8 3.6-5.0 MMOL/L Chloride Level 97 L 98-107 MMOL/L Carbon Dioxide Level 31 21-32 MMOL/L Anion Gap 12 5-14 MMOL/L Blood Urea Nitrogen 11 7-18 MG/DL Creatinine 0.66 0.60-1.30 MG/DL Estimat Glomerular Filtration Rate 100 BUN/Creatinine Ratio 17 Glucose Level 105 70-105 MG/DL Lactic Acid Level 0.80 0.50-2.00 MMOL/L Calcium Level 9.4 8.5-10.1 MG/DL Corrected Calcium 9.5 8.5-10.1 MG/DL Magnesium Level 2.0 1.6-2.4 MG/DL Total Bilirubin 0.4 0.1-1.0 MG/DL Aspartate Amino Transf (AST/SGOT) 19 5-34 U/L Alanine Aminotransferase (ALT/SGPT) 15 0-55 U/L Alkaline Phosphatase 139 H 40-136 U/L Myoglobin 26.6 10.0-92.0 NG/ML Troponin I < 0.30 <0.30 NG/ML C-Reactive Protein 25.44 H <0.50 MG/DL Pro-B-Type Natriuretic Peptide 289.1 H <75.0 PG/ML Total Protein 8.1 6.4-8.2 GM/DL Albumin 3.9 3.2-4.5 GM/DL Lipase 7 L 8-78 U/L Blood Gas Puncture Site R RADIAL Blood Gas Patient Temperature 37.2 Arterial Blood pH 7.48 H 7.37-7.43 Arterial Blood Partial Pressure CO2 48 H 35-45 MMHG Arterial Blood Partial Pressure O2 80 79-93 MMHG Arterial Blood HCO3 36 H 23-27 MMOL/L Arterial Blood Total CO2 37.0 H 21.0-31.0 MMOL/L Arterial Blood Oxygen Saturation 97 94-100 % Arterial Blood Base Excess 10.7 H -2.5-2.5 MMOL/L Kulwinder Test YES-POS Blood Gas Ventilator Setting NO Blood Gas Inspired Oxygen 3 L My Orders Orders - GRIFFIN FERNANDEZ Albuterol/Ipra Inhalation Soln (Duoneb I (03/07/22 15:41) Cbc With Automated Diff (03/07/22 15:43) Magnesium (03/07/22 15:43) Chest 1 View Ap/Pa Only (03/07/22 15:43) Ekg Tracing (03/07/22 15:43) Comprehensive Metabolic Panel (03/07/22 15:43) Myoglobin Serum (03/07/22 15:43) Protime With Inr (03/07/22 15:43) Partial Thromboplastin Time (03/07/22 15:43) O2 (03/07/22 15:43) Monitor-Rhythm Ecg Trace Only (03/07/22 15:43) Lipid Panel (03/08/22 06:00) Aspirin Chewable Tablet (Baby Aspirin Ch (03/07/22 15:45) Nitroglycerin 0.4 Mg Btl 25's (Nitrostat (03/07/22 15:45) Ed Iv/Invasive Line Start (03/07/22 15:43) Lipase (03/07/22 15:43) Fibrin Degradation Products (03/07/22 15:43) Troponin I Fs (03/07/22 15:43) Probnp Fs (03/07/22 15:43) Albuterol/Ipra Inhalation Soln (Duoneb I (03/07/22 15:45) Svn Small Volume Nebulizer (03/07/22 15:43) Crp Fs (03/07/22 15:43) Fentanyl Inj (Sublimaze Injection) (03/07/22 16:15) Blood Culture (03/07/22 16:09) Sputum Culture (03/07/22 16:09) Urinalysis (03/07/22 16:09) Urine Culture (03/07/22 16:09) Ed Iv/Invasive Line Start (03/07/22 16:09) Ed Iv/Invasive Line Start (03/07/22 16:09) Vital Signs Adult Sepsis Patie Q15M (03/07/22 16:09) Remove Rings In Anticipation O (03/07/22 16:09) Lactic Acid Analyzer (03/07/22 16:09) Lactated Ringers (Lr 1000 Ml Iv Solution (03/07/22 16:15) Ceftriaxone 1 Gm Pre-Mix (Rocephin 1 Gm (03/07/22 16:15) Azithromycin Injection (Zithromax Inject (03/07/22 16:15) Ed Iv/Invasive Line Start (03/07/22 16:09) Ns Iv 500 Ml (Sodium Chloride 0.9%) (03/07/22 16:15) Arterial Blood Gas (03/07/22 16:13) Medications Given in ED Current Medications Medications Dose Ordered Sig/Armando Route Start Time Stop Time Status Last Admin Dose Admin Albuterol/ Ipratropium 3 ml ONCE ONCE INH 03/07/22 15:45 03/07/22 15:46 DC 03/07/22 15:55 3 ML Aspirin 324 mg ONCE ONCE PO 03/07/22 15:45 03/07/22 15:46 DC 03/07/22 15:55 324 MG Ceftriaxone Sodium/Dextrose 50 ml @ 100 mls/hr ONCE ONCE IV 03/07/22 16:15 03/07/22 16:44 03/07/22 16:37 100 MLS/HR Fentanyl Citrate 50 mcg ONCE ONCE IVP 03/07/22 16:15 03/07/22 16:16 DC 03/07/22 16:36 50 MCG Lactated Ringer's 1,000 ml @ 0 mls/hr Q0M ONCE IV 03/07/22 16:15 03/07/22 16:16 DC 03/07/22 16:37 0 MLS/HR Nitroglycerin 0.4 mg UD PRN SL 03/07/22 15:45 03/07/22 15:55 0.4 MG Vital Signs/I&O 03/07/22 03/07/22 15:38 15:38 Temp 37.2 Pulse 112 Resp 30 B/P (MAP) 132/80 (97) Pulse Ox 92 O2 Delivery Nasal Cannula Nasal Cannula O2 Flow Rate 3.00 Progress Progress Note #1: Time: 15:50 Progress Note We ordered a DuoNeb because the patient was having some wheezing audible on expiration. Bronchospasm could explain chest pain. Pneumonia, coronary disease, PE are also on the differential. She is not having a cough but she is tachycardic and quite anxious looking. She is oxygenating well with a good waveform. We will give her 324 mg of aspirin to chew and swallow as well as trial some nitroglycerin next. She has some nonspecific half block ST elevation in anterior leads. Even she has a negative troponin she would have 4 points HEART Pathway Score. High risk; 12-65% 30-day MACE. Admit to hospital or observation. Further testing indicated. Progress Note #2: Time: 16:11 Progress Note Patient experienced no pain relief from a single dose of nitroglycerin. Her oxygen sats dipped down to 88% so we put her on 2 L we will get an ABG. She has an infiltrate seen on her chest in the right lower lobe where she is having her pain which would coincide with a pneumonia. It does not completely rule out a PE but if the D-dimer is okay we will not need to scan her. Septic work-up was initiated with cultures, lactate, Rocephin and azithromycin. 1500 cc of fluid will be greater than 20 mL/kg. Initial ECG Impression Date: Mar 07, 2022 Initial ECG Impression Time: 15:40 Initial ECG Rate: 104 Initial ECG Rhythm: S.Tach Initial ECG Intervals: Normal Initial ECG Impression: Normal, Nonspecific Changes Initial ECG Comparisson: Changed Comment Normal sinus tachycardia with perhaps half a block of ST elevation in V1 and V2 of no certain clinical significance. Diagnostic Imaging Diagonstic Imaging: Xray Plain Films/CT/US/NM/MRI: chest Comments [facility], [facility]. [place], [place] NAME: DANIELLE STONE [facility] REC#: [id number] PT STATUS: REG ER : 1960 PHYSICIAN: GRIFFIN FERNANDEZ MD ADMIT DATE: 03/07/22/ER FS Signed Date of Exam:03/07/22 CHEST 1 VIEW AP/PA ONLY INDICATION: Right-sided chest pain. TIME OF EXAM: 3:50 p.m. Correlation is made with prior chest from 03/11/2020. FINDINGS: Heart size is stable. There are zones of discoid atelectasis in the right mid and lower lung pisano. There may be some infiltrate in the right base as well obscuring the right hemidiaphragm. Left lung is clear. No effusion or pneumothorax is seen. IMPRESSION: Atelectasis as well as questionable infiltrate in the right base, as described. Dictated by: Dictated on workstation # [id number] Dict: 03/07/22 1554 Trans: 03/07/22 1557 [id number] Interpreted by: CELESTINE VÁSQUEZ MD Electronically signed by: CELESTINE VÁSQUEZ MD 03/07/22 1557 Reviewed: Reviewed by Me Departure Communication (Admissions) Time/Spoke to Admitting Phy: 16:45 Discussed the case with Dr. Inman and given the contrast shortage and findings consistent with pneumonia would not feel strongly about doing a CT angiogram of the chest. She is on her baseline of oxygen. Dr. Inman agrees to admit the patient for sepsis and pneumonia. She is okay with Rocephin and azithromycin. Impression Primary Impression: Sepsis due to pneumonia Additional Impression: Chest pain Qualified Codes: R07.1 - Chest pain on breathing Disposition: ADMITTED INPATIENT Condition: Stable Admissions Decision to Admit Reason: Admit from ER (General) Decision to Admit/Date: Mar 07, 2022 Time/Decision to Admit Time: 16:36 Departure-Patient Inst. Referrals: BENNY PIERCE MD (PCP/Family) Primary Care Physician GRIFFIN FERNANDEZ Mar 07, 2022 15:50
[2022-03-07 15:57] LABS: BASOPHILS % (AUTO) 0 % (0-10); EOSINOPHILS # (AUTO) 0.5 10^3/uL (0.0-0.3); EOSINOPHILS % (AUTO) 3 % (0-10); HEMATOCRIT 36 % (35-52); HEMOGLOBIN 11.1 g/dL (11.5-16.0); LYMPHOCYTES # (AUTO) 1.7 10^3/uL (1.0-4.0); LYMPHOCYTES % (AUTO) 13 % (12-44); MEAN CORPUSCULAR HEMOGLOBIN 26 pg (25-34); MEAN CORPUSCULAR HGB CONC 31 g/dL (32-36); MEAN CORPUSCULAR VOLUME 83 fL (80-99); MEAN PLATELET VOLUME 8.8 fL (9.0-12.2); MONOCYTES # (AUTO) 0.6 10^3/uL (0.0-1.0); MONOCYTES % (AUTO) 4 % (0-12); NEUTROPHILS # (AUTO) 10.4 10^3/uL (1.8-7.8); NEUTROPHILS % (AUTO) 79 % (42-75); PLATELET COUNT 468 10^3/uL (130-400); WHITE BLOOD COUNT 13.2 10^3/uL (4.3-11.0)
--- NOTE | 2022-03-07 15:57 | Diagnostic Imaging Report ---
INDICATION: Right-sided chest pain. TIME OF EXAM: 3:50 p.m. Correlation is made with prior chest from 03/11/2020. FINDINGS: Heart size is stable. There are zones of discoid atelectasis in the right mid and lower lung pisano. There may be some infiltrate in the right base as well obscuring the right hemidiaphragm. Left lung is clear. No effusion or pneumothorax is seen. IMPRESSION: Atelectasis as well as questionable infiltrate in the right base, as described. Dictated by: Dictated on workstation # [id number]
[2022-03-07] MEDS ORDERED: NS IV 500 ML 500 ML IV ONE (16:15)
[2022-03-07] MEDS ORDERED: LACTATED RINGERS 1,000 ML IV ONE (16:15)
[2022-03-07] MEDS ORDERED: AZITHROMYCIN INJECTION 500 MG in NS (IVPB) 250 ML IV ONE (16:15)
[2022-03-07] MEDS ORDERED: fentaNYL INJ 100 MCG/2 ML AMP IVP ONE (16:15)
[2022-03-07] MEDS ORDERED: cefTRIAXone 1 GM PRE-MIX 50 ML IV ONE (16:15)
[2022-03-07 16:19] LABS: PROTHROMBIN TIME PATIENT 13.4 SEC (12.2-14.7)
[2022-03-07 16:33] LABS: BILIRUBIN,TOTAL 0.4 MG/DL (0.1-1.0); CALCIUM 9.4 MG/DL (8.5-10.1); CREATININE SERUM 0.66 MG/DL (0.60-1.30); POTASSIUM 3.8 MMOL/L (3.6-5.0)
[2022-03-07 16:34] LABS: ALBUMIN 3.9 GM/DL (3.2-4.5); TOTAL PROTEIN 8.1 GM/DL (6.4-8.2)
[2022-03-07 16:34] LABS: ABG PH 7.48 (7.37-7.43)
[2022-03-07 16:35] LABS: ABG BASE EXCESS 10.7 MMOL/L (-2.5-2.5); ABG OXYGEN SATURATION 97 % (94-100); ABG PCO2 48 MMHG (35-45); ABG PO2 80 MMHG (79-93); ALLENS TEST YES-POS; INSPIRED O2 3 L; PATIENT TEMP 37.2; VENTILATOR NO
[2022-03-07] MEDS ORDERED: NS IV ONE (18:45)
[2022-03-07] MEDS ORDERED: ENOXAPARIN 40 MG/0.4 ML (LOVENOX) SYR SC SCH (19:00)
[2022-03-07] MEDS ORDERED: ONDANSETRON 4 MG/2 ML (SDV) Z0FRAN IV PRN (19:00)
[2022-03-07] MEDS ORDERED: ACETAMINOPHEN 500 MG TAB (TYLENOL) PO PRN (19:00)
[2022-03-07] MEDS: LACTATED RINGERS 1,000 ML IV SCH (19:03)
[2022-03-07] MEDS ORDERED: RT-ALBUTEROL/IPRATROPIUM 3 ML (DUONEB) VIAL INH PRN (19:45)
[2022-03-07] MEDS: clonazePAM 0.5 MG (KlonoPIN) TAB PO PRN (20:39)
[2022-03-07] MEDS: oxyCODONE/APAP 7.5-325 MG (PERCOCET 7.5) TABLET PO PRN (20:40)
[2022-03-07] MEDS: QUEtiapine 200 MG (SEROquel) TAB IMMEDIATE RELEASE PO SCH (20:40)
[2022-03-07] MEDS: RT-ALBUTEROL/IPRATROPIUM 3 ML (DUONEB) VIAL INH SCH (21:33)
[2022-03-08] VITALS (15 sets, daily range): BP systolic 92–170; BP diastolic 45–98
[2022-03-08] MEDS: oxyCODONE/APAP 7.5-325 MG (PERCOCET 7.5) TABLET PO PRN ×2 (00:40→05:50)
[2022-03-08] MEDS: RT-ALBUTEROL/IPRATROPIUM 3 ML (DUONEB) VIAL INH SCH ×6 (00:40→22:15)
[2022-03-08] MEDS: LACTATED RINGERS 1,000 ML IV SCH ×3 (01:29→17:46)
[2022-03-08] MEDS: fentaNYL INJ 100 MCG/2 ML AMP IV PRN (01:39)
[2022-03-08] MEDS ORDERED: ENOXAPARIN 80 MG/0.8 ML (LOVENOX) SYR SC ONE (04:15)
[2022-03-08] MEDS: clonazePAM 0.5 MG (KlonoPIN) TAB PO PRN (04:21)
--- NOTE | 2022-03-08 04:48 | Diagnostic Imaging Report ---
Indication: Chest pain Portable chest 4:18 AM There is near complete opacification right hemithorax which is unfavorably changed compared to the previous day. This is at least partially due to an effusion. Left lung remains clear. IMPRESSION: Increasing right pleural effusion effusion and atelectasis in the right lung compared to the previous day. Dictated by: Dictated on workstation # [id number]
[2022-03-08] MEDS: LEVOTHYROXINE 25 MCG (LEVOTHROID) TAB PO SCH (05:44)
[2022-03-08 06:31] LABS: BASOPHILS % (AUTO) 0 % (0-10); EOSINOPHILS # (AUTO) 0.2 10^3/uL (0.0-0.3); EOSINOPHILS % (AUTO) 1 % (0-10); HEMATOCRIT 34 % (35-52); LYMPHOCYTES # (AUTO) 1.3 10^3/uL (1.0-4.0); LYMPHOCYTES % (AUTO) 8 % (12-44); MEAN CORPUSCULAR HEMOGLOBIN 26 pg (25-34); MEAN CORPUSCULAR HGB CONC 29 g/dL (32-36); MEAN CORPUSCULAR VOLUME 87 fL (80-99); MEAN PLATELET VOLUME 9.4 fL (9.0-12.2); MONOCYTES # (AUTO) 1.1 10^3/uL (0.0-1.0); MONOCYTES % (AUTO) 7 % (0-12); NEUTROPHILS # (AUTO) 13.3 10^3/uL (1.8-7.8); NEUTROPHILS % (AUTO) 83 % (42-75); PLATELET COUNT 370 10^3/uL (130-400); WHITE BLOOD COUNT 16.1 10^3/uL (4.3-11.0)
[2022-03-08 06:39] LABS: CHLORIDE 99 MMOL/L (98-107); POTASSIUM 3.5 MMOL/L (3.6-5.0); SODIUM 137 MMOL/L (135-145)
[2022-03-08 06:40] LABS: CALCIUM 8.6 MG/DL (8.5-10.1)
[2022-03-08 06:41] LABS: TRIGLYCERIDES 68 MG/DL (<150); VLDL CHOLESTEROL 14 MG/DL (5-40)
[2022-03-08 06:42] LABS: GLUCOSE 114 MG/DL (70-105); TOTAL PROTEIN 6.4 GM/DL (6.4-8.2)
[2022-03-08 06:43] LABS: CARBON DIOXIDE 28 MMOL/L (21-32)
[2022-03-08 06:44] LABS: BILIRUBIN,TOTAL 0.4 MG/DL (0.1-1.0)
[2022-03-08 06:45] LABS: ALKALINE PHOSPHATASE 108 U/L (40-136); CREATININE SERUM 0.61 MG/DL (0.60-1.30); GFR ESTIMATED 102
[2022-03-08 06:46] LABS: CHOLESTEROL 84 MG/DL (< 200)
[2022-03-08 06:47] LABS: BUN/CREATININE RATIO 16
[2022-03-08 06:48] LABS: ALANINE AMINOTRANSFERASE 18 U/L (0-55); HDL CHOLESTEROL 40 MG/DL (40-60)
[2022-03-08] MEDS ORDERED: KCL 20 MEQ TAB (K-DUR) PO ONE (07:15)
[2022-03-08] MEDS: QUEtiapine 200 MG (SEROquel) TAB IMMEDIATE RELEASE PO SCH ×2 (08:21→20:57)
[2022-03-08] MEDS: PANTOPRAZOLE 40 MG (PROTONIX) TAB PO SCH (08:21)
[2022-03-08] MEDS: cefTRIAXone 1 GM/50 ML (PRE-MIX) IV SCH (08:21)
[2022-03-08] MEDS ORDERED: PANTOPRAZOLE 40 MG (PROTONIX) VIAL IV SCH (09:00)
--- NOTE | 2022-03-08 09:46 | History & Physical ---
HPI History of Present Illness: 61 yo female reports she fell on Friday after missing a couple of steps on the stairs and fractured a bone in her foot. Yesterday she woke up with difficulty breathing and came back to the ER. She has had cough that is productive of mucous that is brown colored. She does have history of COPD and uses inhalers at home and is on 2-3 lpm supplemental oxygen at home but doesn't use it all the time, just at night. She denies using cpap or being told she needed it, but last year they wanted to do sleep apnea test which she never got to go through with. She admits chest pain that has been on and off for a while. Pain is severe and sharp and she rates it as 9/10. Her chest is not hurting right now, occurs more with walking. She denies history of heart disease, but does not recall having cardiac work up in the past. Source: patient Exam Limitations: clinical condition Date seen by provider: Mar 08, 2022 Time Seen by Provider: 09:55 Attending Physician Nick Arzola MD PCP Admitting Physician: Katarzyna Jorgensen MD Attending Physician: Katarzyna Jorgensen MD Consult Date of Admission Mar 07, 2022 at 18:35 Home Medications Home Medications Reviewed patient Home Medication Reconciliation performed by pharmacy medication reconciliations lamination technician and/or nursing. Patients Allergies have been reviewed. Allergies Coded Allergies: morphine (Unverified Adverse Reaction, Unknown, 06/21/20) [id number]-[id number]-Egskdg Hx Patient Social History Smoking Status: Former Smoker 2nd Hand Smoke Exposure: Yes Recent Hopitalizations: No Alcohol Use?: No Tobacco type used: Cigarettes Have you traveled recently?: No Immunizations Up To Date Tetanus Booster (TDap): Unknown First/Initial COVID19 Vaccinat: Not currently vaccinated Second COVID19 Vaccination Craig: Not currently vaccinated Third COVID19 Vaccination Date: Not currently vaccinated Past Medical History PMHx: COPD Bipolar disorder Anxiety Depression HLD Hypothyroidism SurgHx: Denies Family Medical History Significant Family History: Cancer, Hypertension Family History: Bipolar disorder G8 BROTHER G8 SISTER Hypertension 19 MOTHER, Neoplasm 19 MOTHER, (bladder cancer) Review of Systems ([facility]) Constitutional: No chills, No fever EENTM: blurred vision, throat pain (slight sore throat) Respiratory: cough, short of breath Cardiovascular: chest pain, palpitations Gastrointestinal: abdominal pain (mild right sided); No constipation, No diarrhea, No nausea, No vomiting Genitourinary: No dysuria, No hematuria Skin: No rash Psychiatric/Neurological: Headache Reviewed Test Results Reviewed Test Results Lab Laboratory Tests Test 03/07/22 15:45 03/07/22 16:20 03/07/22 22:00 03/08/22 05:57 Range/Units White Blood Count 13.2 H 16.1 H 4.3-11.0 10^3/uL Red Blood Count 4.32 3.91 3.80-5.11 10^6/uL Hemoglobin 11.1 L 10.0 L 11.5-16.0 g/dL Hematocrit 36 34 L 35-52 % Mean Corpuscular Volume 83 87 80-99 fL Mean Corpuscular Hemoglobin 26 26 25-34 pg Mean Corpuscular Hemoglobin Concent 31 L 29 L 32-36 g/dL Red Cell Distribution Width 15.1 H 15.5 H 10.0-14.5 % Platelet Count 468 H 370 130-400 10^3/uL Mean Platelet Volume 8.8 L 9.4 9.0-12.2 fL Immature Granulocyte % (Auto) 1 1 % Neutrophils (%) (Auto) 79 H 83 H 42-75 % Lymphocytes (%) (Auto) 13 8 L 12-44 % Monocytes (%) (Auto) 4 7 0-12 % Eosinophils (%) (Auto) 3 1 0-10 % Basophils (%) (Auto) 0 0 0-10 % Neutrophils # (Auto) 10.4 H 13.3 H 1.8-7.8 10^3/uL Lymphocytes # (Auto) 1.7 1.3 1.0-4.0 10^3/uL Monocytes # (Auto) 0.6 1.1 H 0.0-1.0 10^3/uL Eosinophils # (Auto) 0.5 H 0.2 0.0-0.3 10^3/uL Basophils # (Auto) 0.0 0.0 0.0-0.1 10^3/uL Immature Granulocyte # (Auto) 0.1 0.2 H 0.0-0.1 10^3/uL Prothrombin Time 13.4 12.2-14.7 SEC INR Comment 1.0 0.8-1.4 Activated Partial Thromboplast Time 35 24-35 SEC D-Dimer 3.81 H 0.00-0.49 UG/ML Sodium Level 140 135-145 MMOL/L Potassium Level 3.8 3.6-5.0 MMOL/L Chloride Level 97 L 98-107 MMOL/L Carbon Dioxide Level 31 21-32 MMOL/L Anion Gap 12 5-14 MMOL/L Blood Urea Nitrogen 11 7-18 MG/DL Creatinine 0.66 0.60-1.30 MG/DL Estimat Glomerular Filtration Rate 100 BUN/Creatinine Ratio 17 Glucose Level 105 70-105 MG/DL Lactic Acid Level 0.80 0.68 0.50-2.00 MMOL/L Calcium Level 9.4 8.5-10.1 MG/DL Corrected Calcium 9.5 8.5-10.1 MG/DL Magnesium Level 2.0 1.6-2.4 MG/DL Total Bilirubin 0.4 0.1-1.0 MG/DL Aspartate Amino Transf (AST/SGOT) 19 5-34 U/L Alanine Aminotransferase (ALT/SGPT) 15 0-55 U/L Alkaline Phosphatase 139 H 40-136 U/L Myoglobin 26.6 10.0-92.0 NG/ML Troponin I < 0.30 < 0.028 <0.028 NG/ML C-Reactive Protein 25.44 H <0.50 MG/DL Pro-B-Type Natriuretic Peptide 289.1 H <75.0 PG/ML Total Protein 8.1 6.4-8.2 GM/DL Albumin 3.9 3.2-4.5 GM/DL Lipase 7 L 8-78 U/L Blood Gas Puncture Site R RADIAL Blood Gas Patient Temperature 37.2 Arterial Blood pH 7.48 H 7.37-7.43 Arterial Blood Partial Pressure CO2 48 H 35-45 MMHG Arterial Blood Partial Pressure O2 80 79-93 MMHG Arterial Blood HCO3 36 H 23-27 MMOL/L Arterial Blood Total CO2 37.0 H 21.0-31.0 MMOL/L Arterial Blood Oxygen Saturation 97 94-100 % Arterial Blood Base Excess 10.7 H -2.5-2.5 MMOL/L Kulwinder Test YES-POS Blood Gas Ventilator Setting NO Blood Gas Inspired Oxygen 3 L Test 03/08/22 06:21 Range/Units Sodium Level 137 135-145 MMOL/L Potassium Level 3.5 L 3.6-5.0 MMOL/L Chloride Level 99 98-107 MMOL/L Carbon Dioxide Level 28 21-32 MMOL/L Anion Gap 10 5-14 MMOL/L Blood Urea Nitrogen 10 7-18 MG/DL Creatinine 0.61 0.60-1.30 MG/DL Estimat Glomerular Filtration Rate 102 BUN/Creatinine Ratio 16 Glucose Level 114 H 70-105 MG/DL Calcium Level 8.6 8.5-10.1 MG/DL Corrected Calcium 9.4 8.5-10.1 MG/DL Total Bilirubin 0.4 0.1-1.0 MG/DL Aspartate Amino Transf (AST/SGOT) 15 5-34 U/L Alanine Aminotransferase (ALT/SGPT) 18 0-55 U/L Alkaline Phosphatase 108 40-136 U/L Troponin I < 0.028 <0.028 NG/ML Total Protein 6.4 6.4-8.2 GM/DL Albumin 3.0 L 3.2-4.5 GM/DL Triglycerides Level 68 <150 MG/DL Cholesterol Level 84 < 200 MG/DL LDL Cholesterol Direct 21 1-129 MG/DL VLDL Cholesterol 14 5-40 MG/DL HDL Cholesterol 40 40-60 MG/DL Radiology CXR 03/07/22: IMPRESSION: Atelectasis as well as questionable infiltrate in the right base, as described. Physical Exam-([facility]) Physical Exam Vital Signs VS - Last 72 Hours, by Label 03/07/22 03/07/22 03/07/22 03/07/22 15:38 15:38 17:40 18:35 Temp 37.2 37.2 36.8 Pulse 112 98 100 Resp 30 24 22 B/P (MAP) 132/80 (97) 130/70 129/76 (93) Pulse Ox 92 94 94 O2 Delivery Nasal Cannula Nasal Cannula Nasal Cannula Nasal Cannula O2 Flow Rate 3.00 3.00 3.00 3.00 03/07/22 03/07/22 03/07/22 03/07/22 18:50 18:50 18:55 19:23 Temp 36.8 36.8 37.2 Pulse 97 97 112 Resp 20 20 B/P (MAP) 121/71 (88) 121/71 (88) Pulse Ox 94 94 94 97 O2 Delivery Nasal Cannula Nasal Cannula Nasal Cannula O2 Flow Rate 3.00 3.00 3.00 FiO2 32 03/07/22 03/07/22 03/07/22 03/07/22 19:30 19:30 20:00 21:00 Temp 37.5 37.5 37.1 Pulse 95 95 97 Resp 20 20 18 B/P (MAP) 120/65 (83) 120/65 (83) 120/68 (85) Pulse Ox 100 100 93 95 O2 Delivery Nasal Cannula Nasal Cannula Nasal Cannula Nasal Cannula O2 Flow Rate 3.00 3.00 3.00 3.00 03/07/22 03/07/22 03/07/22 03/07/22 21:30 21:30 21:34 22:28 Temp 36.8 36.8 36.8 Pulse 107 107 103 Resp 16 16 18 B/P (MAP) 113/67 (82) 113/67 (82) 115/58 (77) Pulse Ox 95 95 93 93 O2 Delivery Nasal Cannula Nasal Cannula Nasal Cannula Nasal Cannula O2 Flow Rate 3.00 3.00 3.00 3.00 03/07/22 03/07/22 03/08/22 03/08/22 22:28 23:40 00:00 01:00 Temp 36.8 36.9 Pulse 103 100 103 103 Resp 18 17 B/P (MAP) 115/58 (77) 115/70 (85) Pulse Ox 93 92 O2 Delivery Nasal Cannula Nasal Cannula O2 Flow Rate 3.00 3.00 03/08/22 03/08/22 03/08/22 03/08/22 04:00 04:39 07:00 07:23 Temp 37.0 Pulse 110 109 112 Resp 21 B/P (MAP) 111/85 (94) Pulse Ox 93 94 93 O2 Delivery Nasal Cannula High Flow N/C O2 Flow Rate 8.00 32.00 8.00 03/08/22 03/08/22 07:30 11:22 Temp 36.7 37.4 Pulse 108 108 Resp 20 B/P (MAP) 114/80 (91) 122/79 (93) Pulse Ox 96 93 O2 Delivery Nasal Cannula Nasal Cannula O2 Flow Rate 7.00 5.00 Capillary Refill : Less Than 3 Seconds General Appearance: mild distress Eyes: Bilateral Eye PERRL, Bilateral Eye EOMI HEENT: other (dry mucous membranes) Respiratory: decreased breath sounds (right base), accessory muscle use, rhonchi, wheezing (end expiratory) Cardiovascular: regular rate, rhythm, no murmur Gastrointestinal: normal bowel sounds, soft, distended, tenderness (mid/epigastric mild ttp, left lower quadrant mild to moderate ttp) Extremities: no pedal edema Neurologic/Psychiatric: paralegal assistant II-XII nml as tested, alert, motor weakness (4/5 strength in leg raise bilaterally) Skin: warm/dry, tattoos/piercings Assessment/Plan Assessment/Plan Admission Status: Inpatient Order (span 2 midnights) Reason for Inpatient Admission: Respiratory failure with pneumonia (1) Sepsis due to pneumonia Status: Acute Assessment & Plan: Leukocytosis, tachycardia. No end organ dysfunction or hypotension. Ceftriaxone and azithromycin for CAP. (2) Acute and chronic respiratory failure ([id number]) Status: Acute Assessment & Plan: Suspect secondary to pneumonia/COPD exacerbation, will add solumedrol given wheezing and worsening status overnight. Qualifiers: Qualified Codes: J96.21 - Acute and chronic respiratory failure with hypoxia; J96.22 - Acute and chronic respiratory failure with hypercapnia (3) Pleural effusion Status: Acute Assessment & Plan: Suspect due to pneumonia, but with marked worsening overnight, consult Surgery to consider thoracentesis due to worsening respiratory status and near complete white-out of right lung on CXR today. (4) Elevated d-dimer Status: Acute Assessment & Plan: Initially PE not highly suspected, but worsening respiratory distress overnight, will check CTA. (5) Chest pain Status: Acute Assessment & Plan: Suspect related to pneumonia/pleural effusion. Troponin neg x 3. Qualifiers: Qualified Codes: R07.1 - Chest pain on breathing (6) Hypothyroidism Status: Chronic Assessment & Plan: Resume home levothyroxine. (7) Depression Status: Chronic Assessment & Plan: Resume home venlafaxine (8) Anxiety Status: Chronic Assessment & Plan: Resume home clonazepam (9) Metatarsal fracture Status: Acute Assessment & Plan: Comminuted right fifth metatarsal fracture dx 03/05, was to follow up with Ortho outpatient, will need set up. Qualifiers: (10) Bipolar disorder Status: Chronic Assessment & Plan: On seroquel at home, restarted, but dose may need further adjustment due to unclear home directions between clinic and fill records. (11) COPD (chronic obstructive pulmonary disease) Status: Chronic Assessment & Plan: Resume home Advair (12) DVT prophylaxis Status: Acute Assessment & Plan: Treatment dose enoxaparin while awaiting CTA results. Clinical Quality Measures AMI/AHF: ASA po Prior to arrival: KATARZYNA Steen MD Mar 08, 2022 09:46
[2022-03-08] MEDS ORDERED: NS 100 ML (IVPB) BAG IV ONE (10:00)
[2022-03-08] MEDS ORDERED: IOHEXOL 350 MG/ML 100 ML (OMNIPAQUE 350) VIAL IV ONE (10:00)
[2022-03-08] MEDS ORDERED: HOLD METFORMIN - RECEIVED CONTRAST 20 ML VIAL IV SCH (10:00)
--- NOTE | 2022-03-08 10:59 | Diagnostic Imaging Report ---
PROCEDURE: CT angiography of the chest with contrast. TECHNIQUE: Multiple contiguous axial images were obtained through the chest after uneventful bolus administration of intravenous contrast. 3D reconstructed CTA MIP acquisitions were also performed. Auto Exposure Controls were utilized during the CT exam to meet ALARA standards for radiation dose reduction. INDICATION: Elevated D-dimer. COMPARISON: No prior CT chest studies are available for comparison. Evaluation of the pulmonary arterial system is without evidence of thromboembolism. No definite filling defects are seen within central, lobar or segmental branches. The thoracic aorta is normal caliber. No dissection is identified. No significant pericardial fluid is seen. There is a large right-sided pleural effusion. Only trace left-sided pleural fluid is noted. There is compressive atelectasis in the right upper lobe. There appears to be near complete atelectasis of the right lower lobe. The left lung is clear. The upper abdomen is unremarkable apart from tiny low-attenuation lesion in the anterior right lobe, too small to characterize, but perhaps a small cyst. IMPRESSION: 1. No evidence of pulmonary embolism or acute aortic disease. 2. Large right-sided pleural effusion with resultant compressive atelectasis in the right upper and right lower lobes. Dictated by: Dictated on workstation # [id number]
[2022-03-08] MEDS ORDERED: MIRT45TA75 PO (11:55)
[2022-03-08] MEDS ORDERED: ROSU20TA32 PO (11:55)
[2022-03-08] MEDS ORDERED: CLON0.5T4 PO (11:55)
[2022-03-08] MEDS ORDERED: ESZO3TAB39 PO (11:55)
[2022-03-08] MEDS ORDERED: NITR0.4T42 SL (11:55)
[2022-03-08] MEDS ORDERED: CELE-63 PO (11:55)
[2022-03-08] MEDS ORDERED: FLUT1BLS13 IH (11:56)
[2022-03-08] MEDS ORDERED: VNL75T PO (11:56)
[2022-03-08] MEDS ORDERED: QUET200T29 PO (12:07)
[2022-03-08] MEDS: methylPREDNISolone 40 MG/ML (Solu-MEDROL) VIAL IV SCH ×3 (12:18→23:24)
[2022-03-08 12:59] LABS: ABG BASE EXCESS 6.8 MMOL/L (-2.5-2.5); ABG OXYGEN SATURATION 95 % (94-100); ABG PCO2 69 MMHG (35-45); ABG PO2 78 MMHG (79-93); ABG TCO2 34.9 MMOL/L (21.0-31.0)
[2022-03-08 13:13] LABS: ALLENS TEST YES-POS; INSPIRED O2 32%; PATIENT TEMP 37.4; VENTILATOR NO
[2022-03-08] MEDS: VENlafaxine 75 MG (EFFEXOR) TAB PO SCH ×2 (14:26→18:00)
--- NOTE | 2022-03-08 15:09 | Consultation - Surgery ---
History of Present Illness History of Present Illness Patient Consulted On(maximiliano/time) 03/08/22 15:02 Time Seen by Provider: 14:41 History of Present Illness Surgery asked to consult regarding SOB and pleural fluid. HPI per IM: 61 yo female reports she fell on Friday after missing a couple of steps on the stairs and fractured a bone in her foot. Yesterday she woke up with difficulty breathing and came back to the ER. She has had cough that is productive of mucous that is brown colored. She does have history of COPD and uses inhalers at home and is on 2-3 lpm supplemental oxygen at home but doesn't use it all the time, just at night. She denies using cpap or being told she n eeded it, but last year they wanted to do sleep apnea test which she never got to go through with. She admits chest pain that has been on and off for a while. Pain is severe and sharp and she rates it as 9/10. Her chest is not hurting right now, occurs more with walking. She denies history of heart disease, but does not recall having cardiac work up in the past. I actually came in to see pt while she was being transferred up to the ICU because of worsening SOB and poor ABG. She had been placed on a BiPap and was still struggling to breath; however, nurse stated she was 100% better after getting put on the BiPap. Pt stated she has never had fluid in her lungs before. Pt not really having pain with breathing. Allergies and Home Medications Allergies Coded Allergies: morphine (Unverified Adverse Reaction, Unknown, 06/21/20) Patient Home Medication List Home Medication List Reviewed: Yes Albuterol Sulfate (Proair Hfa) 1 Puff Puff, 2 PUFF IH Q4H PRN for SHORTNESS OF BREATH, (Reported) Entered as Reported by: ABRAHAN MUNOZ on 09/13/19 1048 Last Action: Reviewed Celecoxib (Celecoxib) 200 Mg Capsule, 400 MG PO DAILY, (Reported) Entered as Reported by: DARRIAN INMAN on 03/08/22 1155 Last Action: Reviewed Clonazepam (Clonazepam) 0.5 Mg Tablet, 0.5 MG PO BID PRN for ANXIETY, (Reported) Entered as Reported by: DARRIAN INMAN on 03/08/22 1155 Last Action: Continued Eszopiclone (Eszopiclone) 3 Mg Tablet, 3 MG PO HS, (Reported) Entered as Reported by: DARRIAN INMAN on 03/08/22 115 Last Action: Reviewed Fluticasone Propion/Salmeterol (Fluticasone-Salmeterol 500-50) 500 Mcg-50 Mcg/Dose Blst.w.dev, 1 EACH IH BID, (Reported) Entered as Reported by: DARRIAN INMAN on 03/08/22 115 Last Action: Converted Furosemide (Lasix) 20 Mg Tablet, 20 MG PO DAILY PRN for SWELLING, (Reported) Entered as Reported by: DARRIAN INMAN on 09/07/19 0834 Last Action: Edited Hydrocodone/Acetaminophen (Hydrocodone-Acetamin 5-325 mg) 5 Mg-325 Mg Tablet, 1 TAB PO Q4H PRN for PAIN-MODERATE (5-7) Prescribed by: COREY LUIS on 03/05/22 1910 Last Action: Continued Levothyroxine Sodium (Levothyroxine Sodium) 25 Mcg Tablet, 25 MCG PO DAILY, (Reported) Entered as Reported by: DARRIAN INMAN on 09/07/19 0834 Last Action: Continued Mirtazapine (Mirtazapine) 45 Mg Tablet, 45 MG PO HS, (Reported) Entered as Reported by: DARRIAN INMAN on 03/08/22 115 Last Action: Reviewed Nitroglycerin (Nitroglycerin) 0.4 Mg Tab.subl, 0.4 MG SL UD PRN for CHEST PAIN (ANGINA), (Reported) Entered as Reported by: DARRIAN INMAN on 03/08/22 115 Last Action: Edited Pantoprazole Sodium (Protonix) 40 Mg Tablet.dr, 40 MG PO BID, (Reported) Entered as Reported by: ABRAHAN MUNOZ on 09/13/19 1048 Last Action: Reviewed Quetiapine Fumarate (Quetiapine Fumarate) 200 Mg Tablet, 200 MG PO 0800,1300, (Reported) Entered as Reported by: DARRIAN INMAN on 03/08/22 1207 Last Action: Reviewed Quetiapine Fumarate (Quetiapine Fumarate) 300 Mg Tablet, 300 MG PO HS, (Reported) Entered as Reported by: LARRY LUI on 03/08/22 1528 Last Action: Reviewed Rosuvastatin Calcium (Rosuvastatin Calcium) 20 Mg Tablet, 20 MG PO DAILY, (Repo rted) Entered as Reported by: DARRIAN INMAN on 03/08/22 1155 Last Action: Continued Venlafaxine HCl (Venlafaxine HCl) 75 Mg Tab, 75 MG PO TID, (Reported) Entered as Reported by: DARRIAN INMAN on 03/08/22 1156 Last Action: Continued Discontinued Medications Clonazepam (Klonopin) 0.5 Mg Tablet, 0.5 MG PO QID, (Reported) Entered as Reported by: ABRAHAN MUNOZ on 09/13/19 1032 Last Action: Discontinued Ergocalciferol (Vitamin D2) (Vitamin D2) 1,250 Mcg Capsule, 1,250 MCG PO BID, (Reported) Entered as Reported by: YOLANDA MULLEN on 06/15/20 104 Last Action: Discontinued Fluticasone Propion/Salmeterol (Fluticasone-Salmeterol 100-50) 1 Each Blst.w.dev, 1 EACH IH BID, (Reported) Entered as Reported by: YOLANDA MULLEN on 06/15/20 104 Last Action: Discontinued Oxycodone HCl/Acetaminophen (Oxycodone-Acetaminophen 5-325) 1 Each Tablet, 1 EACH PO Q4H PRN for PAIN-SEVERE Prescribed by: RICHARD MELENDEZ on 09/06/20 0840 Last Action: Discontinued Quetiapine Fumarate (Quetiapine Fumarate) 100 Mg Tablet, 200 MG PO BID, (Reported) Entered as Reported by: YOLANDA MULLEN on 06/15/20 104 Last Action: Discontinued Quetiapine Fumarate (Quetiapine Fumarate) 100 Mg Tablet, 100 MG PO LUNCH, (Reported) Entered as Reported by: YOLANDA MULLEN on 06/15/20 104 Last Action: Discontinued Venlafaxine HCl (Venlafaxine HCl) 75 Mg Tab, 75 MG PO BID, (Reported) Entered as Reported by: YOLANDA MULLEN on 06/15/201043 Last Action: Discontinued Past Tkbaegw-Dbsykh-Uzsuzc Hx Patient Social History Smoking Status: Former Smoker Former Smoker, Quit: Jun 02, 2011 Type Used: Cigarettes 2nd Hand Smoke Exposure: Yes Recent Hopitalizations: No Alcohol Use?: No Have you traveled recently?: No Immunizations Up To Date Tetanus Booster (TDap): Unknown Date of Pneumonia Vaccine: Aug 15, 2016 Seasonal Allergies Seasonal Allergies: Yes Surgeries History of Surgeries: Yes (tubal , hernia, bilat carpal tunnel, FOOT) Surgeries: Gallbladder Respiratory History of Respiratory Disorde: Yes (O2 @ HS 2.5L) Respiratory Disorders: Pneumonia, COPD, Emphysema Cardiovascular History of Cardiac Disorders: Yes Cardiac Disorders: High Cholesterol Neurological History of Neurological Disord: No (recent short term memory loss ( 10/08/19 )) Reproductive System Sexually Transmitted Disease: No HIV/AIDS: No Genitourinary History of Genitourinary Disor: No Gastrointestinal History of Gastrointestinal Di: Yes (gastritis) Gastrointestinal Disorders: Gastroesophageal Reflux, Chronic Constipation, Chronic Diarrhea, Polyps Musculoskeletal History of Musculoskeletal Dis: Yes Musculoskeletal Disorders: Arthritis, Chronic Back Pain Endocrine History of Endocrine Disorders: Yes Endocrine Disorders: Hypothyroidsim HEENT History of HEENT Disorders: Yes (GLASSES, DENTURES) Loss of Vision: Denies Hearing Impairment: Denies Cancer History of Cancer: No Psychosocial History of Psychiatric Problem: Yes Behavioral Health Disorders: Anxiety, Bipolar, Depression Integumentary History of Skin or Integumenta: No Blood Transfusions History of Blood Disorders: No Adverse Reaction to a Blood Tr: No (N/A) Family Medical History Significant Family History: Cancer, Hypertension Family Medial History: Bipolar disorder G8 BROTHER G8 SISTER Hypertension 19 MOTHER, Neoplasm 19 MOTHER, (bladder cancer) Review of Systems-General Constitutional: malaise, weakness EENTM: No blurred vision, No mouth pain, No mouth swelling, No epistaxis Respiratory: cough, dyspnea on exertion; No hemoptysis; short of breath, wheezing Cardiovascular: chest pain; No palpitations Gastrointestinal: No nausea, No vomiting; other (GERD) Genitourinary: No dysuria, No frequency, No hematuria Musculoskeletal: back pain, joint pain, joint swelling, muscle stiffness, other (recent foot fracture) Skin: No change in color, No change in hair/nails Psychiatric/Neurological: Anxiety; Denies Seizure; Weakness Other hx of hypothyroid Physical Exam-General Problems Physical Exam Vital Signs Vital Signs - First Documented 03/07/22 03/07/22 15:38 19:23 Temp 37.2 Pulse 112 Resp 30 B/P (MAP) 132/80 (97) Pulse Ox 92 O2 Delivery Nasal Cannula O2 Flow Rate 3.00 FiO2 32 Capillary Refill : Less Than 3 Seconds General Appearance: moderate distress Eyes: Bilateral Eye PERRL, Bilateral Eye EOMI HEENT: No scleral icterus (R), No scleral icterus (L); other (BiPap in place) Neck: non-tender, supple Respiratory: decreased breath sounds, accessory muscle use, crackles, rhonchi, other (almost no breath sounds right lung and dullness to percussion) Cardiovascular: no murmur, tachycardia Gastrointestinal: soft, no organomegaly, distended Back: no CVA tenderness, no vertebral tenderness Neurologic/Psychiatric: alert, oriented x 3 Skin: normal color, warm/dry Lymphatic: no adenopathy (neck, axilla or groin) Data Review Labs Laboratory Tests 03/07/22 15:45: White Blood Count 13.2H, Red Blood Count 4.32, Hemoglobin 11.1L, Hematocrit 36, Mean Corpuscular Volume 83, Mean Corpuscular Hemoglobin 26, Mean Corpuscular Hemoglobin Concent 31L, Red Cell Distribution Width 15.1H, Platelet Count 468H, Mean Platelet Volume 8.8L, Immature Granulocyte % (Auto) 1, Neutrophils (%) (Auto) 79H, Lymphocytes (%) (Auto) 13, Monocytes (%) (Auto) 4, Eosinophils (%) (Auto) 3, Basophils (%) (Auto) 0, Neutrophils # (Auto) 10.4H, Lymphocytes # (Auto) 1.7, Monocytes # (Auto) 0.6, Eosinophils # (Auto) 0.5H, Basophils # (Auto) 0.0, Immature Granulocyte # (Auto) 0.1, Prothrombin Time 13.4, INR Comment 1.0, Activated Partial Thromboplast Time 35, D-Dimer 3.81H, Sodium Level 140, Potassium Level 3.8, Chloride Level 97L, Carbon Dioxide Level 31, Anion Gap 12, Blood Urea Nitrogen 11, Creatinine 0.66, Estimat Glomerular Filtration Rate 100, BUN/Creatinine Ratio 17, Glucose Level 105, Lactic Acid Level 0.80, Calcium Level 9.4, Corrected Calcium 9.5, Magnesium Level 2.0, Total Bilirubin 0.4, Aspartate Amino Transf (AST/SGOT) 19, Alanine Aminotransferase (ALT/SGPT) 15, Alkaline Phosphatase 139H, Myoglobin 26.6, Troponin I < 0.30, C-Reactive Protein 25.44H, Pro-B-Type Natriuretic Peptide 289.1H, Total Protein 8.1, Albumin 3.9, Lipase 7L 03/07/22 16:20: Blood Gas Puncture Site R RADIAL, Blood Gas Patient Temperature 37.2, Arterial Blood pH 7.48H, Arterial Blood Partial Pressure CO2 48H, Arterial Blood Partial Pressure O2 80, Arterial Blood HCO3 36H, Arterial Blood Total CO2 37.0H, Arterial Blood Oxygen Saturation 97, Arterial Blood Base Excess 10.7H, Kulwinder Test YES-POS, Blood Gas Ventilator Setting NO, Blood Gas Inspired Oxygen 3 L 03/07/22 22:00: Lactic Acid Level 0.68, Troponin I < 0.028 03/08/22 05:57: White Blood Count 16.1H, Red Blood Count 3.91, Hemoglobin 10.0L, Hematocrit 34L, Mean Corpuscular Volume 87, Mean Corpuscular Hemoglobin 26, Mean Corpuscular Hemoglobin Concent 29L, Red Cell Distribution Width 15.5H, Platelet Count 370, Mean Platelet Volume 9.4, Immature Granulocyte % (Auto) 1, Neutrophils (%) (Auto) 83H, Lymphocytes (%) (Auto) 8L, Monocytes (%) (Auto) 7, Eosinophils (%) (Auto) 1, Basophils (%) (Auto) 0, Neutrophils # (Auto) 13.3H, Lymphocytes # (Auto) 1.3, Monocytes # (Auto) 1.1H, Eosinophils # (Auto) 0.2, Basophils # (Auto) 0.0, Immature Granulocyte # (Auto) 0.2H 03/08/22 06:21: Sodium Level 137, Potassium Level 3.5L, Chloride Level 99, Carbon Dioxide Level 28, Anion Gap 10, Blood Urea Nitrogen 10, Creatinine 0.61, Estimat Glomerular Filtration Rate 102, BUN/Creatinine Ratio 16, Glucose Level 114H, Calcium Level 8.6, Corrected Calcium 9.4, Total Bilirubin 0.4, Aspartate Amino Transf (AST/SGOT) 15, Alanine Aminotransferase (ALT/SGPT) 18, Alkaline Phosphatase 108, Troponin I < 0.028, Total Protein 6.4, Albumin 3.0L, Triglycerides Level 68, C holesterol Level 84, LDL Cholesterol Direct 21, VLDL Cholesterol 14, HDL Cholesterol 40 03/08/22 12:50: Blood Gas Puncture Site LR, Blood Gas Patient Temperature 37.4, Arterial Blood pH 7.30*L, Arterial Blood Partial Pressure CO2 69H, Arterial Blood Partial Pressure O2 78L, Arterial Blood HCO3 33H, Arterial Blood Total CO2 34.9H, Arterial Blood Oxygen Saturation 95, Arterial Blood Base Excess 6.8H, Kulwinder Test YES-POS, Blood Gas Ventilator Setting NO, Blood Gas Inspired Oxygen 32% Microbiology 03/07/22 Blood Culture - Preliminary, Resulted No growth Radiology Draft Date of Exam:03/08/22 CT ANGIO CHEST W PROCEDURE: CT angiography of the chest with contrast. TECHNIQUE: Multiple contiguous axial images were obtained through the chest after uneventful bolus administration of intravenous contrast. 3D reconstructed CTA MIP acquisitions were also performed. Auto Exposure Controls were utilized during the CT exam to meet ALARA standards for radiation dose reduction. INDICATION: Elevated D-dimer. COMPARISON: No prior CT chest studies are available for comparison. Evaluation of the pulmonary arterial system is without evidence of thromboembolism. No definite filling defects are seen within central, lobar or segmental branches. The thoracic aorta is normal caliber. No dissection is identified. No significant pericardial fluid is seen. There is a large right-sided pleural effusion. Only trace left-sided pleural fluid is noted. There is compressive atelectasis in the right upper lobe. There appears to be near complete atelectasis of the right lower lobe. The left lung is clear. The upper abdomen is unremarkable apart from tiny low-attenuation lesion in the anterior right lobe, too small to characterize, but perhaps a small cyst. IMPRESSION: 1. No evidence of pulmonary embolism or acute aortic disease. 2. Large right-sided pleural effusion with resultant compressive atelectasis in the right upper and right lower lobes. Dictated on workstation # [id number] Dict: 03/08/22 1050 Trans: 03/08/22 1059 [facility] [id number] Interpreted by: CELESTINE VÁSQUEZ MD Assessment/Plan Assessment/Plan Assessment/Plan Respiratory Distress secondary to Large Right Pleural effusion COPD Pt needs urgent/emergent Thoracentesis at the bedside. Discussed risks and complications with pt not limited to pain, bleeding, infection, damage to vessels and pneumothorax with need for chest tube. All questions answered to her satisfaction. I reviewed her CXR and saw the progression of fluid; as well as looked at the CT images myself. I performed an US at the bedside and could see the fluid in the pleural cavity. I also discussed her case with Dr. Inman and Dr. Goldsmith. Will proceed with thoracentesis. Clinical Quality Measures AMI/AHF: ASA po Prior to arrival: LEE ANN Zimmerman DO Mar 08, 2022 15:09
[2022-03-08] MEDS ORDERED: QUET300T19 PO (15:28)
[2022-03-08] MEDS ORDERED: MIDAZOLAM 2 MG/2 ML (VERSED) VIAL ONE (15:30)
[2022-03-08] MEDS ORDERED: MIDAZOLAM 2 MG/2 ML (VERSED) VIAL IM NR (15:30)
[2022-03-08] MEDS ORDERED: LIDOCAINE 1% INJ 20 ML VIAL ONE (15:34)
--- NOTE | 2022-03-08 15:55 | Progress Note ---
Progress Note Called by RN urgently due to abnormal ABG and patient declining respiratory status. Transferred the patient urgently to ICU. Dr Taveras notified of transfer and he will perform thoracentesis Patient was frightened and breating 40/min but Versed given with good relaxation results Checked meds and labs BiPAP maintained Assessment: Acute respiratory failure requiring ICU transfer and BiPAP Respiratory acidosis with CO2 retention Right sided pleural effusion s/p thoracentesis Plan: ICU Thoracentesis fluid analysis Monitor closely RAMESH ARAMBULA DO Mar 08, 2022 15:55
--- NOTE | 2022-03-08 16:02 | Progress Note-Post Operative ---
Post-Operative Progess Note Surgeon (s)/Shift Supervisor Rn (s) Surgeon LEE ANN KILLIAN DO Shift Supervisor Rn: none Pre-Operative Diagnosis right pleural effusion, respiratory distress Post-Operative Diagnosis same Procedure & Operative Findings Date of Procedure 03/08/22 Procedure Performed/Findings Thoracentesis Right lung PROCEDURE NOTE: After informed consent was obtained, the patient was in her bed in the ICU sitting up and leaning on table. She was sterilely prepped and draped in normal fashion. I had previously marked a spot on her right side above the rib; where I had seen the most fluid. I then infiltrated at this spot and down towards the top of the rib and pleural cavity. Next, made a stab incision with #11 blade and then carefully advanced the thoracentesis catheter into pleural cavity going just over the top of the rib and got a good flash of yellow straw covered fluid. Advanced the catheter sheath over the needle and then removed the needle. At this point hooked up to vacutainer suction and got about 300 ml of fluid out. I believe the muscles between the ribs were clamping down too tight on the catheter, but when I looked with US the fluid I had seen before was gone. She tolerated the procedure; sponge, instrument and needle count correct at the end of the case. I will order a post-op CXR. Anesthesia Type local lidocaine Estimated Blood Loss Estimated blood loss (mL): scant Specimens/Packing Specimens Removed pleural fluid, sent for culture, cytology and cell count LEE ANN KILLIAN DO Mar 08, 2022 16:02
--- NOTE | 2022-03-08 16:28 | Diagnostic Imaging Report ---
EXAMINATION: Chest 1 view HISTORY: Postthoracentesis COMPARISON: 03/08/2022 FINDINGS: There is large right pleural effusion, similar to prior exam. No pneumothorax. There is near complete opacification of the right hemithorax. Left lung is clear. Heart size is mildly enlarged. IMPRESSION: 1. Right pleural effusion similar to prior exam without pneumothorax and near-complete opacification of the right hemithorax. Dictated by: Dictated on workstation # [id number]
[2022-03-08 16:40] LABS: BODY FLUID RBC COUNT 0.001 10^6/uL; BODY FLUID WBC TOTAL COUNT 1.928 10^3/uL
[2022-03-08 16:49] LABS: BODY FLUID SOURCE THORACEN
[2022-03-08 16:50] LABS: BODY FLUID APPEARENCE SLT CLDY; BODY FLUID COLOR PALE YELLOW
--- NOTE | 2022-03-08 16:56 | Tele-ICU Consult ---
History of Present Illness History of Present Illness Date Seen by Provider: Mar 08, 2022 Time Seen by Provider: 15:09 Date of Admission (Tele-ICU Physician , consultation) Available chart/ vitals / labs / Images reviewed H&P is from notes Patient's information available about PMH, Shx, Fhx allergy reviewed in EMR. ROS as per chart and RN report Now in ICU, hemodynamically stable Video assessment done using teleICU camera, rest of exam as per RN Discussed with RN. Consultants: [facility] course: 61 y/o female with pna right pleural effusion transferred for increased O2 needs A/P Ppero-sg-zukaudn resp failure / PNA + AECOPD - on CPAP 6 cm 40 % - CTA 03/08 pending PNA -Ceftriaxone and azithromycin for CAP. Effusion - post fall - ? hemothorox - sx consulted by PCP for thora given resp failure - CTA pending AECOPD - nebs , steroids Comminuted right fifth metatarsal fracture dx 03/05 - as per PCP and ortho Lines : (Central Line Necessity Reviewed) Williamson: OG: Nutrition: Analgesia: Anxiety/ delirium VTE Prophylaxis: on lovenoc to decide after CTA resulrts Stress Ulcer Prophylaxis: na Plans in collaboration with bedside consultants and IM MDs. Discussed with RN to reach out if any questions or concerns A total of 22 minutes of critical care time was devoted to this patient today, required to treat and/or prevent further deterioration of critical care condition ( as above Allergies and Home Medications Allergies Coded Allergies: morphine (Unverified Adverse Reaction, Unknown, 06/21/20) Home Medications Albuterol Sulfate 1 Puff Puff, 2 PUFF IH Q4H PRN for SHORTNESS OF BREATH, (Reported) 1 PUFF = 90 MCG Celecoxib 200 Mg Capsule, 400 MG PO DAILY, (Reported) Clonazepam 0.5 Mg Tablet, 0.5 MG PO BID PRN for ANXIETY, (Reported) Eszopiclone 3 Mg Tablet, 3 MG PO HS, (Reported) Fluticasone Propion/Salmeterol 500 Mcg-50 Mcg/Dose Blst.w.dev, 1 EACH IH BID, (Reported) Furosemide 20 Mg Tablet, 20 MG PO DAILY PRN for SWELLING, (Reported) Hydrocodone/Acetaminophen 5 Mg-325 Mg Tablet, 1 TAB PO Q4H PRN for PAIN-MODERATE (5-7) Prescribed by: COREY LUIS on 03/05/221909 Levothyroxine Sodium 25 Mcg Tablet, 25 MCG PO DAILY, (Reported) Mirtazapine 45 Mg Tablet, 45 MG PO HS, (Reported) Nitroglycerin 0.4 Mg Tab.subl, 0.4 MG SL UD PRN for CHEST PAIN (ANGINA), (Reported) Pantoprazole Sodium 40 Mg Tablet.dr, 40 MG PO BID, (Reported) Quetiapine Fumarate 200 Mg Tablet, 200 MG PO 0800,1300, (Reported) Quetiapine Fumarate 300 Mg Tablet, 300 MG PO HS, (Reported) Rosuvastatin Calcium 20 Mg Tablet, 20 MG PO DAILY, (Reported) Venlafaxine HCl 75 Mg Tab, 75 MG PO TID, (Reported) Past Medical/Social/Family Hx Patient Social History Tobacco Use?: No Tobacco type used: Cigarettes Smoking Status: Former Smoker Use of E-Cig and/or Vaping dev: No Substance use?: No Alcohol Use?: No Alcohol Frequency: Once in a while Pt stated abuse/neglect: No Immunizations Up To Date First/Initial COVID19 Vaccinat: Not currently vaccinated Second COVID19 Vaccination Craig: Not currently vaccinated Tetanus Booster (TDap): Unknown Hepatitis A: No Hepatitis B: No Date of Pneumonia Vaccine: Aug 15, 2016 Current Status status: No Advance Directives: No Primary Language: Bangladeshi Preferred Spoken Language: Bangladeshi Is interpretation needed?: No Sensory deficits: Vision impairment Implanted or Applied Medical D: None Past Medical History PMHx: COPD Bipolar disorder Anxiety Depression HLD Hypothyroidism SurgHx: Denies Review of Systems Constitutional: see HPI Focused Exam Lactate Level 03/07/22 15:45: Lactic Acid Level 0.80 03/07/22 22:00: Lactic Acid Level 0.68 Height, Weight, BMI Height: '" Weight: lbs. oz. kg; 32.88 BMI Method: Exam Exam Patient acknowledged, consented, and participated in this virtual visit which was conducted using real time audio/video Vital Signs Date Time Temp Pulse Resp B/P (MAP) Pulse Ox O2 Delivery O2 Flow Rate FiO2 03/08/22 16:39 High Flow N/C 10.00 03/08/22 16:00 112 170/87 (114) 95 NIV Bilevel 45.00 03/08/22 15:04 110 22 94 45.00 03/08/22 15:00 108 22 157/95 (115) 93 NIV Bilevel 45.00 03/08/22 12:59 93 High Flow N/C 5.00 03/08/22 12:48 114 03/08/22 11:22 37.4 108 20 122/79 (93) 93 Nasal Cannula 5.00 03/08/22 08:00 94 High Flow N/C 7.00 03/08/22 07:30 36.7 108 22 114/80 (91) 96 Nasal Cannula 7.00 03/08/22 07:23 93 High Flow N/C 8.00 03/08/22 07:00 112 03/08/22 04:39 109 21 94 32.00 03/08/22 04:00 37.0 110 24 111/85 (94) 93 Nasal Cannula 8.00 03/08/22 01:00 103 03/08/22 00:00 36.9 103 17 115/70 (85) 92 Nasal Cannula 3.00 03/07/22 23:40 100 03/07/22 22:28 36.8 103 18 115/58 (77) 93 Nasal Cannula 3.00 03/07/22 22:28 36.8 103 18 115/58 (77) 93 Nasal Cannula 3.00 03/07/22 21:34 93 Nasal Cannula 3.00 03/07/22 21:30 36.8 107 16 113/67 (82) 95 Nasal Cannula 3.00 03/07/22 21:30 36.8 107 16 113/67 (82) 95 Nasal Cannula 3.00 03/07/22 21:00 37.1 97 18 120/68 (85) 95 Nasal Cannula 3.00 03/07/22 20:00 93 Nasal Cannula 3.00 03/07/22 19:30 37.5 95 20 120/65 (83) 100 Nasal Cannula 3.00 03/07/22 19:30 37.5 95 20 120/65 (83) 100 Nasal Cannula 3.00 03/07/22 19:23 37.2 112 97 32 03/07/22 18:55 94 Nasal Cannula 3.00 03/07/22 18:50 36.8 97 20 121/71 (88) 94 Nasal Cannula 3.00 03/07/22 18:50 36.8 97 20 121/71 (88) 94 Nasal Cannula 3.00 03/07/22 18:35 36.8 100 22 129/76 (93) 94 Nasal Cannula 3.00 03/07/22 17:40 37.2 98 24 130/70 94 Nasal Cannula 3.00 3.00 I & O 03/08/22 07:00 Intake Total 2560 ml Balance 2560 ml Height & Weight Height: '" Weight: lbs. oz. kg; 32.88 BMI Method: General Appearance: Anxious, Mild Distress, Moderate Distress HEENT: PERRL/EOMI, Pharynx Normal, Moist Mucous Membranes Neck: Full Range of Motion, Normal Inspection, Non Tender Respiratory: Chest Non Tender, No Accessory Muscle Use; No Crackles; Respiratory Distress (Mild with oxygen saturations 98 to 99% on room air, wheezing bilateral on expiration and increased rate of breathing, 24 to 26 breaths/min.), Wheezing Cardiovascular: Regular Rate, Rhythm, No Edema, No Murmur, Normal Peripheral Pulses, Tachycardia (105) Capillary Refill: Less Than 3 Seconds Gastrointestinal: soft, no organomegaly, distended Extremity: Normal Capillary Refill, Normal Inspection, No Pedal Edema Neurologic/Psychiatric: Alert, Oriented x3, No Motor/Sensory Deficits Skin: Normal Color, Warm/Dry Results Lab Laboratory Tests 03/07/22 15:45 03/08/22 05:57 03/08/22 06:21 Assessment/Plan Assessment/Plan . SAIMA HACKETT MD Mar 08, 2022 16:56
[2022-03-08 17:08] LABS: TOTAL PROTEIN,BODY FLUID 4.5 G/DL
[2022-03-08 17:09] LABS: BODY FLUID TRIGLYCERIDES 48 MG/DL; LDH,BODY FLUID 404 U/L
[2022-03-08] MEDS ORDERED: LIDOCAINE 1% INJ 20 ML VIAL INJ NR (17:30)
[2022-03-08] MEDS: AZITHROMYCIN 500 MG/NS 250 ML IVPB IV SCH ×2 (17:39)
[2022-03-08] MEDS: LORazepam 0.5 MG (ATIVAN) TABLET PO PRN (17:46)
[2022-03-08 18:03] LABS: BODY FLUID PH 7.5
[2022-03-08] MEDS: ENOXAPARIN 80 MG/0.8 ML (LOVENOX) SYR SC SCH (20:57)
[2022-03-08] MEDS ORDERED: NON-FORMULARY MEDICATION 1 EA EA (Fluticasone Propion/Salmeterol (Fluticasone-Salmeterol 5 IH SCH (21:00)
[2022-03-08] MEDS: RT--FLUTICASONE/SALMETEROL 232-14 (AIRDUO RespiCLICK) IH SCH (22:15)
[2022-03-09] VITALS (23 sets, daily range): BP systolic 63–142; BP diastolic 51–97
[2022-03-09] MEDS: LACTATED RINGERS 1,000 ML IV SCH ×3 (01:15→07:57)
[2022-03-09] MEDS: RT-ALBUTEROL/IPRATROPIUM 3 ML (DUONEB) VIAL INH SCH ×5 (02:13→22:15)
--- NOTE | 2022-03-09 06:06 | Progress Note - Hospitalist ---
Subjective HPI/CC On Admission Date Seen by Provider: Mar 09, 2022 Time Seen by Provider: 09:30 Subjective/Events-last exam Patient doing a bit better Thoracentesis only removed a small amount of fluid Patient still very short of breath and desats with any activity Very challenging case High risk for intubation Review of Systems Pulmonary: Dyspnea, Cough Focused Exam Lactate Level 03/07/22 15:45: Lactic Acid Level 0.80 03/07/22 22:00: Lactic Acid Level 0.68 Objective Exam Vital Signs Vital Signs Date Time Temp Pulse Resp B/P (MAP) Pulse Ox O2 Delivery O2 Flow Rate FiO2 03/10/22 06:00 90 16 106/65 (79) 95 NIV Bilevel 50.00 03/09/22 19:36 36.5 03/07/22 19:23 32 Capillary Refill : Less Than 3 Seconds General Appearance: Anxious, Mild Distress Respiratory: No Respiratory Distress, Accessory Muscle Use, Decreased Breath Sounds Cardiovascular: Regular Rate, Rhythm Neurologic/Psychiatric: Alert, Oriented x3, No Motor/Sensory Deficits, Normal Mood/Affect Results/Procedures Lab Laboratory Tests 03/10/22 04:42 Patient resulted labs reviewed. Assessment/Plan Assessment and Plan Assess & Plan/Chief Complaint Assessment: Acute respiratory failure requiring BiPAP Pleural effusion status postthoracentesis Pneumonia Hypoxia Hypothyroidism Anxiety Plan: Oxygen BiPAP High risk for intubation Clinical Quality Measures AMI/AHF: ASA po Prior to arrival: RAMESH Salazar DO Mar 09, 2022 06:06
[2022-03-09] MEDS: methylPREDNISolone 40 MG/ML (Solu-MEDROL) VIAL IV SCH ×3 (06:15→17:24)
[2022-03-09] MEDS: LEVOTHYROXINE 25 MCG (LEVOTHROID) TAB PO SCH (06:15)
[2022-03-09 06:28] LABS: BASOPHILS % (AUTO) 0 % (0-10); EOSINOPHILS % (AUTO) 0 % (0-10); HEMATOCRIT 31 % (35-52); LYMPHOCYTES # (AUTO) 0.7 10^3/uL (1.0-4.0); LYMPHOCYTES % (AUTO) 3 % (12-44); MEAN CORPUSCULAR HEMOGLOBIN 26 pg (25-34); MEAN CORPUSCULAR HGB CONC 30 g/dL (32-36); MEAN CORPUSCULAR VOLUME 86 fL (80-99); MEAN PLATELET VOLUME 9.3 fL (9.0-12.2); MONOCYTES # (AUTO) 0.8 10^3/uL (0.0-1.0); MONOCYTES % (AUTO) 3 % (0-12); NEUTROPHILS # (AUTO) 20.9 10^3/uL (1.8-7.8); NEUTROPHILS % (AUTO) 92 % (42-75); PLATELET COUNT 389 10^3/uL (130-400); WHITE BLOOD COUNT 22.7 10^3/uL (4.3-11.0)
[2022-03-09 06:42] LABS: POTASSIUM 3.4 MMOL/L (3.6-5.0)
[2022-03-09 06:43] LABS: CALCIUM 9.4 MG/DL (8.5-10.1)
[2022-03-09 06:45] LABS: TOTAL PROTEIN 6.6 GM/DL (6.4-8.2)
[2022-03-09 06:46] LABS: BILIRUBIN,TOTAL 0.2 MG/DL (0.1-1.0)
[2022-03-09 06:48] LABS: CREATININE SERUM 0.61 MG/DL (0.60-1.30)
[2022-03-09 06:52] LABS: BAND NEUTROPHILS 13 %; LYMPHOCYTES % (MANUAL) 2 %; MONOCYTES % (MANUAL) 10 %; NEUTROPHILS % (MANUAL) 75 %
[2022-03-09 06:53] LABS: ANISOCYTOSIS SLIGHT; HYPOCHROMASIA MARKED; MICROCYTOSIS SLIGHT
[2022-03-09] MEDS ORDERED: KCL 20 MEQ TAB (K-DUR) PO ONE ×2 (07:30→07:45)
[2022-03-09] MEDS: POTASSIUM CL 10MEQ/50ML IVPB 50 ML IV SCH (07:33)
[2022-03-09] MEDS: MAGNESIUM 1 GM/100 ML IVPB 100 ML IV SCH (07:33)
[2022-03-09] MEDS: KCL 20 MEQ TAB (K-DUR) PO SCH (07:33)
[2022-03-09] MEDS: RT--FLUTICASONE/SALMETEROL 232-14 (AIRDUO RespiCLICK) IH SCH ×2 (07:51→18:47)
[2022-03-09] MEDS: ROSUVASTATIN 20 MG (CRESTOR) TABLET PO SCH (07:56)
[2022-03-09] MEDS: PANTOPRAZOLE 40 MG (PROTONIX) TAB PO SCH (07:56)
[2022-03-09] MEDS: QUEtiapine 200 MG (SEROquel) TAB IMMEDIATE RELEASE PO SCH ×2 (07:56→21:35)
[2022-03-09] MEDS: cefTRIAXone 1 GM/50 ML (PRE-MIX) IV SCH (07:57)
[2022-03-09] MEDS: ENOXAPARIN 80 MG/0.8 ML (LOVENOX) SYR SC SCH ×2 (07:57→21:35)
[2022-03-09] MEDS ORDERED: LEVOTHYROXINE 25 MCG (LEVOTHROID) TAB PO SCH (09:00)
[2022-03-09] MEDS: VENlafaxine 75 MG (EFFEXOR) TAB PO SCH ×3 (10:55→17:24)
--- NOTE | 2022-03-09 10:58 | Tele-ICU Progress Note ---
Subjective Date Seen by a Provider: Mar 09, 2022 Time Seen by a Provider: 10:57 Subjective/Events-last exam Available chart/vitals/labs/images reviewed. Video assessment done using telemetry ICU camera, rest of exam as per RN. Discussion with the RN, exam as per RN. Hospital course She is admitted with shortness of breath and found to have a right pleural effusion moderately large subsequently right-sided thoracentesis was done and fluid analysis is suggestive of a exudate with the neutrophil predominant suggestive that it could be a parapneumonic effusion. Currently she is requiring 10 L of high flow nasal cannula oxygen. She is resting comfortably. CTA of the chest showed no pulmonary embolism but showed pleural effusion with underlying atelectasis. After the thoracentesis however longer did not expand completely she is still looks like has some more fluid. She is receiving IV antibiotics for possible underlying pneumonia and sepsis. Chest pain apparently decreasing. Sepsis Event Evaluation Height, Weight, BMI Height: '" Weight: lbs. oz. kg; 32.88 BMI Method: Focused Exam Lactate Level 03/07/22 15:45: Lactic Acid Level 0.80 03/07/22 22:00: Lactic Acid Level 0.68 Exam Exam Patient acknowledged, consented, and participated in this virtual visit which was conducted using real time audio/video Vital Signs Date Time Temp Pulse Resp B/P (MAP) Pulse Ox O2 Delivery O2 Flow Rate FiO2 03/09/22 09:00 106 24 123/71 (88) 92 High Flow N/C 10.00 03/09/22 08:00 86 17 139/90 (106) 95 High Flow N/C 10.00 03/09/22 07:52 95 High Flow N/C 10.00 03/09/22 07:49 93 High Flow N/C 10.00 03/09/22 07:00 88 03/09/22 07:00 84 18 142/97 (112) 92 High Flow N/C 10.00 03/09/22 06:00 94 22 138/80 (99) 93 High Flow N/C 10.00 03/09/22 05:00 116 21 104/62 (76) 92 High Flow N/C 10.00 03/09/22 04:00 92 21 122/81 (95) 92 High Flow N/C 10.00 03/09/22 03:00 97 15 126/89 (101) 94 High Flow N/C 10.00 03/09/22 02:14 93 High Flow N/C 10.00 03/09/22 02:00 89 118/81 (93) 94 High Flow N/C 10.00 03/09/22 01:00 95 90 High Flow N/C 10.00 03/09/22 01:00 100 03/09/22 00:00 95 90 High Flow N/C 10.00 03/08/22 23:00 113 20 92/45 (61) 92 High Flow N/C 10.00 03/08/22 22:15 115 22 94 50.00 03/08/22 22:00 115 35 139/88 (105) 92 High Flow N/C 10.00 03/08/22 21:00 113 36 123/72 (89) 92 High Flow N/C 10.00 03/08/22 20:00 114 136/96 (109) 95 High Flow N/C 10.00 03/08/22 20:00 92 High Flow N/C 7.00 03/08/22 19:00 118 145/90 (108) 91 High Flow N/C 10.00 03/08/22 19:00 125 03/08/22 18:26 93 High Flow N/C 10.00 03/08/22 18:00 110 21 125/91 (102) 94 High Flow N/C 10.00 03/08/22 17:00 113 133/76 (95) 94 High Flow N/C 10.00 03/08/22 16:39 High Flow N/C 10.00 03/08/22 16:00 112 170/87 (114) 95 NIV Bilevel 45.00 03/08/22 15:04 110 22 94 45.00 03/08/22 15:00 108 22 157/95 (115) 93 NIV Bilevel 45.00 03/08/22 12:59 93 High Flow N/C 5.00 03/08/22 12:48 114 03/08/22 11:22 37.4 108 20 122/79 (93) 93 Nasal Cannula 5.00 I & O 03/09/22 06:59 Intake Total 2872 ml Output Total 3 ml Balance 2869 ml Height & Weight Height: '" Weight: lbs. oz. kg; 32.88 BMI Method: General Appearance: Anxious, Mild Distress, Moderate Distress HEENT: PERRL/EOMI, Pharynx Normal, Moist Mucous Membranes Neck: Full Range of Motion, Normal Inspection, Non Tender Respiratory: Chest Non Tender, No Accessory Muscle Use; No Crackles; Respiratory Distress (Mild with oxygen saturations 98 to 99% on room air, wheezing bilateral on expiration and increased rate of breathing, 24 to 26 breaths/min.), Wheezing Cardiovascular: Regular Rate, Rhythm, No Edema, No Murmur, Normal Peripheral Pulses, Tachycardia (105) Capillary Refill: Less Than 3 Seconds Gastrointestinal: soft, no organomegaly, distended Extremity: Normal Capillary Refill, Normal Inspection, No Pedal Edema Neurologic/Psychiatric: Alert, Oriented x3, No Motor/Sensory Deficits Skin: Normal Color, Warm/Dry Other comments PE PER RN Results Lab Laboratory Tests 03/07/22 15:45 03/08/22 05:57 03/08/22 06:21 03/09/22 05:44 Assessment/Plan Assessment/Plan 1. Acute on chronic respiratory failure secondary to pneumonia with moderate to large pleural effusion causing atelectasis of the right lower lobe with an underlying COPD. 2. Exudative pleural effusion most likely follow-up for parapneumonic effusion. 3. Chest pain due to pleurisy improving. 4. History of bipolar disorder and anxiety. 5. History of hypothyroidism. Recommendations 1. Continue IV antibiotics per primary care physician 2. Wean FiO2 as tolerated 3. Suggest to repeat CT of the chest without contrast to further evaluate pleural effusion and see whether we need to do thoracentesis again. If the fluid is to take we may have to put a chest tube. 4. DVT prophylaxis and ulcer prophylaxis. 5. Discussed with the TIN PLATER and made a video visit. Critical Care: Critically Ill Patient Time spent with patient (mins): 20 SASCHA COATS MD Mar 09, 2022 10:58
[2022-03-09] MEDS: HYDROcodone/APAP 5 MG/325 MG (LORTAB) TAB PO PRN ×2 (11:56→18:24)
[2022-03-09] MEDS: fentaNYL INJ 100 MCG/2 ML AMP IV PRN ×3 (12:34→20:18)
--- NOTE | 2022-03-09 13:10 | Progress Note - Surgery ---
Subjective Time Seen by a Provider: 12:01 Subjective/Events-last exam Pt seen and examined, sitting up in bed and appears comfortable. Mild to moderate work of breathing and pulse ox 94% on 10L, she is off BiPap. Review of Systems Pulmonary: Dyspnea, Cough Cardiovascular: No: Chest Pain, Palpitations Gastrointestinal: No: Nausea, Vomiting, Abdominal Pain Focused Exam Lactate Level 03/07/22 15:45: Lactic Acid Level 0.80 03/07/22 22:00: Lactic Acid Level 0.68 Objective Exam Vital Signs Date Time Temp Pulse Resp B/P (MAP) Pulse Ox O2 Delivery O2 Flow Rate FiO2 03/09/22 12:53 100 03/09/22 12:30 36.3 03/09/22 12:11 High Flow N/C 10.00 03/09/22 12:00 98 119/76 (90) 92 High Flow N/C 10.00 03/09/22 11:00 106 36 130/79 (96) 96 High Flow N/C 10.00 03/09/22 10:00 97 17 103/67 (79) 94 High Flow N/C 10.00 03/09/22 09:00 106 24 123/71 (88) 92 High Flow N/C 10.00 03/09/22 08:00 86 17 139/90 (106) 95 High Flow N/C 10.00 03/09/22 08:00 High Flow N/C 10.00 03/09/22 08:00 35.9 03/09/22 07:52 95 High Flow N/C 10.00 03/09/22 07:49 93 High Flow N/C 10.00 03/09/22 07:00 88 03/09/22 07:00 84 18 142/97 (112) 92 High Flow N/C 10.00 03/09/22 06:00 94 22 138/80 (99) 93 High Flow N/C 10.00 03/09/22 05:00 116 21 104/62 (76) 92 High Flow N/C 10.00 03/09/22 04:00 92 21 122/81 (95) 92 High Flow N/C 10.00 03/09/22 03:00 97 15 126/89 (101) 94 High Flow N/C 10.00 03/09/22 02:14 93 High Flow N/C 10.00 03/09/22 02:00 89 118/81 (93) 94 High Flow N/C 10.00 03/09/22 01:00 95 90 High Flow N/C 10.00 03/09/22 01:00 100 03/09/22 00:00 95 90 High Flow N/C 10.00 03/08/22 23:00 113 20 92/45 (61) 92 High Flow N/C 10.00 03/08/22 22:15 115 22 94 50.00 03/08/22 22:00 115 35 139/88 (105) 92 High Flow N/C 10.00 03/08/22 21:00 113 36 123/72 (89) 92 High Flow N/C 10.00 03/08/22 20:00 114 136/96 (109) 95 High Flow N/C 10.00 03/08/22 20:00 92 High Flow N/C 7.00 03/08/22 19:00 118 145/90 (108) 91 High Flow N/C 10.00 03/08/22 19:00 125 03/08/22 18:26 93 High Flow N/C 10.00 03/08/22 18:00 110 21 125/91 (102) 94 High Flow N/C 10.00 03/08/22 17:00 113 133/76 (95) 94 High Flow N/C 10.00 03/08/22 16:39 High Flow N/C 10.00 03/08/22 16:00 112 170/87 (114) 95 NIV Bilevel 45.00 03/08/22 15:04 110 22 94 45.00 03/08/22 15:00 108 22 157/95 (115) 93 NIV Bilevel 45.00 I & O 03/09/22 07:00 Intake Total 2872 ml Output Total 3 ml Balance 2869 ml Capillary Refill : Less Than 3 Seconds General Appearance: Anxious, Mild Distress HEENT: PERRL/EOMI, Pharynx Normal, Moist Mucous Membranes Respiratory: Chest Non Tender, No Accessory Muscle Use; No Crackles; Decreased Breath Sounds (right lung, almost lucien), Wheezing Cardiovascular: Regular Rate, Rhythm, No Edema, No Murmur, Normal Peripheral Pulses, Tachycardia (105) Gastrointestinal: soft, no organomegaly, distended Extremity: Normal Capillary Refill, Normal Inspection, No Pedal Edema Neurologic/Psychiatric: Alert, Oriented x3 Results Lab Laboratory Tests 03/08/22 15:38: Body Fluid Source THORACEN, Body Fluid Color PALE YELLOW, Body Fluid Appearance SLT CLDY, Body Fluid pH 7.5, Body Fluid WBC 1.928, Body Fluid RBC 0.001, Body Fl Polynuclear WBCs (%)(Auto) 92.1, Body Fluid Mononuclear Cells % Auto 7.9, Body Fluid Slide Review Yes, Body Fluid Total Protein 4.5, Body Fluid Lactate Dehydrogenase 404, Body Fluid Triglycerides 48 03/09/22 05:44: White Blood Count 22.7H, Red Blood Count 3.53L, Hemoglobin 9.0L, Hematocrit 31L, Mean Corpuscular Volume 86, Mean Corpuscular Hemoglobin 26, Mean Corpuscular Hemoglobin Concent 30L, Red Cell Distribution Width 15.6H, Platelet Count 389, Mean Platelet Volume 9.3, Immature Granulocyte % (Auto) 1, Neutrophils (%) (Auto) 92H, Lymphocytes (%) (Auto) 3L, Monocytes (%) (Auto) 3, Eosinophils (%) (Auto) 0, Basophils (%) (Auto) 0, Neutrophils # (Auto) 20.9H, Lymphocytes # (A uto) 0.7L, Monocytes # (Auto) 0.8, Eosinophils # (Auto) 0.0, Basophils # (Auto) 0.0, Immature Granulocyte # (Auto) 0.3H, Neutrophils % (Manual) 75, Lymphocytes % (Manual) 2, Monocytes % (Manual) 10, Band Neutrophils 13, Hypochromasia MARKED, Anisocytosis SLIGHT, Microcytosis SLIGHT, Sodium Level 143, Potassium Level 3.4L, Chloride Level 101, Carbon Dioxide Level 31, Anion Gap 11, Blood Urea Nitrogen 9, Creatinine 0.61, Estimat Glomerular Filtration Rate 102, BUN/Creatinine Ratio 15, Glucose Level 135H, Calcium Level 9.4, Corrected Calcium 10.2H, Magnesium Level 2.2, Total Bilirubin 0.2, Aspartate Amino Transf (AST/SGOT) 13, Alanine Aminotransferase (ALT/SGPT) 19, Alkaline Phosphatase 110, Total Protein 6.6, Albumin 3.0L Microbiology 03/08/22 Gram Stain, Resulted Pending 03/08/22 Body Fluid Culture - Preliminary, Resulted No growth 6/23/22 Blood Culture - Preliminary, Resulted No growth Assessment/Plan Assessment/Plan Assessment/Plan Respiratory Distress secondary to Large Right Pleural effusion COPD Pt had an urgent/emergent Thoracentesis at the bedside; unfortunately only able to get about 300ml of fluid. Mostly because the muscles between the ribs squeezed the catheter like a straw and basically cut off the drainage. I looked at the CXR myself and it is minimally better, but not much. However, she is off BiPap for now. I talked with the pt about waiting to see if Radiology has a firmer catheter to try and drain more of the fluid. After that it would be a chest tube; which I would like to try and avoid Will monitor breathing and O2 saturation. CXR did not show a PTX. Clinical Quality Measures AMI/AHF: ASA po Prior to arrival: LEE ANN Zimmerman DO Mar 09, 2022 13:10
[2022-03-09] MEDS: LORazepam 0.5 MG (ATIVAN) TABLET PO PRN (14:40)
[2022-03-09] MEDS: AZITHROMYCIN 500 MG/NS 250 ML IVPB IV SCH ×2 (15:16)
[2022-03-10] VITALS (28 sets, daily range): BP systolic 90–149; BP diastolic 61–99
[2022-03-10] MEDS: clonazePAM 0.5 MG (KlonoPIN) TAB PO PRN (00:56)
[2022-03-10] MEDS: methylPREDNISolone 40 MG/ML (Solu-MEDROL) VIAL IV SCH ×5 (00:57→23:15)
[2022-03-10] MEDS: RT-ALBUTEROL/IPRATROPIUM 3 ML (DUONEB) VIAL INH SCH ×6 (02:15→22:03)
[2022-03-10 05:08] LABS: BASOPHILS % (AUTO) 0 % (0-10); EOSINOPHILS % (AUTO) 0 % (0-10); HEMATOCRIT 26 % (35-52); HEMOGLOBIN 7.8 g/dL (11.5-16.0); LYMPHOCYTES # (AUTO) 0.7 10^3/uL (1.0-4.0); LYMPHOCYTES % (AUTO) 3 % (12-44); MEAN CORPUSCULAR HEMOGLOBIN 25 pg (25-34); MEAN CORPUSCULAR HGB CONC 30 g/dL (32-36); MEAN CORPUSCULAR VOLUME 86 fL (80-99); MEAN PLATELET VOLUME 9.5 fL (9.0-12.2); MONOCYTES # (AUTO) 0.7 10^3/uL (0.0-1.0); MONOCYTES % (AUTO) 3 % (0-12); NEUTROPHILS # (AUTO) 21.6 10^3/uL (1.8-7.8); NEUTROPHILS % (AUTO) 93 % (42-75); PLATELET COUNT 392 10^3/uL (130-400); WHITE BLOOD COUNT 23.2 10^3/uL (4.3-11.0)
[2022-03-10 05:22] LABS: ALBUMIN 2.9 GM/DL (3.2-4.5); POTASSIUM 3.9 MMOL/L (3.6-5.0)
[2022-03-10 05:24] LABS: CALCIUM 9.1 MG/DL (8.5-10.1)
[2022-03-10 05:25] LABS: TOTAL PROTEIN 6.6 GM/DL (6.4-8.2)
[2022-03-10 05:27] LABS: BILIRUBIN,TOTAL 0.2 MG/DL (0.1-1.0)
[2022-03-10 05:28] LABS: CREATININE SERUM 0.57 MG/DL (0.60-1.30)
[2022-03-10] MEDS: POTASSIUM CL 10MEQ/50ML IVPB 50 ML IV SCH (05:30)
[2022-03-10] MEDS: KCL 20 MEQ TAB (K-DUR) PO SCH (05:30)
[2022-03-10 05:31] LABS: MAGNESIUM 2.5 MG/DL (1.6-2.4)
[2022-03-10] MEDS: MAGNESIUM 1 GM/100 ML IVPB 100 ML IV SCH (05:50)
[2022-03-10] MEDS: LEVOTHYROXINE 25 MCG (LEVOTHROID) TAB PO SCH (06:16)
--- NOTE | 2022-03-10 07:33 | Progress Note - Hospitalist ---
Subjective HPI/CC On Admission Date Seen by Provider: Mar 10, 2022 Time Seen by Provider: 10:30 Subjective/Events-last exam No major changes with the patient Catheter was placed due to shortness of breath with exertion to get up to go to the bathroom CT-guided thoracentesis may be required tomorrow White count 23,000 with hemoglobin 7.8 Will hold Lovenox Review of Systems General: Fatigue, Malaise Pulmonary: Dyspnea, Cough Focused Exam Lactate Level 03/07/22 22:00: Lactic Acid Level 0.68 Objective Exam Vital Signs Vital Signs Date Time Temp Pulse Resp B/P (MAP) Pulse Ox O2 Delivery O2 Flow Rate FiO2 03/10/22 19:42 36.4 03/10/22 19:35 91 High Flow N/C 10.00 03/10/22 19:00 101 29 141/87 (105) 03/07/22 19:23 32 Capillary Refill : Less Than 3 Seconds General Appearance: Anxious, Chronically ill, Mild Distress Respiratory: Accessory Muscle Use, Decreased Breath Sounds Cardiovascular: Tachycardia Neurologic/Psychiatric: Alert, Oriented x3, No Motor/Sensory Deficits, Normal Mood/Affect Results/Procedures Lab Laboratory Tests 03/10/22 04:42 Patient resulted labs reviewed. Assessment/Plan Assessment and Plan Assess & Plan/Chief Complaint Assessment: Acute respiratory failure requiring BiPAP Pleural effusion status postthoracentesis Pneumonia Hypoxia Hypothyroidism Anxiety Plan: Oxygen BiPAP High risk for intubation Critical Care Critically Ill Patient Clinical Quality Measures AMI/AHF: ASA po Prior to arrival: RAMESH Salazar DO Mar 10, 2022 07:33
[2022-03-10 07:58] LABS: ABG BASE EXCESS 10.1 MMOL/L (-2.5-2.5); ABG OXYGEN SATURATION 74 % (94-100); ABG PCO2 56 MMHG (35-45); ABG PH 7.41 (7.37-7.43); ABG TCO2 37.1 MMOL/L (21.0-31.0)
[2022-03-10 08:02] LABS: ABG PO2 38 MMHG (79-93)
[2022-03-10 08:03] LABS: ALLENS TEST YES-POS; INSPIRED O2 50%; PATIENT TEMP 35.7; VENTILATOR NO
[2022-03-10] MEDS: HYDROcodone/APAP 5 MG/325 MG (LORTAB) TAB PO PRN ×2 (08:05→20:28)
[2022-03-10] MEDS: VENlafaxine 75 MG (EFFEXOR) TAB PO SCH ×3 (08:05→17:41)
[2022-03-10] MEDS: LORazepam 0.5 MG (ATIVAN) TABLET PO PRN ×2 (08:05→21:04)
[2022-03-10] MEDS: PANTOPRAZOLE 40 MG (PROTONIX) TAB PO SCH (08:05)
[2022-03-10] MEDS: QUEtiapine 200 MG (SEROquel) TAB IMMEDIATE RELEASE PO SCH ×2 (08:05→20:28)
[2022-03-10] MEDS: ROSUVASTATIN 20 MG (CRESTOR) TABLET PO SCH (08:05)
[2022-03-10] MEDS: cefTRIAXone 1 GM/50 ML (PRE-MIX) IV SCH (08:06)
--- NOTE | 2022-03-10 08:14 | Tele-ICU Progress Note ---
Subjective Date Seen by a Provider: Mar 10, 2022 Time Seen by a Provider: 08:14 Subjective/Events-last exam Available chart/vitals/labs/images reviewed. Video assessment done using telemetry ICU camera, rest of exam as per RN. Discussion with the RN, exam as per RN. Hospital course Today she is feeling somewhat better. She is off the BiPAP. Still feeling somewhat short of breath. Minimal right-sided chest pain present. A chest x- ray done today revealed significant right pleural effusion with possible underlying collapse consolidation. Likely due to pneumonia with parapneumonic effusion. May be loculated. Does not seems to be in any acute respiratory distress on video visit. ABG reviewed and discussed with RT which seems to be venous. Sepsis Event Evaluation Height, Weight, BMI Height: '" Weight: lbs. oz. kg; 32.88 BMI Method: Focused Exam Lactate Level 03/07/22 15:45: Lactic Acid Level 0.80 03/07/22 22:00: Lactic Acid Level 0.68 Exam Exam Patient acknowledged, consented, and participated in this virtual visit which was conducted using real time audio/video Vital Signs Date Time Temp Pulse Resp B/P (MAP) Pulse Ox O2 Delivery O2 Flow Rate FiO2 03/10/22 07:00 75 03/10/22 06:58 89 18 94 50.00 03/10/22 06:00 90 16 106/65 (79) 95 NIV Bilevel 50.00 03/10/22 05:00 92 16 100/76 (84) 96 NIV Bilevel 50.00 03/10/22 04:00 90 31 109/71 (84) 93 NIV Bilevel 50.00 03/10/22 03:00 93 16 115/78 (90) 94 NIV Bilevel 50.00 03/10/22 02:15 82 17 94 50.00 03/10/22 02:00 89 15 116/70 (85) 94 NIV Bilevel 50.00 03/10/22 01:00 100 03/10/22 01:00 87 24 105/68 (80) 93 NIV Bilevel 50.00 03/10/22 00:00 98 14 106/63 (77) 93 NIV Bilevel 50.00 03/09/22 23:00 98 14 89/51 (64) 93 NIV Bilevel 50.00 03/09/22 22:31 NIV Bilevel 50.00 03/09/22 22:15 97 25 96 50.00 03/09/22 22:00 82 28 106/55 (72) 96 High Flow N/C 10.00 03/09/22 21:00 99 37 124/88 (100) 95 High Flow N/C 10.00 03/09/22 20:00 90 31 128/81 (97) 95 High Flow N/C 10.00 03/09/22 20:00 High Flow N/C 10.00 03/09/22 19:36 36.5 03/09/22 19:00 102 31 120/81 (94) 95 High Flow N/C 10.00 03/09/22 19:00 106 03/09/22 18:47 98 High Flow N/C 10.00 03/09/22 18:43 95 High Flow N/C 10.00 03/09/22 18:00 83 30 137/88 (104) 95 High Flow N/C 10.00 03/09/22 17:00 86 10 104/57 (73) 96 High Flow N/C 10.00 03/09/22 16:00 92 28 100/53 (69) 94 High Flow N/C 10.00 03/09/22 15:53 36.6 03/09/22 15:23 High Flow N/C 10.00 03/09/22 15:00 100 31 114/74 (87) 95 High Flow N/C 10.00 03/09/22 14:00 105 126/95 (105) 94 High Flow N/C 10.00 03/09/22 13:40 96 High Flow N/C 10.00 03/09/22 13:00 100 131/87 (102) 95 High Flow N/C 10.00 03/09/22 12:53 100 03/09/22 12:30 36.3 03/09/22 12:11 High Flow N/C 10.00 03/09/22 12:00 98 119/76 (90) 92 High Flow N/C 10.00 03/09/22 11:00 106 36 130/79 (96) 96 High Flow N/C 10.00 03/09/22 10:00 97 17 103/67 (79) 94 High Flow N/C 10.00 03/09/22 09:00 106 24 123/71 (88) 92 High Flow N/C 10.00 I & O 03/10/22 07:00 Intake Total 3660 ml Balance 3660 ml Height & Weight Height: '" Weight: lbs. oz. kg; 32.88 BMI Method: General Appearance: Anxious, Mild Distress HEENT: PERRL/EOMI, Pharynx Normal, Moist Mucous Membranes Neck: Full Range of Motion, Normal Inspection, Non Tender Respiratory: No Respiratory Distress, Accessory Muscle Use, Decreased Breath Sounds Cardiovascular: Regular Rate, Rhythm Capillary Refill: Less Than 3 Seconds Gastrointestinal: soft, no organomegaly, distended Extremity: Normal Capillary Refill, Normal Inspection, No Pedal Edema Neurologic/Psychiatric: Alert, Oriented x3, No Motor/Sensory Deficits, Normal Mood/Affect Skin: Normal Color, Warm/Dry Other comments PE PER RN Results Lab Laboratory Tests 03/09/22 05:44 03/10/22 04:42 Assessment/Plan Assessment/Plan 1. Acute on chronic respiratory failure secondary to pneumonia with moderate to large pleural effusion causing atelectasis of the right lower lobe with an underlying COPD. 2. Exudative pleural effusion most likely follow-up for parapneumonic effusion. 3. Chest pain due to pleurisy improving. 4. History of bipolar disorder and anxiety. 5. History of hypothyroidism. 6. Residual large pleural effusion probably loculated, ? empyema Recommendations 1. Continue IV antibiotics per primary care physician 2. Wean FiO2 as tolerated 3. Suggest to repeat CT of the chest without contrast to further evaluate pleural effusion and see whether we need to do thoracentesis or chest tube insertion . 4. DVT prophylaxis and ulcer prophylaxis. 5. Discussed with the COSMETIC MAKER and made a video visit. Critical Care: Critically Ill Patient Time spent with patient (mins): 15 SASCHA COATS MD Mar 10, 2022 08:14
--- NOTE | 2022-03-10 08:37 | Diagnostic Imaging Report ---
INDICATION: Shortness of breath. COMPARISON: March 08, 2022. FINDINGS: A large right-sided pleural effusion is present. The volume of pleural fluid has not significantly changed. There is dense consolidation at the right lung base. The left lung remains clear. The central pulmonary vascularity on the left appears appropriate. There is no pneumothorax. IMPRESSION: Persistent large right-sided pleural effusion with dense right base consolidation. The findings have not significantly changed from the prior exam. The left lung remains clear. Dictated by: Dictated on workstation # [id number]
[2022-03-10] MEDS: fentaNYL INJ 100 MCG/2 ML AMP IV PRN ×3 (08:55→17:41)
--- NOTE | 2022-03-10 09:22 | Diagnostic Imaging Report ---
PROCEDURE: CT chest without contrast. TECHNIQUE: Multiple contiguous axial images were obtained through the chest without the use of intravenous contrast. Auto Exposure Controls were utilized during the CT exam to meet ALARA standards for radiation dose reduction. INDICATION: Difficulty breathing, pleural collection. COMPARISON: CT chest of 03/08/2022. FINDINGS: The likely at least partially loculated right pleural collection has slightly decreased in the interim with no pneumothorax. There has been minimal improvements in the passive atelectasis of the right lung posteriorly adjacent to the pleural fluid; however, the right lower lobe itself remains virtually airless. There is no evidence for pleural gas. While the right lung expansion itself has slightly improved, there has been development of peripheral groundglass pulmonary infiltrates in the left greater than right upper lobes, consistent with nonspecific infectious etiology. There is no significant pericardial fluid. This patient has developed a small left pleural effusion without its loculation layering to a maximal depth of 1.5 cm. The aorta is nonaneurysmal and the visualized upper abdomen is nonacute. IMPRESSION: 1. The likely at least partially loculated right pleural collection shows a slight reduction in volume from the prior exam with minimal improved expansion of the dependent right lung. 2. However, new patchy groundglass infiltrates bilaterally (greater left) have developed with a new small nonloculated left pleural effusion. 3. No pneumothorax. Dictated by: Dictated on workstation # [id number]
[2022-03-10] MEDS: RT--FLUTICASONE/SALMETEROL 232-14 (AIRDUO RespiCLICK) IH SCH ×2 (10:44→18:40)
[2022-03-10] MEDS: ENOXAPARIN 80 MG/0.8 ML (LOVENOX) SYR SC SCH (11:29)
--- NOTE | 2022-03-10 13:53 | Progress Note - Surgery ---
Subjective Time Seen by a Provider: 12:28 Subjective/Events-last exam Pt seen and examined, appears comfortable in bed. She states that her breathing is maybe a little bit worse than yesterday; she is still only on NC. Review of Systems Pulmonary: Dyspnea, Cough Cardiovascular: No: Chest Pain, Palpitations Gastrointestinal: No: Nausea, Vomiting, Abdominal Pain Focused Exam Lactate Level 03/07/22 15:45: Lactic Acid Level 0.80 03/07/22 22:00: Lactic Acid Level 0.68 Objective Exam Vital Signs Date Time Temp Pulse Resp B/P (MAP) Pulse Ox O2 Delivery O2 Flow Rate FiO2 03/10/22 13:00 115 03/10/22 12:00 101 24 127/99 (108) 95 High Flow N/C 10.00 03/10/22 11:49 92 High Flow N/C 10.00 03/10/22 11:00 95 18 116/77 (90) 100 High Flow N/C 10.00 03/10/22 10:51 High Flow N/C 10.00 03/10/22 10:45 92 High Flow N/C 10.00 03/10/22 10:00 93 20 125/83 (97) 100 High Flow N/C 10.00 03/10/22 09:00 97 14 119/65 (83) 97 High Flow N/C 10.00 03/10/22 08:29 93 High Flow N/C 10.00 03/10/22 08:14 High Flow N/C 10.00 03/10/22 08:13 35.9 03/10/22 08:00 99 32 115/79 (91) 90 NIV Bilevel 50.00 03/10/22 07:00 82 23 125/83 (97) 95 NIV Bilevel 50.00 03/10/22 07:00 75 03/10/22 06:58 89 18 94 50.00 03/10/22 06:00 90 16 106/65 (79) 95 NIV Bilevel 50.00 03/10/22 05:00 92 16 100/76 (84) 96 NIV Bilevel 50.00 03/10/22 04:00 90 31 109/71 (84) 93 NIV Bilevel 50.00 03/10/22 03:00 93 16 115/78 (90) 94 NIV Bilevel 50.00 03/10/22 02:15 82 17 94 50.00 03/10/22 02:00 89 15 116/70 (85) 94 NIV Bilevel 50.00 03/10/22 01:00 100 03/10/22 01:00 87 24 105/68 (80) 93 NIV Bilevel 50.00 03/10/22 00:00 98 14 106/63 (77) 93 NIV Bilevel 50.00 03/09/22 23:00 98 14 89/51 (64) 93 NIV Bilevel 50.00 03/09/22 22:31 NIV Bilevel 50.00 03/09/22 22:15 97 25 96 50.00 03/09/22 22:00 82 28 106/55 (72) 96 High Flow N/C 10.00 03/09/22 21:00 99 37 124/88 (100) 95 High Flow N/C 10.00 03/09/22 20:00 90 31 128/81 (97) 95 High Flow N/C 10.00 03/09/22 20:00 High Flow N/C 10.00 03/09/22 19:36 36.5 03/09/22 19:00 102 31 120/81 (94) 95 High Flow N/C 10.00 03/09/22 19:00 106 03/09/22 18:47 98 High Flow N/C 10.00 03/09/22 18:43 95 High Flow N/C 10.00 03/09/22 18:00 83 30 137/88 (104) 95 High Flow N/C 10.00 03/09/22 17:00 86 10 104/57 (73) 96 High Flow N/C 10.00 03/09/22 16:00 92 28 100/53 (69) 94 High Flow N/C 10.00 03/09/22 15:53 36.6 03/09/22 15:23 High Flow N/C 10.00 03/09/22 15:00 100 31 114/74 (87) 95 High Flow N/C 10.00 03/09/22 14:00 105 126/95 (105) 94 High Flow N/C 10.00 I & O 03/10/22 07:00 Intake Total 3660 ml Balance 3660 ml Capillary Refill : Less Than 3 Seconds General Appearance: Anxious, Mild Distress HEENT: PERRL/EOMI, Pharynx Normal, Moist Mucous Membranes Neck: Full Range of Motion, Normal Inspection, Non Tender Respiratory: Accessory Muscle Use, Decreased Breath Sounds (almost none in the right), Respiratory Distress (very mild) Cardiovascular: Regular Rate, Rhythm, No Murmur Gastrointestinal: soft, no organomegaly, distended Extremity: Normal Capillary Refill, Normal Inspection, No Pedal Edema Neurologic/Psychiatric: Alert, Oriented x3 Results Lab Laboratory Tests 03/10/22 04:42: White Blood Count 23.2H, Red Blood Count 3.07L, Hemoglobin 7.8L, Hematocrit 26L, Mean Corpuscular Volume 86, Mean Corpuscular Hemoglobin 25, Mean Corpuscular Hemoglobin Concent 30L, Red Cell Distribution Width 15.9H, Platelet Count 392, Mean Platelet Volume 9.5, Immature Granulocyte % (Auto) 1, Neutrophils (%) (Auto) 93H, Lymphocytes (%) (Auto) 3L, Monocytes (%) (Auto) 3, Eosinophils (%) (Auto) 0, Basophils (%) (Auto) 0, Neutrophils # (Auto) 21.6H, Lymphocytes # (Auto) 0.7L, Monocytes # (Auto) 0.7, Eosinophils # (Auto) 0.0, Basophils # (Auto) 0.0, Immature Granulocyte # (Auto) 0.3H, Sodium Level 141, Potassium Level 3.9, Chloride Level 99, Carbon Dioxide Level 31, Anion Gap 11, Blood Urea Nitrogen 13, Creatinine 0.57L, Estimat Glomerular Filtration Rate 104, BUN/Creatinine Ratio 23, Glucose Level 126H, Calcium Level 9.1, Corrected Calcium 10.0, Magnesium Level 2.5H, Total Bilirubin 0.2, Aspartate Amino Transf (AST/SGOT) 15, Alanine Aminotransferase (ALT/SGPT) 16, Alkaline Phosphatase 113, Total Protein 6.6, Albumin 2.9L 03/10/22 07:45: Blood Gas Puncture Site LT RADIAL, Blood Gas Patient Temperature 35.7, Arterial Blood pH 7.41, Arterial Blood Partial Pressure CO2 56H, Arterial Blood Partial Pressure O2 38*L, Arterial Blood HCO3 35H, Arterial Blood Total CO2 37.1H, Arterial Blood Oxygen Saturation 74L, Arterial Blood Base Excess 10.1H, Kulwinder Test YES-POS, Blood Gas Ventilator Setting NO, Blood Gas Inspired Oxygen 50% Microbiology 03/08/22 Gram Stain - Final, Resulted 03/08/22 Body Fluid Culture - Preliminary, Resulted No growth 03/07/22 Blood Culture - Preliminary, Resulted No growth Assessment/Plan Assessment/Plan Assessment/Plan Respiratory Distress secondary to Large Right Pleural effusion COPD Plan is the same as yesterday. Pt had new CT of chest today and it actually looks a little better (I viewed myself, more lung is visible); however, now has some ground glass infiltrate. Will talke to Radiologist tomorrow and see if Radiology has a firmer catheter to try and drain more of the fluid. After that it would be a chest tube; which I would like to try and avoid Will monitor breathing and O2 saturation. I thought there was some loculation on first CT and it was read as likely loculation on todays. May need more invasive procedure if we think the loculations will not break up. Clinical Quality Measures AMI/AHF: ASA po Prior to arrival: LEE ANN Zimmerman DO Mar 10, 2022 13:53
[2022-03-10] MEDS: AZITHROMYCIN 500 MG/NS 250 ML IVPB IV SCH ×2 (15:55)
[2022-03-11] VITALS (26 sets, daily range): BP systolic 120–167; BP diastolic 60–125
[2022-03-11] MEDS: RT-ALBUTEROL/IPRATROPIUM 3 ML (DUONEB) VIAL INH SCH ×5 (02:08→22:11)
[2022-03-11] MEDS: HYDROcodone/APAP 5 MG/325 MG (LORTAB) TAB PO PRN ×5 (02:38→21:05)
[2022-03-11] MEDS: fentaNYL INJ 100 MCG/2 ML AMP IV PRN ×4 (02:39→21:06)
[2022-03-11 05:40] LABS: BASOPHILS % (AUTO) 0 % (0-10); EOSINOPHILS % (AUTO) 0 % (0-10); HEMATOCRIT 28 % (35-52); HEMOGLOBIN 8.3 g/dL (11.5-16.0); LYMPHOCYTES # (AUTO) 0.8 10^3/uL (1.0-4.0); LYMPHOCYTES % (AUTO) 4 % (12-44); MEAN CORPUSCULAR HEMOGLOBIN 26 pg (25-34); MEAN CORPUSCULAR HGB CONC 30 g/dL (32-36); MEAN CORPUSCULAR VOLUME 85 fL (80-99); MEAN PLATELET VOLUME 9.3 fL (9.0-12.2); MONOCYTES # (AUTO) 0.6 10^3/uL (0.0-1.0); MONOCYTES % (AUTO) 3 % (0-12); NEUTROPHILS # (AUTO) 17.5 10^3/uL (1.8-7.8); NEUTROPHILS % (AUTO) 92 % (42-75); PLATELET COUNT 425 10^3/uL (130-400); WHITE BLOOD COUNT 19.1 10^3/uL (4.3-11.0)
[2022-03-11 06:05] LABS: ALBUMIN 3.2 GM/DL (3.2-4.5); POTASSIUM 4.2 MMOL/L (3.6-5.0)
[2022-03-11 06:07] LABS: CALCIUM 9.3 MG/DL (8.5-10.1)
[2022-03-11 06:08] LABS: TOTAL PROTEIN 6.9 GM/DL (6.4-8.2)
[2022-03-11 06:10] LABS: BILIRUBIN,TOTAL 0.2 MG/DL (0.1-1.0)
[2022-03-11 06:11] LABS: CREATININE SERUM 0.63 MG/DL (0.60-1.30)
[2022-03-11] MEDS: MAGNESIUM 1 GM/100 ML IVPB 100 ML IV SCH (06:13)
[2022-03-11] MEDS: POTASSIUM CL 10MEQ/50ML IVPB 50 ML IV SCH (06:13)
[2022-03-11] MEDS: KCL 20 MEQ TAB (K-DUR) PO SCH (06:13)
[2022-03-11 06:14] LABS: MAGNESIUM 2.5 MG/DL (1.6-2.4)
--- NOTE | 2022-03-11 06:14 | Progress Note - Hospitalist ---
Subjective HPI/CC On Admission Date Seen by Provider: Mar 11, 2022 Time Seen by Provider: 09:00 Subjective/Events-last exam Patient doing a lot better She improved overall Less short of breath but exertional dyspnea is noted Williamson catheter removed May need CT-guided thoracentesis Review of Systems General: Fatigue, Malaise Pulmonary: Dyspnea Objective Exam Vital Signs Vital Signs Date Time Temp Pulse Resp B/P (MAP) Pulse Ox O2 Delivery O2 Flow Rate FiO2 03/11/22 20:00 92 32 137/69 (91) 91 High Flow N/C 5.00 03/11/22 20:00 36.3 03/11/22 03:40 35 Capillary Refill : Less Than 3 Seconds General Appearance: No Apparent Distress, WD/WN, Chronically ill Respiratory: Accessory Muscle Use, Crackles, Decreased Breath Sounds Cardiovascular: Regular Rate, Rhythm Neurologic/Psychiatric: Alert, Oriented x3, No Motor/Sensory Deficits, Normal Mood/Affect Results/Procedures Lab Laboratory Tests 03/11/22 04:42 Patient resulted labs reviewed. Assessment/Plan Assessment and Plan Assess & Plan/Chief Complaint Assessment: Acute respiratory failure requiring BiPAP Pleural effusion status postthoracentesis Pneumonia Hypoxia Hypothyroidism Anxiety Plan: Oxygen BiPAP High risk for intubation Critical Care Critically Ill Patient Clinical Quality Measures AMI/AHF: ASA po Prior to arrival: RAMESH Salazar DO Mar 11, 2022 06:14
[2022-03-11] MEDS: methylPREDNISolone 40 MG/ML (Solu-MEDROL) VIAL IV SCH ×4 (06:17→22:56)
[2022-03-11] MEDS: LEVOTHYROXINE 25 MCG (LEVOTHROID) TAB PO SCH (06:17)
[2022-03-11] MEDS: RT--FLUTICASONE/SALMETEROL 232-14 (AIRDUO RespiCLICK) IH SCH ×2 (06:50→21:01)
[2022-03-11] MEDS: VENlafaxine 75 MG (EFFEXOR) TAB PO SCH ×3 (09:19→18:41)
[2022-03-11] MEDS: cefTRIAXone 1 GM/50 ML (PRE-MIX) IV SCH (09:19)
[2022-03-11] MEDS: ROSUVASTATIN 20 MG (CRESTOR) TABLET PO SCH (09:19)
[2022-03-11] MEDS: QUEtiapine 200 MG (SEROquel) TAB IMMEDIATE RELEASE PO SCH ×2 (09:19→22:56)
[2022-03-11] MEDS: PANTOPRAZOLE 40 MG (PROTONIX) TAB PO SCH ×2 (09:19→22:55)
[2022-03-11] MEDS: IBUPROFEN 800 MG (MOTRIN) TAB PO PRN ×2 (09:25→18:42)
--- NOTE | 2022-03-11 10:26 | Tele-ICU Progress Note ---
Subjective Date Seen by a Provider: Mar 11, 2022 Time Seen by a Provider: 10:25 Subjective/Events-last exam (Tele-ICU Physician , Progress Note ) Available chart/ vitals / labs / Images reviewed Video assessment done using teleICU camera, rest of exam as per RN Discussed with RN , EXAM PER RN Events ovenight : Afebrile FiO2 - 9L o2 I/O = Drips: Pressors: , hemodynamically stable Consultants: Hospital course: (03/08) positive severe sepsis since admission 03-07 61 y/o female with pna right pleural effusion transferred for increased O2 needs Right Thoracentesis 300ml fluid out. (03/10) repeat CT chest eval effusions A/P Assessment/Plan 1. Acute on chronic respiratory failure secondary to pneumonia with moderate to large pleural effusion causing atelectasis of the right lower lobe with an underlying COPD. 2. Exudative pleural effusion most likely follow-up for parapneumonic effusion. 3. Chest pain due to pleurisy improving. 4. History of bipolar disorder and anxiety. 5. History of hypothyroidism. 6. Residual large pleural effusion on CT 03/10 loculated, ? empyema Recommendations 1. Continue IV antibiotics per primary care physician 2. Wean FiO2 as tolerated 3. Sx to follow / eval tp see whether we need to do thoracentesis or chest tube insertion ( based on recent CT 4. DVT prophylaxis and ulcer prophylaxis. Lines : (Central Line Necessity Reviewed) Williamson: void OG: Nutrition: Analgesia: Anxiety/ delirium VTE Prophylaxis: on hold for possible thora , SCD Stress Ulcer Prophylaxis: na Plans in collaboration with bedside consultants and IM MDs. Discussed with RN to reach out if any questions or concerns A total of 32 minutes of critical care time was devoted to this patient today, required to treat and/or prevent further deterioration of critical care condition ( as above) . Sepsis Event Evaluation Height, Weight, BMI Height: '" Weight: lbs. oz. kg; 32.88 BMI Method: Exam Exam Patient acknowledged, consented, and participated in this virtual visit which was conducted using real time audio/video Vital Signs Date Time Temp Pulse Resp B/P (MAP) Pulse Ox O2 Delivery O2 Flow Rate FiO2 03/11/22 10:00 110 28 120/60 (80) 91 High Flow N/C 9.00 03/11/22 09:00 82 35 92 High Flow N/C 9.00 03/11/22 08:00 70 14 140/79 (99) 93 High Flow N/C 9.00 03/11/22 07:55 35.9 03/11/22 07:24 64 03/11/22 07:00 71 11 126/90 (102) 99 High Flow N/C 9.00 03/11/22 06:00 81 14 126/90 (97) 90 High Flow N/C 10.00 03/11/22 05:00 77 143/81 (101) 96 High Flow N/C 10.00 03/11/22 04:20 High Flow N/C 10.00 03/11/22 04:00 84 12 121/75 (84) 93 NIV Bilevel 35.00 03/11/22 03:45 36.6 NIV Bilevel 35.00 03/11/22 03:40 93 NIV Bilevel 35 03/11/22 03:00 88 25 138/80 (96) 92 NIV Bilevel 35.00 03/11/22 02:23 NIV Bilevel 35.00 03/11/22 02:08 79 16 97 40.00 03/11/22 02:00 80 129/75 (92) 94 NIV Bilevel 40.00 03/11/22 01:00 84 03/11/22 01:00 84 16 131/85 (95) 92 NIV Bilevel 40.00 03/11/22 00:00 87 14 128/78 (88) 94 NIV Bilevel 40.00 03/10/22 23:15 94 NIV Bilevel 40 03/10/22 23:10 36.2 88 22 93 NIV Bilevel 40.00 03/10/22 23:00 90 28 140/92 (115) 92 NIV Bilevel 40.00 03/10/22 22:09 95 94 NIV Bilevel 40.00 03/10/22 22:03 90 36 96 50.00 03/10/22 22:00 90 133/73 (90) 96 NIV Bilevel 50.00 03/10/22 21:08 NIV Bilevel 50.00 03/10/22 21:06 104 149/94 (119) 92 High Flow N/C 9.00 03/10/22 20:00 104 19 130/80 (106) 96 High Flow N/C 9.00 6/26/22 19:42 36.4 03/10/22 19:35 91 High Flow N/C 10.00 03/10/22 19:01 90 29 89 High Flow N/C 9.00 03/10/22 19:01 99 03/10/22 19:00 101 29 141/87 (105) 91 High Flow N/C 10.00 03/10/22 18:40 97 High Flow N/C 10.00 03/10/22 18:37 97 High Flow N/C 10.00 03/10/22 18:00 100 136/82 (100) 97 High Flow N/C 10.00 03/10/22 17:00 100 24 127/82 (97) 97 High Flow N/C 10.00 03/10/22 16:27 93 High Flow N/C 10.00 03/10/22 16:05 36.5 03/10/22 16:00 105 126/79 (95) 94 High Flow N/C 10.00 03/10/22 15:00 99 139/62 (87) 96 High Flow N/C 10.00 03/10/22 14:56 90 96 03/10/22 14:51 96 High Flow N/C 10.00 03/10/22 14:00 100 34 128/86 (100) 96 High Flow N/C 10.00 03/10/22 13:00 108 34 90/61 (71) 97 High Flow N/C 10.00 03/10/22 13:00 115 03/10/22 12:00 35.8 03/10/22 12:00 101 24 127/99 (108) 95 High Flow N/C 10.00 03/10/22 11:49 92 High Flow N/C 10.00 03/10/22 11:00 95 18 116/77 (90) 100 High Flow N/C 10.00 03/10/22 10:51 High Flow N/C 10.00 03/10/22 10:45 92 High Flow N/C 10.00 I & O 03/11/22 07:00 Intake Total 1790 ml Output Total 1725 ml Balance 65 ml Height & Weight Height: '" Weight: lbs. oz. kg; 32.88 BMI Method: General Appearance: Anxious, Chronically ill, Mild Distress HEENT: PERRL/EOMI, Pharynx Normal, Moist Mucous Membranes Neck: Full Range of Motion, Normal Inspection, Non Tender Respiratory: Accessory Muscle Use, Decreased Breath Sounds Cardiovascular: Tachycardia Capillary Refill: Less Than 3 Seconds Gastrointestinal: soft, no organomegaly, distended Extremity: Normal Capillary Refill, Normal Inspection, No Pedal Edema Neurologic/Psychiatric: Alert, Oriented x3, No Motor/Sensory Deficits, Normal Mood/Affect Results Lab Laboratory Tests 03/10/22 04:42 03/11/22 04:42 Assessment/Plan Assessment/Plan 1 ASIMA HACKETT MD Mar 11, 2022 10:26
[2022-03-11] MEDS: clonazePAM 0.5 MG (KlonoPIN) TAB PO PRN (12:20)
[2022-03-11] MEDS: AZITHROMYCIN 500 MG/NS 250 ML IVPB IV SCH ×2 (15:33)
--- NOTE | 2022-03-11 18:50 | Progress Note - Surgery ---
Subjective Time Seen by a Provider: 15:42 Subjective/Events-last exam Pt seen and examined, states no new changes. She is still requiring 9L of O2 NC. Review of Systems Pulmonary: Dyspnea, Cough Cardiovascular: No: Chest Pain, Palpitations Gastrointestinal: No: Nausea, Vomiting, Abdominal Pain Objective Exam Vital Signs Date Time Temp Pulse Resp B/P (MAP) Pulse Ox O2 Delivery O2 Flow Rate FiO2 03/11/22 18:38 91 High Flow N/C 5.00 03/11/22 18:00 88 28 139/92 (108) 96 High Flow N/C 7.00 03/11/22 17:00 98 36 134/88 (103) 96 High Flow N/C 7.00 03/11/22 16:00 95 40 146/101 (116) 96 High Flow N/C 7.00 03/11/22 15:48 95 High Flow N/C 9.00 03/11/22 15:27 36.4 03/11/22 15:00 96 33 140/60 (86) 95 High Flow N/C 9.00 03/11/22 14:00 82 27 156/103 (120) 97 High Flow N/C 9.00 03/11/22 13:00 103 43 150/100 (117) 92 High Flow N/C 9.00 03/11/22 12:45 98 03/11/22 12:00 95 High Flow N/C 9.00 03/11/22 12:00 91 35 141/70 (93) 100 High Flow N/C 9.00 03/11/22 12:00 35.9 03/11/22 11:35 94 High Flow N/C 9.00 03/11/22 11:00 98 28 141/88 (105) 91 High Flow N/C 9.00 03/11/22 10:00 110 28 120/60 (80) 91 High Flow N/C 9.00 03/11/22 09:00 82 35 92 High Flow N/C 9.00 03/11/22 08:00 95 High Flow N/C 9.00 03/11/22 08:00 70 14 140/79 (99) 93 High Flow N/C 9.00 03/11/22 07:55 35.9 03/11/22 07:24 64 03/11/22 07:00 71 11 126/90 (102) 99 High Flow N/C 9.00 03/11/22 06:00 81 14 126/90 (97) 90 High Flow N/C 10.00 03/11/22 05:00 77 143/81 (101) 96 High Flow N/C 10.00 03/11/22 04:20 High Flow N/C 10.00 03/11/22 04:00 84 12 121/75 (84) 93 NIV Bilevel 35.00 03/11/22 03:45 36.6 NIV Bilevel 35.00 03/11/22 03:40 93 NIV Bilevel 35 03/11/22 03:00 88 25 138/80 (96) 92 NIV Bilevel 35.00 03/11/22 02:23 NIV Bilevel 35.00 03/11/22 02:08 79 16 97 40.00 03/11/22 02:00 80 129/75 (92) 94 NIV Bilevel 40.00 03/11/22 01:00 84 03/11/22 01:00 84 16 131/85 (95) 92 NIV Bilevel 40.00 03/11/22 00:00 87 14 128/78 (88) 94 NIV Bilevel 40.00 03/10/22 23:15 94 NIV Bilevel 40 03/10/22 23:10 36.2 88 22 93 NIV Bilevel 40.00 03/10/22 23:00 90 28 140/92 (115) 92 NIV Bilevel 40.00 03/10/22 22:09 95 94 NIV Bilevel 40.00 03/10/22 22:03 90 36 96 50.00 03/10/22 22:00 90 133/73 (90) 96 NIV Bilevel 50.00 03/10/22 21:08 NIV Bilevel 50.00 03/10/22 21:06 104 149/94 (119) 92 High Flow N/C 9.00 03/10/22 20:00 104 19 130/80 (106) 96 High Flow N/C 9.00 03/10/22 19:42 36.4 03/10/22 19:35 91 High Flow N/C 10.00 03/10/22 19:01 90 29 89 High Flow N/C 9.00 03/10/22 19:01 99 03/10/22 19:00 101 29 141/87 (105) 91 High Flow N/C 10.00 I & O 03/11/22 07:00 Intake Total 1790 ml Output Total 1725 ml Balance 65 ml Capillary Refill : Less Than 3 Seconds General Appearance: Anxious, Chronically ill, Mild Distress HEENT: PERRL/EOMI, Moist Mucous Membranes Respiratory: Accessory Muscle Use, Decreased Breath Sounds (right>left) Cardiovascular: Tachycardia Gastrointestinal: soft, no organomegaly, distended Extremity: Normal Capillary Refill, Normal Inspection, No Pedal Edema Neurologic/Psychiatric: Alert, Oriented x3 Results Lab Laboratory Tests 03/11/22 04:42: White Blood Count 19.1H, Red Blood Count 3.25L, Hemoglobin 8.3L, Hematocrit 28L, Mean Corpuscular Volume 85, Mean Corpuscular Hemoglobin 26, Mean Corpuscular Hemoglobin Concent 30L, Red Cell Distribution Width 15.9H, Platelet Count 425H, Mean Platelet Volume 9.3, Immature Granulocyte % (Auto) 2, Neutrophils (%) (Auto) 92H, Lymphocytes (%) (Auto) 4L, Monocytes (%) (Auto) 3, Eosinophils (%) (Auto) 0, Basophils (%) (Auto) 0, Neutrophils # (Auto) 17.5H, Lymphocytes # (Auto) 0.8L, Monocytes # (Auto) 0.6, Eosinophils # (Auto) 0.0, Basophils # (Auto) 0.0, Immature Granulocyte # (Auto) 0.3H, Sodium Level 142, Potassium Level 4.2, Chloride Level 98, Carbon Dioxide Level 32, Anion Gap 12, Blood Urea Nitrogen 14, Creatinine 0.63, Estimat Glomerular Filtration Rate 101, BUN/Creatinine Ratio 22, Glucose Level 140H, Calcium Level 9.3, Corrected Calcium 9.9, Magnesium Level 2.5H, Total Bilirubin 0.2, Aspartate Amino Transf (AST/SGOT) 21, Alanine Aminotransferase (ALT/SGPT) 17, Alkaline Phosphatase 108, Total Protein 6.9, Albumin 3.2 Microbiology 03/08/22 Gram Stain - Final, Resulted 03/08/22 Body Fluid Culture - Preliminary, Resulted No growth 03/07/22 Blood Culture - Preliminary, Resulted No growth Assessment/Plan Assessment/Plan Assessment/Plan Respiratory Distress secondary to Large Right Pleural effusion COPD I spoke to the Radiologist today and he is not sure if he has a firmer catheter to try and drain more of the fluid. I had him look at CT and he thinks she might need catheter left in for a while; he will possibly attempt placement tomorrow. Will continue to monitor breathing and O2 saturation. I thought there was some loculation on first CT and it was read as likely loculation on todays. May need more invasive procedure if we think the loculations will not break up. Clinical Quality Measures AMI/AHF: ASA po Prior to arrival: LEE ANN Zimmerman DO Mar 11, 2022 18:50
[2022-03-11] MEDS ORDERED: ZOLPIDEM 5 MG (AMBIEN) TAB PO PRN (22:45)
[2022-03-11] MEDS: MIRTAZAPINE 15 MG (REMERON) TAB PO SCH (22:55)
[2022-03-11] MEDS: LORazepam 0.5 MG (ATIVAN) TABLET PO PRN (22:58)
[2022-03-12] VITALS (25 sets, daily range): BP systolic 118–157; BP diastolic 67–103
[2022-03-12] MEDS: RT-ALBUTEROL/IPRATROPIUM 3 ML (DUONEB) VIAL INH SCH ×6 (02:02→21:26)
[2022-03-12 05:17] LABS: BASOPHILS % (AUTO) 0 % (0-10); EOSINOPHILS % (AUTO) 0 % (0-10); HEMATOCRIT 28 % (35-52); HEMOGLOBIN 8.4 g/dL (11.5-16.0); LYMPHOCYTES # (AUTO) 0.8 10^3/uL (1.0-4.0); LYMPHOCYTES % (AUTO) 5 % (12-44); MEAN CORPUSCULAR HEMOGLOBIN 25 pg (25-34); MEAN CORPUSCULAR HGB CONC 30 g/dL (32-36); MEAN CORPUSCULAR VOLUME 85 fL (80-99); MEAN PLATELET VOLUME 9.2 fL (9.0-12.2); MONOCYTES # (AUTO) 0.5 10^3/uL (0.0-1.0); MONOCYTES % (AUTO) 3 % (0-12); NEUTROPHILS % (AUTO) 89 % (42-75); PLATELET COUNT 442 10^3/uL (130-400); WHITE BLOOD COUNT 15.8 10^3/uL (4.3-11.0)
[2022-03-12 05:36] LABS: POTASSIUM 3.9 MMOL/L (3.6-5.0)
[2022-03-12 05:38] LABS: CALCIUM 8.8 MG/DL (8.5-10.1)
[2022-03-12 05:39] LABS: TOTAL PROTEIN 6.5 GM/DL (6.4-8.2)
[2022-03-12 05:41] LABS: BILIRUBIN,TOTAL 0.2 MG/DL (0.1-1.0)
[2022-03-12 05:42] LABS: CREATININE SERUM 0.58 MG/DL (0.60-1.30)
[2022-03-12 05:45] LABS: MAGNESIUM 2.6 MG/DL (1.6-2.4)
[2022-03-12] MEDS: POTASSIUM CL 10MEQ/50ML IVPB 50 ML IV SCH (05:45)
[2022-03-12] MEDS: KCL 20 MEQ TAB (K-DUR) PO SCH (05:46)
[2022-03-12] MEDS: MAGNESIUM 1 GM/100 ML IVPB 100 ML IV SCH (05:46)
[2022-03-12] MEDS: methylPREDNISolone 40 MG/ML (Solu-MEDROL) VIAL IV SCH ×4 (05:55→23:04)
[2022-03-12] MEDS: LEVOTHYROXINE 25 MCG (LEVOTHROID) TAB PO SCH (05:55)
[2022-03-12] MEDS: PANTOPRAZOLE 40 MG (PROTONIX) TAB PO SCH ×2 (05:55→15:45)
--- NOTE | 2022-03-12 06:05 | Progress Note - Hospitalist ---
Subjective HPI/CC On Admission Date Seen by Provider: Mar 12, 2022 Time Seen by Provider: 09:00 Subjective/Events-last exam Patient doing a lot better Sleeping currently CT-guided chest tube will be placed Hemoglobin stable at 8.4 White count 15.8 Nurse has no concerns Still very hypoxic when she moves at all Review of Systems Pulmonary: Dyspnea Objective Exam Vital Signs Vital Signs Date Time Temp Pulse Resp B/P (MAP) Pulse Ox O2 Delivery O2 Flow Rate FiO2 03/12/22 20:00 94 16 149/96 (113) 94 High Flow N/C 6.00 03/12/22 19:00 36.2 03/11/22 23:05 35 Capillary Refill : Less Than 3 Seconds General Appearance: No Apparent Distress, Chronically ill, Obese Respiratory: Lungs Clear, Decreased Breath Sounds Cardiovascular: Regular Rate, Rhythm Results/Procedures Lab Laboratory Tests 03/12/22 04:09 03/12/22 05:04 Patient resulted labs reviewed. Assessment/Plan Assessment and Plan Assess & Plan/Chief Complaint Assessment: Acute respiratory failure requiring BiPAP Pleural effusion status postthoracentesis Pneumonia Hypoxia Hypothyroidism Anxiety Plan: Oxygen BiPAP High risk for intubation Critical Care Critically Ill Patient Clinical Quality Measures AMI/AHF: ASA po Prior to arrival: RAMESH Salazar DO Mar 12, 2022 06:05
[2022-03-12] MEDS: RT--FLUTICASONE/SALMETEROL 232-14 (AIRDUO RespiCLICK) IH SCH ×2 (06:55→21:26)
[2022-03-12] MEDS: QUEtiapine 200 MG (SEROquel) TAB IMMEDIATE RELEASE PO SCH ×3 (10:06→20:36)
[2022-03-12] MEDS: VENlafaxine 75 MG (EFFEXOR) TAB PO SCH ×3 (10:06→18:07)
[2022-03-12] MEDS: ROSUVASTATIN 20 MG (CRESTOR) TABLET PO SCH (10:06)
[2022-03-12] MEDS: HYDROcodone/APAP 5 MG/325 MG (LORTAB) TAB PO PRN ×2 (10:06→18:07)
--- NOTE | 2022-03-12 11:46 | Tele-ICU Progress Note ---
Subjective Date Seen by a Provider: Mar 12, 2022 Subjective/Events-last exam Available chart/vitals/labs/images reviewed. Video assessment done using telemetry ICU camera, rest of exam as per RN. Discussion with the RN, exam as per RN. Hospital course. Patient today resting comfortably with supplemental oxygen via nasal cannula. She is awaiting for possible placement of a chest tube for right pleural effusion. Patient denies any significant chest pain. Hemodynamically stable. So far the pleural fluid cultures are negative. Review of Systems ROS PER RN Sepsis Event Evaluation Height, Weight, BMI Height: '" Weight: lbs. oz. kg; 32.88 BMI Method: Exam Exam Patient acknowledged, consented, and participated in this virtual visit which was conducted using real time audio/video Vital Signs Date Time Temp Pulse Resp B/P (MAP) Pulse Ox O2 Delivery O2 Flow Rate FiO2 03/12/22 11:00 97 23 155/99 (117) 91 High Flow N/C 6.00 03/12/22 10:26 94 High Flow N/C 6.00 03/12/22 10:00 81 14 153/88 (109) 95 High Flow N/C 6.00 03/12/22 09:00 80 51 143/86 (105) 99 High Flow N/C 6.00 03/12/22 08:00 36.4 03/12/22 08:00 95 High Flow N/C 6.00 03/12/22 08:00 85 35 152/103 (119) 90 High Flow N/C 6.00 03/12/22 07:00 77 12 150/85 (106) 95 High Flow N/C 6.00 03/12/22 06:55 91 High Flow N/C 6.00 03/12/22 06:35 81 03/12/22 06:00 81 11 145/87 (113) 96 High Flow N/C 6.00 03/12/22 05:00 78 139/90 (112) 99 High Flow N/C 6.00 03/12/22 04:05 High Flow N/C 6.00 03/12/22 04:00 36.0 03/12/22 04:00 84 121/67 (86) 96 High Flow N/C 8.00 03/12/22 03:30 94 High Flow N/C 8.00 03/12/22 03:00 91 128/77 (94) 95 High Flow N/C 8.00 03/12/22 02:44 High Flow N/C 8.00 03/12/22 02:42 High Flow N/C 5.00 03/12/22 02:02 78 26 92 35.00 03/12/22 02:00 76 11 121/68 (85) 92 NIV Bilevel 35.00 03/12/22 01:00 80 03/12/22 01:00 80 11 118/67 (82) 91 NIV Bilevel 35.00 03/12/22 00:00 87 12 131/70 (90) 94 NIV Bilevel 35.00 03/11/22 23:42 36.3 03/11/22 23:05 94 NIV Bilevel 35 03/11/22 23:00 107 32 148/98 (115) 93 NIV Bilevel 35.00 03/11/22 22:11 102 26 95 35.00 03/11/22 22:05 NIV Bilevel 35.00 03/11/22 22:00 83 127/85 (98) 96 High Flow N/C 5.00 03/11/22 21:02 93 High Flow N/C 5.00 03/11/22 21:00 91 20 130/78 (96) 95 High Flow N/C 5.00 03/11/22 20:00 92 32 137/69 (91) 91 High Flow N/C 5.00 03/11/22 20:00 36.3 03/11/22 19:57 115 34 167/83 (112) High Flow N/C 5.00 03/11/22 19:55 91 High Flow N/C 5.00 03/11/22 19:00 94 23 148/125 (131) 94 High Flow N/C 5.00 03/11/22 19:00 High Flow N/C 5.00 03/11/22 19:00 94 03/11/22 18:38 91 High Flow N/C 5.00 03/11/22 18:00 88 28 139/92 (108) 96 High Flow N/C 7.00 03/11/22 17:00 98 36 134/88 (103) 96 High Flow N/C 7.00 03/11/22 16:00 95 40 146/101 (116) 96 High Flow N/C 7.00 03/11/22 15:48 95 High Flow N/C 9.00 03/11/22 15:27 36.4 03/11/22 15:00 96 33 140/60 (86) 95 High Flow N/C 9.00 03/11/22 14:00 82 27 156/103 (120) 97 High Flow N/C 9.00 03/11/22 13:00 103 43 150/100 (117) 92 High Flow N/C 9.00 03/11/22 12:45 98 03/11/22 12:00 95 High Flow N/C 9.00 03/11/22 12:00 91 35 141/70 (93) 100 High Flow N/C 9.00 03/11/22 12:00 35.9 I & O 03/12/22 07:00 Intake Total 2000 ml Output Total 1750 ml Balance 250 ml Height & Weight Height: '" Weight: lbs. oz. kg; 32.88 BMI Method: General Appearance: No Apparent Distress, WD/WN, Chronically ill HEENT: PERRL/EOMI, Moist Mucous Membranes Respiratory: Accessory Muscle Use, Crackles, Decreased Breath Sounds Cardiovascular: Regular Rate, Rhythm Capillary Refill: Less Than 3 Seconds Gastrointestinal: soft, no organomegaly, distended Extremity: Normal Capillary Refill, Normal Inspection, No Pedal Edema Neurologic/Psychiatric: Alert, Oriented x3, No Motor/Sensory Deficits, Normal Mood/Affect Other comments PE PER RN Results Lab Laboratory Tests 03/11/22 04:42 03/12/22 04:09 03/12/22 05:04 Assessment/Plan Assessment/Plan 1. Acute on chronic respiratory failure secondary to pneumonia with moderate to large pleural effusion causing atelectasis of the right lower lobe with an underlying COPD. 2. Exudative pleural effusion most likely follow-up for parapneumonic effusion. 3. Chest pain due to pleurisy improving. 4. History of bipolar disorder and anxiety. 5. History of hypothyroidism. 6. Residual large pleural effusion probably loculated, ? empyema Recommendations 1. Continue IV antibiotics per primary care physician 2. Wean FiO2 as tolerated 3. Awaiting for IRt to insert rt chest tube. 4. DVT prophylaxis and ulcer prophylaxis. 5. Discussed with the SENIOR RESEARCH PROJECT MANAGER and made a video visit. Critical Care: Critically Ill Patient Time spent with patient (mins): 15 SASCHA COATS MD Mar 12, 2022 11:46
[2022-03-12] MEDS: IBUPROFEN 800 MG (MOTRIN) TAB PO PRN (13:42)
[2022-03-12] MEDS: fentaNYL INJ 100 MCG/2 ML AMP IV PRN ×2 (15:45→20:36)
--- NOTE | 2022-03-12 16:42 | Progress Note - Surgery ---
Subjective Time Seen by a Provider: 11:03 Subjective/Events-last exam Pt seen and examined, breathing about the same; but started to complain about chest pain. Review of Systems Pulmonary: Dyspnea, Cough Cardiovascular: Chest Pain; No: Palpitations Gastrointestinal: No: Nausea, Vomiting Objective Exam Vital Signs Date Time Temp Pulse Resp B/P (MAP) Pulse Ox O2 Delivery O2 Flow Rate FiO2 03/12/22 16:28 95 High Flow N/C 6.00 03/12/22 16:00 36.7 03/12/22 14:22 95 High Flow N/C 6.00 03/12/22 14:00 89 47 145/88 (107) 96 High Flow N/C 6.00 03/12/22 13:00 83 140/81 (100) 97 High Flow N/C 6.00 03/12/22 12:15 84 03/12/22 12:00 95 151/84 (106) 94 High Flow N/C 6.00 03/12/22 12:00 95 High Flow N/C 6.00 03/12/22 11:00 97 23 155/99 (117) 91 High Flow N/C 6.00 03/12/22 10:26 94 High Flow N/C 6.00 03/12/22 10:00 81 14 153/88 (109) 95 High Flow N/C 6.00 03/12/22 09:00 80 51 143/86 (105) 99 High Flow N/C 6.00 03/12/22 08:00 36.4 03/12/22 08:00 95 High Flow N/C 6.00 03/12/22 08:00 85 35 152/103 (119) 90 High Flow N/C 6.00 03/12/22 07:00 77 12 150/85 (106) 95 High Flow N/C 6.00 03/12/22 06:55 91 High Flow N/C 6.00 03/12/22 06:35 81 03/12/22 06:00 81 11 145/87 (113) 96 High Flow N/C 6.00 03/12/22 05:00 78 139/90 (112) 99 High Flow N/C 6.00 03/12/22 04:05 High Flow N/C 6.00 03/12/22 04:00 36.0 03/12/22 04:00 84 121/67 (86) 96 High Flow N/C 8.00 03/12/22 03:30 94 High Flow N/C 8.00 03/12/22 03:00 91 128/77 (94) 95 High Flow N/C 8.00 03/12/22 02:44 High Flow N/C 8.00 03/12/22 02:42 High Flow N/C 5.00 03/12/22 02:02 78 26 92 35.00 03/12/22 02:00 76 11 121/68 (85) 92 NIV Bilevel 35.00 03/12/22 01:00 80 03/12/22 01:00 80 11 118/67 (82) 91 NIV Bilevel 35.00 03/12/22 00:00 87 12 131/70 (90) 94 NIV Bilevel 35.00 03/11/22 23:42 36.3 03/11/22 23:05 94 NIV Bilevel 35 03/11/22 23:00 107 32 148/98 (115) 93 NIV Bilevel 35.00 03/11/22 22:11 102 26 95 35.00 03/11/22 22:05 NIV Bilevel 35.00 03/11/22 22:00 83 127/85 (98) 96 High Flow N/C 5.00 03/11/22 21:02 93 High Flow N/C 5.00 03/11/22 21:00 91 20 130/78 (96) 95 High Flow N/C 5.00 03/11/22 20:00 92 32 137/69 (91) 91 High Flow N/C 5.00 03/11/22 20:00 36.3 03/11/22 19:57 115 34 167/83 (112) High Flow N/C 5.00 03/11/22 19:55 91 High Flow N/C 5.00 03/11/22 19:00 94 23 148/125 (131) 94 High Flow N/C 5.00 03/11/22 19:00 High Flow N/C 5.00 03/11/22 19:00 94 03/11/22 18:38 91 High Flow N/C 5.00 03/11/22 18:00 88 28 139/92 (108) 96 High Flow N/C 7.00 03/11/22 17:00 98 36 134/88 (103) 96 High Flow N/C 7.00 I & O 03/12/22 07:00 Intake Total 2000 ml Output Total 1750 ml Balance 250 ml Capillary Refill : Less Than 3 Seconds General Appearance: Chronically ill, Moderate Distress, Obese HEENT: PERRL/EOMI, Moist Mucous Membranes Respiratory: Accessory Muscle Use, Crackles, Decreased Breath Sounds Cardiovascular: Regular Rate, Rhythm Gastrointestinal: soft, no organomegaly, distended Neurologic/Psychiatric: Alert, Oriented x3 Results Lab Laboratory Tests 03/12/22 04:09: Sodium Level 142, Potassium Level 3.9, Chloride Level 98, Carbon Dioxide Level 33H, Anion Gap 11, Blood Urea Nitrogen 14, Creatinine 0.58L, Estimat Glomerular Filtration Rate 104, BUN/Creatinine Ratio 24, Glucose Level 140H, Calcium Level 8.8, Corrected Calcium 9.6, Magnesium Level 2.6H, Total Bilirubin 0.2, Aspartate Amino Transf (AST/SGOT) 20, Alanine Aminotransferase (ALT/SGPT) 25, Alkaline Phosphatase 88, Total Protein 6.5, Albumin 3.0L 03/12/22 05:04: White Blood Count 15.8H, Red Blood Count 3.33L, Hemoglobin 8.4L, Hematocrit 28L, Mean Corpuscular Volume 85, Mean Corpuscular Hemoglobin 25, Mean Corpuscular Hemoglobin Concent 30L, Red Cell Distribution Width 16.1H, Platelet Count 442H, Mean Platelet Volume 9.2, Immature Granulocyte % (Auto) 3, Neutrophils (%) (A uto) 89H, Lymphocytes (%) (Auto) 5L, Monocytes (%) (Auto) 3, Eosinophils (%) (Auto) 0, Basophils (%) (Auto) 0, Neutrophils # (Auto) 14.0H, Lymphocytes # (Auto) 0.8L, Monocytes # (Auto) 0.5, Eosinophils # (Auto) 0.0, Basophils # (Auto) 0.0, Immature Granulocyte # (Auto) 0.4H Microbiology 03/08/22 Gram Stain - Final, Complete 03/08/22 Body Fluid Culture - Final, Complete No growth 03/07/22 Blood Culture - Preliminary, Resulted No growth Assessment/Plan Assessment/Plan Assessment/Plan Respiratory Distress secondary to Large Right Pleural effusion COPD Chest pain I spoke to the Radiologist later today and he was unable to perform drainage today. He will try tomorrow with a firmer catheter to try and drain more of the fluid. If there is a loculation; may need more invasive procedure to break up/remove loculations. Clinical Quality Measures AMI/AHF: ASA po Prior to arrival: LEE ANN Zimmerman DO Mar 12, 2022 16:42
[2022-03-12] MEDS: MIRTAZAPINE 15 MG (REMERON) TAB PO SCH (20:36)
[2022-03-12] MEDS: clonazePAM 0.5 MG (KlonoPIN) TAB PO PRN (20:36)
[2022-03-13] VITALS (26 sets, daily range): BP systolic 130–163; BP diastolic 56–110
[2022-03-13] MEDS: HYDROcodone/APAP 5 MG/325 MG (LORTAB) TAB PO PRN ×4 (01:10→22:31)
[2022-03-13] MEDS: RT-ALBUTEROL/IPRATROPIUM 3 ML (DUONEB) VIAL INH SCH ×6 (02:11→22:40)
[2022-03-13 04:56] LABS: BASOPHILS % (AUTO) 0 % (0-10); EOSINOPHILS % (AUTO) 0 % (0-10); HEMATOCRIT 31 % (35-52); HEMOGLOBIN 9.5 g/dL (11.5-16.0); LYMPHOCYTES # (AUTO) 0.9 10^3/uL (1.0-4.0); LYMPHOCYTES % (AUTO) 6 % (12-44); MEAN CORPUSCULAR HEMOGLOBIN 26 pg (25-34); MEAN CORPUSCULAR HGB CONC 31 g/dL (32-36); MEAN CORPUSCULAR VOLUME 83 fL (80-99); MEAN PLATELET VOLUME 9.1 fL (9.0-12.2); MONOCYTES # (AUTO) 0.5 10^3/uL (0.0-1.0); MONOCYTES % (AUTO) 3 % (0-12); NEUTROPHILS # (AUTO) 13.4 10^3/uL (1.8-7.8); NEUTROPHILS % (AUTO) 86 % (42-75); PLATELET COUNT 494 10^3/uL (130-400); WHITE BLOOD COUNT 15.6 10^3/uL (4.3-11.0)
[2022-03-13 05:08] LABS: ALBUMIN 3.2 GM/DL (3.2-4.5); POTASSIUM 4.3 MMOL/L (3.6-5.0)
[2022-03-13 05:09] LABS: CALCIUM 8.9 MG/DL (8.5-10.1)
[2022-03-13 05:10] LABS: TOTAL PROTEIN 6.7 GM/DL (6.4-8.2)
[2022-03-13 05:12] LABS: BILIRUBIN,TOTAL 0.2 MG/DL (0.1-1.0)
[2022-03-13 05:14] LABS: CREATININE SERUM 0.59 MG/DL (0.60-1.30)
[2022-03-13 05:16] LABS: MAGNESIUM 2.6 MG/DL (1.6-2.4)
[2022-03-13] MEDS: POTASSIUM CL 10MEQ/50ML IVPB 50 ML IV SCH (05:48)
[2022-03-13] MEDS: MAGNESIUM 1 GM/100 ML IVPB 100 ML IV SCH (05:49)
[2022-03-13] MEDS: KCL 20 MEQ TAB (K-DUR) PO SCH (05:49)
--- NOTE | 2022-03-13 06:09 | Progress Note - Hospitalist ---
Subjective HPI/CC On Admission Date Seen by Provider: Mar 13, 2022 Time Seen by Provider: 09:00 Subjective/Events-last exam Pt is doing a lot better CT guided chest tube will be placed Remains on 6L oxygen down from 10L Supportive care will continue Review of Systems General: Fatigue, Malaise Pulmonary: Dyspnea, Cough Objective Exam Vital Signs Vital Signs Date Time Temp Pulse Resp B/P (MAP) Pulse Ox O2 Delivery O2 Flow Rate FiO2 03/13/22 19:00 93 03/13/22 18:13 96 High Flow N/C 6.00 03/13/22 18:00 20 148/92 (110) 03/13/22 08:12 36.5 03/12/22 23:05 35 Capillary Refill : Less Than 3 Seconds General Appearance: No Apparent Distress, WD/WN, Anxious, Chronically ill, Obese Respiratory: Lungs Clear, Crackles, Decreased Breath Sounds Cardiovascular: Regular Rate, Rhythm Neurologic/Psychiatric: Alert, Oriented x3, No Motor/Sensory Deficits, Normal Mood/Affect Results/Procedures Lab Laboratory Tests 03/13/22 04:49 Patient resulted labs reviewed. Assessment/Plan Assessment and Plan Assess & Plan/Chief Complaint Assessment: Acute respiratory failure requiring BiPAP Pleural effusion status postthoracentesis Pneumonia Hypoxia Hypothyroidism Anxiety Plan: Oxygen BiPAP High risk for intubation Critical Care Critically Ill Patient Clinical Quality Measures AMI/AHF: ASA po Prior to arrival: RAMESH Salazar DO Mar 13, 2022 06:09
[2022-03-13] MEDS: PANTOPRAZOLE 40 MG (PROTONIX) TAB PO SCH ×2 (06:25→15:49)
[2022-03-13] MEDS: methylPREDNISolone 40 MG/ML (Solu-MEDROL) VIAL IV SCH ×3 (06:25→17:36)
[2022-03-13] MEDS: LEVOTHYROXINE 25 MCG (LEVOTHROID) TAB PO SCH (06:25)
[2022-03-13] MEDS: RT--FLUTICASONE/SALMETEROL 232-14 (AIRDUO RespiCLICK) IH SCH ×2 (07:04→18:09)
[2022-03-13] MEDS: ROSUVASTATIN 20 MG (CRESTOR) TABLET PO SCH (08:12)
[2022-03-13] MEDS: VENlafaxine 75 MG (EFFEXOR) TAB PO SCH ×3 (08:12→17:37)
[2022-03-13] MEDS: QUEtiapine 200 MG (SEROquel) TAB IMMEDIATE RELEASE PO SCH ×3 (08:12→19:56)
[2022-03-13 08:42] LABS: INR 1.1 (0.8-1.4); PROTHROMBIN TIME PATIENT 14.8 SEC (12.2-14.7)
--- NOTE | 2022-03-13 10:18 | Tele-ICU Progress Note ---
Subjective Date Seen by a Provider: Mar 13, 2022 Time Seen by a Provider: 08:35 Subjective/Events-last exam Available chart/vitals/labs/images reviewed. Video assessment done using telemetry ICU camera, rest of exam as per RN. Discussion with the RN, exam as per RN. Hospital course Patient today clinically is same but anxious about the procedure. Yesterday she did not have a IR guided chest tube. Today she is scheduled for CT-guided chest tube placement. She is still requiring about 6 L of oxygen. Hemodynamically stable and urine output is fair. Discussed with the DISC JOCKEY and the patient. Review of Systems ROS PER RN Sepsis Event Evaluation Height, Weight, BMI Height: '" Weight: lbs. oz. kg; 32.88 BMI Method: Exam Exam Patient acknowledged, consented, and participated in this virtual visit which was conducted using real time audio/video Vital Signs Date Time Temp Pulse Resp B/P (MAP) Pulse Ox O2 Delivery O2 Flow Rate FiO2 03/13/22 10:00 86 27 159/91 (113) 93 High Flow N/C 6.00 03/13/22 09:53 94 High Flow N/C 6.00 03/13/22 09:00 89 18 145/75 (98) 95 High Flow N/C 6.00 03/13/22 08:12 36.5 03/13/22 08:00 80 13 162/91 (114) 99 High Flow N/C 6.00 03/13/22 07:48 96 High Flow N/C 6.00 03/13/22 07:04 99 High Flow N/C 6.00 03/13/22 07:00 73 11 162/91 (114) 99 High Flow N/C 6.00 03/13/22 06:55 76 03/13/22 06:00 89 20 148/92 (110) 98 High Flow N/C 6.00 03/13/22 05:00 79 12 155/92 (113) 97 High Flow N/C 6.00 03/13/22 04:00 96 High Flow N/C 6.00 03/13/22 04:00 82 20 155/93 (113) 99 High Flow N/C 6.00 03/13/22 04:00 36.1 03/13/22 03:00 80 20 141/83 (102) 99 High Flow N/C 6.00 03/13/22 02:11 98 High Flow N/C 6.00 03/13/22 02:00 75 12 146/86 (106) 97 High Flow N/C 6.00 03/13/22 01:10 High Flow N/C 6.00 03/13/22 01:00 79 03/13/22 01:00 79 15 134/80 (98) 95 NIV Bilevel 35.00 03/12/22 23:30 36.2 03/12/22 23:05 95 NIV Bilevel 35 03/12/22 23:00 89 22 142/79 (100) 95 NIV Bilevel 35.00 03/12/22 22:55 36.3 NIV Bilevel 35.00 03/12/22 22:20 93 23 141/80 (100) 95 NIV Bilevel 35.00 03/12/22 21:30 NIV Bilevel 35.00 03/12/22 21:27 101 29 96 35.00 03/12/22 21:00 94 39 157/86 (109) 91 High Flow N/C 6.00 03/12/22 20:00 94 16 149/96 (113) 94 High Flow N/C 6.00 03/12/22 19:45 94 High Flow N/C 6.00 03/12/22 19:00 95 146/88 (107) 93 High Flow N/C 6.00 03/12/22 19:00 36.2 92 28 146/88 (107) 93 High Flow N/C 6.00 03/12/22 18:45 95 03/12/22 18:44 90 High Flow N/C 6.00 03/12/22 18:00 99 High Flow N/C 6.00 03/12/22 17:00 87 16 152/86 (108) 96 High Flow N/C 6.00 03/12/22 16:28 95 High Flow N/C 6.00 03/12/22 16:00 36.7 03/12/22 16:00 88 19 139/77 (97) 95 High Flow N/C 6.00 03/12/22 15:00 92 13 143/81 (101) 94 High Flow N/C 6.00 03/12/22 14:22 95 High Flow N/C 6.00 03/12/22 14:00 89 47 145/88 (107) 96 High Flow N/C 6.00 03/12/22 13:00 83 140/81 (100) 97 High Flow N/C 6.00 03/12/22 12:15 84 03/12/22 12:00 95 151/84 (106) 94 High Flow N/C 6.00 03/12/22 12:00 95 High Flow N/C 6.00 03/12/22 11:00 97 23 155/99 (117) 91 High Flow N/C 6.00 03/12/22 10:26 94 High Flow N/C 6.00 I & O 03/13/22 07:00 Intake Total 1300 ml Output Total 1950 ml Balance -650 ml Height & Weight Height: '" Weight: lbs. oz. kg; 32.88 BMI Method: General Appearance: No Apparent Distress, Chronically ill, Obese HEENT: PERRL/EOMI, Moist Mucous Membranes Respiratory: Lungs Clear, Decreased Breath Sounds Cardiovascular: Regular Rate, Rhythm Capillary Refill: Less Than 3 Seconds Gastrointestinal: soft, no organomegaly, distended Neurologic/Psychiatric: Alert, Oriented x3 Results Lab Laboratory Tests 03/12/22 04:09 03/12/22 05:04 03/13/22 04:49 Assessment/Plan Assessment/Plan 1. Acute on chronic respiratory failure secondary to pneumonia with moderate to large pleural effusion causing atelectasis of the right lower lobe with an underlying COPD. 2. Exudative pleural effusion most likely follow-up for parapneumonic effusion. 3. Chest pain due to pleurisy improving. 4. History of bipolar disorder and anxiety. 5. History of hypothyroidism. 6. Residual large pleural effusion probably loculated, ? empyema Recommendations 1. Continue IV antibiotics per primary care physician 2. Wean FiO2 as tolerated 3. Awaiting for IRt to insert rt chest tube. 4. DVT prophylaxis and ulcer prophylaxis. 5. Discussed with the DISC JOCKEY and made a video visit. 6. pt is reassured about the procedure. Critical Care: Critically Ill Patient Time spent with patient (mins): 15 SASCHA COATS MD Mar 13, 2022 10:17
--- NOTE | 2022-03-13 13:27 | Pre-Op Note & Conscious Sedat ---
Pre-Operative Progress Note H&P Reviewed The H&P was reviewed, patient examined and no changes noted. Date H&P Reviewed: Mar 13, 2022 Time H&P Reviewed: 11:00 Pre-Op Diagnosis: pleural effusion Conscious Sedation Pre-Proced Time 11:00 ASA Score 2 For ASA 3 and 4: Consider anesthesia and medical clearance. Also, for patients with a history of failed moderate sedation consider anesthesia. Airway Lungs Heart ASA score ASA 1: a normal healthy patient ASA 2: a patient with a mild systemic disease (mid diabetes, controlled hypertension, obesity ASA 3: a patient with a severe systemic disease that limits activity (angina, COPD, prior Myocardial infarction) ASA 4: a patient with an incapacitating disease that is a constant threat to life (CHF, renal failure) ASA 5: a moribund patient not expected to survive 24 hrs. (ruptured aneurysm) ASA 6: a declared brain- patient whose organs are being harvested. For emergent operations, add the letter E after the classification Mallampati Classification Grade 2 Sedation Plan Analgesia, Amnesia, Plan communicated to team members, Discussed options with chayito mullins/fam, Discussed risks with patient/fam The patient is an appropriate candidate to undergo the planned procedure, sedation, and anesthesia. The patient immediately re-assessed prior to indication. CELESTINE VÁSQUEZ MD Mar 13, 2022 13:27
[2022-03-13] MEDS: fentaNYL INJ 100 MCG/2 ML AMP IV PRN ×4 (13:34→22:32)
--- NOTE | 2022-03-13 13:34 | Diagnostic Imaging Report ---
INDICATION: Pleural effusion. Patient presents for CT-guided pleural drain placement. Patient was brought to the CT suite and placed on table in the supine position. Axial imaging through the chest was performed to evaluate appropriate entry site. Right lower lateral chest was prepped and draped in usual sterile fashion. Small amount of 1% lidocaine was utilized for local anesthesia. A Yueh needle was advanced and placed with its tip in the posterior pleural space on the right. UA was exchanged over an 0.35 Amplatz guidewire. Next, tract was dilated with 6, 8, 10 and 12-Maldivian dilators. Next, 12-Maldivian all-purpose pigtail drain was advanced over the guidewire into the pleural space on the right. The loop was formed. Pleural drain was placed to a Charity drain. Patient tolerated procedure well, left the department in stable condition. Total procedure time approximately 11 minutes. IMPRESSION: Successful CT-guided right pleural drain placement, as described. TECHNIQUE: All CT scans use one or more of the following dose optimizing techniques: automated exposure control, MA and/or KvP adjustment based on patient size and exam type or iterative reconstruction. Dictated by: Dictated on workstation # [id number]
--- NOTE | 2022-03-13 18:54 | Progress Note - Surgery ---
Subjective Time Seen by a Provider: 13:31 Subjective/Events-last exam Pt seen and examined, she had a tube placed by radiology. She states it hurts when she takes a deep breath, but thinks her breathing is a little better. Review of Systems Pulmonary: Dyspnea, Cough Cardiovascular: Chest Pain (she is describing more of a pleurisy); No: Palpitations Objective Exam Vital Signs Date Time Temp Pulse Resp B/P (MAP) Pulse Ox O2 Delivery O2 Flow Rate FiO2 03/13/22 18:13 96 High Flow N/C 6.00 03/13/22 18:00 81 20 148/92 (110) 99 High Flow N/C 6.00 03/13/22 17:00 80 130/79 (96) 97 High Flow N/C 6.00 03/13/22 16:15 97 High Flow N/C 6.00 03/13/22 16:00 100 33 155/100 (118) 86 High Flow N/C 6.00 03/13/22 15:00 105 37 135/79 (97) 94 High Flow N/C 6.00 03/13/22 14:44 94 High Flow N/C 6.00 03/13/22 14:00 85 13 163/97 (119) 95 High Flow N/C 6.00 03/13/22 13:00 81 51 160/99 (119) 97 High Flow N/C 6.00 03/13/22 12:50 80 03/13/22 12:16 96 High Flow N/C 6.00 03/13/22 12:00 152/110 (124) High Flow N/C 6.00 03/13/22 11:50 85 20 146/89 (108) 96 High Flow N/C 6.00 03/13/22 11:40 85 20 146/86 (106) 97 High Flow N/C 6.00 03/13/22 11:30 82 20 151/83 (105) 95 High Flow N/C 6.00 03/13/22 10:45 84 13 151/63 (92) 94 High Flow N/C 6.00 03/13/22 10:00 86 27 159/91 (113) 93 High Flow N/C 6.00 03/13/22 09:53 94 High Flow N/C 6.00 03/13/22 09:00 89 18 145/75 (98) 95 High Flow N/C 6.00 03/13/22 08:12 36.5 03/13/22 08:00 80 13 162/91 (114) 99 High Flow N/C 6.00 03/13/22 07:48 96 High Flow N/C 6.00 03/13/22 07:04 99 High Flow N/C 6.00 03/13/22 07:00 73 11 162/91 (114) 99 High Flow N/C 6.00 03/13/22 06:55 76 03/13/22 06:00 89 20 148/92 (110) 98 High Flow N/C 6.00 03/13/22 05:00 79 12 155/92 (113) 97 High Flow N/C 6.00 03/13/22 04:00 96 High Flow N/C 6.00 03/13/22 04:00 82 20 155/93 (113) 99 High Flow N/C 6.00 03/13/22 04:00 36.1 03/13/22 03:00 80 20 141/83 (102) 99 High Flow N/C 6.00 03/13/22 02:11 98 High Flow N/C 6.00 03/13/22 02:00 75 12 146/86 (106) 97 High Flow N/C 6.00 03/13/22 01:10 High Flow N/C 6.00 03/13/22 01:00 79 03/13/22 01:00 79 15 134/80 (98) 95 NIV Bilevel 35.00 03/12/22 23:30 36.2 03/12/22 23:05 95 NIV Bilevel 35 03/12/22 23:00 89 22 142/79 (100) 95 NIV Bilevel 35.00 03/12/22 22:55 36.3 NIV Bilevel 35.00 03/12/22 22:20 93 23 141/80 (100) 95 NIV Bilevel 35.00 03/12/22 21:30 NIV Bilevel 35.00 03/12/22 21:27 101 29 96 35.00 03/12/22 21:00 94 39 157/86 (109) 91 High Flow N/C 6.00 03/12/22 20:00 94 16 149/96 (113) 94 High Flow N/C 6.00 03/12/22 19:45 94 High Flow N/C 6.00 03/12/22 19:00 95 146/88 (107) 93 High Flow N/C 6.00 03/12/22 19:00 36.2 92 28 146/88 (107) 93 High Flow N/C 6.00 I & O 03/13/22 06:59 Intake Total 1300 ml Output Total 1950 ml Balance -650 ml Capillary Refill : Less Than 3 Seconds General Appearance: No Apparent Distress, Chronically ill, Obese HEENT: PERRL/EOMI, Moist Mucous Membranes Respiratory: Lungs Clear, Decreased Breath Sounds Cardiovascular: Regular Rate, Rhythm Gastrointestinal: soft, no organomegaly, distended Neurologic/Psychiatric: Alert, Oriented x3 Results Lab Laboratory Tests 03/13/22 04:49: White Blood Count 15.6H, Red Blood Count 3.72L, Hemoglobin 9.5L, Hematocrit 31L, Mean Corpuscular Volume 83, Mean Corpuscular Hemoglobin 26, Mean Corpuscular Hemoglobin Concent 31L, Red Cell Distribution Width 16.2H, Platelet Count 494H, Mean Platelet Volume 9.1, Immature Granulocyte % (Auto) 5, Neutrophils (%) (Auto) 86H, Lymphocytes (%) (Auto) 6L, Monocytes (%) (Auto) 3, Eosinophils (%) (Auto) 0, Basophils (%) (Auto) 0, Neutrophils # (Auto) 13.4H, Lymphocytes # (Auto) 0.9L, Monocytes # (Auto) 0.5, Eosinophils # (Auto) 0.0, Basophils # (Auto) 0.0, Immature Granulocyte # (Auto) 0.7H, Prothrombin Time 14.8H, INR Comment 1.1, Sodium Level 142, Potassium Level 4.3, Chloride Level 97L, Carbon Dioxide Level 33H, Anion Gap 12, Blood Urea Nitrogen 14, Creatinine 0.59L, Estimat Glomerular Filtration Rate 103, BUN/Creatinine Ratio 24, Glucose Level 141H, Calcium Level 8.9, Corrected Calcium 9.5, Magnesium Level 2.6H, Total Bilirubin 0.2, Aspartate Amino Transf (AST/SGOT) 17, Alanine Aminotransferase (ALT/SGPT) 26, Alkaline Phosphatase 86, Total Protein 6.7, Albumin 3.2 Microbiology 03/08/22 Gram Stain - Final, Complete 03/08/22 Body Fluid Culture - Final, Complete No growth 03/07/22 Blood Culture - Preliminary, Resulted No growth Assessment/Plan Assessment/Plan Assessment/Plan Respiratory Distress secondary to Large Right Pleural effusion - slightly better COPD Chest pain Radiologist was able to perform drainage today; catheter still in place to try and drain more of the fluid. Still unsure if there is a loculation; will follow along. Clinical Quality Measures AMI/AHF: ASA po Prior to arrival: LEE ANN Zimmerman DO Mar 13, 2022 18:54
[2022-03-13] MEDS: MIRTAZAPINE 15 MG (REMERON) TAB PO SCH (19:56)
[2022-03-13] MEDS: clonazePAM 0.5 MG (KlonoPIN) TAB PO PRN (19:56)
[2022-03-14] VITALS (17 sets, daily range): BP systolic 92–148; BP diastolic 66–95
[2022-03-14] MEDS: methylPREDNISolone 40 MG/ML (Solu-MEDROL) VIAL IV SCH ×4 (00:03→18:10)
[2022-03-14] MEDS: fentaNYL INJ 100 MCG/2 ML AMP IV PRN ×10 (00:39→21:57)
[2022-03-14] MEDS: RT-ALBUTEROL/IPRATROPIUM 3 ML (DUONEB) VIAL INH SCH ×6 (02:56→23:01)
[2022-03-14] MEDS: HYDROcodone/APAP 5 MG/325 MG (LORTAB) TAB PO PRN ×5 (04:15→21:57)
[2022-03-14 05:44] LABS: BASOPHILS % (AUTO) 0 % (0-10); EOSINOPHILS % (AUTO) 0 % (0-10); HEMATOCRIT 32 % (35-52); HEMOGLOBIN 9.8 g/dL (11.5-16.0); LYMPHOCYTES # (AUTO) 1.2 10^3/uL (1.0-4.0); LYMPHOCYTES % (AUTO) 7 % (12-44); MEAN CORPUSCULAR HEMOGLOBIN 25 pg (25-34); MEAN CORPUSCULAR HGB CONC 31 g/dL (32-36); MEAN CORPUSCULAR VOLUME 83 fL (80-99); MEAN PLATELET VOLUME 9.1 fL (9.0-12.2); MONOCYTES # (AUTO) 0.6 10^3/uL (0.0-1.0); MONOCYTES % (AUTO) 4 % (0-12); NEUTROPHILS # (AUTO) 14.3 10^3/uL (1.8-7.8); NEUTROPHILS % (AUTO) 84 % (42-75); PLATELET COUNT 556 10^3/uL (130-400)
[2022-03-14 05:58] LABS: ALBUMIN 3.3 GM/DL (3.2-4.5); POTASSIUM 4.2 MMOL/L (3.6-5.0)
[2022-03-14 06:00] LABS: CALCIUM 8.9 MG/DL (8.5-10.1)
[2022-03-14 06:01] LABS: TOTAL PROTEIN 6.7 GM/DL (6.4-8.2)
[2022-03-14] MEDS: MAGNESIUM 1 GM/100 ML IVPB 100 ML IV SCH (06:01)
[2022-03-14] MEDS: KCL 20 MEQ TAB (K-DUR) PO SCH (06:01)
[2022-03-14] MEDS: POTASSIUM CL 10MEQ/50ML IVPB 50 ML IV SCH (06:01)
[2022-03-14 06:03] LABS: BILIRUBIN,TOTAL 0.3 MG/DL (0.1-1.0)
--- NOTE | 2022-03-14 06:03 | Progress Note - Hospitalist ---
Subjective HPI/CC On Admission Date Seen by Provider: Mar 14, 2022 Time Seen by Provider: 11:00 Subjective/Events-last exam Pt is doing a lot better Transferring to 4th floor On 4L of oxygen PT and OT will be ordered Status post pleural catheter to remove the infusion Review of Systems General: Fatigue, Malaise Pulmonary: Dyspnea Objective Exam Vital Signs Vital Signs Date Time Temp Pulse Resp B/P (MAP) Pulse Ox O2 Delivery O2 Flow Rate FiO2 03/14/22 20:21 97 High Flow N/C 5.00 03/14/22 19:27 36.1 94 20 133/79 (97) 03/12/22 23:05 35 Capillary Refill : Less Than 3 Seconds General Appearance: No Apparent Distress, WD/WN, Chronically ill Respiratory: Lungs Clear, Normal Breath Sounds, Decreased Breath Sounds Cardiovascular: Regular Rate, Rhythm Neurologic/Psychiatric: Alert, Oriented x3, No Motor/Sensory Deficits, Normal Mood/Affect Results/Procedures Lab Laboratory Tests 03/14/22 05:21 Patient resulted labs reviewed. Assessment/Plan Assessment and Plan Assess & Plan/Chief Complaint Assessment: Acute respiratory failure requiring BiPAP Pleural effusion status postthoracentesis Pneumonia Hypoxia Hypothyroidism Anxiety Plan: Oxygen BiPAP Move to 4th floor Critical Care Critically Ill Patient Clinical Quality Measures AMI/AHF: ASA po Prior to arrival: RAMESH Salazar DO Mar 14, 2022 06:03
[2022-03-14 06:04] LABS: CREATININE SERUM 0.66 MG/DL (0.60-1.30)
[2022-03-14 06:07] LABS: MAGNESIUM 2.4 MG/DL (1.6-2.4)
[2022-03-14] MEDS: LEVOTHYROXINE 25 MCG (LEVOTHROID) TAB PO SCH (06:27)
[2022-03-14] MEDS: PANTOPRAZOLE 40 MG (PROTONIX) TAB PO SCH ×2 (06:27→17:14)
[2022-03-14] MEDS: RT--FLUTICASONE/SALMETEROL 232-14 (AIRDUO RespiCLICK) IH SCH ×2 (07:57→19:51)
--- NOTE | 2022-03-14 08:15 | Diagnostic Imaging Report ---
INDICATION: Right-sided pleural effusion with pleural drain placement. Time of Exam: 2:04 AM Correlation is made with prior chest from 03/10/2022. Heart size is stable. There has been some reduction in right-sided pleural effusion, status post pleural drain placement. There continues to be some pleural fluid present. No pneumothorax is seen. There is some infiltrate or atelectasis in the right upper and right lower lobe. IMPRESSION: 1. There has been some reduction in right-sided pleural effusion status post pleural drain placement. 2. Right-sided infiltrate or atelectasis. Dictated by: Dictated on workstation # [id number]
[2022-03-14] MEDS: LORazepam 0.5 MG (ATIVAN) TABLET PO PRN (08:28)
[2022-03-14] MEDS: ROSUVASTATIN 20 MG (CRESTOR) TABLET PO SCH (08:28)
[2022-03-14] MEDS: VENlafaxine 75 MG (EFFEXOR) TAB PO SCH ×3 (08:28→18:10)
[2022-03-14] MEDS: QUEtiapine 200 MG (SEROquel) TAB IMMEDIATE RELEASE PO SCH ×3 (08:31→20:15)
[2022-03-14] MEDS: ENOXAPARIN 40 MG/0.4 ML (LOVENOX) SYR SC SCH (10:59)
--- NOTE | 2022-03-14 12:26 | Tele-ICU Progress Note ---
Subjective Date Seen by a Provider: Mar 14, 2022 Time Seen by a Provider: 12:25 Subjective/Events-last exam (Tele-ICU Physician , Progress Note ) Available chart/ vitals / labs / Images reviewed Video assessment done using teleICU camera, rest of exam as per RN Discussed with RN , EXAM PER RN Events ovenight : Afebrile FiO2 - 9L o2 I/O = Drips: Pressors: , hemodynamically stable Consultants: Hospital course: (03/08) positive severe sepsis since admission 03-07 61 y/o female with pna right pleural effusion transferred for increased O2 needs Right Thoracentesis 300ml fluid out. (03/10) repeat CT chest eval effusions 03/13 - s/p chest tube placement by IR A/P Assessment/Plan 1. Acute on chronic respiratory failure secondary to pneumonia with moderate to large pleural effusion causing atelectasis of the right lower lobe with an underlying COPD. 2. Exudative pleural effusion most likely follow-up for parapneumonic effusion. 3. Chest pain due to pleurisy improving. 4. History of bipolar disorder and anxiety. 5. History of hypothyroidism. 6. Residual large pleural effusion on CT 03/10 loculated, ? empyema - 03/13 - s/p chest tube placement by IR 03/13 Recommendations 1. Continue IV antibiotics per primary care physician 2. Wean FiO2 as tolerated 3. Sx to follow / eval tp see whether we need to do thoracentesis or chest tube insertion ( based on recent CT 4. DVT prophylaxis and ulcer prophylaxis. consider to decrease dose of steroids - as per PCP might benefit intraplural thrombolytic protocol vs decortication - will monitor along with Sx Lines : (Central Line Necessity Reviewed) Williamson: void OG: Nutrition: Analgesia: Anxiety/ delirium VTE Prophylaxis: on hold for possible thora , SCD Stress Ulcer Prophylaxis: na Plans in collaboration with bedside consultants and IM MDs. Discussed with RN to reach out if any questions or concerns A total of 32 minutes of critical care time was devoted to this patient today, required to treat and/or prevent further deterioration of critical care condition ( as above) . Sepsis Event Evaluation Height, Weight, BMI Height: '" Weight: lbs. oz. kg; 32.88 BMI Method: Exam Exam Patient acknowledged, consented, and participated in this virtual visit which was conducted using real time audio/video Vital Signs Date Time Temp Pulse Resp B/P (MAP) Pulse Ox O2 Delivery O2 Flow Rate FiO2 03/14/22 11:43 36.8 03/14/22 10:54 92 High Flow N/C 5.00 03/14/22 10:00 112 20 123/94 (104) 93 High Flow N/C 5.00 03/14/22 09:00 96 18 103/85 (91) 94 High Flow N/C 5.00 03/14/22 08:51 95 High Flow N/C 5.00 03/14/22 08:00 85 16 92/84 (87) 97 High Flow N/C 5.00 03/14/22 07:57 92 High Flow N/C 5.00 03/14/22 07:46 36.2 03/14/22 07:00 78 16 115/66 (82) 96 High Flow N/C 5.00 03/14/22 07:00 78 03/14/22 06:00 80 20 147/75 (99) 96 High Flow N/C 5.00 03/14/22 05:00 90 17 145/95 (112) 93 High Flow N/C 5.00 03/14/22 04:26 High Flow N/C 5.00 03/14/22 04:00 96 High Flow N/C 5.00 03/14/22 04:00 97 15 145/84 (104) 92 NIV Bilevel 35.00 03/14/22 04:00 36.1 03/14/22 03:54 92 22 94 35.00 03/14/22 03:12 NIV Bilevel 35.00 03/14/22 03:11 82 16 94 35.00 03/14/22 03:00 88 23 148/89 (108) 90 High Flow N/C 4.00 03/14/22 02:56 93 Nasal Cannula 4.00 03/14/22 02:00 76 23 134/72 (92) 97 High Flow N/C 4.00 03/14/22 01:00 84 03/14/22 01:00 86 16 129/71 (90) 94 High Flow N/C 4.00 03/14/22 00:00 89 16 132/93 (106) 92 High Flow N/C 4.00 03/14/22 00:00 96 High Flow N/C 4.00 03/13/22 23:43 36.4 03/13/22 23:07 High Flow N/C 4.00 03/13/22 23:00 100 16 130/83 (99) 91 High Flow N/C 6.00 03/13/22 22:40 95 Nasal Cannula 4.00 03/13/22 22:00 87 15 131/88 (102) 95 High Flow N/C 6.00 03/13/22 21:00 87 14 162/97 (118) 94 High Flow N/C 6.00 03/13/22 20:00 36.3 High Flow N/C 6.00 03/13/22 20:00 95 21 147/98 (114) 94 High Flow N/C 6.00 03/13/22 20:00 97 High Flow N/C 6.00 03/13/22 19:00 93 21 149/56 (87) 94 High Flow N/C 6.00 03/13/22 19:00 93 03/13/22 18:13 96 High Flow N/C 6.00 03/13/22 18:00 81 20 148/92 (110) 99 High Flow N/C 6.00 03/13/22 17:00 80 130/79 (96) 97 High Flow N/C 6.00 03/13/22 16:15 97 High Flow N/C 6.00 03/13/22 16:00 100 33 155/100 (118) 86 High Flow N/C 6.00 03/13/22 15:00 105 37 135/79 (97) 94 High Flow N/C 6.00 03/13/22 14:44 94 High Flow N/C 6.00 03/13/22 14:00 85 13 163/97 (119) 95 High Flow N/C 6.00 03/13/22 13:00 81 51 160/99 (119) 97 High Flow N/C 6.00 03/13/22 12:50 80 I & O 03/14/22 07:00 Intake Total 1435 ml Output Total 1560 ml Balance -125 ml Height & Weight Height: '" Weight: lbs. oz. kg; 32.88 BMI Method: General Appearance: No Apparent Distress, WD/WN, Anxious, Chronically ill, Obese HEENT: PERRL/EOMI, Moist Mucous Membranes Respiratory: Lungs Clear, Crackles, Decreased Breath Sounds Cardiovascular: Regular Rate, Rhythm Capillary Refill: Less Than 3 Seconds Gastrointestinal: soft, no organomegaly, distended Neurologic/Psychiatric: Alert, Oriented x3, No Motor/Sensory Deficits, Normal Mood/Affect Results Lab Laboratory Tests 03/13/22 04:49 03/14/22 05:21 Assessment/Plan Assessment/Plan 1 SAIMA HACKETT MD Mar 14, 2022 12:25
--- NOTE | 2022-03-14 13:02 | Progress Note - Surgery ---
Subjective Time Seen by a Provider: 08:49 Subjective/Events-last exam Pt seen and examined, states her breathing is much better. Although, she still has pain at site of drainage tube and when she takes deep breath. Review of Systems Pulmonary: Dyspnea, Cough Cardiovascular: Chest Pain Gastrointestinal: No: Nausea, Vomiting, Abdominal Pain Objective Exam Vital Signs Date Time Temp Pulse Resp B/P (MAP) Pulse Ox O2 Delivery O2 Flow Rate FiO2 03/14/22 11:43 36.8 03/14/22 10:54 92 High Flow N/C 5.00 03/14/22 10:00 112 20 123/94 (104) 93 High Flow N/C 5.00 03/14/22 09:00 96 18 103/85 (91) 94 High Flow N/C 5.00 03/14/22 08:51 95 High Flow N/C 5.00 03/14/22 08:00 85 16 92/84 (87) 97 High Flow N/C 5.00 03/14/22 07:57 92 High Flow N/C 5.00 03/14/22 07:46 36.2 03/14/22 07:00 78 16 115/66 (82) 96 High Flow N/C 5.00 03/14/22 07:00 78 03/14/22 06:00 80 20 147/75 (99) 96 High Flow N/C 5.00 03/14/22 05:00 90 17 145/95 (112) 93 High Flow N/C 5.00 03/14/22 04:26 High Flow N/C 5.00 03/14/22 04:00 96 High Flow N/C 5.00 03/14/22 04:00 97 15 145/84 (104) 92 NIV Bilevel 35.00 03/14/22 04:00 36.1 03/14/22 03:54 92 22 94 35.00 03/14/22 03:12 NIV Bilevel 35.00 03/14/22 03:11 82 16 94 35.00 03/14/22 03:00 88 23 148/89 (108) 90 High Flow N/C 4.00 03/14/22 02:56 93 Nasal Cannula 4.00 03/14/22 02:00 76 23 134/72 (92) 97 High Flow N/C 4.00 03/14/22 01:00 84 03/14/22 01:00 86 16 129/71 (90) 94 High Flow N/C 4.00 03/14/22 00:00 89 16 132/93 (106) 92 High Flow N/C 4.00 03/14/22 00:00 96 High Flow N/C 4.00 03/13/22 23:43 36.4 03/13/22 23:07 High Flow N/C 4.00 03/13/22 23:00 100 16 130/83 (99) 91 High Flow N/C 6.00 03/13/22 22:40 95 Nasal Cannula 4.00 03/13/22 22:00 87 15 131/88 (102) 95 High Flow N/C 6.00 03/13/22 21:00 87 14 162/97 (118) 94 High Flow N/C 6.00 03/13/22 20:00 36.3 High Flow N/C 6.00 03/13/22 20:00 95 21 147/98 (114) 94 High Flow N/C 6.00 03/13/22 20:00 97 High Flow N/C 6.00 03/13/22 19:00 93 21 149/56 (87) 94 High Flow N/C 6.00 03/13/22 19:00 93 03/13/22 18:13 96 High Flow N/C 6.00 03/13/22 18:00 81 20 148/92 (110) 99 High Flow N/C 6.00 03/13/22 17:00 80 130/79 (96) 97 High Flow N/C 6.00 03/13/22 16:15 97 High Flow N/C 6.00 03/13/22 16:00 100 33 155/100 (118) 86 High Flow N/C 6.00 03/13/22 15:00 105 37 135/79 (97) 94 High Flow N/C 6.00 03/13/22 14:44 94 High Flow N/C 6.00 03/13/22 14:00 85 13 163/97 (119) 95 High Flow N/C 6.00 03/13/22 13:00 81 51 160/99 (119) 97 High Flow N/C 6.00 I & O 03/14/22 07:00 Intake Total 1435 ml Output Total 1560 ml Balance -125 ml Capillary Refill : Less Than 3 Seconds General Appearance: Anxious, Chronically ill, Obese HEENT: PERRL/EOMI, Moist Mucous Membranes Respiratory: Lungs Clear, Crackles, Decreased Breath Sounds Cardiovascular: Regular Rate, Rhythm Gastrointestinal: soft, no organomegaly, distended Neurologic/Psychiatric: Alert, Oriented x3 Results Lab Laboratory Tests 03/14/22 05:21: White Blood Count 17.0H, Red Blood Count 3.86, Hemoglobin 9.8L, Hematocrit 32L, Mean Corpuscular Volume 83, Mean Corpuscular Hemoglobin 25, Mean Corpuscular Hemoglobin Concent 31L, Red Cell Distribution Width 16.3H, Platelet Count 556H, Mean Platelet Volume 9.1, Immature Granulocyte % (Auto) 5, Neutrophils (%) (Auto) 84H, Lymphocytes (%) (Auto) 7L, Monocytes (%) (Auto) 4, Eosinophils (%) (Auto) 0, Basophils (%) (Auto) 0, Neutrophils # (Auto) 14.3H, Lymphocytes # (Auto) 1.2, Monocytes # (Auto) 0.6, Eosinophils # (Auto) 0.0, Basophils # (Auto) 0.0, Immature Granulocyte # (Auto) 0.9H, Sodium Level 141, Potassium Level 4.2, Chloride Level 97L, Carbon Dioxide Level 32, Anion Gap 12, Blood Urea Nitrogen 15, Creatinine 0.66, Estimat Glomerular Filtration Rate 100, BUN/Creatinine Ratio 23, Glucose Level 153H, Calcium Level 8.9, Corrected Calcium 9.5, Magnesium Level 2.4, Total Bilirubin 0.3, Aspartate Amino Transf (AST/SGOT) 14, Alanine Aminotransferase (ALT/SGPT) 26, Alkaline Phosphatase 78, Total Protein 6.7, Albumin 3.3 Microbiology 03/08/22 Gram Stain - Final, Complete 03/08/22 Body Fluid Culture - Final, Complete No growth 03/07/22 Blood Culture - Final, Complete No growth Assessment/Plan Assessment/Plan Assessment/Plan Respiratory Distress secondary to Large Right Pleural effusion - improved COPD Chest pain Radiologist was able to perform drainage today; has drained at least 350ml since she has been back in ICU. Still unsure if there is a loculation; however, I think she can go home and we can remove tube as outpt or just before she goes. Would repeat another CT in a few weeks to see if there are still signs of loculation. Clinical Quality Measures AMI/AHF: ASA po Prior to arrival: LEE ANN Zimmerman DO Mar 14, 2022 13:02
--- NOTE | 2022-03-14 13:09 | Occupational Therapy Eval ---
OT Evaluation-General/PLF Medical Diagnosis Admission Date Mar 07, 2022 at 18:35 Medical Diagnosis: acute respiratory failure, pleural effusion Onset Date: Mar 07, 2022 Therapy Diagnosis Therapy Diagnosis: reduced endurance, adl status Precautions Precautions/Isolations: Fall Prevention, Standard Precautions Weight Bear Status Weight Bearing Restriction: Weight Bearing/Tolerated Location Restriction: R LE R foot WBAT with CAM boot Referral Referral Reason: Evaluation/Treatment Medical History Pertinent Medical History: COPD, GERD, Hypothroidism Current History Pt presented to hospital with c/o SOB. Found to have pleural effusion. S/p Thoracentesis. Patient had a fall 03/05/22 where she fractured her metatarsal bone. Per patient report, she is WBAT with CAM boot. Patient lives with her 17 year old daughter in a ranch style home with a basement (where she fell). She was indep with adls and iadls prior to admission. She was not using any AD prior to fall, but was using crutches post fall. Reviewed History: Yes Social History Home: Single Level Current Living Status: Children ADL-Prior Level of Function SCALE: Activities may be completed with or without assistive devices. 0-Uvokzpshsu-oqpdoeg completes the activity by him/herself with no assistance from a helper. 5-Set-up or Clean-up Assistance-helper sets up or cleans up; patient completes activity. [place] assists only prior to or following the activity. 4-Supervision or Touching Assistance-helper provides verbal cues and/or touch ing/steadying and/or contact guard assistance as patient completes activity. Assistance may be provided throughout the activity or intermittently. 3-Partial/Moderate Assistance-helper does LESS THAN HALF the effort. [place] lifts, holds or supports trunk or limbs, but provides less than half the effort. 2-Substantial/Maximal Assistance-helper does MORE THAN HALF the effort. [place] lifts or holds trunk or limbs and provides more than half the effort. 8-Tdiljhknn-bynvhw does ALL the effort. Patient does none of the effort to complete the activity. Or, the assistance of 2 or more helpers is required for the patient to complete the activity. If activity was not attempted, code reason: 7-Patient Refused. 9-Not Applicable-not attempted and the patient did not perform the activity before the current illness, exacerbation or injury. 10-Not Attempted due to Environmental Limitations-(lack of equipment, weather restraints, etc.). 88-Not Attempted due to Medical Conditions or Safety Concerns. Self Care: Independent Functional Cognition: Independent DME/Equipment: Tub/Shower Drive Self: Yes OT Current Status Subjective Pt agreeable to evaluation, really wants to go home. Appearance Pt left sitting in recliner, all needs within reach. Mental Status/Objective Patient Orientation: Person, Place, Situation Attachments: IV, Oxygen (5L), Telemetry, Other-See Comments (CAM boot) ADL-Treatment Eating (QC): 6 On/Off Footwear (QC): 3 Toileting Hygiene (QC): 3 (steadying assist only) Pt walking in room with physical therapy (SBA and use of walker) at OT arrival. She reports she needed minimal assist with 1 Velcro strap when donning cam boot. No LOB while ambulating. Intermittent cues for PLB due to desat to low 80's. Pt able to demonstrate toilet transfer with SBA. Initial steadying assist required during clothing management. Improves to SBA post cue to alternate one hand on w alker while other manages clothing up to waist. OT educated pt on purchase of shower chair as she will not be able to stand and bear weight on RLE without cam boot. Pt may benefit from short term OT to promote increased balance, flexibility, UE strength and endurance needed for functional tasks. Education OT Patient Education: Correct positioning, Modified ADL techniques, Purpose of tx/functional activities, Reviewed precautions Teaching Recipient: Patient Teaching Methods: Demonstration, Discussion Response to Teaching: Verbalize Understanding, Return Demonstration OT Dispatcher Clerk Goals Alf Goals Toileting Hygiene (QC): 6 Upper Body Dressing (QC): 5 Lower Body Dressing (QC): 5 On/Off Footwear (QC): 4 1=Demonstrate adherence to instructed precautions during ADL tasks. 2=Patient will verbalize/demonstrate understanding of assistive devices/modifications for ADL. 3=Patient will improve strength/tolerance for activity to enable patient to perform ADL's. OT Education/Plan Problem List/Assessment Assessment: Decreased Activ Tolerance, Impaired Funct Balance, Impaired I ADL's, Impaired Self-Care Skills Discharge Recommendations Plan/Recommendations: Continue POC Therapy Discharge Recommendati: Home & Family Target Placement anticipate home with family support once medically ready Treatment Plan/Plan of Care Treatment,Training & Education: Yes Patient would benefit from OT for education, treatment and training to promote independence in ADL's, mobility, safety and/or upper extremity function for ADL's. Plan of Care: ADL Retraining, Functional Mobility, Group Exercise/Act as Ind, Orthotic Fitting/Training, UE Funct Exercise/Act Treatment Duration: Mar 21, 2022 Frequency: 3 times per week (3-5x/week ) Estimated Hrs Per Day: .25 hour per day Agreement: Yes Rehab Potential: Good Time/GCodes Start Time: 12:48 Stop Time: 12:58 Total Time Billed (hr/min): 10 Billed Treatment Time 1 visit Saba Jaquez OT Mar 14, 2022 13:09
--- NOTE | 2022-03-14 13:42 | Physical Therapy Evaluation ---
PT Evaluation-General Medical Diagnosis Admission Date Mar 07, 2022 at 18:35 Medical Diagnosis: acute respiratory failure, pleural effusion Onset Date: Mar 07, 2022 Therapy Diagnosis Therapy Diagnosis: debility Precautions Precautions/Isolations: Fall Prevention, Standard Precautions Weight Bear Status unable to find weight bearing status right foot, however, patient reports she has been walking on it Referral Physician: Agus Reason for Referral: Evaluation/Treatment Medical History Pertinent Medical History: COPD, GERD, Hypothroidism Current History ER secondary to fall after missing 2 steps carrying a box down to the basement Reviewed History: Yes Social History Home: Single Level Current Living Status: Children Entry Into Home: Stairs With Railing PT Steps Into Home: 4 PT Steps Inside Home: 15 Prior Prior Level of Function SCALE: Activities may be completed with or without assistive devices. 0-Cxkwlodjsw-pyzurrt completes the activity by him/herself with no assistance from a helper. 5-Set-up or Clean-up Assistance-helper sets up or cleans up; patient completes activity. [place] assists only prior to or following the activity. 4-Supervision or Touching Assistance-helper provides verbal cues and/or touching/steadying and/or contact guard assistance as patient completes activity. Assistance may be provided throughout the activity or intermittently. 3-Partial/Moderate Assistance-helper does LESS THAN HALF the effort. [place] lifts, holds or supports trunk or limbs, but provides less than half the effort. 2-Substantial/Maximal Assistance-helper does MORE THAN HALF the effort. [place] lifts or holds trunk or limbs and provides more than half the effort. 8-Iwarnedpx-ucptkx does ALL the effort. Patient does none of the effort to complete the activity. Or, the assistance of 2 or more helpers is required for the patient to complete the activity. If activity was not attempted, code reason: 7-Patient Refused. 9-Not Applicable-not attempted and the patient did not perform the activity before the current illness, exacerbation or injury. 10-Not Attempted due to Environmental Limitations-(lack of equipment, weather restraints, etc.). 88-Not Attempted due to Medical Conditions or Safety Concerns. Bed Mobility: 6 Transfers (B,C,W/C): 6 Gait: 6 Stairs: 6 Indoor Mobility (Ambulation): Independent Stairs: Independent Prior Devices Use: None PT Evaluation-Current Subjective Patient agrees to PT. Patient dons CAM boot with SBA Objective Patient Orientation: Normal For Age Attachments: Chest Tube, Oxygen ROM/Strength ROM Lower Extremities bilateral LE WFL Strength Lower Extremities 4/5 grossly bilateral LE Integumentary/Posture Integumentary refer to nursing notes Bowel Incontinence: No Bladder Incontinence: No Posture WFL Neuromuscular (Tone, Coordination, Reflexes) grossly intact Sensory Vision: Wears Glasses Hearing: Functional Transfers Lying to Sitting/Side of Bed(Q: 6 Sit to Stand (QC): 6 Chair/Cwg-rv-Nikum Xfer(QC): 6 Gait Mode of Locomotion: Walk Anticipated Mode of Locomotion: Walk Walk 10 feet (QC): 4 Walk 50 ft with 2 Turns(QC): 4 Walk 150 ft (QC): 4 Distance: 150' Gait Assistive Device: FWW Comments/Gait Description to assist with decreasing weight bearing right foot with CAM boot in place Balance Sitting Static: Normal Sitting Dynamic: Normal Standing Static: Normal Standing Dynamic: Normal Assessment/Needs PT will see patient x 2 sessions to ensure patient is safe with mobility and donning CAM boot. Patient has crutches, however, FWW would be more safe with mobility. Rehab Potential: Fair PT Short Term Goals Short Term Goals Time Frame: Mar 16, 2022 Roll Left & Right: 6 Sit to lyin Lying to sitting on side of be: 6 Sit to stand: 6 Chair/jif-hy-cptqb transfer: 6 Toilet transfer: 6 Walk 10 feet: 6 Walk 50 feet with two turns: 6 Walk 150 feet: 6 PT Plan Treatment/Plan Treatment Plan: Continue Plan of Care Treatment Plan: Education, Functional Activity Geraldo, Functional Strength, Gait, Safety, Therapeutic Exercise, Transfers Treatment Duration: Mar 16, 2022 Frequency: 2 times per week Estimated Hrs Per Day: .25 hour per day Patient and/or Family Agrees t: Yes Time/GCodes Time In: 1235 Time Out: 1248 Total Billed Treatment Time: 13 Total Billed Treatment 1 visit EVMod 13 min ALISA BRADSHAW PT Mar 14, 2022 13:42
[2022-03-14] MEDS: clonazePAM 0.5 MG (KlonoPIN) TAB PO PRN (20:15)
[2022-03-14] MEDS: MIRTAZAPINE 15 MG (REMERON) TAB PO SCH (20:15)
[2022-03-15] MEDS: methylPREDNISolone 40 MG/ML (Solu-MEDROL) VIAL IV SCH ×3 (01:16→12:22)
[2022-03-15] MEDS: RT-ALBUTEROL/IPRATROPIUM 3 ML (DUONEB) VIAL INH SCH ×3 (02:46→11:14)
[2022-03-15 04:19] VITALS: BP 152/86
[2022-03-15] MEDS: PANTOPRAZOLE 40 MG (PROTONIX) TAB PO SCH (05:40)
[2022-03-15] MEDS: LEVOTHYROXINE 25 MCG (LEVOTHROID) TAB PO SCH (05:41)
--- NOTE | 2022-03-15 06:06 | Progress Note - Hospitalist ---
Subjective HPI/CC On Admission Date Seen by Provider: Mar 15, 2022 Time Seen by Provider: 11:00 Objective Exam Vital Signs Vital Signs Date Time Temp Pulse Resp B/P (MAP) Pulse Ox O2 Delivery O2 Flow Rate FiO2 03/15/22 11:15 97 High Flow N/C 6.00 03/15/22 11:08 36.1 97 18 131/73 (92) 03/12/22 23:05 35 Capillary Refill : Less Than 3 Seconds Results/Procedures Lab Laboratory Tests 03/15/22 05:47 Patient resulted labs reviewed. Assessment/Plan Assessment and Plan Assess & Plan/Chief Complaint Assessment: Acute respiratory failure requiring BiPAP Pleural effusion status postthoracentesis Pneumonia Hypoxia Hypothyroidism Anxiety Plan: Oxygen BiPAP Move to 4th floor Critical Care Critically Ill Patient Clinical Quality Measures AMI/AHF: ASA po Prior to arrival: RAMESH Salazar DO Mar 15, 2022 06:05
[2022-03-15 06:24] LABS: BASOPHILS % (AUTO) 0 % (0-10); EOSINOPHILS # (AUTO) 0.1 10^3/uL (0.0-0.3); EOSINOPHILS % (AUTO) 0 % (0-10); HEMATOCRIT 33 % (35-52); HEMOGLOBIN 9.9 g/dL (11.5-16.0); LYMPHOCYTES # (AUTO) 2.9 10^3/uL (1.0-4.0); LYMPHOCYTES % (AUTO) 18 % (12-44); MEAN CORPUSCULAR HEMOGLOBIN 25 pg (25-34); MEAN CORPUSCULAR HGB CONC 30 g/dL (32-36); MEAN CORPUSCULAR VOLUME 84 fL (80-99); MONOCYTES # (AUTO) 1.1 10^3/uL (0.0-1.0); MONOCYTES % (AUTO) 7 % (0-12); NEUTROPHILS # (AUTO) 10.9 10^3/uL (1.8-7.8); NEUTROPHILS % (AUTO) 70 % (42-75); PLATELET COUNT 541 10^3/uL (130-400); WHITE BLOOD COUNT 15.7 10^3/uL (4.3-11.0)
[2022-03-15] MEDS: HYDROcodone/APAP 5 MG/325 MG (LORTAB) TAB PO PRN ×3 (06:27→12:28)
[2022-03-15] MEDS: fentaNYL INJ 100 MCG/2 ML AMP IV PRN ×2 (06:27→08:35)
[2022-03-15 06:28] LABS: ALBUMIN 3.3 GM/DL (3.2-4.5); POTASSIUM 4.4 MMOL/L (3.6-5.0)
[2022-03-15 06:29] LABS: CALCIUM 9.1 MG/DL (8.5-10.1)
[2022-03-15 06:31] LABS: TOTAL PROTEIN 6.4 GM/DL (6.4-8.2)
[2022-03-15 06:32] LABS: BILIRUBIN,TOTAL 0.3 MG/DL (0.1-1.0)
[2022-03-15 06:34] LABS: CREATININE SERUM 0.67 MG/DL (0.60-1.30)
[2022-03-15 06:37] LABS: MAGNESIUM 2.3 MG/DL (1.6-2.4)
[2022-03-15] MEDS: RT--FLUTICASONE/SALMETEROL 232-14 (AIRDUO RespiCLICK) IH SCH (07:17)
[2022-03-15 07:52] VITALS: BP 127/71
[2022-03-15] MEDS: ROSUVASTATIN 20 MG (CRESTOR) TABLET PO SCH (08:32)
[2022-03-15] MEDS: VENlafaxine 75 MG (EFFEXOR) TAB PO SCH ×2 (08:32→12:22)
[2022-03-15] MEDS: QUEtiapine 200 MG (SEROquel) TAB IMMEDIATE RELEASE PO SCH ×2 (08:32→12:28)
--- NOTE | 2022-03-15 09:54 | Physical Therapy Daily Note ---
PT Daily Note-Current Subjective Patient agrees to PT. Mental Status Patient Orientation: Normal For Age Attachments: Chest Tube, Oxygen (6L HF) Transfers SCALE: Activities may be completed with or without assistive devices. 1-Lwoyduxqzp-ouedody completes the activity by him/herself with no assistance from a helper. 5-Set-up or Clean-up Assistance-helper sets up or cleans up; patient completes activity. [place] assists only prior to or following the activity. 4-Supervision or Touching Assistance-helper provides verbal cues and/or touching/steadying and/or contact guard assistance as patient completes activity. Assistance may be provided throughout the activity or intermittently. 3-Partial/Moderate Assistance-helper does LESS THAN HALF the effort. [place] lifts, holds or supports trunk or limbs, but provides less than half the effort. 2-Substantial/Maximal Assistance-helper does MORE THAN HALF the effort. [place] lifts or holds trunk or limbs and provides more than half the effort. 7-Kwyyhrgns-ssuhtb does ALL the effort. Patient does none of the effort to complete the activity. Or, the assistance of 2 or more helpers is required for the patient to complete the activity. If activity was not attempted, code reason: 7-Patient Refused. 9-Not Applicable-not attempted and the patient did not perform the activity before the current illness, exacerbation or injury. 10-Not Attempted due to Environmental Limitations-(lack of equipment, weather restraints, etc.). 88-Not Attempted due to Medical Conditions or Safety Concerns. Lying to Sitting/Side of Bed(Q: 6 Sit to Stand (QC): 6 Chair/Kvz-us-Tzrki Xfer(QC): 6 Weight Bearing unable to find weight bearing status right foot, however, patient reports she has been walking on it Gait Training Distance: 200' Walk 10 feet (QC): 6 Walk 50 ft with 2 Turns(QC): 6 Walk 150 ft (QC): 6 Gait Assistive Device: FWW patient dons CAM boot with set up/safe and functional gait sequence. Assessment Patient to continue getting up with nursing PRN. Patient is currently at independent PLOF with all gross motor skills. PT to dismiss patient at this time from services. PT Short Term Goals Short Term Goals Time Frame: Mar 16, 2022 Roll Left & Right: 6 Sit to lyin Lying to sitting on side of be: 6 Sit to stand: 6 Chair/pmp-fm-wcdvy transfer: 6 Toilet transfer: 6 Walk 10 feet: 6 Walk 50 feet with two turns: 6 Walk 150 feet: 6 PT Plan Treatment/Plan Treatment Plan: Continue Plan of Care Treatment Plan: Education, Functional Activity Geraldo, Functional Strength, Gait, Safety, Therapeutic Exercise, Transfers Treatment Duration: Mar 16, 2022 Frequency: 2 times per week Estimated Hrs Per Day: .25 hour per day Patient and/or Family Agrees t: Yes Time/GCodes Time In: 900 Time Out: 914 Total Billed Treatment Time: 14 Total Billed Treatment 1 visit FA 14 min ALISA BRADSHAW PT Mar 15, 2022 09:54
[2022-03-15 11:08] VITALS: BP 131/73
[2022-03-15] MEDS ORDERED: APIX2.5T PO (11:43)
[2022-03-15] MEDS ORDERED: ACHD5005 PO (11:43)
[2022-03-15] MEDS ORDERED: PRED10TA22 PO (11:43)
--- NOTE | 2022-03-15 11:44 | D/C HH Face to Face Order ---
D/C HH Face to Face Orders Reconcile Patient Problems Problems Reviewed?: Yes Instructions for Patient HH Patient Instructions/FollowUp: PCP 1 week Ortho referral needed Physician to follow Patient: [facility] Discharge Diet for Home: No Restrictions Patient Problems: Right sided pleural effusion Patient Data-Allergies,Ht & Wt Patient Allergies: Coded Allergies: morphine (Unverified Adverse Reaction, Unknown, 06/21/20) Home Health Need/Face to Face Date of Face to Face: Mar 15, 2022 Clinical Findings: Generalized weakness and fatigue, Instability, Muscle weakness, Pain with ambulation, Shortness of breath I have seen Pt [id number]: Yes Discharged To: Home Diagnosis/Conditions: Dyspnea Patient is Homebound due to: [place] fall risk due to instabilty, Muscle weakness, Non-weight bearing Homebound Status Due to the above stated illness, injury or surgical procedure (medical condition or diagnosis) and associated clinical findings, the patient is homebound because of his/her inability to leave home except with aid of a supportive device and/or person AND leaving the home requires a considerable and taxing effort or is medically contraindicated. Pt req the following assistanc: Walker Home Health Nursing Orders Home Health Services Order: Nursing Services, Primary School Teacher Librarian-Evaluate & Treat, Physical Therapy-Evaluate & Treat Home Health Infusion Therapy Line Start Date: Mar 07, 2022 Certify Stmt I certify that this patient is under my care and that I, a nurse practitioner or a physician; a assistant oceanographer working with me, had a face to face encounter that - meets the physician face to face encounter requirements with this patient as dated. RAMESH ARAMBULA DO Mar 15, 2022 11:44
--- NOTE | 2022-03-15 11:45 | Discharge Summary ---
Discharge Summary Hospital Course Was the Problem List Reviewed?: Yes Problems/Dx: (1) Acute and chronic respiratory failure ([id number]-[id number]) Status: Acute Qualifiers: Qualified Codes: J96.21 - Acute and chronic respiratory failure with hypoxia; J96.22 - Acute and chronic respiratory failure with hypercapnia (2) Sepsis due to pneumonia Status: Acute (3) Anxiety Status: Chronic (4) Bipolar disorder Status: Chronic (5) Depression Status: Chronic (6) Hypothyroidism Status: Chronic (7) Pleural effusion Status: Acute (8) Metatarsal fracture Status: Acute Qualifiers: (9) DVT prophylaxis Status: Acute (10) Elevated d-dimer Status: Acute (11) COPD (chronic obstructive pulmonary disease) Status: Chronic Hospital Course Date of Admission: Mar 07, 2022 at 18:35 Admission Diagnosis : Family Physician/Provider: iNck Arzola MD Date of Discharge: 03/15/22 Discharge Diagnosis: [ ] Hospital Course: Pt had a lengthy hospital course for 9 days after she was admitted for sepsis and pneumonia. She was found to have right sided pleural effusion status post thoracentesis by Dr. Taveras. Then required CT and had a pleural drain placed by Dr. Medellin with good results. That remained in place and will be taken out as an outpatient. Home oxygen evaluation completed. Eliquis 2.5 mg BID was initiated for DVT prophylaxis due to right foot fracture in a boot. Home health and a walker ordered. Labs and Pending Lab Test: Laboratory Tests 03/15/22 05:47: White Blood Count 15.7H, Red Blood Count 3.96, Hemoglobin 9.9L, Hematocrit 33L, Mean Corpuscular Volume 84, Mean Corpuscular Hemoglobin 25, Mean Corpuscular Hemoglobin Concent 30L, Red Cell Distribution Width 16.4H, Platelet Count 541H, Mean Platelet Volume 9.0, Immature Granulocyte % (Auto) 5, Neutrophils (%) (Auto) 70, Lymphocytes (%) (Auto) 18, Monocytes (%) (Auto) 7, Eosinophils (%) (Auto) 0, Basophils (%) (Auto) 0, Neutrophils # (Auto) 10.9H, Lymphocytes # (Auto) 2.9, Monocytes # (Auto) 1.1H, Eosinophils # (Auto) 0.1, Basophils # (Auto) 0.0, Immature Granulocyte # (Auto) 0.7H, Sodium Level 142, Potassium Level 4.4, Chloride Level 98, Carbon Dioxide Level 32, Anion Gap 12, Blood Urea Nitrogen 16, Creatinine 0.67, Estimat Glomerular Filtration Rate 100, BUN/Creatinine Ratio 24, Glucose Level 92, Calcium Level 9.1, Corrected Calcium 9.7, Magnesium Level 2.3, Total Bilirubin 0.3, Aspartate Amino Transf (AST/SGOT) 16, Alanine Aminotransferase (ALT/SGPT) 27, Alkaline Phosphatase 78, Total Protein 6.4, Albumin 3.3 Microbiology 03/08/22 Gram Stain - Final, Complete 03/08/22 Body Fluid Culture - Final, Complete No growth 03/07/22 Blood Culture - Final, Complete No growth Home Meds Active Prednisone 10 Mg Tab.ds.pk 10 Mg PO DAILY Take 6 tabs(60mg)daily,decrease by 1 tab(10MG)daily. HYDROcodone/APAP 5 MG/325 MG TAB (Acetaminophen/Hydrocodone Bitart) 1 Tab Tab 1 Ea PO Q4H PRN Eliquis (Apixaban) 2.5 Mg Tablet 2.5 Mg PO BID Hydrocodone-Acetamin 5-325 mg (Hydrocodone/Acetaminophen) 5 Mg-325 Mg Tablet 1 Tab PO Q4H PRN Reported Quetiapine Fumarate 300 Mg Tablet 300 Mg PO HS Quetiapine Fumarate 200 Mg Tablet 200 Mg PO 0800,1300 Venlafaxine HCl 75 Mg Tab 75 Mg PO TID Fluticasone-Salmeterol 500-50 (Fluticasone Propion/Salmeterol) 500 Mcg-50 Mcg/Dose Blst.w.dev 1 Each IH BID Clonazepam 0.5 Mg Tablet 0.5 Mg PO BID PRN Nitroglycerin 0.4 Mg Tab.subl 0.4 Mg SL UD PRN Rosuvastatin Calcium 20 Mg Tablet 20 Mg PO DAILY Celecoxib 200 Mg Capsule 400 Mg PO DAILY Eszopiclone 3 Mg Tablet 3 Mg PO HS Mirtazapine 45 Mg Tablet 45 Mg PO HS Proair Hfa (Albuterol Sulfate) 1 Puff Puff 2 Puff IH Q4H PRN 1 PUFF = 90 MCG Protonix (Pantoprazole Sodium) 40 Mg Tablet.dr 40 Mg PO BID Levothyroxine Sodium 25 Mcg Tablet 25 Mcg PO DAILY Lasix (Furosemide) 20 Mg Tablet 20 Mg PO DAILY PRN Assessment/Pt Instructions pcp 1 week Discharge Planning: <30 minutes discharge planning Discharge Instructions Discharge Diet: No Restrictions Discharge Physical Examination Vital Signs Vital Signs Date Time Temp Pulse Resp B/P (MAP) Pulse Ox O2 Delivery O2 Flow Rate FiO2 03/15/22 11:15 97 High Flow N/C 6.00 03/15/22 11:08 36.1 97 18 131/73 (92) 03/12/22 23:05 35 General Appearance: No Apparent Distress, WD/WN, Chronically ill Respiratory: Lungs Clear, Normal Breath Sounds Allergies: Coded Allergies: morphine (Unverified Adverse Reaction, Unknown, 06/21/20) Discharge Summary Date of Admission Mar 07, 2022 at 18:35 Date of Discharge Discharge Date: Mar 15, 2022 Discharge Diagnosis Assessment: Acute respiratory failure requiring BiPAP Pleural effusion status postthoracentesis Pneumonia Hypoxia Hypothyroidism Anxiety Plan: Oxygen BiPAP Move to 4th floor Clinical Quality Measures AMI/AHF: ASA po Prior to arrival: RAMESH Salazar DO Mar 15, 2022 11:45
[2022-03-15] MEDS: ENOXAPARIN 40 MG/0.4 ML (LOVENOX) SYR SC SCH (12:22)
--- NOTE | 2022-03-15 13:02 | Occupational Ther Daily Note ---
OT Current Status-Daily Note Subjective Pt alert, sitting up in recliner. Pt packing personal items to discharge to home today. Pt had questions about FWW for home and taking out drain. Explained that was SW and nrsg questions. Did find SW and relayed question. Mental Status/Objective Patient Orientation: Person, Place, Time, Situation ADL-Treatment Therapy Code Descriptions/Definitions Functional [place] Measure: 0=Not Assessed/NA 4=Minimal Assistance 1=Total Assistance 5=Supervision or Setup 2=Maximal Assistance 6=Modified [place] 3=Moderate Assistance 7=Complete IndependenceSCALE: Activities may be completed with or without assistive devices. 5-Ysbhujaefl-ihqcyhs completes the activity by him/herself with no assistance from a helper. 5-Set-up or Clean-up Assistance-helper sets up or cleans up; patient completes activity. [place] assists only prior to or following the activity. 4-Supervision or Touching Assistance-helper provides verbal cues and/or touching/steadying and/or contact guard assistance as patient completes activity. Assistance may be provided throughout the activity or intermittently. 3-Partial/Moderate Assistance-helper does LESS THAN HALF the effort. [place] lifts, holds or supports trunk or limbs, but provides less than half the effort. 2-Substantial/Maximal Assistance-helper does MORE THAN HALF the effort. [place] lifts or holds trunk or limbs and provides more than half the effort. 4-Isluoesai-yxzmvl does ALL the effort. Patient does none of the effort to complete the activity. Or, the assistance of 2 or more helpers is required for the patient to complete the activity. If activity was not attempted, code reason: 7-Patient Refused. 9-Not Applicable-not attempted and the patient did not perform the activity before the current illness, exacerbation or injury. 10-Not Attempted due to Environmental Limitations-(lack of equipment, weather restraints, etc.). 88-Not Attempted due to Medical Conditions or Safety Concerns. Eating (QC): 6 Other Treatment Pt up ad renetta in room using FWW. Pt able to complete all dressing independently. Educated pt on covering cam boot for bathing and how to step into tub/shower safely. Pt verbalized understanding. After session, pt sitting in recliner with call light/phone in reach. All needs met. OT Bleach Plant Operator Goals Long-Term Goals Toileting Hygiene (QC): 6 (met) Upper Body Dressing (QC): 5 (met) Lower Body Dressing (QC): 5 (met) On/Off Footwear (QC): 4 (met) 1=Demonstrate adherence to instructed precautions during ADL tasks. 2=Patient will verbalize/demonstrate understanding of assistive devices/modifications for ADL. 3=Patient will improve strength/tolerance for activity to enable patient to perform ADL's. OT Education/Plan Discharge Recommendations Plan/Recommendations: Discharge/Goals Met (pt discharging to home today) Treatment Plan/Plan of Care Patient would benefit from OT for education, treatment and training to promote independence in ADL's, mobility, safety and/or upper extremity function for ADL's. Plan of Care: ADL Retraining, Functional Mobility, Group Exercise/Act as Ind, Orthotic Fitting/Training, UE Funct Exercise/Act Treatment Duration: Mar 21, 2022 Frequency: 3 times per week (3-5x/week ) Estimated Hrs Per Day: .25 hour per day Agreement: Yes Rehab Potential: Fair Time/GCodes Start Time: 11:30 Stop Time: 11:45 Total Time Billed (hr/min): 15 Billed Treatment Time 1 visit-FA 1 (15 min) NICOLE PATTERSON Mar 15, 2022 13:02
== END 2022-03-15 14:20 | disposition home health service (06) | DRG 871 ==
LOC: EDUNIT# 15:32 → ER FS 15:33 → 4TH 18:35 → ICU 03-08 14:49 → 4TH 03-14 13:30
PROVIDERS: ADMIT Family Medicine; ATTEND Internal Medicine
PROC: 0W993ZZ Drainage of Right Pleural Cavity, Percutaneous Approach (ICD-10-PCS; principal; 2022-03-08)
PROC: 5A0945A Assistance with Respiratory Ventilation, 24-96 Consecutive Hours, High Flow/Velocity Cannula (ICD-10-PCS; 2022-03-08)
PROC: 5A09357 Assistance with Respiratory Ventilation, Less than 24 Consecutive Hours, Continuous Positive Airway Pressure (ICD-10-PCS; 2022-03-09)
DX: A41.9 Sepsis, unspecified organism (principal); J18.9 Pneumonia, unspecified organism; J96.21 Acute and chronic respiratory failure with hypoxia; J96.22 Acute and chronic respiratory failure with hypercapnia; J90 Pleural effusion, not elsewhere classified; E87.2 Acidosis; F41.9 Anxiety disorder, unspecified; F31.9 Bipolar disorder, unspecified; E03.9 Hypothyroidism, unspecified; S92.351A Displaced fracture of fifth metatarsal bone, right foot, initial encounter for closed fracture; Z87.891 Personal history of nicotine dependence; J43.9 Emphysema, unspecified; E78.00 Pure hypercholesterolemia, unspecified; K21.9 Gastro-esophageal reflux disease without esophagitis; M19.90 Unspecified osteoarthritis, unspecified site; G89.29 Other chronic pain; M54.9 Dorsalgia, unspecified
CPT/HCPCS: 36415; 71045; 71250; 71275; 77012; 80053; 80061; 82805; 83605; 83615; 83690; 83735; 83874; 83880; 83986; 84157; 84478; 84484; 85007; 85025; 85027; 85379; 85610; 85730; 86141; 87040; 87070; 87205; 89051; 93005; 93041; 94640; 94660; 94664; 94760; 94761; 96374; 96375

== ENCOUNTER → 2022-03-25 | Outpatient (CLI) | payer MEDICAID ==
[~2022-03-25] MED LIST changes: +APIX2.5T PO; +CELE-63 PO; +CLON0.5T4 PO; +ESZO3TAB39 PO; +FLUT1BLS13 IH; +MIRT45TA75 PO; +NITR0.4T42 SL; +PRED10TA22 PO; +QUET200T29 PO; +QUET300T19 PO; +ROSU20TA32 PO
--- NOTE | 2022-03-25 15:01 | Diagnostic Imaging Report ---
INDICATION: Right foot fracture, followup. COMPARISON: Correlation is made with the prior radiographs from 03/05/2022. FINDINGS: Three views of the right foot were obtained. The comminuted fracture of the distal 5th metatarsal is again noted. The overall appearance is similar to the prior exam. The fracture lines remain clearly visible. The remaining metatarsals and phalanges are intact. IMPRESSION: Stable distal 5th metatarsal fracture when compared to the examination from 03/05/2022. Dictated by: Dictated on workstation # [id number]
== END ==
LOC: RAD FS 11:48
PROVIDERS: ATTEND Nurse Practitioner
DX: S92.351D Displaced fracture of fifth metatarsal bone, right foot, subsequent encounter for fracture with routine healing (principal); X58.XXXD Exposure to other specified factors, subsequent encounter
CPT/HCPCS: 73630

== ENCOUNTER 2022-08-01 12:27 | Emergency (ER) | payer MEDICAID ==
[~2022-08-01] VITALS: Ht 154 cm; Wt 75.0 kg
[~2022-08-01 12:27] MED LIST changes: +ALBU8.5H6 IH; -RT-ALBUINH IH
[2022-08-01 12:49] VITALS: BP 116/64
--- NOTE | 2022-08-01 12:51 | ED Cough/URI ---
General Chief Complaint: Cough/Cold/Flu Symptoms Stated Complaint: COUGH; SOB; FALL History of Present Illness Date Seen by Provider: Aug 01, 2022 Time Seen by Provider: 12:45 Initial Comments 61-year-old female is here with complaints of cough, congestion for the past couple of days. Patient has had a history of pneumonia in the past and is concerned she might have pneumonia and wants to make sure she does not have it. Patient went to her PCP office and was told to come here for an x-ray due to a fall she had 2 days ago. Patient states that her coccyx is hurting after she fell and landed on her buttocks, while moving furniture and boxes around. Patient is able to ambulate without difficulty and does not appear to be in any distress in the ER. Denies radiation of pain, fever, nausea and vomiting, diarrhea, abdominal pain, sick contacts. Patient stated that she did not feel feverish and also did not have a thermometer to take her temperature. Allergies and Home Medications Allergies Coded Allergies: morphine (Unverified Adverse Reaction, Unknown, 06/21/20) Patient Home Medication List Home Medication List Reviewed: Yes Albuterol Sulfate (Ventolin Hfa) 1 Puff Puff, 2 PUFF IH Q4H PRN for SHORTNESS OF BREATH, (Reported) Entered as Reported by: ABRAHAN MUNOZ on 09/13/19 1048 Apixaban (Eliquis) 2.5 Mg Tablet, 2.5 MG PO BID Prescribed by: RAMESH ARAMBULA on 03/15/22 1143 Celecoxib (Celecoxib) 200 Mg Capsule, 400 MG PO DAILY, (Reported) Entered as Reported by: DARRIAN INMAN on 03/08/22 1155 Clonazepam (Clonazepam) 0.5 Mg Tablet, 0.5 MG PO BID PRN for ANXIETY, (Reported) Entered as Reported by: DARRIAN INMAN on 03/08/22 1155 Eszopiclone (Eszopiclone) 3 Mg Tablet, 3 MG PO HS, (Reported) Entered as Reported by: DARRIAN INMAN on 03/08/22 1155 Fluticasone Propion/Salmeterol (Fluticasone-Salmeterol 500-50) 500 Mcg-50 Mcg/Dose Blst.w.dev, 1 EACH IH BID, (Reported) Entered as Reported by: DARRIAN INMAN on 03/08/22 1156 Furosemide (Lasix) 20 Mg Tablet, 20 MG PO DAILY PRN for SWELLING, (Reported) Entered as Reported by: DARRIAN INMAN on 09/07/19 0834 Hydrocodone Bit/Acetaminophen (HYDROcodone/APAP 5 MG/325 MG TAB) 1 Tab Tab, 1 EA PO Q4H PRN for PAIN-MODERATE (5-7) Prescribed by: RAMESH ARAMBULA on 03/15/22 1143 Levothyroxine Sodium (Levothyroxine Sodium) 25 Mcg Tablet, 25 MCG PO DAILY, (Reported) Entered as Reported by: DARRIAN INMAN on 09/07/19 0834 Mirtazapine (Mirtazapine) 45 Mg Tablet, 45 MG PO HS, (Reported) Entered as Reported by: DARRIAN INMAN on 03/08/22 1155 Nitroglycerin (Nitroglycerin) 0.4 Mg Tab.subl, 0.4 MG SL UD PRN for CHEST PAIN (ANGINA), (Reported) Entered as Reported by: DARRIAN INMAN on 03/08/22 1155 Pantoprazole Sodium (Protonix) 40 Mg Tablet.dr, 40 MG PO BID, (Reported) Entered as Reported by: ABRAHAN MUNOZ on 09/13/19 1048 Prednisone (Prednisone) 10 Mg Tab.ds.pk, 10 MG PO DAILY Prescribed by: RAMESH ARAMBULA on 03/15/22 1143 Quetiapine Fumarate (Quetiapine Fumarate) 200 Mg Tablet, 200 MG PO 0800,1300, (Reported) Entered as Reported by: DARRIAN INMAN on 03/08/22 1207 Quetiapine Fumarate (Quetiapine Fumarate) 300 Mg Tablet, 300 MG PO HS, (Reported) Entered as Reported by: LARRY LUI on 03/08/22 1528 Rosuvastatin Calcium (Rosuvastatin Calcium) 20 Mg Tablet, 20 MG PO DAILY, (Reported) Entered as Reported by: DARRIAN INMAN on 03/08/22 1155 Venlafaxine HCl (Venlafaxine HCl) 75 Mg Tab, 75 MG PO TID, (Reported) Entered as Reported by: DARRIAN INMAN on 03/08/22 1156 Review of Systems Review of Systems Constitutional: no symptoms reported EENTM: nose congestion Respiratory: cough, phlegm Cardiovascular: no symptoms reported Gastrointestinal: no symptoms reported Genitourinary: no symptoms reported Musculoskeletal: back pain Skin: no symptoms reported Psychiatric/Neurological: No Symptoms Reported Hematologic/Lymphatic: No Symptoms Reported Immunological/Allergic: no symptoms reported Past Mcmekpx-Difocm-Bxfyjz Hx Patient Social History Tobacco Use?: No Smoking Status: Former Smoker Use of E-Cig and/or Vaping dev: No Substance use?: No Alcohol Use?: No Immunizations Up To Date Tetanus Booster (TDap): Unknown First/Initial COVID19 Vaccinat: Not currently vaccinated Second COVID19 Vaccination Craig: Not currently vaccinated Third COVID19 Vaccination Date: Not currently vaccinated Seasonal Allergies Seasonal Allergies: Yes Past Medical History Surgery/Hospitalization HX: Hernia; Tubal ligation; Depression; Anxiety; GERD; High Cholesterol; Restless leg syndrome; Bipolar disorder; Hypothyroidism. Surgeries: Yes (tubal , hernia, bilat carpal tunnel, FOOT) Gallbladder Respiratory: Yes (O2 @ HS 2.5L) Pneumonia, COPD, Emphysema Currently Using CPAP: No Currently Using BIPAP: No Cardiac: Yes High Cholesterol Neurological: No (recent short term memory loss ( 10/08/19 )) Sexually Transmitted Disease: No HIV/AIDS: No Genitourinary: No Gastrointestinal: Yes (gastritis) Gastroesophageal Reflux, Chronic Constipation, Chronic Diarrhea, Polyps Musculoskeletal: Yes Arthritis, Chronic Back Pain Endocrine: Yes Hypothyroidsim HEENT: Yes (GLASSES, DENTURES) Loss of Vision: Denies Hearing Impairment: Denies Cancer: No Psychosocial: Yes Anxiety, Bipolar, Depression Integumentary: No Blood Disorders: No Adverse Reaction/Blood Tranf: No (N/A) Family Medical History Bipolar disorder G8 BROTHER G8 SISTER Hypertension 19 MOTHER, Neoplasm 19 MOTHER, (bladder cancer) Cancer, Hypertension Physical Exam Vital Signs - First Documented 08/01/22 12:49 Temp 36.1 Pulse 92 Resp 16 B/P (MAP) 116/64 (81) Pulse Ox 94 O2 Delivery Room Air Capillary Refill : Height: '" Weight: lbs. oz. kg; 32.17 BMI Method: General Appearance: WD/WN, no apparent distress, obese HEENT: PERRL/EOMI, pharynx normal Neck: non-tender, full range of motion, supple Respiratory: chest non-tender, no respiratory distress, no accessory muscle use, rhonchi Cardiovascular: regular rate, rhythm, no edema Gastrointestinal: non tender, soft Extremities: normal range of motion Neurologic/Psychiatric: textile broker II-XII nml as tested, no motor/sensory deficits, alert, normal mood/affect, oriented x 3, other (tenderness on palpation of coccyx) Skin: normal color Progress/Results/Core Measures Suspected Sepsis SIRS Temperature: Pulse: Respiratory Rate: Blood Pressure / Mean: Results/Orders Lab Results Laboratory Tests Test 08/01/22 12:51 Range/Units Influenza Type A (RT-PCR) Not Detected Not Detecte Influenza Type B (RT-PCR) Not Detected Not Detecte SARS-CoV-2 RNA (RT-PCR) Not Detected Not Detecte Group A Streptococcus Screen NEGATIVE NEGATIVE My Orders Orders - IVETH MARTINEZ MD Covid 19 Inhouse Test (08/01/22 12:46) Influenza A And B By Pcr (08/01/22 12:46) Isolation Central Supply Req (08/01/22 12:46) Rapid Strep A Screen (08/01/22 12:46) Chest 1 View Ap/Pa Only (08/01/22 13:08) Sacrum & Coccyx (08/01/22 13:12) Vital Signs/I&O 08/01/22 12:49 Temp 36.1 Pulse 92 Resp 16 B/P (MAP) 116/64 (81) Pulse Ox 94 O2 Delivery Room Air Capillary Refill : Progress Note : Progress Note 1. RIGHT SIDED CAP: - CXR: consolidation of right lobe - Rapid strep/ COVID test/ Rapid Flu test: negative - Augmentin 875mg bid for 7 days -Follow-up with PCP within the next 7 days for follow-up - Advised pulmonology follow up as pt has PNA every year -The patient was seen in the ED, and treated appropriately to presentation at a specific point in time. Patient is informed that there is a possibility that disease and illness can evolve and change in acuity rapidly or slowly after patient is discharged from the ER. Precautionary advice given to the patient for immediate return to ER if symptoms worsen or do not resolve, and to seek emergency care sooner rather than later. Pt also advised on the importance of PCP follow up and compliance with management and follow up plan with PCP and/or specialist, as this is part of the management plan. Pt verbally expressed understanding. -2. COCCYXALGIA: - XR SACRUM/ COCCYX: normal - Ibuprofen prn pain Diagnostic Imaging Diagonstic Imaging: Xray Plain Films/CT/US/NM/MRI: chest, other Comments [facility] [place] [place] NAME: DANIELLE STONE [facility] REC#: [id number] PT STATUS: REG ER : 1960 PHYSICIAN: IVETH MARTINEZ MD ADMIT DATE: 08/01/22/ER FS Draft Date of Exam:08/01/22 SACRUM & COCCYX SACRUM COCCYX INDICATION: Coccygeal pain after fall. COMPARISON: None available. TECHNIQUE: 3 views of the sacrum and coccyx FINDINGS: No displaced fracture within the sacrum or coccyx. SI joints normal alignment. No disruption of the sacral arcuate lines. IMPRESSION: No displaced fracture in the sacrum or coccyx. Dictated on workstation # [id number] Dict: 08/01/22 1349 Trans: 08/01/22 1357 [id number] Interpreted by: JOAQUIM MIMS MD Electronically signed by: [facility] [place] [place] NAME: DANIELLE STONE [facility] REC#: [id number] PT STATUS: REG ER : 1960 PHYSICIAN: IVETH MARTINEZ MD ADMIT DATE: 08/01/22/ER FS Draft Date of Exam:08/01/22 CHEST 1 VIEW AP/PA ONLY CHEST 1 VIEW AP/PA ONLY Indication: Upper respiratory tract infection Comparison: 02/15/2022 Findings: Heterogeneous consolidations are present throughout the right lung. No pleural effusion or pneumothorax. Normal heart size. Impression: 1. Multifocal consolidations throughout the right lung may be due to pneumonia superimposed on chronic scar. Dictated on workstation # [id number] Dict: 08/01/22 1348 Trans: 08/01/22 1350 [facility] [id number] Interpreted by: JOAQUIM MIMS MD Electronically signed by: Departure Impression Primary Impression: CAP (community acquired pneumonia) Qualified Codes: J18.9 - Pneumonia, unspecified organism Additional Impression: Coccygalgia Disposition: 01 HOME, SELF-CARE Condition: Stable Departure-Patient Inst. Referrals: BENNY PIERCE MD (PCP) Primary Care Physician Patient Instructions: Coccyx Injury (DC), Community-Acquired Pneumonia, Adult (DC) Add. Discharge Instructions: - Augmentin 875mg bid for 7 days -Follow-up with PCP within the next 7 days for follow-up - Advised pulmonology follow up as pt has PNA every year - Ibuprofen 600mg Q6H prn pain/ ice All discharge instructions reviewed with patient and/or family. Voiced understanding. Scripts Amoxicillin/Potassium Clav (Amox Tr-K Clv 875-125 mg Tab) 875 Mg-125 Mg Tablet 1 EACH PO BID for 7 Days, #14 TAB Prov: IVETH MARTINEZ MD 08/01/22 IVETH MARTINEZ MD Aug 01, 2022 12:51
[2022-08-01] MEDS ORDERED: NS IV 1000 ML 1,000 ML IV SCH (13:45)
--- NOTE | 2022-08-01 13:50 | Diagnostic Imaging Report ---
CHEST 1 VIEW AP/PA ONLY Indication: Upper respiratory tract infection Comparison: 02/15/2022 Findings: Heterogeneous consolidations are present throughout the right lung. No pleural effusion or pneumothorax. Normal heart size. Impression: 1. Multifocal consolidations throughout the right lung may be due to pneumonia superimposed on chronic scar. Dictated by: Dictated on workstation # [id number]
--- NOTE | 2022-08-01 13:52 | Diagnostic Imaging Report ---
SACRUM COCCYX INDICATION: Coccygeal pain after fall. COMPARISON: None available. TECHNIQUE: 3 views of the sacrum and coccyx FINDINGS: No displaced fracture within the sacrum or coccyx. SI joints normal alignment. No disruption of the sacral arcuate lines. IMPRESSION: No displaced fracture in the sacrum or coccyx. Dictated by: Dictated on workstation # [id number]
[2022-08-01] MEDS ORDERED: PROCHLORPERAZINE 10 MG/2ML INJ (COMPAZINE) IV ONE (14:00)
[2022-08-01] MEDS ORDERED: KETOROLAC 15 MG/ML VIAL IVP ONE (14:00)
[2022-08-01] MEDS ORDERED: AMOX1TAB12 PO (14:22)
== END 2022-08-01 14:33 | disposition home or self-care (01) ==
LOC: EDUNIT# 12:27 → ER FS 12:29
DX: J18.9 Pneumonia, unspecified organism (principal); M53.3 Sacrococcygeal disorders, not elsewhere classified; E66.9 Obesity, unspecified; Z87.891 Personal history of nicotine dependence; Z68.32 Body mass index [BMI] 32.0-32.9, adult; Z20.822 Contact with and (suspected) exposure to COVID-19; Z28.310 Unvaccinated for COVID-19; W08.XXXA Fall from other furniture, initial encounter
CPT/HCPCS: 71045; 72220; 87430; 87636

== ENCOUNTER → 2022-10-17 | Outpatient (CLI) | payer MEDICAID | LOC: ORTHO 14:20 | PROVIDERS: ATTEND Orthopaedic Surgery | DX: G56.01 Carpal tunnel syndrome, right upper limb (principal) | CPT/HCPCS: 99213 ==